=== PATIENT | male | born 1960 | race African-American/Black ===

== ENCOUNTER 2016-09-12 20:47 | Emergency (ER) | payer MEDICAID ==
[~2016-09-12] VITALS: Ht 180.3 cm; Wt 99.8 kg
[~2016-09-12 20:47] MED LIST: INSUINJ37 SUBCUT; INSUPOW XX; LORA-352 PO; MIRT15TA3 PO; OMEP20CA5 PO; ONGLYZA PO; PAR20T PO; ZIPR80CA8 PO
[2016-09-12 20:50] VITALS: BP 112/56
[2016-09-12 23:06] LABS: DEFINITIVE VIEW TRANSMISSION; Hemoglobin 17.2 g/dL (13.5-17.5); Monocytes # (auto) 0.5 uL
[2016-09-12 23:18] LABS: Albumin 4.1 g/dL (3.4-5.0); Anion Gap 13 (5-15); Aspartate Aminotransferase 46 U/L (15-37); BUN/Creatinine Ratio 10.9; Blood Urea Nitrogen 13 mg/dL (7-18); Calcium 8.7 mg/dL (8.5-10.1); Carbon Dioxide 19 mmol/L (21-32); Chloride 112 mmol/L (98-107); GFR African American 82 mL/min; GFR Non-African American 67 mL/min; Glucose 120 mg/dL (74-106); Potassium 4.4 mmol/L (3.5-5.1); Sodium 144 mmol/L (136-145)
[2016-09-12 23:21] LABS: Alkaline Phosphatase 92 U/L (45-117); Bilirubin, Total 0.3 mg/dL (0.2-1.0); Total Protein 8.6 g/dL (6.4-8.2)
[2016-09-12 23:28] LABS: Basophils # (auto) 0 uL; Basophils % (auto) 0.3 % (0.0-2.0); Eosinophils # (auto) 0 uL; Eosinophils % (auto) 0.4 % (0.0-7.0); Lymphocytes # (auto) 4.5 uL; Lymphocytes % (auto) 37.7 % (10.0-50.0); Mean Corpuscular Hgb Conc. 32.5 g/dL (32.0-36.0); Mean Corpuscular Volume 85.3 fL (80.0-100.0); Monocytes % (auto) 4.5 % (0.0-12.0); Neutrophils # (auto) 6.8 uL; Neutrophils % (auto) 57.1 % (37.0-80.0); Red Cell Distribution Width 13.5 % (11.6-16.0)
[2016-09-12 23:29] LABS: Hematocrit 52.4 % (41.0-53.0); Mean Corpuscular Hemoglobin 28.1 pg (28.0-32.0); Platelet Count (auto) 280 10^3/uL (140-450); White Blood Cell 11.9 10^3/uL (4.4-10.8)
[2016-09-12 23:44] LABS: Acetaminophen < 2.0 ug/mL (10-30)
== END 2016-09-12 23:44 | disposition left against medical advice (07) ==
LOC: ER 20:50
DX: F10.120 Alcohol abuse with intoxication, uncomplicated (principal); Z53.21 Procedure and treatment not carried out due to patient leaving prior to being seen by health care provider
CPT/HCPCS: 36415; 80053; 80320; 80329; 85025

== ENCOUNTER 2020-06-22 20:55 | Inpatient (IN) | payer MEDICAID ==
[~2020-06-22] VITALS: Ht 165.1 cm; Wt 73.1 kg
[~2020-06-22 20:55] MED LIST changes: -MIRT15TA3 PO; +MIRT1TAB38 PO; -OMEP20CA5 PO; +OMEP20CA74 PO
[2020-06-22] MEDS ORDERED: ACCU-CHEK COMFORT CURVE STRIP VI ONE (21:15)
[2020-06-22] MEDS ORDERED: LORazepam 2MG/ML-1ML VIAL IV ONE (22:00)
[2020-06-22 23:10] LABS: Urine Bacteria NONE SEEN /hpf (None Seen); Urine Blood Negative /uL (Negative); Urine Specific Gravity 1.024 (1.001-1.035); Urine WBC <1 /hpf (0 - 3)
[2020-06-22 23:23] LABS: Basophils # (auto) 0 10 ^3/uL (0-0.2); Basophils % (auto) 0.4 % (0.0-2.0); Eosinophils # (auto) 0.1 10 ^3/uL (0-0.8); Eosinophils % (auto) 0.5 % (0.0-7.0); Hemoglobin 13.9 g/dL (13.5-17.5); Lymphocytes # (auto) 1.4 10 ^3/uL (0.4-5.4); Lymphocytes % (auto) 14.7 % (10.0-50.0); Mean Corpuscular Hemoglobin 29.4 pg (28.0-32.0); Mean Corpuscular Volume 86.3 fL (80.0-100.0); Monocytes # (auto) 0.5 10 ^3/uL (0-1.3); Monocytes % (auto) 4.9 % (0.0-12.0); Neutrophils # (auto) 7.6 10 ^3/uL (1.6-8.6); Neutrophils % (auto) 79.5 % (37.0-80.0); Nucleated Red Blood Cells % 0.3 %; Platelet Count (auto) 246 10^3/uL (140-450); Red Blood Cells 4.75 10^6/uL (4.5-5.90); White Blood Cell 9.6 10^3/uL (4.4-10.8)
[2020-06-22 23:26] LABS: Albumin 4.3 g/dL (3.4-5.0); Blood Urea Nitrogen 21 mg/dL (7-18); Chloride 106 mmol/L (98-107); Potassium 4.5 mmol/L (3.5-5.1); Sodium 136 mmol/L (136-145)
[2020-06-22 23:28] LABS: Alcohol, Urine < 3.0 mg/dL (0-10); Amphetamine Screen, Urine NEGATIVE (NEGATIVE); Barbiturate Scree,Urine NEGATIVE (NEGATIVE); Benzodiazephine Screen, Urine NEGATIVE (NEGATIVE); Cannabinoid Screen, Urine NEGATIVE (NEGATIVE); Cocaine Screen, Urine NEGATIVE (NEGATIVE); Opiate Scree,Urine NEGATIVE (NEGATIVE); Phencyclidine Screen, Urine NEGATIVE (NEGATIVE)
[2020-06-22 23:29] LABS: Alanine Aminotransferase 43 U/L (16-61); Anion Gap 8 (5-15); Aspartate Aminotransferase 17 U/L (15-37); BUN/Creatinine Ratio 14.2; Carbon Dioxide 22 mmol/L (21-32); GFR African American 63 mL/min; GFR Non-African American 52 mL/min
[2020-06-22 23:32] LABS: Alkaline Phosphatase 104 U/L (45-117); Bilirubin, Total 0.4 mg/dL (0.2-1.0); Total Protein 7.5 g/dL (6.4-8.2)
[2020-06-22] MEDS ORDERED: levETIRAcetam 500 MG/5ML INJ IV ONE (23:40)
[2020-06-22 23:57] LABS: Glucose 425 mg/dL (74-106)
[2020-06-23] MEDS ORDERED: InsuLIN REG 1unit/0.01ml Soln (100units/ml) IV ONE (00:45)
[2020-06-23] MEDS ORDERED: HYDROcodone-ACET 5/325MG TAB PO PRN (03:00)
[2020-06-23] MEDS ORDERED: ACETAMINOPHEN 325 MG TAB PO PRN (03:00)
[2020-06-23] MEDS ORDERED: ONDANSETRON HCL 4 MG/2 ML VIAL IV PRN (03:00)
[2020-06-23] MEDS ORDERED: MORPHINE SULF INJ 2 MG/ML SYRINGE 1ML IV PRN (03:00)
[2020-06-23] MEDS ORDERED: DOCUSATE SOD 100 MG CAP PO PRN (03:00)
[2020-06-23] MEDS ORDERED: DEXTROSE (50%) 50ML SYRG IV PRN (03:00)
[2020-06-23] MEDS ORDERED: MORPHINE SULFATE 4 MG/ML SYR/VIAL IV PRN (03:00)
[2020-06-23] MEDS ORDERED: NITROGLYCERIN 0.4 MG SL TAB SL PRN (03:00)
[2020-06-23] MEDS ORDERED: LORazepam 2MG/ML-1ML VIAL IV PRN (03:00)
[2020-06-23] MEDS: SODIUM CHLOR 0.9% PF (SALINE LOCK) 10ML VIAL/SYR IV SCH ×3 (06:06→22:07)
[2020-06-23 06:40] LABS: Basophils # (auto) 0 10 ^3/uL (0-0.2); Basophils % (auto) 0.5 % (0.0-2.0); Eosinophils # (auto) 0.2 10 ^3/uL (0-0.8); Eosinophils % (auto) 2.8 % (0.0-7.0); Hematocrit 43.4 % (41.0-53.0); Hemoglobin 14.3 g/dL (13.5-17.5); Lymphocytes # (auto) 3.4 10 ^3/uL (0.4-5.4); Lymphocytes % (auto) 37.8 % (10.0-50.0); Mean Corpuscular Hemoglobin 28.7 pg (28.0-32.0); Mean Corpuscular Volume 86.9 fL (80.0-100.0); Monocytes # (auto) 0.9 10 ^3/uL (0-1.3); Monocytes % (auto) 10.3 % (0.0-12.0); Neutrophils # (auto) 4.3 10 ^3/uL (1.6-8.6); Neutrophils % (auto) 48.6 % (37.0-80.0); Nucleated Red Blood Cells % 0.1 %; Platelet Count (auto) 305 10^3/uL (140-450); Red Cell Distribution Width 14.1 % (11.8-14.3); White Blood Cell 8.9 10^3/uL (4.4-10.8)
[2020-06-23] MEDS: ACCU-CHEK COMFORT CURVE STRIP VI SCH ×4 (06:48→22:10)
[2020-06-23 06:54] LABS: Calcium 9.8 mg/dL (8.5-10.1); Potassium 3.5 mmol/L (3.5-5.1)
[2020-06-23 06:56] LABS: BUN/Creatinine Ratio 14.9
[2020-06-23] MEDS: INSULIN LANTUS (GLARGINE) 1 /0.01ml (100units/ml) SC SCH ×2 (07:25→22:27)
[2020-06-23] MEDS: InsuLIN REG 1unit/0.01ml Soln (100units/ml) SC SCH ×4 (07:35→22:27)
[2020-06-23] MEDS: HEPARIN SODIUM (PORCINE) 5000 UNITS/ML 1ML VIAL SC SCH ×2 (10:00→22:00)
[2020-06-23] MEDS ORDERED: ENOXAPARIN SOD 40 MG/0.4 ML SYRINGE SC SCH (10:00)
[2020-06-23] MEDS: ASCORBIC ACID 500 MG TAB PO SCH ×2 (10:42→22:10)
[2020-06-23] MEDS: FAMOTIDINE 20 MG TAB PO SCH ×2 (10:42→22:10)
[2020-06-23] MEDS: ZINC SULFATE 220mg CAP or TAB PO SCH (10:42)
[2020-06-23] MEDS: MULTIPLE VITAMIN TAB PO SCH (10:42)
[2020-06-23 10:44] VITALS: BP 124/72
[2020-06-23] MEDS ORDERED: GABA300C10 PO (11:44)
[2020-06-23] MEDS ORDERED: PIO30T PO (11:44)
[2020-06-23] MEDS ORDERED: ASPI-543 PO (11:44)
[2020-06-23] MEDS ORDERED: ATOR20TA PO (11:44)
[2020-06-23] MEDS ORDERED: GLIP10TA9 PO (11:44)
[2020-06-23] MEDS ORDERED: QUET200T4 PO (11:44)
[2020-06-23] MEDS ORDERED: BUPR100T14 PO (11:44)
[2020-06-23 12:41] VITALS: BP 140/91
[2020-06-23 16:08] VITALS: BP 133/69
[2020-06-23] MEDS: glipiZIDE 5 MG TAB PO SCH (16:41)
[2020-06-23 22:00] VITALS: BP 125/67
[2020-06-23] MEDS ORDERED: ZIPRASIDONE HCL 80 MG PO SCH (22:00)
[2020-06-23] MEDS: PIOGLITAZONE HYDROCHLORIDE 30 MG TAB PO SCH (22:00)
[2020-06-23] MEDS: ATORVASTATIN 20 MG TAB PO SCH (22:10)
[2020-06-23] MEDS: GABAPENTIN 300 MG CAP PO SCH (22:10)
[2020-06-23] MEDS: buPROPion HCL 100 MG TAB PO SCH (22:10)
[2020-06-23 22:17] LABS: Cholesterol 118 mg/dL (< 200); Triglycerides 63 mg/dL (< 150)
[2020-06-23 22:19] LABS: HDL Cholesterol 35 mg/dL (40-59); LDL Cholesterol 77 mg/dL (< 100)
[2020-06-23 23:13] LABS: Partial Thromboplastin Time 23.3 sec (23.0-31.2)
[2020-06-24] MEDS: SODIUM CHLOR 0.9% PF (SALINE LOCK) 10ML VIAL/SYR IV SCH ×3 (06:14→22:00)
[2020-06-24 06:18] LABS: Basophils # (auto) 0 10 ^3/uL (0-0.2); Basophils % (auto) 0.3 % (0.0-2.0); Eosinophils # (auto) 0.4 10 ^3/uL (0-0.8); Eosinophils % (auto) 5.1 % (0.0-7.0); Hematocrit 41.4 % (41.0-53.0); Hemoglobin 13.4 g/dL (13.5-17.5); Lymphocytes # (auto) 3.5 10 ^3/uL (0.4-5.4); Lymphocytes % (auto) 44.7 % (10.0-50.0); Mean Corpuscular Hemoglobin 28.5 pg (28.0-32.0); Mean Corpuscular Hgb Conc. 32.4 g/dL (32.0-36.0); Mean Corpuscular Volume 88.1 fL (80.0-100.0); Monocytes # (auto) 0.5 10 ^3/uL (0-1.3); Monocytes % (auto) 6.8 % (0.0-12.0); Neutrophils # (auto) 3.4 10 ^3/uL (1.6-8.6); Neutrophils % (auto) 43.1 % (37.0-80.0); Nucleated Red Blood Cells % 0.3 %; Platelet Count (auto) 285 10^3/uL (140-450); Red Cell Distribution Width 14.2 % (11.8-14.3); White Blood Cell 7.8 10^3/uL (4.4-10.8)
[2020-06-24] MEDS: buPROPion HCL 100 MG TAB PO SCH ×3 (06:26→22:19)
[2020-06-24] MEDS: ACCU-CHEK COMFORT CURVE STRIP VI SCH ×4 (06:26→22:00)
[2020-06-24] MEDS: glipiZIDE 5 MG TAB PO SCH ×2 (06:26→17:18)
[2020-06-24] MEDS: InsuLIN REG 1unit/0.01ml Soln (100units/ml) SC SCH ×4 (06:32→22:00)
[2020-06-24] MEDS: INSULIN LANTUS (GLARGINE) 1 /0.01ml (100units/ml) SC SCH ×2 (06:32→22:00)
[2020-06-24 06:34] LABS: Albumin 3.5 g/dL (3.4-5.0); Calcium 8.6 mg/dL (8.5-10.1); Potassium 3.5 mmol/L (3.5-5.1)
[2020-06-24 06:39] LABS: BUN/Creatinine Ratio 12.1; Bilirubin, Total 0.4 mg/dL (0.2-1.0); Total Protein 6.6 g/dL (6.4-8.2)
[2020-06-24 09:00] VITALS: BP 107/61
[2020-06-24] MEDS: ZINC SULFATE 220mg CAP or TAB PO SCH (10:00)
[2020-06-24] MEDS: ASCORBIC ACID 500 MG TAB PO SCH ×2 (10:00→22:19)
[2020-06-24] MEDS ORDERED: QUETIAPINE FUMERATE 300 MG PO SCH (10:00)
[2020-06-24] MEDS ORDERED: ARIP1TAB7 PO (10:33)
[2020-06-24] MEDS: ASPirin-EC 81 mg tab PO SCH (11:11)
[2020-06-24] MEDS: FAMOTIDINE 20 MG TAB PO SCH ×2 (11:11→22:20)
[2020-06-24] MEDS: GABAPENTIN 300 MG CAP PO SCH ×2 (11:11→22:20)
[2020-06-24] MEDS: MULTIPLE VITAMIN TAB PO SCH (11:12)
[2020-06-24] MEDS: QUETIAPINE FUMERATE 300 MG PO SCH (11:23)
[2020-06-24] MEDS: ZIPRASIDONE HCL 40 MG PO SCH ×2 (11:24→22:20)
[2020-06-24] MEDS: PIOGLITAZONE HYDROCHLORIDE 30 MG TAB PO SCH (11:24)
[2020-06-24] MEDS: HEPARIN SODIUM (PORCINE) 5000 UNITS/ML 1ML VIAL SC SCH ×2 (11:27→22:17)
[2020-06-24 11:39] LABS: Folate (Folic Acid) > 24.00 ng/mL (5.38-24)
[2020-06-24 13:00] VITALS: BP 126/76
[2020-06-24 17:00] VITALS: BP 143/81
[2020-06-24 22:00] VITALS: BP 106/62
[2020-06-24] MEDS: ATORVASTATIN 20 MG TAB PO SCH (22:20)
[2020-06-25 05:00] VITALS: BP 118/73
[2020-06-25] MEDS: buPROPion HCL 100 MG TAB PO SCH ×2 (06:30→14:24)
[2020-06-25] MEDS: SODIUM CHLOR 0.9% PF (SALINE LOCK) 10ML VIAL/SYR IV SCH ×2 (06:30→14:25)
[2020-06-25] MEDS: InsuLIN REG 1unit/0.01ml Soln (100units/ml) SC SCH ×2 (06:31→11:20)
[2020-06-25] MEDS: glipiZIDE 5 MG TAB PO SCH (06:31)
[2020-06-25] MEDS: INSULIN LANTUS (GLARGINE) 1 /0.01ml (100units/ml) SC SCH (06:32)
[2020-06-25] MEDS: ACCU-CHEK COMFORT CURVE STRIP VI SCH ×2 (06:33→11:20)
[2020-06-25 07:12] LABS: Hematocrit 41.6 % (41.0-53.0); Hemoglobin 13.6 g/dL (13.5-17.5); Mean Corpuscular Hemoglobin 28.7 pg (28.0-32.0); Mean Corpuscular Hgb Conc. 32.7 g/dL (32.0-36.0); Platelet Count (auto) 271 10^3/uL (140-450); Red Blood Cells 4.73 10^6/uL (4.5-5.90); White Blood Cell 5.5 10^3/uL (4.4-10.8)
[2020-06-25 07:15] LABS: Basophils % (manual) 0 (0.0-2.0); Blast Cells 0; Metamyelocytes % 0; Myelocytes % 0; Promyelocytes % 0; Reactive Lymphocytes 0
[2020-06-25 07:18] LABS: Potassium 3.8 mmol/L (3.5-5.1)
[2020-06-25 07:23] LABS: BUN/Creatinine Ratio 12.9; Calcium 8.5 mg/dL (8.5-10.1)
[2020-06-25 07:30] VITALS: BP 111/73
[2020-06-25] MEDS ORDERED: LIDOCAINE VISCOUS 2% 15ML UD MT ONE (08:00)
[2020-06-25] MEDS ORDERED: fentaNYL CITRATE 100 MCG/2 ML VL IV ONE (08:00)
[2020-06-25] MEDS ORDERED: MIDAZOLAM HCL 1MG/1ML-2 ML VIAL IV ONE (08:00)
[2020-06-25 08:48] LABS: Band Neutrophils % (manual) 1; Eosinophils % (manual) 12 (0-7); Lymphocytes % (manual) 60 (10.0-50.0); Monocytes % (manual) 5 (0-12)
[2020-06-25 09:54] VITALS: BP 111/73
[2020-06-25] MEDS ORDERED: ARIPIPRAZOLE 20 MG PO SCH (10:00)
[2020-06-25] MEDS: PIOGLITAZONE HYDROCHLORIDE 30 MG TAB PO SCH (11:00)
[2020-06-25] MEDS: ASCORBIC ACID 500 MG TAB PO SCH (11:00)
[2020-06-25] MEDS: MULTIPLE VITAMIN TAB PO SCH (11:00)
[2020-06-25] MEDS: FAMOTIDINE 20 MG TAB PO SCH (11:00)
[2020-06-25] MEDS: ZINC SULFATE 220mg CAP or TAB PO SCH (11:00)
[2020-06-25] MEDS: ASPirin-EC 81 mg tab PO SCH (11:01)
[2020-06-25] MEDS: QUETIAPINE FUMERATE 300 MG PO SCH (11:02)
[2020-06-25] MEDS: ZIPRASIDONE HCL 40 MG PO SCH (11:03)
[2020-06-25] MEDS: HEPARIN SODIUM (PORCINE) 5000 UNITS/ML 1ML VIAL SC SCH (11:06)
[2020-06-25] MEDS ORDERED: LEVE500T32 PO (11:09)
[2020-06-25] MEDS: GABAPENTIN 300 MG CAP PO SCH (11:16)
[2020-06-25 13:15] VITALS: BP 135/76
[2020-06-25 13:24] VITALS: BP 135/76
[2020-06-25 16:40] VITALS: BP 148/90
== END 2020-06-25 16:15 | disposition home or self-care (01) | DRG 53 ==
LOC: EDBD 20:55 → ER 20:58 → TELE 20:59 → TELE-CENTR 06-23 09:49
PROVIDERS: ADMIT Nurse Practitioner Family; ATTEND Internal Medicine
PROC: B24BZZ4 Ultrasonography of Heart with Aorta, Transesophageal (ICD-10-PCS; principal; 2020-06-25)
DX: G40.409 Other generalized epilepsy and epileptic syndromes, not intractable, without status epilepticus (principal); N17.0 Acute kidney failure with tubular necrosis; F20.9 Schizophrenia, unspecified; E11.65 Type 2 diabetes mellitus with hyperglycemia; E11.22 Type 2 diabetes mellitus with diabetic chronic kidney disease; E11.21 Type 2 diabetes mellitus with diabetic nephropathy; E11.40 Type 2 diabetes mellitus with diabetic neuropathy, unspecified; N18.9 Chronic kidney disease, unspecified; J45.909 Unspecified asthma, uncomplicated; F19.10 Other psychoactive substance abuse, uncomplicated; F17.210 Nicotine dependence, cigarettes, uncomplicated; F31.9 Bipolar disorder, unspecified; S00.93XA Contusion of unspecified part of head, initial encounter; D64.9 Anemia, unspecified; W06.XXXA Fall from bed, initial encounter; I12.9 Hypertensive chronic kidney disease with stage 1 through stage 4 chronic kidney disease, or unspecified chronic kidney disease; Y93.89 Activity, other specified; Y92.89 Other specified places as the place of occurrence of the external cause; Z79.4 Long term (current) use of insulin; Z79.82 Long term (current) use of aspirin; Z79.899 Other long term (current) drug therapy; Z83.3 Family history of diabetes mellitus; Z86.73 Personal history of transient ischemic attack (TIA), and cerebral infarction without residual deficits
CPT/HCPCS: 36415; 70450; 71045; 80048; 80053; 80061; 80307; 80320; 81001; 82607; 82746; 82962; 83036; 84443; 85007; 85025; 85027; 85610; 85730; 93005; 93312; 93886; 95819; 96365; 96372; 96375; 99152; A4565; G0378; J1815; J2250; J2405; J7060

== ENCOUNTER 2022-07-11 20:45 | Inpatient (IN) | payer MEDICAID ==
[~2022-07-11] VITALS: Ht 165.1 cm; Wt 60.0 kg
[~2022-07-11 20:45] MED LIST changes: +ARIP1TAB7 PO; +ASPI-543 PO; +ATOR20TA PO; +BUPR-160 PO; +GABA300C10 PO; +GLIP10TA9 PO; +LEVE500T32 PO; -LORA-352 PO; +LORA10TA6 PO; +PIO30T PO; +QUET200T4 PO; +ZIPR80CA37 PO; -ZIPR80CA8 PO
[2022-07-11 22:28] LABS: Basophils # (auto) 0 10 ^3/uL (0-0.2); Basophils % (auto) 0.6 % (0.0-2.0); Eosinophils # (auto) 0.1 10 ^3/uL (0-0.8); Eosinophils % (auto) 1.4 % (0.0-7.0); Hematocrit 40.4 % (41.0-53.0); Hemoglobin 13.3 g/dL (13.5-17.5); Lymphocytes # (auto) 1.3 10 ^3/uL (0.4-5.4); Lymphocytes % (auto) 16.1 % (10.0-50.0); Mean Corpuscular Hemoglobin 28.1 pg (28.0-32.0); Mean Corpuscular Hgb Conc. 32.8 g/dL (32.0-36.0); Mean Corpuscular Volume 85.8 fL (80.0-100.0); Monocytes # (auto) 0.5 10 ^3/uL (0-1.3); Monocytes % (auto) 6.4 % (0.0-12.0); Neutrophils # (auto) 6.1 10 ^3/uL (1.6-8.6); Neutrophils % (auto) 75.5 % (37.0-80.0); Nucleated Red Blood Cells % 0.2 %; Red Blood Cells 4.72 10^6/uL (4.5-5.90); Red Cell Distribution Width 13.9 % (11.8-14.3); White Blood Cell 8.1 10^3/uL (4.4-10.8)
[2022-07-11 22:43] LABS: Albumin 3.6 g/dL (3.4-5.0); Anion Gap 12 (5-15); Blood Alcohol < 3.0 mg/dL (0-5); Blood Urea Nitrogen 16 mg/dL (7-18); Calcium 8.5 mg/dL (8.5-10.1); Carbon Dioxide 18 mmol/L (21-32); Chloride 105 mmol/L (98-107); Sodium 135 mmol/L (136-145)
[2022-07-11 22:45] LABS: Alanine Aminotransferase 30 U/L (16-61); Aspartate Aminotransferase 11 U/L (15-37); Bilirubin, Total 0.2 mg/dL (0.2-1.0); GFR African American 62 mL/min; GFR Non-African American 51 mL/min; Total Protein 6.8 g/dL (6.4-8.2)
[2022-07-11 22:52] LABS: Alkaline Phosphatase 109 U/L (45-117)
[2022-07-11 22:56] LABS: BUN/Creatinine Ratio 10.8; Glucose 800 mg/dL (74-106)
[2022-07-12] MEDS ORDERED: LACTATED RINGER'S 1,800 ML IV ONE (00:15)
[2022-07-12] MEDS ORDERED: InsuLIN REG 1unit/0.01ml Soln (100units/ml) IV ONE (00:15)
[2022-07-12 03:39] LABS: Urine Bacteria NONE SEEN /hpf (None Seen); Urine Blood TRACE /uL (Negative); Urine Specific Gravity 1.025 (1.001-1.035); Urine WBC 1 /hpf (0 - 3)
[2022-07-12 03:52] LABS: Alcohol, Urine < 3.0 mg/dL (0-10); Amphetamine Screen, Urine NEGATIVE (NEGATIVE); Barbiturate Scree,Urine NEGATIVE (NEGATIVE); Benzodiazephine Screen, Urine NEGATIVE (NEGATIVE); Cannabinoid Screen, Urine POSITIVE (NEGATIVE); Cocaine Screen, Urine NEGATIVE (NEGATIVE); Opiate Scree,Urine NEGATIVE (NEGATIVE); Phencyclidine Screen, Urine NEGATIVE (NEGATIVE)
[2022-07-12] MEDS ORDERED: MORPHINE SULFATE INJ 2 MG/ml SYRG IV PRN (05:45)
[2022-07-12] MEDS ORDERED: NITROGLYCERIN 0.4 MG SL TAB SL PRN (05:45)
[2022-07-12] MEDS ORDERED: HYDROcodone-ACET 5/325MG TAB PO PRN (05:45)
[2022-07-12] MEDS ORDERED: DEXTROSE (50%) 50ML SYRG IV PRN (05:45)
[2022-07-12] MEDS ORDERED: SODIUM CHLORIDE 0.9% 1,000 ML IV SCH (05:45)
[2022-07-12] MEDS ORDERED: ONDANSETRON HCL 4 MG/2 ML VIAL IV PRN (05:45)
[2022-07-12] MEDS ORDERED: DOCUSATE SOD 100 MG CAP PO PRN (05:45)
[2022-07-12] MEDS ORDERED: ACETAMINOPHEN 325 MG TAB PO PRN (05:45)
[2022-07-12] MEDS: InsuLIN REG 1unit/0.01ml Soln (100units/ml) SC SCH ×3 (06:00→18:40)
[2022-07-12] MEDS: ACCU-CHEK COMFORT CURVE STRIP VI SCH ×3 (06:00→18:40)
[2022-07-12] MEDS ORDERED: INSULIN LANTUS (GLARGINE) 1 /0.01ml (100units/ml) SC SCH (07:00)
[2022-07-12 07:13] LABS: Basophils # (auto) 0.1 10 ^3/uL (0-0.2); Basophils % (auto) 0.9 % (0.0-2.0); Eosinophils # (auto) 0.1 10 ^3/uL (0-0.8); Eosinophils % (auto) 1.1 % (0.0-7.0); Hematocrit 38.4 % (41.0-53.0); Hemoglobin 12.8 g/dL (13.5-17.5); Lymphocytes # (auto) 2.4 10 ^3/uL (0.4-5.4); Lymphocytes % (auto) 26.3 % (10.0-50.0); Mean Corpuscular Hemoglobin 27.7 pg (28.0-32.0); Mean Corpuscular Hgb Conc. 33.3 g/dL (32.0-36.0); Mean Corpuscular Volume 83.1 fL (80.0-100.0); Monocytes # (auto) 0.5 10 ^3/uL (0-1.3); Monocytes % (auto) 5.2 % (0.0-12.0); Neutrophils # (auto) 6.1 10 ^3/uL (1.6-8.6); Neutrophils % (auto) 66.5 % (37.0-80.0); Nucleated Red Blood Cells % 0.1 %; Red Blood Cells 4.63 10^6/uL (4.5-5.90); Red Cell Distribution Width 13.7 % (11.8-14.3); White Blood Cell 9.2 10^3/uL (4.4-10.8)
[2022-07-12 07:27] LABS: Albumin 3.7 g/dL (3.4-5.0); BUN/Creatinine Ratio 13.6; Calcium 8.9 mg/dL (8.5-10.1); Potassium 3.1 mmol/L (3.5-5.1)
[2022-07-12 07:28] LABS: Bilirubin, Total 0.3 mg/dL (0.2-1.0); Total Protein 6.5 g/dL (6.4-8.2)
[2022-07-12] MEDS ORDERED: FAMOTIDINE (10MG/ML) 2ML VL IV SCH ×2 (10:00)
[2022-07-12] MEDS ORDERED: ASPirin 81 mg TAB PO SCH (10:00)
[2022-07-12] MEDS ORDERED: POTASSIUM CHL 10 Meq TABLET PO ONE (10:15)
[2022-07-12] MEDS ORDERED: PANTOPRAZOLE 40 MG TAB PO ONE (10:15)
[2022-07-12] MEDS ORDERED: DEXTROSE (50%) 50ML SYRG IV ONE (18:45)
[2022-07-13] MEDS: ACCU-CHEK COMFORT CURVE STRIP VI SCH ×2 (00:10→06:43)
[2022-07-13 04:37] LABS: Basophils # (auto) 0.1 10 ^3/uL (0-0.2); Eosinophils # (auto) 0.2 10 ^3/uL (0-0.8); Eosinophils % (auto) 2.2 % (0.0-7.0); Hematocrit 37.5 % (41.0-53.0); Hemoglobin 12.6 g/dL (13.5-17.5); Lymphocytes # (auto) 3.9 10 ^3/uL (0.4-5.4); Lymphocytes % (auto) 46.4 % (10.0-50.0); Mean Corpuscular Hgb Conc. 33.6 g/dL (32.0-36.0); Mean Corpuscular Volume 83.4 fL (80.0-100.0); Monocytes # (auto) 0.6 10 ^3/uL (0-1.3); Monocytes % (auto) 6.8 % (0.0-12.0); Neutrophils # (auto) 3.6 10 ^3/uL (1.6-8.6); Neutrophils % (auto) 43.6 % (37.0-80.0); Nucleated Red Blood Cells % 0.1 %; Red Cell Distribution Width 14.1 % (11.8-14.3); White Blood Cell 8.4 10^3/uL (4.4-10.8)
[2022-07-13 04:55] LABS: Potassium 3.5 mmol/L (3.5-5.1)
[2022-07-13 05:02] LABS: Albumin 3.2 g/dL (3.4-5.0); Bilirubin, Total 0.6 mg/dL (0.2-1.0); Calcium 8.7 mg/dL (8.5-10.1); Total Protein 5.8 g/dL (6.4-8.2)
[2022-07-13] MEDS: InsuLIN REG 1unit/0.01ml Soln (100units/ml) SC SCH ×2 (06:49)
[2022-07-13 10:00] VITALS: BP 168/91
[2022-07-13] MEDS ORDERED: PANTOPRAZOLE 40 MG TAB PO SCH (10:00)
[2022-07-13] MEDS ORDERED: ATORVASTATIN 20 MG TAB PO SCH (22:00)
== END 2022-07-13 11:19 | disposition left against medical advice (07) | DRG 53 ==
LOC: EDBD 20:45 → ER 20:45 → TELE 07-12 05:48
PROVIDERS: ADMIT Nurse Practitioner Family; ATTEND Family Medicine
DX: G40.909 Epilepsy, unspecified, not intractable, without status epilepticus (principal); E11.00 Type 2 diabetes mellitus with hyperosmolarity without nonketotic hyperglycemic-hyperosmolar coma (NKHHC); E11.22 Type 2 diabetes mellitus with diabetic chronic kidney disease; Z53.21 Procedure and treatment not carried out due to patient leaving prior to being seen by health care provider; E86.0 Dehydration; F17.210 Nicotine dependence, cigarettes, uncomplicated; Z20.822 Contact with and (suspected) exposure to COVID-19; F20.9 Schizophrenia, unspecified; F31.9 Bipolar disorder, unspecified; I12.9 Hypertensive chronic kidney disease with stage 1 through stage 4 chronic kidney disease, or unspecified chronic kidney disease; J45.909 Unspecified asthma, uncomplicated; N18.9 Chronic kidney disease, unspecified; Z79.82 Long term (current) use of aspirin; Z79.899 Other long term (current) drug therapy; Z83.3 Family history of diabetes mellitus; Z86.73 Personal history of transient ischemic attack (TIA), and cerebral infarction without residual deficits
CPT/HCPCS: 36415; 36600; 71045; 80053; 80307; 80320; 81001; 82010; 82542; 82805; 82962; 83880; 83930; 84484; 85025; 87426; 96361; 96372; 96374; G0378; J1815; J7060

== ENCOUNTER 2023-12-19 10:38 | Inpatient (IN) | payer MEDICAID ==
[~2023-12-19] VITALS: Ht 165.1 cm; Wt 60.8 kg
[2023-12-19] VITALS (14 sets, daily range): BP systolic 87–115; BP diastolic 48–67; PULSE 77–90; RESP 13–33; TEMP 98.1–100.3; O2SAT 86–98
[~2023-12-19 10:38] MED LIST changes: -ARIP1TAB7 PO; +ARIP20TA4 PO; -BUPR-160 PO; +BUPR-346 PO; +GABA-1250 PO; -GABA300C10 PO; -LEVE500T32 PO; +LEVE500T40 PO; -ZIPR80CA37 PO; +ZIPR80CA43 PO
[2023-12-19] MEDS: VANCOMYCIN 1GM/200ML 200 ML IV ONE (11:00)
[2023-12-19] MEDS: SODIUM CHLORIDE 0.9% 1,000 ML IV ONE ×2 (11:00→14:45)
[2023-12-19] MEDS: ONDANSETRON HCL 4 MG/2 ML VIAL IV ONE (11:00)
[2023-12-19] MEDS: IOHEXOL 350 MG/ML 100ML IJ ONE (11:26)
[2023-12-19] MEDS: NOREPINEPHRINE 8 MG/250ML KIT 250 ML IV SCH (12:15)
[2023-12-19] MEDS: NOREPINEPHRINE 8 MG/250ML KIT 250 ML IV ONE (12:16)
[2023-12-19 12:18] LABS: Basophils # (auto) 0 10 ^3/uL (0-0.2); Basophils % (auto) 0.1 % (0.0-2.0); Eosinophils # (auto) 0 10 ^3/uL (0-0.8); Eosinophils % (auto) 0.1 % (0.0-7.0); Hemoglobin 15.2 g/dL (13.5-17.5); Lymphocytes # (auto) 0.8 10 ^3/uL (0.4-5.4); Lymphocytes % (auto) 5.4 % (10.0-50.0); Mean Corpuscular Hemoglobin 27.7 pg (28.0-32.0); Mean Corpuscular Hgb Conc. 31.7 g/dL (32.0-36.0); Mean Corpuscular Volume 87.6 fL (80.0-100.0); Monocytes # (auto) 1.5 10 ^3/uL (0-1.3); Monocytes % (auto) 10.7 % (0.0-12.0); Neutrophils # (auto) 11.7 10 ^3/uL (1.6-8.6); Neutrophils % (auto) 83.7 % (37.0-80.0); Nucleated Red Blood Cells % 0.1 %; Red Blood Cells 5.48 10^6/uL (4.5-5.90); Red Cell Distribution Width 14.3 % (11.8-14.3)
[2023-12-19] MEDS: LIDOCAINE 2%HCL (LOCAL ANESTH.) INJ 10ml MDV ONE (12:46)
[2023-12-19 13:17] LABS: INR 1.17 (0.9-1.15); Partial Thromboplastin Time 25.6 SEC (24.5-34.5); Prothrombin Time 12.3 sec (9.3-11.8)
[2023-12-19 13:23] LABS: Alanine Aminotransferase 16 U/L (7-40); Albumin 3.2 g/dL (3.2-4.8); Alkaline Phosphatase 59 U/L (46-116); Anion Gap 12 (5-15); Aspartate Aminotransferase 15 U/L (13-40); Bilirubin, Total < 0.2 mg/dL (0.2-1.0); Blood Urea Nitrogen 34 mg/dL (9-23); Calcium 7.2 mg/dL (8.5-10.1); Carbon Dioxide 19 mmol/L (20-30); Chloride 111 mmol/L (98-107); Glucose 150 mg/dL (74-106); Magnesium 1.7 mg/dL (1.6-2.6); Potassium 4.5 mmol/L (3.5-5.1); Sodium 142 mmol/L (136-145); Total Protein 5.3 g/dL (5.7-8.2)
[2023-12-19] MEDS ORDERED: NITROGLYCERIN 0.4 MG SL TAB SL PRN ×2 (14:30→14:45)
[2023-12-19] MEDS ORDERED: ONDANSETRON HCL 4 MG/2 ML VIAL IV PRN ×2 (14:30→14:45)
[2023-12-19] MEDS ORDERED: SODIUM CHLORIDE 0.9% 1,000 ML IV ONE (14:30)
[2023-12-19] MEDS ORDERED: DEXTROSE (50%) 50ML SYRG IV PRN (14:30)
[2023-12-19] MEDS ORDERED: DOCUSATE SOD 100 MG CAP PO PRN ×2 (14:30→14:45)
[2023-12-19] MEDS ORDERED: MORPHINE SULFATE INJ 2 MG/ml SYRG IV PRN ×2 (14:30→14:45)
[2023-12-19 15:36] LABS: Lactic Acid w/Reflex 2.8 mmol/L (0.4-2.0)
[2023-12-19] MEDS: PANTOPRAZOLE 40 MG/10 ML VIAL INJ IV ONE (15:45)
[2023-12-19 16:08] LABS: Triglycerides 67 mg/dL (< 150)
[2023-12-19 16:09] LABS: LDL Cholesterol 51 mg/dL (< 100)
[2023-12-19 16:10] LABS: Cholesterol 116 mg/dL (< 200); HDL Cholesterol 48 mg/dL (40-59)
[2023-12-19] MEDS: SODIUM CHLORIDE 0.9% 1,000 ML IV SCH (16:15)
[2023-12-19] MEDS ORDERED: InsuLIN REG 1unit/0.01ml Soln (100units/ml) SC SCH ×2 (17:00)
[2023-12-19] MEDS ORDERED: ACCU-CHEK COMFORT CURVE STRIP VI SCH ×2 (17:00)
[2023-12-19] MEDS: ACCU-CHEK COMFORT CURVE STRIP VI SCH (18:00)
[2023-12-19] MEDS: InsuLIN REG 1unit/0.01ml Soln (100units/ml) SC SCH (18:00)
[2023-12-19 18:54] LABS: Amphetamine Screen, Urine Neg (NEGATIVE); Barbiturate Scree,Urine Neg (NEGATIVE); Benzodiazephine Screen, Urine Neg (NEGATIVE); Cannabinoid Screen, Urine Pos (NEGATIVE); Cocaine Screen, Urine Neg (NEGATIVE); Opiate Scree,Urine Neg (NEGATIVE); Phencyclidine Screen, Urine Neg (NEGATIVE)
[2023-12-19 19:09] LABS: Urine Bacteria FEW /hpf (None Seen); Urine Blood 1+ /uL (Negative); Urine Clarity Clear (Clear); Urine Color Yellow (Yellow); Urine Mucus FEW (None Seen); Urine Protein, UAD 1+ (Negative); Urine Specific Gravity 1.048 (1.001-1.035); Urine Urobilinogen 2 mg/dL (Negative); Urine WBC 23 /hpf (0 - 3)
[2023-12-19] MEDS ORDERED: metroNIDAZOLE 500MG/100ML 100 ML IV SCH (22:00)
[2023-12-19] MEDS: metroNIDAZOLE 500MG/100ML 100 ML IV SCH (22:13)
[2023-12-20] VITALS (78 sets, daily range): BP systolic 91–161; BP diastolic 42–74; PULSE 60–93; RESP 10–26; TEMP 98.4–99.1; O2SAT 40–100
[2023-12-20] MEDS: DEXTROSE (50%) 50ML SYRG IV PRN (00:33)
[2023-12-20 05:11] LABS: Basophils # (auto) 0 10 ^3/uL (0-0.2); Basophils % (auto) 0.2 % (0.0-2.0); Eosinophils # (auto) 0 10 ^3/uL (0-0.8); Eosinophils % (auto) 0.4 % (0.0-7.0); Hematocrit 42.2 % (41.0-53.0); Lymphocytes # (auto) 1.5 10 ^3/uL (0.4-5.4); Lymphocytes % (auto) 18.6 % (10.0-50.0); Mean Corpuscular Hemoglobin 28.2 pg (28.0-32.0); Mean Corpuscular Hgb Conc. 33.3 g/dL (32.0-36.0); Mean Corpuscular Volume 84.7 fL (80.0-100.0); Monocytes # (auto) 1.1 10 ^3/uL (0-1.3); Monocytes % (auto) 13.5 % (0.0-12.0); Neutrophils # (auto) 5.4 10 ^3/uL (1.6-8.6); Neutrophils % (auto) 67.3 % (37.0-80.0); Nucleated Red Blood Cells % 0.1 %; Red Blood Cells 4.98 10^6/uL (4.5-5.90)
[2023-12-20 05:27] LABS: Alanine Aminotransferase 23 U/L (7-40); Alkaline Phosphatase 72 U/L (46-116); Anion Gap 10 (5-15); Aspartate Aminotransferase 36 U/L (13-40); BUN/Creatinine Ratio 12.4 (10.0-20.0); Calcium 8.7 mg/dL (8.5-10.1); Carbon Dioxide 26 mmol/L (20-30); Chloride 104 mmol/L (98-107); Glucose 80 mg/dL (74-106); Potassium 4.7 mmol/L (3.5-5.1); Sodium 140 mmol/L (136-145)
[2023-12-20 05:28] LABS: Bilirubin, Total 0.2 mg/dL (0.2-1.0)
[2023-12-20 05:33] LABS: Blood Urea Nitrogen 56 mg/dL (9-23)
[2023-12-20] MEDS ORDERED: cefTRIAXone 1GM/50ML D5W 50 ML IV SCH (09:00)
[2023-12-20] MEDS: cefTRIAXone 1GM/50ML D5W 50 ML IV SCH (09:35)
[2023-12-20] MEDS: PANTOPRAZOLE 40 MG/10 ML VIAL INJ IV SCH (09:35)
[2023-12-20] MEDS: GASTROGRAFIN 120 ML SOL ONE (09:54)
[2023-12-20] MEDS: D5W/SOD CHLO 0.9% 1,000 ML IV SCH (11:22)
[2023-12-20] MEDS: LACTATED RINGER'S 1,000 ML IV ONE (11:32)
[2023-12-20 11:48] LABS: Basophils # (auto) 0 10 ^3/uL (0-0.2); Basophils % (auto) 0.2 % (0.0-2.0); Eosinophils # (auto) 0.1 10 ^3/uL (0-0.8); Eosinophils % (auto) 1.1 % (0.0-7.0); Hematocrit 43.5 % (41.0-53.0); Hemoglobin 13.9 g/dL (13.5-17.5); Lymphocytes # (auto) 1.3 10 ^3/uL (0.4-5.4); Lymphocytes % (auto) 16.5 % (10.0-50.0); Mean Corpuscular Hemoglobin 27.5 pg (28.0-32.0); Mean Corpuscular Hgb Conc. 31.9 g/dL (32.0-36.0); Mean Corpuscular Volume 86.2 fL (80.0-100.0); Monocytes # (auto) 0.9 10 ^3/uL (0-1.3); Monocytes % (auto) 10.6 % (0.0-12.0); Neutrophils # (auto) 5.8 10 ^3/uL (1.6-8.6); Neutrophils % (auto) 71.6 % (37.0-80.0); Nucleated Red Blood Cells % 0.1 %; Red Blood Cells 5.04 10^6/uL (4.5-5.90); Red Cell Distribution Width 14.2 % (11.8-14.3); White Blood Cell 8.1 10^3/uL (4.4-10.8)
[2023-12-20] MEDS: SODIUM CHLORIDE 0.9% 1,000 ML IV ONE (17:12)
[2023-12-20 21:55] LABS: Potassium 4.5 mmol/L (3.5-5.1)
[2023-12-20 22:01] LABS: Magnesium 2.4 mg/dL (1.6-2.6)
[2023-12-20 22:03] LABS: Phosphorus 4.3 mg/dL (2.4-5.1)
[2023-12-21] VITALS (58 sets, daily range): BP systolic 82–150; BP diastolic 40–102; PULSE 61–80; RESP 11–32; TEMP 98–98.6; O2SAT 60–100
[2023-12-21 05:39] LABS: Potassium 4.4 mmol/L (3.5-5.1)
[2023-12-21 05:40] LABS: Anion Gap 7 (5-15); Calcium 7.9 mg/dL (8.7-10.4); Carbon Dioxide 21 mmol/L (20-30)
[2023-12-21 05:45] LABS: BUN/Creatinine Ratio 14.9 (10.0-20.0); Glucose 163 mg/dL (74-106)
[2023-12-21 06:23] LABS: Blood Urea Nitrogen 30 mg/dL (9-23); Chloride 120 mmol/L (98-107); Sodium 148 mmol/L (136-145)
[2023-12-21] MEDS: SOD CHL 0.45% 1,000 ML IV SCH (09:38)
[2023-12-21] MEDS: NOREPINEPHRINE 8 MG/250ML KIT 250 ML IV ONE ×2 (10:00)
[2023-12-21] MEDS: Quetiapine Fumerate (Seroquel Xr) 300 MG PO SCH (10:00)
[2023-12-21] MEDS: IPRATROPIUM BROM 0.5 MG/2.5ML INH SOL NEB PRN (16:12)
[2023-12-21] MEDS: ALBUTEROL SULF 2.5 MG/0.5ML(0.5%) NEB SOLN NEB PRN (16:12)
[2023-12-22] VITALS (9 sets, daily range): BP systolic 126–151; BP diastolic 56–87; PULSE 63–72; RESP 14–19; TEMP 36.9; O2SAT 95–99
[2023-12-22 11:45] LABS: Chloride 113 mmol/L (98-107); Potassium 4.9 mmol/L (3.5-5.1); Sodium 137 mmol/L (136-145)
[2023-12-22 11:46] LABS: Calcium 7.9 mg/dL (8.5-10.1); Carbon Dioxide 21 mmol/L (20-30)
[2023-12-22 11:47] LABS: Anion Gap 3 (5-15)
[2023-12-22 11:51] LABS: BUN/Creatinine Ratio 6.8 (10.0-20.0); Blood Urea Nitrogen 10 mg/dL (9-23)
[2023-12-22 11:54] LABS: Glucose 333 mg/dL (74-106)
== END 2023-12-22 19:20 | disposition hospice, home (50) | DRG 720 ==
LOC: EDBD 10:38 → ER 10:38 → TELE 14:23 → DOU IN ICU 18:31 → ICU CENTRL 20:45 → TELE-CENTR 12-21 12:10 → CENTRAL 12-22 00:58
PROVIDERS: ADMIT Nurse Practitioner Family; ATTEND Nurse Practitioner Acute Care
PROC: 06HY33Z Insertion of Infusion Device into Lower Vein, Percutaneous Approach (ICD-10-PCS; principal; 2023-12-19)
PROC: 0D9670Z Drainage of Stomach with Drainage Device, Via Natural or Artificial Opening (ICD-10-PCS; 2023-12-19)
DX: A41.9 Sepsis, unspecified organism (principal); N17.0 Acute kidney failure with tubular necrosis; J96.00 Acute respiratory failure, unspecified whether with hypoxia or hypercapnia; R65.21 Severe sepsis with septic shock; R57.1 Hypovolemic shock; G93.41 Metabolic encephalopathy; K56.609 Unspecified intestinal obstruction, unspecified as to partial versus complete obstruction; E11.22 Type 2 diabetes mellitus with diabetic chronic kidney disease; E11.65 Type 2 diabetes mellitus with hyperglycemia; F20.9 Schizophrenia, unspecified; I12.9 Hypertensive chronic kidney disease with stage 1 through stage 4 chronic kidney disease, or unspecified chronic kidney disease; N18.9 Chronic kidney disease, unspecified; J45.909 Unspecified asthma, uncomplicated; F32.A Depression, unspecified; F17.210 Nicotine dependence, cigarettes, uncomplicated; E79.0 Hyperuricemia without signs of inflammatory arthritis and tophaceous disease; F99 Mental disorder, not otherwise specified; E87.0 Hyperosmolality and hypernatremia; Z81.1 Family history of alcohol abuse and dependence; Z83.3 Family history of diabetes mellitus; Z92.29 Personal history of other drug therapy; Z79.4 Long term (current) use of insulin
CPT/HCPCS: 36415; 36600; 70450; 71045; 71260; 74177; 74250; 76937; 80048; 80053; 80061; 80307; 81001; 82140; 82805; 82962; 83036; 83605; 83735; 83880; 84100; 84132; 84443; 84484; 85025; 85379; 85610; 85730; 86850; 86900; 86901; 87040; 87081; 87086; 87088; 87186; 94640; 96365; 99291; C9113; G0378; J1815; J2001; J2405; J3490; J7042

== ENCOUNTER 2024-06-28 08:04 | Inpatient (IN) | payer MEDICAID ==
[2024-06-28] VITALS (8 sets, daily range): BP systolic 75–139; BP diastolic 44–69; PULSE 70–107; RESP 18–30; O2SAT 95–100
[~2024-06-28] VITALS: Ht 167.6 cm; Wt 98.6 kg
[~2024-06-28 08:04] MED LIST changes: +ARIP10TA29 PO; +INSU1INJ19 SC; +METF-1145 PO; +ZIPR80CA PO
[2024-06-28] MEDS: ROCURONIUM 10MG/ML 10ML VIAL IV ONE ×2 (08:27→09:17)
[2024-06-28] MEDS: MIDAZOLAM HCL 5 MG/ML-1ML VIAL IV ONE ×2 (08:27→10:15)
[2024-06-28] MEDS: PROPOFOL 100 ML IV SCH (08:30)
--- NOTE | 2024-06-28 08:36 | ED.PDOC ---
Altered Mental Status HPI Comments 64 year old male GLADYS presents to the ED with chief complaint of ALOC. EMS reports patient had been seen by family shaking today, but still A/O x4 when they arrived on scene. EMS relays patient had what appeared to be seizure-like activity and he progressively became less and less alert, becoming completely unresponsive by the time he arrived to the ED. EMS states patient has history of DM and supposed take Insulin and Metformin, however, his blood glucose level read "High." Patient unable to answer questions at this time due to being unresponsive. Time Seen by MD: 08:31 Primary Care Provider: NONE Reviewed Notes: Nurses Notes, Sharepoint Consultant Notes, Medications, Allergies Allergies: Coded Allergies: NO KNOWN ALLERGIES (Unverified , 08/29/13) Home Meds Active Scripts Levetiracetam (Keppra) 500 Mg Tab, 1 TAB PO BID, #60 TAB 0 Refills Prov:FREDDY OLIVIER MD 06/25/20 Reported Medications Aripiprazole (Abilify) 20 Mg Tab, 1 TAB PO DAILY, #30 TAB 1 Refill 06/24/20 Atorvastatin Calcium (Lipitor) 20 Mg Tab, 1 TAB PO DAILY, #90 TAB 1 Refill 06/23/20 Bupropion Hcl (Bupropion Hcl) 100 Mg Tab, 150 MG PO BID for 30 Days, MG 06/23/20 Glipizide (Glipizide) 10 Mg Tab, 10 MG PO BID for 30 Days, MG 06/23/20 Pioglitazone Hydrochloride (ACTOS TABLET) 30 Mg Tb, 30 MG PO BID, TAB 06/23/20 Quetiapine Fumerate (Seroquel Xr) 200 Mg Tab, 300 MG PO DAILY for 30 Days, MG 06/23/20 Gabapentin (Gabapentin) 300 Mg Cap, 300 MG PO BID for 30 Days, MG 06/23/20 Aspirin (Aspir-Low) 81 Mg Tab, 81 MG PO DAILY for 30 Days, MG 06/23/20 Mirtazapine (Mirtazapine Oral Disintegrating Tablet) 15 Mg Tab, 1 TAB PO QPM, #30 TAB 3 Refills 09/26/14 Omeprazole (PRILOSEC) 20 Mg Cap, 20 MG PO DAILY, CAP 09/26/14 Insulin Glargine (Lantus Solostar) Solostar Inj, 20 UNIT SUBCUT QPM, #15 ML 5 Refills 09/26/14 Insulin (Insulin Human) Human Pow, 1 XX, POW 08/29/13 Paroxetine (PAXIL TABLET) 20 Mg Tb, 20 MG PO DAILY 08/29/13 [Onglyza] No Conflict Check, 5 MG PO DAILY 08/29/13 Loratadine (Loratadine) 10 Mg Tab, 10 MG PO DAILY, TAB 08/29/13 Ziprasidone Hydrochloride (Geodon) 80 Mg Cap, 80 MG PO BID, CAP 08/29/13 Information Source: Emergency Med Personnel Mode of Arrival: EMS Severity: Severe, Unresponsive Timing: Hours Duration: Since onset Prehospital treatment: None Quality: Decreased Alertness, Change in Behavior Recent: None History of: Diabetes Past Medical History PAST MEDICAL HISTORY: Asthma, CKF, Depression, DM, HTN, Liver, Schizophrenia, Seizures Surgical History: Unknown Family History Family History: Reviewed,noncontributory to illness, Unknown Social History Smoker: Cigarettes, Greater Than 1 Pack/Day Alcohol: Other Drugs: Marijuana Lives In: Home Unable to Obtain due to: Altered Mental Status All Other Systems: Reviewed and Negative Physical Exam General Appearance: Other (Patient unresponsive.) HEENT: Normal ENT Inspection, Pharynx Normal, TMs Normal Neck: Full Range of Motion, Non-Tender, Normal, Normal Inspection Respiratory: Chest Non-Tender, Lungs Clear, No Accessory Muscle Use, No Respiratory Distress, Other (Gurgling breath sounds) Cardiovascular: No Edema, No JVD, No Murmur, No Gallop, Normal Peripheral Pulses, Tachycardia Breast Exam: Deferred Gastrointestinal: No Organomegaly, Non Tender, No Pulsatile Mass, Normal Bowel Sounds, Soft Genitalia: Deferred Pelvic: Deferred Rectal: Deferred Extremities: No calf tenderness, Normal capillary refill, Normal inspection, Normal range of motion, Non-tender, No pedal edema Musculoskeletal : Apperance: Normal Neurologic: No Motor Deficits, Normal Affect, Normal Mood, No Sensory Deficits Cerebellar Function: Normal Reflexes: Normal Skin: Dry, Normal Color, Warm Lymphatic: No Adenopathy Was a procedure done? Was a procedure done?: Yes Sedation Sedation?: Yes Informed consent obtained: No Sedation start time: 08:25 Sedation end time: 08:35 Sedation total time: 10 minutes Central Line Recorder of insertion practice: Accounting Manager Occupation of document review attorney: Attending Physician Indication: Other Room prepared for procedure: Yes Accounting Manager performed hand hygien: Yes Maximal sterile barrier precau: Mask/Eye shield, Sterile gown, Cap, Sterlie gloves, Large sterlie drape Skin Preparation: Chlorhexidine gluconate Skin preparation completely dr: Yes Insertion site: Right, Femoral Central line catheter type: [id number] dialysis Number of lumens: 3 Post Assessment: Chest X-Ray, Proper placement Informed consent obtained: No Risks/benefits/alt described: No Intubation Indication: Respiratory Insufficiency, Altered Mental Status, Airway Protection Prep: Preoxygenation Pretreated with: Sedation (100mg Rocuronium, 10mg Versed) Intubation Approach: Orotracheal Intubation size: cm (8.0) Informed consent obtained: No Risks/benefits/alt described: No Differential Diagnosis (ALOC) Differential Diagnosis: Dehydration, DKA, Encephalopathy, Hypoxemia, Closed Head Injury, Mass Lesion, ETOH Intoxication, Renal Failure X-Ray, Labs, Meds, VS Vital Signs Date Time Temp Pulse Resp B/P (MAP) Pulse Ox O2 Delivery O2 Flow Rate FiO2 06/28/24 10:52 82 18 112/46 (68) 92 50 06/28/24 10:15 116/49 06/28/24 10:15 116/49 06/28/24 10:00 101 14 155/68 (97) 99 06/28/24 09:00 88 14 114/47 (69) 99 06/28/24 08:52 86 14 122/64 (83) 91 100 06/28/24 08:42 84 06/28/24 08:35 108 32 204/118 (146) 99 06/28/24 08:30 122/64 06/28/24 08:29 107 30 98 Mechanical Ventilator+ 100 100 06/28/24 08:29 96.2 115 8 160/71 (100) 97 96.2 06/28/24 08:27 160/71 06/28/24 08:11 109 Lab Test 06/28/24 11:23 06/28/24 10:56 06/28/24 10:43 06/28/24 09:28 Range/Units Troponin I High Sensitivity Pending Urine Color Light-yellow Yellow Urine Clarity Clear Clear Urine pH 5.0 5.0-9.0 Urine Specific [place] 1.025 1.001-1.035 Urine Protein Negative Negative Urine Ketones Negative Negative Urine Blood Negative Negative /uL Urine Nitrite Negative Negative Urine Bilirubin Negative Negative Urine Urobilinogen Normal Negative mg/dL Urine Leukocyte Esterase Trace Negative /uL Urine RBC 2 0 - 3 /hpf Urine WBC 7 0 - 3 /hpf Urine Squamous Epithelial Cells None seen <5 /hpf Urine Bacteria None seen None Seen /hpf Urine Glucose 4+ H Normal mg/dL Urine Opiates Screen Neg NEGATIVE Urine Fentanyl Screen Neg NEGATIVE Urine Barbiturates Screen Neg NEGATIVE Urine Phencyclidine Screen Neg NEGATIVE Urine Amphetamines Screen Neg NEGATIVE Urine Benzodiazepines Screen Pos NEGATIVE Urine Cocaine Screen Neg NEGATIVE Urine Cannabinoids Screen Pos NEGATIVE Blood Gas Specimen Type Arterial Blood Gas Sample Site Right radial Blood Gas Patient Temperature 37.0 Arterial Blood Date Drawn [id number] Arterial Blood pH 7.169 *L 7.350-7.450 Arterial Blood Partial Pressure CO2 69.2 *H 35.0-48.0 mmHg Arterial Blood Partial Pressure O2 361.7 *H 83.0-108.0 mmHg Arterial Blood HCO3 24.6 21.0-28.0 mmol/L Arterial Blood Oxygen Saturation 99.7 H 94.0-98.0 % Arterial Blood Base Excess -5.2 L -2.0-3.0 mmol/L Arterial Blood Oxyhemoglobin 96.8 94.0-98.0 % Arterial Blood Carboxyhemoglobin 2.2 H 0.5-1.5 % Arterial Blood Methemoglobin 0.7 0.0-1.5 % Adama Test Modified Blood Gas Total Hemoglobin 13.60 13.5-17.5 g/dL Blood Gas Set Respiration Rate 14.0 Blood Gas Modality Vent - ac FiO2 % 100.0 Blood Gas Tidal Volume 400.0 Blood Gas PEEP or CPAP 5.0 Blood Gas Critical Value Read Back Yes Blood Gas Notified Whom Dr сергей keller Blood Gas Notified Time [id number] Blood Gas Notified By Processing Archivist emilia junior Lactic Acid Level 1.5 0.4-2.0 mmol/L Test 06/28/24 09:24 Range/Units White Blood Count 12.1 H 4.4-10.8 10^3/uL Red Blood Count 4.44 L 4.5-5.90 10^6/uL Hemoglobin 13.1 L 13.5-17.5 g/dL Hematocrit 41.4 41.0-53.0 % Mean Corpuscular Volume 93.2 80.0-100.0 fL Mean Corpuscular Hemoglobin 29.5 28.0-32.0 pg Mean Corpuscular Hemoglobin Concent 31.6 L 32.0-36.0 g/dL Red Cell Distribution Width 14.6 H 11.8-14.3 % Platelet Count 305 140-450 10^3/uL Mean Platelet Volume 9.4 6.9-10.8 fL Neutrophils (%) (Auto) 83.6 H 37.0-80.0 % Lymphocytes (%) (Auto) 9.1 L 10.0-50.0 % Monocytes (%) (Auto) 6.7 0.0-12.0 % Eosinophils (%) (Auto) 0.3 0.0-7.0 % Basophils (%) (Auto) 0.3 0.0-2.0 % Neutrophils # (Auto) 10.1 H 1.6-8.6 10 ^3/uL Lymphocytes # (Auto) 1.1 0.4-5.4 10 ^3/uL Monocytes # (Auto) 0.8 0-1.3 10 ^3/uL Eosinophils # (Auto) 0 0-0.8 10 ^3/uL Basophils # (Auto) 0 0-0.2 10 ^3/uL Nucleated Red Blood Cells 0.1 % Sodium Level 133 L 136-145 mmol/L Potassium Level 7.9 *H 3.5-5.1 mmol/L Chloride Level 102 98-107 mmol/L Carbon Dioxide Level 27 20-31 mmol/L Anion Gap 4 L 5-15 Blood Urea Nitrogen 28 H 9-23 mg/dL Creatinine 2.15 H 0.700-1.30 mg/dL Glomerular Filtration Rate Calc 34 >90 mL/min BUN/Creatinine Ratio 13.0 10.0-20.0 Serum Glucose 1078 *H 74-106 mg/dL Calcium Level 9.8 8.7-10.4 mg/dL Total Bilirubin < 0.2 L 0.2-1.0 mg/dL Aspartate Amino Transferase (AST) 214 H 13-40 U/L Alanine Aminotransferase (ALT) 92 H 7-40 U/L Alkaline Phosphatase 198 H 46-116 U/L Troponin I High Sensitivity 7 </=54 ng/L Total Protein 7.6 5.7-8.2 g/dL Albumin 4.6 3.2-4.8 g/dL Plasma/Serum Blood Alcohol < 3.0 <10 mg/dL Current Medications Medications (Trade) Dose Ordered Sig/Kandi Route Start Time Stop Time Status Last Admin Propofol 100 ml @ 2.04 mls/hr Q24H IV 06/28/24 09:15 06/28/24 08:30 Rocuronium [place] 100 mg ONCE ONCE IV 06/28/24 09:15 06/28/24 09:16 DC 06/28/24 08:27 Midazolam HCl (Versed Injection) 10 mg ONCE ONCE IV 06/28/24 09:15 06/28/24 09:16 DC 06/28/24 08:27 Calcium Gluconate/ Sodium Chloride 50 ml @ 100 mls/hr Q30M IV 06/28/24 10:45 06/28/24 11:44 DC 06/28/24 11:42 Sodium Bicarbonate 100 ml ONCE ONCE IV 06/28/24 10:45 06/28/24 11:07 DC 06/28/24 11:42 Insulin Human Regular (InsuLIN R) 10 units ONCE ONCE IV 06/28/24 10:45 06/28/24 11:06 DC 06/28/24 11:40 Midazolam HCl (Versed Injection) 10 mg ONCE ONCE IV 06/28/24 10:45 06/28/24 10:46 DC 06/28/24 10:15 Midazolam HCl 50 ml @ 1 mls/hr Q24H IV 06/28/24 10:45 06/28/24 10:15 Insulin Glargine (Lantus) 15 units ONCE ONCE SC 06/28/24 11:00 06/28/24 11:01 DC 06/28/24 11:41 Chest XR: FINDINGS: Lines and tubes: ET at the andrea, consider retraction by 3 cm. NG in the stomach. Cardiomediastinal silhouette: normal Pulmonary vasculature: normal Lung expansion: low. Lung airspace: normal Lung interstitium: normal Pleura: normal Pneumothorax: no Bones: Unremarkable Other: no IMPRESSION: ET at the andrea, consider retraction by [address] Head: FINDINGS: Encephalomalacia in the right parietal and left occipital lobe. There is sulcal and ventricular prominence. The brain otherwise shows normal morphology and valverde-white matter differentiation, without intracranial hemorrhage, extra-axial fluid collection, mass effect or acute large vessel infarct. The basal cisterns are patent. The skull and visible facial bones are intact. The paranasal sinuses, mastoid air cells and middle ear cavities are well-aerated. The soft tissues of the scalp are unremarkable. 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 No acute intracranial abnormality. Images Reviewed?: Images reviewed and evaluated by me Time of 1ST Reevaluation: 09:31 Reevaluation 1ST: Unchanged Patient Education/Counseling: Pt Unresponsive Family Education/Counseling: No Family Present Departure 1 Departure Time of Disposition: 11:55 (Patient presented acutely altered with hyperglyce becca and concern for seizure-like activity. Patient was emergently intubated central line placed started on fluids and antiepileptics. Patient was given calcium emergently for hyperkalemia. Patient was started on insulin insulin drip for hyperglycemia. Patient is still acutely ill we will admit patient to the ICU.) Impression: Primary Impression: Metabolic encephalopathy Additional Impressions: Altered mental status Qualified Codes: R40.0 - Somnolence Acute hypercapnic respiratory failure Hyperosmolar hyperglycemic state (HHS) Disposition: ADMITTED INPATIENT Admit to: ICU Condition: Critical Critical Care Note Critical Care Time?: Yes Critical care comment: Acute hypercapnic respiratory distress Authorized and Performed by: Delroy Keller MD Total critical care time: Approximately 88 minutes Due to a high probability of clinically significant, life threatening deterioration, the patient required my highest level of preparedness to intervene emergently and I personally spent this critical care time directly and personally managing the patient. This critical care time included obtaining a history; examining the patient; pulse oximetry; ordering and review of studies; arranging urgent treatment with development of a management plan; evaluation of patient's response to treatment; frequent reassessment; and, discussions with other providers. This critical care time was performed to assess and manage the high probability of imminent, life-threatening deterioration that could result in multi-organ failure. It was exclusive of separately billable procedures and treating other patients and teaching time. Please see my other sections and the rest of the note for further information on patient assessment and treatment. Stability Stability form required: No Heart Score Heart Score: Heart Score Response (Comments) Value History N/A 0 EKG N/A 0 Age N/A 0 Risk Factors N/A 0 Troponin N/A 0 Total 0 I personally scribed for DELROY KELLER MD ([email or web address]) on 06/28/24 at 08:36. Electronically submitted by Mono Wallace ([email or web address]). I personally scribed for DELROY KELLER MD ([email or web address]) on 06/28/24 at 09:47. Electronically submitted by Mono Wallace ([email or web address]). I personally scribed for DELROY KELLER MD ([email or web address]) on 06/28/24 at 10:36. Electronically submitted by Mono Wallace ([email or web address]). DELROY KELLER MD Jun 28, 2024 08:36
[2024-06-28] MEDS: MIDAZOLAM HCL 5 MG/ML-1ML VIAL ONE ×2 (09:16→10:43)
[2024-06-28] MEDS: PROPOFOL 100 ML IV ONE (09:17)
--- NOTE | 2024-06-28 09:18 | DVH ---
XY CHEST PORTABLE, HISTORY: VERIFY NGT AND ETT PLACEMENT COMPARISON: XY CHEST XRAY 1 VIEW on DOS: 12/19/23, CHEST XRAY 1 VIEW on DOS: 07/12/22, CHEST PORTABLE o n DOS: 06/25/20 XY CHEST XRAY 1 VIEW on DOS: 12/19/23, CHEST XRAY 1 VIEW on DOS: 07/12/22, CHEST PORTABLE on DOS: 06/25 TECHNICAL DATA: 1 view of the chest was obtained. FINDINGS: Lines and tubes: ET at the andrea, consider retraction by 3 cm. NG in the stomach. Cardiomediastinal silhouette: normal Pulmonary vasculature: normal Lung expansion: low. Lung airspace: normal Lung interstitium: normal Pleura: normal Pneumothorax: no Bones: Unremarkable Other: no IMPRESSION: ET at the andrea, consider retraction by 3 cm.
[2024-06-28 09:48] LABS: Basophils # (auto) 0 10 ^3/uL (0-0.2); Basophils % (auto) 0.3 % (0.0-2.0); Eosinophils # (auto) 0 10 ^3/uL (0-0.8); Eosinophils % (auto) 0.3 % (0.0-7.0); Hematocrit 41.4 % (41.0-53.0); Hemoglobin 13.1 g/dL (13.5-17.5); Lymphocytes # (auto) 1.1 10 ^3/uL (0.4-5.4); Lymphocytes % (auto) 9.1 % (10.0-50.0); Mean Corpuscular Hemoglobin 29.5 pg (28.0-32.0); Mean Corpuscular Hgb Conc. 31.6 g/dL (32.0-36.0); Mean Corpuscular Volume 93.2 fL (80.0-100.0); Monocytes # (auto) 0.8 10 ^3/uL (0-1.3); Monocytes % (auto) 6.7 % (0.0-12.0); Neutrophils # (auto) 10.1 10 ^3/uL (1.6-8.6); Neutrophils % (auto) 83.6 % (37.0-80.0); Nucleated Red Blood Cells % 0.1 %; Platelet Count (auto) 305 10^3/uL (140-450); Red Blood Cells 4.44 10^6/uL (4.5-5.90); Red Cell Distribution Width 14.6 % (11.8-14.3); White Blood Cell 12.1 10^3/uL (4.4-10.8)
[2024-06-28 10:00] LABS: Alanine Aminotransferase 92 U/L (7-40); Albumin 4.6 g/dL (3.2-4.8); Alkaline Phosphatase 198 U/L (46-116); Anion Gap 4 (5-15); Aspartate Aminotransferase 214 U/L (13-40); Blood Alcohol < 3.0 mg/dL (<10); Blood Urea Nitrogen 28 mg/dL (9-23); Calcium 9.8 mg/dL (8.7-10.4); Carbon Dioxide 27 mmol/L (20-31); Chloride 102 mmol/L (98-107); Sodium 133 mmol/L (136-145)
[2024-06-28 10:01] LABS: Bilirubin, Total < 0.2 mg/dL (0.2-1.0); Total Protein 7.6 g/dL (5.7-8.2)
[2024-06-28] MEDS: MIDAZOLAM DRIP 50 mg/50mL 50 ML IV SCH (10:15)
--- NOTE | 2024-06-28 10:21 | DVH ---
CT HEAD WITHOUT CONTRAST INDICATION: ALOC EXAM DATE: 06/28/2024 09:48 AM COMPARISON: CT HEAD WITHOUT CONTRAST on DOS: 12/19/23, HEAD WITHOUT CONTRAST on DOS: 06/22/20 RADIATION DOSE: CTDIvol: 58.46 mGy, DLP: 1152.11 mGy*cm PROCEDURE: CT scans of the head were obtained from the vertex to the skull base. Sagittal and coronal reconstructions were provided. All CT scans at this medical facility are performed using dose modulation techniques as appropriate t o a performed exam including the following: Automated exposure control was utilized; adjustment of th e MA and/or KV according to patient size; and use of iterative reconstruction technique. FINDINGS: Encephalomalacia in the right parietal and left occipital lobe. There is sulcal and ventri cular prominence. The brain otherwise shows normal morphology and valverde-white matter differentiation, without intracranial hemorrhage, extra-axial fluid collection, mass effect or acute large vessel infa rct. The basal cisterns are patent. The skull and visible facial bones are intact. The paranasal sinu ses, mastoid air cells and middle ear cavities are well-aerated. The soft tissues of the scalp are un remarkable. 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 No acute intracranial abnormality.
[2024-06-28 10:36] LABS: Potassium 7.9 mmol/L (3.5-5.1)
[2024-06-28] MEDS: MIDAZOLAM DRIP 50 mg/50mL 50 ML IV ONE (10:43)
[2024-06-28 10:45] LABS: Glucose 1078 mg/dL (74-106)
[2024-06-28 10:50] LABS: Base Excess -5.2 mmol/L (-2.0-3.0)
[2024-06-28] MEDS ORDERED: DEXTROSE (50%) 50ML SYRG IV PRN (11:00)
[2024-06-28 11:09] LABS: Urine Bacteria None Seen /hpf (None Seen)
[2024-06-28 11:19] LABS: Urine Blood Negative /uL (Negative); Urine Clarity Clear (Clear); Urine Color Light-Yellow (Yellow); Urine Protein, UAD Negative (Negative); Urine Specific Gravity 1.025 (1.001-1.035); Urine Urobilinogen Normal (Negative); Urine WBC 7 /hpf (0 - 3)
[2024-06-28 11:36] LABS: Amphetamine Screen, Urine Neg (NEGATIVE); Benzodiazephine Screen, Urine Pos (NEGATIVE)
[2024-06-28 11:37] LABS: Barbiturate Scree,Urine Neg (NEGATIVE); Cannabinoid Screen, Urine Pos (NEGATIVE); Cocaine Screen, Urine Neg (NEGATIVE); Opiate Scree,Urine Neg (NEGATIVE); Phencyclidine Screen, Urine Neg (NEGATIVE)
[2024-06-28] MEDS: InsuLIN REG 1unit/0.01ml Soln (100units/ml) IV ONE (11:40)
[2024-06-28] MEDS: INSULIN LANTUS (GLARGINE) 1 /0.01ml (100units/ml) SC ONE (11:41)
[2024-06-28] MEDS: SODIUM BICARB 8.4% 50Meq/50ml SYR Vial IV ONE (11:42)
[2024-06-28] MEDS: CALCIUM GLUC 1,000mg/50ml-NS 50 ML IV SCH (11:42)
[2024-06-28] MEDS ORDERED: ACCU-CHEK COMFORT CURVE STRIP VI SCH (12:00)
[2024-06-28] MEDS ORDERED: VANCOMYCIN PER PHARMACY 0 MG IV SCH (12:15)
[2024-06-28] MEDS ORDERED: MORPHINE SULFATE INJ 2 MG/ml SYRG IV PRN (12:15)
[2024-06-28] MEDS ORDERED: ONDANSETRON HCL 4 MG/2 ML VIAL IV PRN (12:15)
[2024-06-28] MEDS: INSULIN DRIP 100 UNIT/100ML 100 ML IV SCH (12:20)
--- NOTE | 2024-06-28 12:20 | DVHHP2 ---
History of Present Illness Reason for Visit: altered History of Present Illness 64 yo with stated history CKD, Asthma, DM, COPD, HTN and seizure disorder came into the ED with stated change in mentation patient in the ED was acidic and altered unable to protect airway and stated to have sugars over 1000 source of cause is unknown history can not be fully obtained patient is intubated sedated suspected that possible breakthrough seizures in the setting HHS vs HHS with diabetic coma Cardiovascular: HTN Pulmonary: COPD Renal/: Chronic renal insuff, Chronic renal failure Endocrine: Diabetes Review of Systems Constitutional: Yes: Weakness; No: Fever, Chills, Sweats, Malaise, Other Eyes: No: Pain, Vision change, Conjunctivae inflammation, Eyelid inflammation, Other, Redness ENT: No: Ear pain, Ear discharge, Nose pain, Nose discharge, Nose congestion, Mouth pain, Mouth swelling, Throat pain, Throat swelling, Other Respiratory: Shortness of breath, SOB with excertion; No: Cough, Dry, Wheezing, Hemoptysis, Pleuritic Pain, Sputum, Wheezing, Other Cardiovascular: No: Chest Pain, Palpitations, Orthopnea, Paroxysmal Noc. Dyspnea, Edema, Lt Headedness, Other Gastrointestinal: No: Nausea, Vomiting, Abdominal Pain, Diarrhea, Constipation, Melena, Hematochezia, Other Genitourinary: No Dysuria, No Frequency, No Incontinence, No Hematuria, No Retention, No Other Musculoskeletal: No: other, neck pain, shoulder pain, arm pain, back pain, hand pain, leg pain, foot pain Skin: No: Rash, Lesions, Jaundice, Bruising, Other Neurological: Weakness, Confusion; No: Numbness, Incoordination, Change in speech, Seizures, Other Allergies: Coded Allergies: NO KNOWN ALLERGIES (Unverified , 08/29/13) Medications Current Medications Medications Dose Ordered Sig/Kandi Route Start Time Stop Time Status Last Admin Dose Admin Propofol 100 ml @ 2.04 mls/hr Q24H IV 06/28/24 09:15 06/28/24 08:30 2.04 MLS/HR Midazolam HCl 50 ml @ 1 mls/hr Q24H IV 06/28/24 10:45 06/28/24 10:15 1 MLS/HR Insulin Human (Reg)/Sodium Chloride 100 ml @ 0.5 mls/hr Q24H IV 06/28/24 11:00 Diagnostic Test (Pha) 1 strip Q90MIN 06/28/24 12:00 Dextrose 50 ml PRN PRN IV 06/28/24 11:00 Insulin Glargine 15 units DAILY SC 06/29/24 10:00 Vancomycin HCl 0 ml @ 0 mls/hr UD IV 06/28/24 12:15 UNV Piperacillin Sod/ Tazobactam Sod 100 ml @ 100 mls/hr Q8HR IV 06/28/24 14:00 UNV Diagnostic Test (Pha) 1 strip IQ4HR 06/28/24 16:00 UNV Insulin Human Regular IQ4HR SC 06/28/24 16:00 UNV Dextrose 50 ml UD PRN IV 06/28/24 12:15 UNV Sodium Chloride 1,000 ml @ 200 mls/hr Q5H IV 06/28/24 12:15 UNV Ondansetron HCl 4 mg Q4HP PRN IV 06/28/24 12:15 UNV Morphine Sulfate 2 mg Q4HPRN PRN IV 06/28/24 12:15 UNV Exam Vital Signs Vital Signs Date Time Temp Pulse Resp B/P (MAP) Pulse Ox O2 Delivery O2 Flow Rate FiO2 06/28/24 10:52 82 18 112/46 (68) 92 50 06/28/24 08:29 Mechanical Ventilator+ 06/28/24 08:29 96.2 96.2 General Appearance: severe distress (sedated intubated ) HEENT: Other (intubated og tube in place ) Respiratory: Other (mechanically ventilated ) Cardiovascular: Normal S1, Normal S2, Other (sinus tsch ) Abdominal: Normal bowel sounds, Soft Psych/Mental Status: Mental status NL (sedated ) Labs/Xrays Labs Test 06/28/24 11:23 06/28/24 10:56 06/28/24 10:43 06/28/24 09:28 Range/Units Urine Color Light-yellow Yellow Urine Clarity Clear Clear Urine pH 5.0 5.0-9.0 Urine Specific [place] 1.025 1.001-1.035 Urine Protein Negative Negative Urine Ketones Negative Negative Urine Blood Negative Negative /uL Urine Nitrite Negative Negative Urine Bilirubin Negative Negative Urine Urobilinogen Normal Negative mg/dL Urine Leukocyte Esterase Trace Negative /uL Urine RBC 2 0 - 3 /hpf Urine WBC 7 0 - 3 /hpf Urine Squamous Epithelial Cells None seen <5 /hpf Urine Bacteria None seen None Seen /hpf Urine Glucose 4+ H Normal mg/dL Urine Opiates Screen Neg NEGATIVE Urine Fentanyl Screen Neg NEGATIVE Urine Barbiturates Screen Neg NEGATIVE Urine Phencyclidine Screen Neg NEGATIVE Urine Amphetamines Screen Neg NEGATIVE Urine Benzodiazepines Screen Pos NEGATIVE Urine Cocaine Screen Neg NEGATIVE Urine Cannabinoids Screen Pos NEGATIVE Blood Gas Specimen Type Arterial Blood Gas Sample Site Right radial Blood Gas Patient Temperature 37.0 Arterial Blood Date Drawn [id number] Arterial Blood pH 7.169 *L 7.350-7.450 Arterial Blood Partial Pressure CO2 69.2 *H 35.0-48.0 mmHg Arterial Blood Partial Pressure O2 361.7 *H 83.0-108.0 mmHg Arterial Blood HCO3 24.6 21.0-28.0 mmol/L Arterial Blood Oxygen Saturation 99.7 H 94.0-98.0 % Arterial Blood Base Excess -5.2 L -2.0-3.0 mmol/L Arterial Blood Oxyhemoglobin 96.8 94.0-98.0 % Arterial Blood Carboxyhemoglobin 2.2 H 0.5-1.5 % Arterial Blood Methemoglobin 0.7 0.0-1.5 % Adama Test Modified Blood Gas Total Hemoglobin 13.60 13.5-17.5 g/dL Blood Gas Set Respiration Rate 14.0 Blood Gas Modality Vent - ac FiO2 % 100.0 Blood Gas Tidal Volume 400.0 Blood Gas PEEP or CPAP 5.0 Blood Gas Critical Value Read Back Yes Blood Gas Notified Whom Dr сергей keller Blood Gas Notified Time [id number] Blood Gas Notified By Stereotyper Apprentice emilia junior Lactic Acid Level 1.5 0.4-2.0 mmol/L Test 06/28/24 09:24 Range/Units White Blood Count 12.1 H 4.4-10.8 10^3/uL Red Blood Count 4.44 L 4.5-5.90 10^6/uL Hemoglobin 13.1 L 13.5-17.5 g/dL Hematocrit 41.4 41.0-53.0 % Mean Corpuscular Volume 93.2 80.0-100.0 fL Mean Corpuscular Hemoglobin 29.5 28.0-32.0 pg Mean Corpuscular Hemoglobin Concent 31.6 L 32.0-36.0 g/dL Red Cell Distribution Width 14.6 H 11.8-14.3 % Platelet Count 305 140-450 10^3/uL Mean Platelet Volume 9.4 6.9-10.8 fL Neutrophils (%) (Auto) 83.6 H 37.0-80.0 % Lymphocytes (%) (Auto) 9.1 L 10.0-50.0 % Monocytes (%) (Auto) 6.7 0.0-12.0 % Eosinophils (%) (Auto) 0.3 0.0-7.0 % Basophils (%) (Auto) 0.3 0.0-2.0 % Neutrophils # (Auto) 10.1 H 1.6-8.6 10 ^3/uL Lymphocytes # (Auto) 1.1 0.4-5.4 10 ^3/uL Monocytes # (Auto) 0.8 0-1.3 10 ^3/uL Eosinophils # (Auto) 0 0-0.8 10 ^3/uL Basophils # (Auto) 0 0-0.2 10 ^3/uL Nucleated Red Blood Cells 0.1 % Sodium Level 133 L 136-145 mmol/L Potassium Level 7.9 *H 3.5-5.1 mmol/L Chloride Level 102 98-107 mmol/L Carbon Dioxide Level 27 20-31 mmol/L Anion Gap 4 L 5-15 Blood Urea Nitrogen 28 H 9-23 mg/dL Creatinine 2.15 H 0.700-1.30 mg/dL Glomerular Filtration Rate Calc 34 >90 mL/min BUN/Creatinine Ratio 13.0 10.0-20.0 Serum Glucose 1078 *H 74-106 mg/dL Calcium Level 9.8 8.7-10.4 mg/dL Total Bilirubin < 0.2 L 0.2-1.0 mg/dL Aspartate Amino Transferase (AST) 214 H 13-40 U/L Alanine Aminotransferase (ALT) 92 H 7-40 U/L Alkaline Phosphatase 198 H 46-116 U/L Total Protein 7.6 5.7-8.2 g/dL Albumin 4.6 3.2-4.8 g/dL Plasma/Serum Blood Alcohol < 3.0 <10 mg/dL Assessment/Plan Assessment/Plan Admit ICU Acute on Chronic Respiratory Failure requiring Intubation Acute on Chronic COPD Acidosis ABG shows severe acidosis intubated mechanical ventilation suspected aspiration pna IV abx [facility] consulted for evaluation Altered Mentation Suspected ALOC due to DM uncontrolled Glucose HHS vs Suspected Breakthrough seizures Glucose > 1000 suspected HHS Insulin Drip Aggressive IV hydration monitor fluid output and nelson placement monitor I/Os Hyperkalemia > Greater the 7.9 no ekg changes noted Hyperkalemia protocol initiated Insulin drip stared monitor for acute reversals and hypokalemia formation monitor vikash Elliott home meds held currently on Versed Drip Chronic issues HTN, CKD, Asthma home meds to be held until stabilized prn bp meds as required IV hydralazine monitor I/os continue with current intubation for breathing management at this time CCT 48 mins Plan discussed with: Patient My Orders Orders - NOELLE NICE MD Procedure Category Date Status Time Vancomycin Per PHA 06/28/24 Logged Pharmacy 12:15 Piperacillin-Tazob PHA 06/28/24 Logged 3.375gm (Zosyn 3.375g 14:00 Glucose Blood PHA 06/28/24 Logged (Accu-Chek Comfort 16:00 Insulin R (Human) PHA 06/28/24 Logged (Insulin R) 16:00 Dextrose 50% Syringe PHA 06/28/24 Logged 12:15 Admit ADMIT 06/28/24 Transmitted 12:01 Code Status CODE 06/28/24 Transmitted 12:01 Vital Signs ЕЛЕНА 06/28/24 In Process 12:01 Review Orders With ЕЛЕНА 06/28/24 In Process Adm.Md 12:01 Npo (Nothing By DIET 06/28/24 Transmitted Mouth) Diet Lunch Sodium Chloride 0.9% PHA 06/28/24 Logged 12:15 Notify Of Changes [facility] 06/28/24 In Process From Base 12:01 Advance Directive ЕЛЕНА 06/28/24 In Process 12:01 Basic Metabolic Panel LAB 06/29/24 Verified 04:00 Urinalysis LAB 06/28/24 Logged 12:01 Complete Blood Count LAB 06/29/24 Verified 04:00 Patient Condition ORDERS 06/28/24 Transmitted 12:01 Allergies ЕЛЕНА 06/28/24 In Process 12:01 Ondansetron Hcl PHA 06/28/24 Logged (Zofran) 12:15 Morphine Sulfate PHA 06/28/24 Logged Injection 12:15 Stat Ekg For Chest ЕЛЕНА 06/28/24 In Process Pain 12:01 Vladimir Stanton Of Changes ЕЛЕНА 06/28/24 In Process From Base 12:01 Director Of Transportation For ЕЛЕНА 06/28/24 In Process 24 Hours 12:01 Emergency Dysrhythmia ЕЛЕНА 06/28/24 In Process Protocol 12:01 Rhythm Strips Once [facility] 06/28/24 In Process Every Shift 12:01 Oxygen By Nasal RT 06/28/24 Transmitted Cannula 12:01 Sodium Zirconium PHA 06/28/24 Logged Cyclosilicate 12:15 Problem List: (1) Uncontrolled diabetes mellitus (2) Seizures (3) Severe hyperglycemia due to diabetes mellitus (4) Type 2 diabetes mellitus with hyperosmolar hyperglycemic state (HHS) (5) Sepsis (6) Acute hypercapnic respiratory failure (7) Pneumonia Date of Service: Jun 28, 2024 Billing Provider: NOELLE NICE MD Common Visit Codes: [id number] CARE 30-74 MIN NOELLE NICE MD Jun 28, 2024 12:20
[2024-06-28] MEDS ORDERED: VANCOMYCIN 1.5 GM in D5W 5% 250 ML IV ONE (12:45)
[2024-06-28] MEDS: NOREPINEPHRINE 8 MG/250ML KIT 250 ML IV ONE (13:25)
[2024-06-28] MEDS: NOREPINEPHRINE 8 MG/250ML KIT 250 ML IV SCH (13:27)
[2024-06-28 13:58] LABS: Base Excess -2.1 mmol/L (-2.0-3.0)
[2024-06-28] MEDS: SODIUM CHLORIDE 0.9% 1,000 ML IV SCH (14:00)
[2024-06-28] MEDS: PIPERACILLIN-TAZOB 3.375GM 100 ML IV SCH (14:22)
[2024-06-28] MEDS: SODIUM ZIRCONIUM CYCL 10 GM PAK GT ONE (14:23)
[2024-06-28 16:10] LABS: Base Excess 0.2 mmol/L (-2.0-3.0)
[2024-06-28] MEDS: VANCOMYCIN 1.5GM/300ML 300 ML IV ONE (16:10)
[2024-06-28] MEDS: InsuLIN REG 1unit/0.01ml Soln (100units/ml) SC SCH (17:12)
[2024-06-28] MEDS: ACCU-CHEK COMFORT CURVE STRIP VI SCH (17:13)
[2024-06-28] MEDS: D5W/SOD CHL 0.45% 1,000 ML IV SCH (17:40)
--- NOTE | 2024-06-28 18:42 | DVHINCON2 ---
Date of service: Jun 28, [address] Fiore Reason for Consultation Ventilator management History of Present Illness A 64-year-old man with PMHx of COPD, asthma, diabetes mellitus, CKD, hypertension, and seizure disorder who was brought in to the ED with complaint of change in mentation. Patient in the ED was altered, unable to protect airway and stated to have blood sugars over 1000. History could not be fully obtained as patient intubated and sedated; suspected possible breakthrough seizures in the setting of HHS vs HHS with diabetic coma. Patient was admitted for further care and pulmonary consultation is requested for ventilator management. Review of Systems: Unable to obtain d/t ventilated status. Past Medical History: COPD, asthma, diabetes mellitus, CKD, hypertension, and seizure disorder Past Surgical History: None Medications: Reviewed. Allergies: No known drug allergies. Family History: DM and alcoholism. Social History: Nonsmoker. No alcohol or illicit drug use. Family History: Alcoholism Family history: Diabetes mellitus Unobtainable due to patient's condition Allergies: Coded Allergies: NO KNOWN ALLERGIES (Unverified , 08/29/13) Home Meds Active Scripts Levetiracetam (Keppra) 500 Mg Tab, 1 TAB PO BID, #60 TAB 0 Refills Prov:FREDDY OLIVIER MD 06/25/20 Reported Medications Metformin Hydrochloride (Metformin Hcl Er) 500 Mg Tab, 1 TAB PO DAILY for 30 Days, #30 06/29/24 Insulin Glargine (Basaglar Kwikpen) 100 Unit/Ml Inj, UNIT SC UD for 30 Days, #3 06/29/24 Aripiprazole (Aripiprazole) 10 Mg Tab, 1 TAB PO DAILY for 30 Days, #30 06/29/24 Ziprasidone HCl (Ziprasidone Hydrochloride) 80 Mg Cap, 40 MG PO BID for 30 Days, #60 06/29/24 Atorvastatin Calcium (Lipitor) 20 Mg Tab, 1 TAB PO DAILY, #90 TAB 1 Refill 06/23/20 Bupropion Hcl (Bupropion Hcl) 100 Mg Tab, 150 MG PO BID for 30 Days, MG 06/23/20 Glipizide (Glipizide) 10 Mg Tab, 1 TAB PO TID for 30 Days, #90 06/23/20 Pioglitazone Hydrochloride (ACTOS TABLET) 30 Mg Tb, 1 TAB PO DAILY for 30 Days, #30 06/23/20 Quetiapine Fumerate (Seroquel Xr) 200 Mg Tab, 300 MG PO DAILY for 30 Days, MG 06/23/20 Gabapentin (Gabapentin) 300 Mg Cap, 300 MG PO BID for 30 Days, MG 06/23/20 Aspirin (Aspir-Low) 81 Mg Tab, 81 MG PO DAILY for 30 Days, MG 06/23/20 Mirtazapine (Mirtazapine Oral Disintegrating Tablet) 15 Mg Tab, 1 TAB PO QPM, #30 TAB 3 Refills 09/26/14 Omeprazole (PRILOSEC) 20 Mg Cap, 20 MG PO DAILY, CAP 09/26/14 Insulin (Insulin Human) Human Pow, 1 XX, POW 08/29/13 Paroxetine (PAXIL TABLET) 20 Mg Tb, 20 MG PO DAILY 08/29/13 [Onglyza] No Conflict Check, 5 MG PO DAILY 08/29/13 Loratadine (Loratadine) 10 Mg Tab, 10 MG PO DAILY, TAB 08/29/13 Discontinued Reported Medications Aripiprazole (Abilify) 20 Mg Tab, 1 TAB PO DAILY, #30 TAB 1 Refill 06/24/20 Ziprasidone Hydrochloride (Geodon) 80 Mg Cap, 80 MG PO BID, CAP 08/29/13 Current Medications Current Medications Medications (Trade) Dose Ordered Sig/Kandi Route PRN Reason Start Time Stop Time Status Last Admin Propofol 100 ml @ 2.04 mls/hr Q24H IV 06/28/24 09:15 06/28/24 08:30 Calcium Gluconate/ Sodium Chloride 50 ml @ 100 mls/hr Q30M IV 06/28/24 10:45 06/28/24 11:44 DC 06/28/24 12:01 Midazolam HCl 50 ml @ 1 mls/hr Q24H IV 06/28/24 10:45 06/28/24 10:15 Insulin Human (Reg)/Sodium Chloride 100 ml @ 0.5 mls/hr Q24H IV 06/28/24 11:00 06/28/24 12:20 Diagnostic Test (Pha) (Accu-Chek Comfort Curve T) 1 strip Q90MIN 06/28/24 12:00 06/28/24 12:16 DC Dextrose 50 ml PRN PRN IV BG LESS Than 70 AND CALL 06/28/24 11:00 06/28/24 12:16 DC Insulin Glargine (Lantus) 15 units DAILY SC 06/29/24 10:00 Vancomycin HCl 0 ml @ 0 mls/hr UD IV 06/28/24 12:15 Piperacillin Sod/ Tazobactam Sod 100 ml @ 100 mls/hr Q8HR IV 06/28/24 14:00 06/28/24 14:22 Diagnostic Test (Pha) (Accu-Chek Comfort Curve T) 1 strip IQ4HR 06/28/24 16:00 06/28/24 17:13 Insulin Human Regular (InsuLIN R) IQ4HR SC 06/28/24 16:00 Dextrose 50 ml UD PRN IV Blood Sugar LESS THAN 60 06/28/24 12:15 Sodium Chloride 1,000 ml @ 200 mls/hr Q5H IV 06/28/24 12:15 06/28/24 16:41 DC 06/28/24 14:00 Ondansetron HCl (Zofran) 4 mg Q4HP PRN IV NAUSEA / VOMITING 06/28/24 12:15 Morphine Sulfate 2 mg Q4HPRN PRN IV SEVERE PAIN (7-10 PAIN SCALE) 06/28/24 12:15 Norepinephrine Bitartrate 250 ml @ 3.75 mls/hr Q24H IV 06/28/24 13:30 06/28/24 13:27 Dextrose/Sodium Chloride 1,000 ml @ 150 mls/hr Q6H40M IV 06/28/24 16:15 06/28/24 17:40 Vital Signs Vital Signs Date Time Temp Pulse Resp B/P (MAP) Pulse Ox O2 Delivery O2 Flow Rate FiO2 06/28/24 18:00 121/70 06/28/24 16:15 74 20 100 30 06/28/24 16:00 98.2 98.2 06/28/24 08:29 Mechanical Ventilator+ Physical Exam Gen.: Patient lying in bed in medical ICU. Sedated, intubated on mechanical ventilator. Head: Normocephalic, atraumatic. Eyes: PERRLA. Ears: Normal external anatomy. Throat: Endotracheal tube and orogastric tube in place. Neck: Supple, trachea midline. Chest: Transmitted breath sounds bilaterally. Decreased air entry bilaterally. No wheezing. Bibasilar crackles. Cardiovascular: Positive S1, positive S2. Regular rate and rhythm. Abdomen: Positive bowel sounds in all 4 quadrants. Soft, nontender, nondistended. : Farnsworth in place. Normal external genitalia. Rectal: Deferred. Skin: Warm, dry. Intact. Extremities: 2+ radial pulses bilaterally. No lower extremity edema. Neuro: Sedated. Labs/Diagnostic Data Labs Test 06/28/24 17:09 06/28/24 16:03 06/28/24 13:52 06/28/24 11:23 Range/Units POC Glucose 158 H 70-106 mg/dl Blood Gas Specimen Type Arterial Blood Gas Sample Site Right radial Blood Gas Patient Temperature 37.0 Arterial Blood Date Drawn [id number] Arterial Blood pH 7.399 7.350-7.450 Arterial Blood Partial Pressure CO2 41.5 35.0-48.0 mmHg Arterial Blood Partial Pressure O2 101.2 83.0-108.0 mmHg Arterial Blood HCO3 25.1 21.0-28.0 mmol/L Arterial Blood Oxygen Saturation 98.2 H 94.0-98.0 % Arterial Blood Base Excess 0.2 -2.0-3.0 mmol/L Arterial Blood Oxyhemoglobin 96.5 94.0-98.0 % Arterial Blood Carboxyhemoglobin 1.1 0.5-1.5 % Arterial Blood Methemoglobin 0.6 0.0-1.5 % Adama Test Modified Blood Gas Total Hemoglobin 12.80 L 13.5-17.5 g/dL Blood Gas Set Respiration Rate 18.0 Blood Gas Modality Vent - ac FiO2 % 30.0 Blood Gas Tidal Volume 450.0 Blood Gas PEEP or CPAP 5.0 Blood Gas Spontaneous Rate 30 Blood Gas Spontaneous Tidal Volume 470 Blood Gas Inspiratory Pressure 20.0 Bl Gas Inspiratory/Expiratory Ratio 1:1 Troponin I High Sensitivity 10 </=54 ng/L Test 06/28/24 10:56 06/28/24 10:43 06/28/24 09:28 06/28/24 09:24 Range/Units Urine Color Light-yellow Yellow Urine Clarity Clear Clear Urine pH 5.0 5.0-9.0 Urine Specific [place] 1.025 1.001-1.035 Urine Protein Negative Negative Urine Ketones Negative Negative Urine Blood Negative Negative /uL Urine Nitrite Negative Negative Urine Bilirubin Negative Negative Urine Urobilinogen Normal Negative mg/dL Urine Leukocyte Esterase Trace Negative /uL Urine RBC 2 0 - 3 /hpf Urine WBC 7 0 - 3 /hpf Urine Squamous Epithelial Cells None seen <5 /hpf Urine Bacteria None seen None Seen /hpf Urine Glucose 4+ H Normal mg/dL Urine Opiates Screen Neg NEGATIVE Urine Fentanyl Screen Neg NEGATIVE Urine Barbiturates Screen Neg NEGATIVE Urine Phencyclidine Screen Neg NEGATIVE Urine Amphetamines Screen Neg NEGATIVE Urine Benzodiazepines Screen Pos NEGATIVE Urine Cocaine Screen Neg NEGATIVE Urine Cannabinoids Screen Pos NEGATIVE Blood Gas Critical Value Read Back Yes Blood Gas Notified Whom Dr сергей keller Blood Gas Notified Time [id number] Blood Gas Notified By Photo Technologist emilia junior Lactic Acid Level 1.5 0.4-2.0 mmol/L White Blood Count 12.1 H 4.4-10.8 10^3/uL Red Blood Count 4.44 L 4.5-5.90 10^6/uL Hemoglobin 13.1 L 13.5-17.5 g/dL Hematocrit 41.4 41.0-53.0 % Mean Corpuscular Volume 93.2 80.0-100.0 fL Mean Corpuscular Hemoglobin 29.5 28.0-32.0 pg Mean Corpuscular Hemoglobin Concent 31.6 L 32.0-36.0 g/dL Red Cell Distribution Width 14.6 H 11.8-14.3 % Platelet Count 305 140-450 10^3/uL Mean Platelet Volume 9.4 6.9-10.8 fL Neutrophils (%) (Auto) 83.6 H 37.0-80.0 % Lymphocytes (%) (Auto) 9.1 L 10.0-50.0 % Monocytes (%) (Auto) 6.7 0.0-12.0 % Eosinophils (%) (Auto) 0.3 0.0-7.0 % Basophils (%) (Auto) 0.3 0.0-2.0 % Neutrophils # (Auto) 10.1 H 1.6-8.6 10 ^3/uL Lymphocytes # (Auto) 1.1 0.4-5.4 10 ^3/uL Monocytes # (Auto) 0.8 0-1.3 10 ^3/uL Eosinophils # (Auto) 0 0-0.8 10 ^3/uL Basophils # (Auto) 0 0-0.2 10 ^3/uL Nucleated Red Blood Cells 0.1 % Sodium Level 133 L 136-145 mmol/L Potassium Level 7.9 *H 3.5-5.1 mmol/L Chloride Level 102 98-107 mmol/L Carbon Dioxide Level 27 20-31 mmol/L Anion Gap 4 L 5-15 Blood Urea Nitrogen 28 H 9-23 mg/dL Creatinine 2.15 H 0.700-1.30 mg/dL Glomerular Filtration Rate Calc 34 >90 mL/min BUN/Creatinine Ratio 13.0 10.0-20.0 Serum Glucose 1078 *H 74-106 mg/dL Calcium Level 9.8 8.7-10.4 mg/dL Total Bilirubin < 0.2 L 0.2-1.0 mg/dL Aspartate Amino Transferase (AST) 214 H 13-40 U/L Alanine Aminotransferase (ALT) 92 H 7-40 U/L Alkaline Phosphatase 198 H 46-116 U/L Total Protein 7.6 5.7-8.2 g/dL Albumin 4.6 3.2-4.8 g/dL Plasma/Serum Blood Alcohol < 3.0 <10 mg/dL Assessment Impression: Acute hypoxic respiratory failure On mechanical ventilator Shock Sepsis Pneumonia Seizures DM type II with HHS Plan: s/p intubation on mechanical ventilator. On AC mode; RR 18, VT 450, PEEP 5, FiO2 30% Titrate FIO2 to keep O2 saturation above 90%. VAP bundle. Daily ABG and CXR while intubated Sedate for ventilator synchrony - On Versed, Propofol. On pressors for hemodynamic support Levophed 10 mcg/min Titrate to keep mean arterial pressure greater than 65 mmHg. Off insulin drip d/t hypoglycemia. D50. Continue antibiotics. Monitor renal function Monitor electrolytes. Supplement as necessary. Monitor ins and outs. Maintain euvolemia. GI prophylaxis. DVT prophylaxis. Prognosis: Poor given patient's multiple co-morbidities. Condition: Critical Rest of plan per hospitalist and other consultants. A total of 35 minutes of critical care time was spent reviewing the patient record, examining the patient, making a diagnostic and therapeutic plan, discussing this plan with the medical personnel, following up on diagnostic studies and following the patient for clinical stability excluding any and all procedures. At least 50% of this time was spent in direct, [id number] contact. Thank you Dr. Alvarez Fiore MD, for allowing me to participate in this patient's care. Further recommendations will depend on the patient's clinical course. Please do not hesitate to contact me if you have any questions or concerns. This medical document was created using an electronic medical record system with [employer] computerized dictation system. Although these documentations are being carefully reviewed, there may still be some phonetic and typographical changes. The errors are purely typographical, due to imperfection on the software program, and do not reflect any compromise in the patient's medical care. Plan discussed with: Other (Aedbayo Booker MD) JUAN LUIS DOMINGUEZ MD Jun 28, 2024 18:42
[2024-06-28] MEDS: DEXTROSE (50%) 50ML SYRG IV PRN (19:27)
--- NOTE | 2024-06-28 20:54 | DVH ---
EXAM: XY KUB ABDOMEN SINGLE VIEW HISTORY: suspected bowel obstruction COMPARISON: SBFT from 12/20/2023 TECHNIQUE: Single AP of the abdomen and pelvis was obtained. Findings: Frontal view of the abdomen demonstrates gaseous dilated colon predominantly in the left lower quadra nt. No visualized renal calculi. There is no evidence of an acute fracture, dislocation, blastic, or lytic lesions. The visualized portions of the lung bases are unremarkable. Enteric tube overlying the plane of the stomach. Metalic densities overling the lower mid abdomen. No superficial soft tissue abnormalities. Impression: 1. Gaseous distended colon predominantly in the left lower quadrant may reflect obstruction. Cannot e ntirely exclude a volvulus. Recommend contrast enhanced CT for further evaluation. 2. No visualized renal calculi.
[2024-06-29] VITALS (44 sets, daily range): BP systolic 92–141; BP diastolic 39–82; PULSE 61–88; RESP 18–29; TEMP 98.6–101.1; O2SAT 98–100
[2024-06-29 04:43] LABS: Basophils # (auto) 0 10 ^3/uL (0-0.2); Basophils % (auto) 0.3 % (0.0-2.0); Eosinophils # (auto) 0.1 10 ^3/uL (0-0.8); Eosinophils % (auto) 0.7 % (0.0-7.0); Hematocrit 34.6 % (41.0-53.0); Hemoglobin 11.6 g/dL (13.5-17.5); Lymphocytes # (auto) 3.2 10 ^3/uL (0.4-5.4); Mean Corpuscular Hemoglobin 29.2 pg (28.0-32.0); Mean Corpuscular Hgb Conc. 33.4 g/dL (32.0-36.0); Mean Corpuscular Volume 87.4 fL (80.0-100.0); Monocytes # (auto) 1.4 10 ^3/uL (0-1.3); Monocytes % (auto) 9.3 % (0.0-12.0); Neutrophils % (auto) 67.7 % (37.0-80.0); Platelet Count (auto) 202 10^3/uL (140-450); Red Blood Cells 3.96 10^6/uL (4.5-5.90); Red Cell Distribution Width 13.9 % (11.8-14.3); White Blood Cell 14.7 10^3/uL (4.4-10.8)
[2024-06-29 04:55] LABS: Anion Gap 10 (5-15); Carbon Dioxide 25 mmol/L (20-31)
[2024-06-29 04:56] LABS: Calcium 9.6 mg/dL (8.7-10.4)
[2024-06-29 05:00] LABS: BUN/Creatinine Ratio 11.2 (10.0-20.0); Blood Urea Nitrogen 24 mg/dL (9-23); Glucose 79 mg/dL (74-106)
[2024-06-29 05:01] LABS: Chloride 116 mmol/L (98-107); Potassium 3.5 mmol/L (3.5-5.1); Sodium 151 mmol/L (136-145)
[2024-06-29] MEDS: INSULIN LANTUS (GLARGINE) 1 /0.01ml (100units/ml) SC SCH (10:00)
--- NOTE | 2024-06-29 12:19 | ECG ---
[facility] Test Date: 2024-06-28 Test Time: 08:11:19 Pat Name: AIDAN MARSHALL Department: ED Room: [address] [place] [address] Gender: M Drill Sergeant: BORIS : 1960 Requested By: EMERGENCY EMERGENCY Order Number: [id number] Reading MD: Babar Thakur Measurements Intervals [place] Rate: 109 P: 76 [place]: 162 QRS: 67 QRSD: 98 T: 7 QT: 310 QTc: 418 Interpretive Statements Sinus tachycardia Biatrial enlargement Nonspecific ST depression ST elevation, consider anterior injury Electronically Signed On 06-30-2024 17:33:44 PST by Babar Thakur Please click the below link to view image of tracing.
[2024-06-29] MEDS: VANCOMYCIN 500 MG in D5W 5% 100 ML IV ONE (16:00)
--- NOTE | 2024-06-29 16:28 | DVHPN2 ---
Subjective Patient chemically sedated Reviewed: Care Plan, H&P, Labs, Medications Changes from previous H/P or p: No Changes General: Per HPI Eyes: No Pain, No Vision change, No Conjunctivae inflammation, No Eyelid inflammation, No Other, No Redness ENT: No Ear pain, No Ear discharge, No Nose pain, No Nose discharge, No Nose congestion, No Mouth pain, No Mouth swelling, No Throat pain, No Throat swelling, No Other Cardiovascular: No Chest Pain, No Palpitations, No Orthopnea, No Paroxysmal Noc. Dyspnea, No Edema, No Lt Headedness, No Other Respiratory: No Cough, No Dry; Shortness of breath, SOB with excertion; No Wheezing, No Hemoptysis, No Pleuritic Pain, No Sputum, No Other Gastrointestinal: No Nausea, No Vomiting, No Abdominal Pain, No Diarrhea, No Constipation, No Melena, No Hematochezia, No Other Genitourinary: No Dysuria, No Frequency, No Incontinence, No Hematuria, No Retention, No Other Musculoskeletal: No other, No neck pain, No shoulder pain, No arm pain, No back pain, No hand pain, No leg pain, No foot pain Skin: No Rash, No Lesions, No Jaundice, No Bruising, No Other Objective Vitals Vital Signs Date Time Temp Pulse Resp B/P (MAP) Pulse Ox O2 Delivery O2 Flow Rate FiO2 06/29/24 15:59 77 18 102/59 (73) 99 30 06/29/24 14:34 Mechanical Ventilator+ 06/29/24 13:30 99.0 210.2 Intake/Output Intake and Output 06/29/24 07:00 Intake Total 2261.49 ml Balance 2261.49 ml Intake IV Total 2261.49 ml General Appearance: Other (Chemically sedated) HEENT: PERRLA, Other (Exophthalmos) Lungs: Clear to auscultation, Normal air movement, Other (Mechanical ventilation) Cardiovascular: Normal S1, Normal S2 Abdomen: Normal bowel sounds, Soft, No tenderness Musculoskeletal: Other (Unable to assess) Neuro: Other (Unable to assess) Psych/Mental Status: Other (Unable to assess) Medications Current Medications Medications Dose Ordered Sig/Kandi Route Start Time Stop Time Status Last Admin Dose Admin Propofol 100 ml @ 2.04 mls/hr Q24H IV 06/28/24 09:15 06/29/24 12:54 16.32 MLS/HR Midazolam HCl 50 ml @ 1 mls/hr Q24H IV 06/28/24 10:45 06/29/24 14:56 12 MLS/HR Insulin Human (Reg)/Sodium Chloride 100 ml @ 0.5 mls/hr Q24H IV 06/28/24 11:00 06/28/24 12:20 6 MLS/HR Vancomycin HCl 0 ml @ 0 mls/hr UD IV 06/28/24 12:15 Piperacillin Sod/ Tazobactam Sod 100 ml @ 100 mls/hr Q8HR IV 06/28/24 14:00 06/29/24 14:15 100 MLS/HR Diagnostic Test (Pha) 1 strip IQ4HR 06/28/24 16:00 06/29/24 16:05 1 STRIP Ondansetron HCl 4 mg Q4HP PRN IV 06/28/24 12:15 Morphine Sulfate 2 mg Q4HPRN PRN IV 06/28/24 12:15 Norepinephrine Bitartrate 250 ml @ 3.75 mls/hr Q24H IV 06/28/24 13:30 06/28/24 13:27 3.75 MLS/HR Dextrose/Sodium Chloride 1,000 ml @ 150 mls/hr Q6H40M IV 06/28/24 16:15 06/29/24 10:07 150 MLS/HR Enteral Nutritional Formula 1,000 ml 30ML/HR GT 06/29/24 16:15 Diagnostic Test (Pha) 1 strip Q6HR 06/29/24 18:00 Insulin Human Regular Q6HR SC 06/29/24 18:00 Dextrose 50 ml UD PRN IV 06/29/24 16:15 Purified Water 200 ml Q6HR GT 06/29/24 18:00 Laboratory Results Laboratory Tests 06/29/24 04:32 Chemistry Test 06/29/24 04:32 Calcium Level 9.6 mg/dL (8.7-10.4) Urinalysis Test 06/28/24 10:56 Urine Color Light-yellow (Yellow) Urine Clarity Clear (Clear) Urine pH 5.0 (5.0-9.0) Urine Specific [place] 1.025 (1.001-1.035) Urine Protein Negative (Negative) Urine Ketones Negative (Negative) Urine Blood Negative /uL (Negative) Urine Nitrite Negative (Negative) Urine Bilirubin Negative (Negative) Urine Urobilinogen Normal mg/dL (Negative) Urine Leukocyte Esterase Trace /uL (Negative) Urine RBC 2 /hpf (0 - 3) Urine WBC 7 /hpf (0 - 3) Urine Squamous Epithelial Cells None seen /hpf (<5) Urine Bacteria None seen /hpf (None Seen) Urine Glucose 4+ mg/dL (Normal) H Blood Gas Results Test 06/29/24 07:12 Arterial Blood pH 7.419 (7.350-7.450) FiO2 % 30.0 Microbiology Microbiology Date/Time Source Procedure Growth Status 06/28/24 09:24 Blood Blood Culture - Preliminary NO GROWTH AFTER 24 HOURS OF INCUBATION. Resulted 06/28/24 09:07 Sputum Gram Stain - Final Resulted 06/28/24 09:07 Sputum Respiratory Culture - Preliminary Resulted Labs and/or images reviewed: Labs reviewed by me, Image(s) reviewed by me Assessment/Plan Assessment/Plan Impression: -diabetes mellitus with hyperglycemia -probable hyperosmolar, hyperglycemic nonketotic syndrome -questionable schizophrenia -CKD stage IIIB -acute kidney injury -leukocytosis, rule out sepsis -probable septic shock Plan: -continue current ventilator settings per pulmonology. Patient may be suitable for spontaneous breathing trial in a.m. -vasopressor therapy as needed, currently off -stop insulin drip -regular insulin sliding scale -start tube feeding -start free water 200 mL q.6 hours -check A1c, TSH, repeat BNP this evening -continue current antibiotic therapy with Zosyn and vancomycin. Deescalate once cultures sensitivity has been back -repeat labs, ABG, chest x-ray in a.m. Critical care time spent with patient discussing and formulating plan of care: 40 minutes. This does not include time spent performing procedures. This medical document was created using an electronic medical record system with [employer] dictation system. Although this document has been carefully reviewed, there may still be some phonetic and typographical errors. These areas are purely typographical due to imperfections of the software programs, and do not reflect any compromise in the patient's medical care. Plan discussed with: Patient, Other (RN) My Orders Orders - REBECA DONATO NP Procedure Category Date Status Time Lipase LAB 06/29/24 Logged 16:07 Hemoglobin A1c LAB 06/29/24 Transmitted 16:07 Thyroid Stimulating LAB 06/29/24 Logged Hormone 16:07 Nutritional PHA 06/29/24 In Process Supplements (Jevity 16:15 Glucose Blood PHA 06/29/24 In Process (Accu-Chek Comfort 18:00 Insulin R (Human) PHA 06/29/24 In Process (Insulin R) 18:00 Dextrose 50% Syringe PHA 06/29/24 In Process 16:15 Basic Metabolic Panel LAB 06/29/24 Logged 16:07 Magnesium LAB 06/29/24 Logged 16:07 Basic Metabolic Panel LAB 06/30/24 Verified 04:00 Complete Blood Count LAB 06/29/24 Logged 16:07 Free Water PHA 06/29/24 In Process 18:00 Chest Portable XY 06/30/24 Logged 04:00 Abg W/ Co-Ox RT 06/30/24 Logged 04:00 Date of Service: Jun 29, 2024 Billing Provider: REBECA DONATO NP Common Visit Codes: [id number] CARE 30-74 MIN REBECA DONATO NP Jun 29, 2024 16:28
[2024-06-29] MEDS: Jevity 1.2 Cal/Fiber 1 Liter GT SCH (16:54)
[2024-06-29 17:47] LABS: Basophils # (auto) 0 10 ^3/uL (0-0.2); Basophils % (auto) 0.3 % (0.0-2.0); Eosinophils # (auto) 0.1 10 ^3/uL (0-0.8); Eosinophils % (auto) 0.9 % (0.0-7.0); Hematocrit 34.6 % (41.0-53.0); Hemoglobin 11.1 g/dL (13.5-17.5); Lymphocytes # (auto) 2.7 10 ^3/uL (0.4-5.4); Lymphocytes % (auto) 18.3 % (10.0-50.0); Mean Corpuscular Hemoglobin 28.3 pg (28.0-32.0); Mean Corpuscular Hgb Conc. 32.1 g/dL (32.0-36.0); Monocytes # (auto) 1.4 10 ^3/uL (0-1.3); Monocytes % (auto) 9.7 % (0.0-12.0); Neutrophils # (auto) 10.3 10 ^3/uL (1.6-8.6); Neutrophils % (auto) 70.8 % (37.0-80.0); Nucleated Red Blood Cells % 0.1 %; Platelet Count (auto) 176 10^3/uL (140-450); Red Blood Cells 3.93 10^6/uL (4.5-5.90); White Blood Cell 14.5 10^3/uL (4.4-10.8)
[2024-06-29 17:57] LABS: Chloride 114 mmol/L (98-107); Potassium 3.8 mmol/L (3.5-5.1); Sodium 149 mmol/L (136-145)
[2024-06-29 17:58] LABS: Anion Gap 6 (5-15); Calcium 9.1 mg/dL (8.7-10.4); Carbon Dioxide 29 mmol/L (20-31)
[2024-06-29] MEDS: InsuLIN REG 1unit/0.01ml Soln (100units/ml) SC SCH (18:00)
[2024-06-29 18:03] LABS: BUN/Creatinine Ratio 12.4 (10.0-20.0); Blood Urea Nitrogen 22 mg/dL (9-23); Glucose 78 mg/dL (74-106)
[2024-06-29 18:04] LABS: Magnesium 2.2 mg/dL (1.6-2.6)
[2024-06-29] MEDS: FREE WATER GT SCH (18:15)
[2024-06-29] MEDS: ACCU-CHEK COMFORT CURVE STRIP VI SCH (18:17)
[2024-06-29 18:58] LABS: Lipase 23 U/L (12-53)
[2024-06-29] MEDS: DEXTROSE (50%) 50ML SYRG IV PRN (20:48)
--- NOTE | 2024-06-29 21:20 | DVHPN2 ---
Progress Note - Dictate Date Seen: Jun 29, 2024 Medical Necessity Reason Pt with a Central, PICC or Fol: Yes The following are medically ne: Nelson Catheter Reason for nelson catheter: Strict I&O Subjective Patient seen and examined at bedside. Sedated, intubated on mechanical ventilator. Overnight events reviewed. vital signs Vital Sign Date Time Temp Pulse Resp B/P (MAP) Pulse Ox O2 Delivery O2 Flow Rate FiO2 06/29/24 20:09 77 27 104/61 (75) 99 30 06/29/24 20:00 Mechanical Ventilator+ 06/29/24 13:30 99.0 210.2 Total Intake and Output 06/28/24 06/28/24 06/29/24 15:00 23:00 07:00 Intake Total 50 ml 781.28 ml 1430.21 ml Balance 50 ml 781.28 ml 1430.21 ml medications Current Medications Medications Dose Ordered Sig/Kandi Route Start Time Stop Time Status Last Admin Dose Admin Propofol 100 ml @ 2.04 mls/hr Q24H IV 06/28/24 09:15 06/29/24 18:35 16.32 MLS/HR Midazolam HCl 50 ml @ 1 mls/hr Q24H IV 06/28/24 10:45 06/29/24 18:34 12 MLS/HR Insulin Human (Reg)/Sodium Chloride 100 ml @ 0.5 mls/hr Q24H IV 06/28/24 11:00 06/28/24 12:20 6 MLS/HR Vancomycin HCl 0 ml @ 0 mls/hr UD IV 06/28/24 12:15 Diagnostic Test (Pha) 1 strip IQ4HR 06/28/24 16:00 06/29/24 20:45 1 STRIP Ondansetron HCl 4 mg Q4HP PRN IV 06/28/24 12:15 Morphine Sulfate 2 mg Q4HPRN PRN IV 06/28/24 12:15 Norepinephrine Bitartrate 250 ml @ 3.75 mls/hr Q24H IV 06/28/24 13:30 06/28/24 13:27 3.75 MLS/HR Dextrose/Sodium Chloride 1,000 ml @ 150 mls/hr Q6H40M IV 06/28/24 16:15 06/29/24 16:52 150 MLS/HR Enteral Nutritional Formula 1,000 ml 30ML/HR GT 06/29/24 16:15 06/29/24 16:54 1,000 ML Diagnostic Test (Pha) 1 strip Q6HR 06/29/24 18:00 06/29/24 18:17 1 STRIP Insulin Human Regular Q6HR SC 06/29/24 18:00 Dextrose 50 ml UD PRN IV 06/29/24 16:15 06/29/24 20:48 50 ML Purified Water 200 ml Q6HR GT 06/29/24 18:00 06/29/24 18:15 200 ML Piperacillin Sod/ Tazobactam Sod 100 ml @ 25 mls/hr Q8HR IV 06/29/24 22:00 objective Gen.: Patient lying in bed in medical ICU. Sedated, intubated on mechanical ventilator. Head: Normocephalic, atraumatic. Eyes: PERRLA. Ears: Normal external anatomy. Throat: Endotracheal tube and orogastric tube in place. Neck: Supple, trachea midline. Chest: Transmitted breath sounds bilaterally. Decreased air entry bilaterally. No wheezing. Bibasilar crackles. Cardiovascular: Positive S1, positive S2. Regular rate and rhythm. Abdomen: Positive bowel sounds in all 4 quadrants. Soft, nontender, nondistended. : Nelson in place. Normal external genitalia. Rectal: Deferred. Skin: Warm, dry. Intact. Extremities: 2+ radial pulses bilaterally. No lower extremity edema. Neuro: Sedated. laboratory and microbiology Laboratory Tests 06/29/24 17:30 Test 06/29/24 17:30 Range/Units Serum Glucose 78 74-106 mg/dL Assessment/Plan Impression: Acute hypoxic respiratory failure On mechanical ventilator Shock Sepsis Pneumonia Seizures DM type II with HHS Events: Remains on vent support On AC mode; RR 18, VT 450, PEEP 5, FiO2 30% Sedated on Propofol, Versed. Continue antibiotics Tube feeds for nutritional support IV fluid hydration Labs and imaging reviewed. Rest of plan as noted below. Plan: s/p intubation on mechanical ventilator. On AC mode; RR 18, VT 450, PEEP 5, FiO2 30% Titrate FIO2 to keep O2 saturation above 90%. VAP bundle. Daily ABG and CXR while intubated Sedate for ventilator synchrony - On Versed, Propofol. Pressors as necessary for hemodynamic support - currently off Titrate to keep mean arterial pressure greater than 65 mmHg. Off insulin drip d/t hypoglycemia. D50. Continue antibiotics. Monitor renal function Monitor electrolytes. Supplement as necessary. Monitor ins and outs. Maintain euvolemia. GI prophylaxis. DVT prophylaxis. Prognosis: Poor given patient's multiple co-morbidities. Condition: Critical Rest of plan per hospitalist and other consultants. A total of 35 minutes of critical care time was spent reviewing the patient record, examining the patient, making a diagnostic and therapeutic plan, discussing this plan with the medical personnel, following up on diagnostic studies and following the patient for clinical stability excluding any and all procedures. At least 50% of this time was spent in direct, [id number] contact. Thank you Dr. Alvarez Fiore MD, for allowing me to participate in this patient's care. Further recommendations will depend on the patient's clinical course. Please do not hesitate to contact me if you have any questions or concerns. This medical document was created using an electronic medical record system with [employer] computerized dictation system. Although these documentations are being carefully reviewed, there may still be some phonetic and typographical changes. The errors are purely typographical, due to imperfection on the software program, and do not reflect any compromise in the patient's medical care. Plan discussed with: Other (ED KIMMIE Casey) Critical Care Time(min): 35 JUAN LUIS DOMINGUEZ MD Jun 29, 2024 21:20
[2024-06-29] MEDS: ACETAMINOPHEN 650 mg PER 20.3 mL UD GT PRN (22:08)
[2024-06-29] MEDS: PIPERACILLIN-TAZOB 3.375GM 100 ML IV SCH (22:09)
[2024-06-30] VITALS (106 sets, daily range): BP systolic 83–139; BP diastolic 42–86; PULSE 55–83; RESP 18–33; TEMP 97–102; O2SAT 95–100
[2024-06-30 04:05] LABS: Anion Gap 6 (5-15); Carbon Dioxide 24 mmol/L (20-31); Chloride 112 mmol/L (98-107); Sodium 142 mmol/L (136-145)
[2024-06-30 04:06] LABS: Calcium 8.4 mg/dL (8.7-10.4)
[2024-06-30 04:11] LABS: BUN/Creatinine Ratio 11.9 (10.0-20.0); Blood Urea Nitrogen 17 mg/dL (9-23); Glucose 112 mg/dL (74-106)
--- NOTE | 2024-06-30 04:35 | DVH ---
CHEST RADIOGRAPH Indication: Device Placement Technique: Single frontal view of the chest was obtained Comparison: XY CHEST PORTABLE on DOS: 06/28/24 FINDINGS: Lines and Tubes: The endotracheal tube terminates 4.6 cm above the andrea. The enteric tube courses b elow the left hemidiaphragm and the tip extends outside the field of view. Lungs: Right basilar atelectasis noted. Pleura: No effusion. No pneumothorax. Cardiomediastinal contours: Unremarkable Bones: No acute osseous abnormality. IMPRESSION: 1. Endotracheal tube terminates 4.6 cm above andrea. 2. Right basilar atelectasis.
[2024-06-30 07:35] LABS: Base Excess -1.1 mmol/L (-2.0-3.0)
--- NOTE | 2024-06-30 09:18 | DVHPN2 ---
Subjective Patient chemically sedated Reviewed: Care Plan, H&P, Labs, Medications Changes from previous H/P or p: No Changes General: Per HPI Eyes: No Pain, No Vision change, No Conjunctivae inflammation, No Eyelid inflammation, No Other, No Redness ENT: No Ear pain, No Ear discharge, No Nose pain, No Nose discharge, No Nose congestion, No Mouth pain, No Mouth swelling, No Throat pain, No Throat swelling, No Other Cardiovascular: No Chest Pain, No Palpitations, No Orthopnea, No Paroxysmal Noc. Dyspnea, No Edema, No Lt Headedness, No Other Respiratory: No Cough, No Dry; Shortness of breath, SOB with excertion; No Wheezing, No Hemoptysis, No Pleuritic Pain, No Sputum, No Other Gastrointestinal: No Nausea, No Vomiting, No Abdominal Pain, No Diarrhea, No Constipation, No Melena, No Hematochezia, No Other Genitourinary: No Dysuria, No Frequency, No Incontinence, No Hematuria, No Retention, No Other Musculoskeletal: No other, No neck pain, No shoulder pain, No arm pain, No back pain, No hand pain, No leg pain, No foot pain Skin: No Rash, No Lesions, No Jaundice, No Bruising, No Other Objective Vitals Vital Signs Date Time Temp Pulse Resp B/P (MAP) Pulse Ox O2 Delivery O2 Flow Rate FiO2 06/30/24 08:50 88/54 06/30/24 08:03 63 18 100 30 06/30/24 08:00 Mechanical Ventilator+ 06/30/24 06:45 97.7 207.9 Intake/Output Intake and Output 06/30/24 07:00 Intake Total 4280.00 ml Output Total 1700 ml Balance 2580.00 ml Intake Oral 600 ml IV Total 3522.00 ml Tube Feeding 158 ml Output Urine Total 1625 ml Gastric Drainage Total 75 ml General Appearance: Other (Patient continues to be heavily sedated) HEENT: PERRLA, Other (Exophthalmos) Lungs: Clear to auscultation, Normal air movement, Other (Mechanical ventilation) Cardiovascular: Normal S1, Normal S2 Abdomen: Normal bowel sounds, Soft, No tenderness Musculoskeletal: Other (Unable to assess) Neuro: Other (Unable to assess) Psych/Mental Status: Other (Unable to assess) Medications Current Medications Medications Dose Ordered Sig/Kandi Route Start Time Stop Time Status Last Admin Dose Admin Propofol 100 ml @ 2.04 mls/hr Q24H IV 06/28/24 09:15 06/30/24 06:04 16.32 MLS/HR Midazolam HCl 50 ml @ 1 mls/hr Q24H IV 06/28/24 10:45 06/30/24 07:20 12 MLS/HR Vancomycin HCl 0 ml @ 0 mls/hr UD IV 06/28/24 12:15 Ondansetron HCl 4 mg Q4HP PRN IV 06/28/24 12:15 Morphine Sulfate 2 mg Q4HPRN PRN IV 06/28/24 12:15 Norepinephrine Bitartrate 250 ml @ 3.75 mls/hr Q24H IV 06/28/24 13:30 06/30/24 08:50 3.75 MLS/HR Dextrose/Sodium Chloride 1,000 ml @ 150 mls/hr Q6H40M IV 06/28/24 16:15 06/30/24 07:20 150 MLS/HR Enteral Nutritional Formula 1,000 ml 30ML/HR GT 06/29/24 16:15 06/29/24 16:54 1,000 ML Diagnostic Test (Pha) 1 strip Q6HR 06/29/24 18:00 06/29/24 18:17 1 STRIP Insulin Human Regular Q6HR SC 06/29/24 18:00 Dextrose 50 ml UD PRN IV 06/29/24 16:15 06/29/24 20:48 50 ML Purified Water 200 ml Q6HR GT 06/29/24 18:00 06/30/24 06:05 200 ML Piperacillin Sod/ Tazobactam Sod 100 ml @ 25 mls/hr Q8HR IV 06/29/24 22:00 06/30/24 06:05 25 MLS/HR Acetaminophen 650 mg Q6HP PRN GT 06/29/24 21:45 06/29/24 22:08 650 MG Laboratory Results Laboratory Tests 06/29/24 17:30 06/30/24 03:30 Chemistry Test 06/29/24 17:30 06/30/24 03:30 Calcium Level 9.1 mg/dL (8.7-10.4) 8.4 mg/dL (8.7-10.4) L Magnesium Level 2.2 mg/dL (1.6-2.6) Lipid panel Test 06/29/24 17:30 Lipase 23 U/L (12-53) HgA1c, TSH Test 06/29/24 17:30 Hemoglobin A1c 12.4 % A1C (<5.7) H Thyroid Stimulating Hormone (TSH) 0.15 uIU/mL (0.55-4.78) L Urinalysis Test 06/28/24 10:56 Urine Color Light-yellow (Yellow) Urine Clarity Clear (Clear) Urine pH 5.0 (5.0-9.0) Urine Specific [place] 1.025 (1.001-1.035) Urine Protein Negative (Negative) Urine Ketones Negative (Negative) Urine Blood Negative /uL (Negative) Urine Nitrite Negative (Negative) Urine Bilirubin Negative (Negative) Urine Urobilinogen Normal mg/dL (Negative) Urine Leukocyte Esterase Trace /uL (Negative) Urine RBC 2 /hpf (0 - 3) Urine WBC 7 /hpf (0 - 3) Urine Squamous Epithelial Cells None seen /hpf (<5) Urine Bacteria None seen /hpf (None Seen) Urine Glucose 4+ mg/dL (Normal) H Blood Gas Results Test 06/30/24 07:27 Arterial Blood pH 7.423 (7.350-7.450) FiO2 % 30.0 Microbiology Microbiology Date/Time Source Procedure Growth Status 06/28/24 09:24 Blood Blood Culture - Preliminary NO GROWTH AFTER 24 HOURS OF INCUBATION. Resulted 06/28/24 09:07 Sputum Gram Stain - Final Resulted 06/28/24 09:07 Sputum Respiratory Culture - Preliminary Resulted Labs and/or images reviewed: Labs reviewed by me, Image(s) reviewed by me Assessment/Plan Assessment/Plan Impression: -diabetes mellitus with hyperglycemia -probable hyperosmolar, hyperglycemic nonketotic syndrome -questionable schizophrenia -CKD stage IIIB -acute kidney injury -leukocytosis, rule out sepsis -probable septic shock Plan: -events: Patient's blood sugars improved. Continues to be off vasopressors. Renal function improving. Continues to be on FiO2 at 30%. Spontaneous breathing trial today once appropriate. -weaned off of sedation -vasopressor therapy as needed, currently off -TSH noted to be low, thyroid panel pending -regular insulin sliding scale -continue tube feedings -start free water 200 mL q.6 hours -check A1c, TSH, repeat BNP this evening -continue current antibiotic therapy with Zosyn and vancomycin. Deescalate once cultures sensitivity has been back -repeat labs, ABG, chest x-ray in a.m. Critical care time spent with patient discussing and formulating plan of care: 40 minutes. This does not include time spent performing procedures. This medical document was created using an electronic medical record system with [employer] dictation system. Although this document has been carefully reviewed, there may still be some phonetic and typographical errors. These areas are purely typographical due to imperfections of the software programs, and do not reflect any compromise in the patient's medical care. Plan discussed with: Patient, Other (RN) My Orders Orders - REBECA DONATO NP Procedure Category Date Status Time Nutritional PHA 06/29/24 In Process Supplements (Jevity 16:15 Glucose Blood PHA 06/29/24 In Process (Accu-Chek Comfort 18:00 Insulin R (Human) PHA 06/29/24 In Process (Insulin R) 18:00 Dextrose 50% Syringe PHA 06/29/24 In Process 16:15 Free Water PHA 06/29/24 In Process 18:00 Chest Portable XY 06/30/24 Resulted 04:00 Abg W/ Co-Ox RT 06/30/24 Logged 04:00 Thyroid Panel LAB 06/30/24 Logged 08:23 Cpap/Sed Vacation Med ORDERS 06/30/24 Transmitted Weaning 08:23 Cpap Trial For Am ORDERS 06/30/24 Transmitted 08:23 Date of Service: Jun 30, 2024 Billing Provider: REBECA DONATO NP Common Visit Codes: [id number] CARE 30-74 MIN REBECA DONATO NP Jun 30, 2024 09:17
[2024-06-30] MEDS ORDERED: fentaNYL Drip 2500mCg/250mlNS 250 ML IV SCH (13:45)
[2024-06-30] MEDS: VANCOMYCIN 1GM/250ML KIT 200 ML IV ONE (13:56)
[2024-06-30] MEDS: fentaNYL Drip 2500mCg/250mlNS 250 ML IV SCH (14:44)
--- NOTE | 2024-06-30 20:16 | DVHPN2 ---
Progress Note - Dictate Date Seen: Jun 30, 2024 Medical Necessity Reason Pt with a Central, PICC or Fol: Yes The following are medically ne: Nelson Catheter Reason for nelson catheter: Strict I&O Subjective Patient seen and examined at bedside. Sedated, intubated on mechanical ventilator. Overnight events reviewed. vital signs Vital Sign Date Time Temp Pulse Resp B/P (MAP) Pulse Ox O2 Delivery O2 Flow Rate FiO2 06/30/24 20:06 63 18 104/53 (70) 100 30 06/30/24 18:45 98.4 209.1 06/30/24 18:00 Mechanical Ventilator+ Total Intake and Output 06/29/24 06/29/24 06/30/24 15:00 23:00 07:00 Intake Total 647.20 ml 1739.56 ml 2071.56 ml Output Total 1225 ml 475 ml Balance 647.20 ml 514.56 ml 1596.56 ml medications Current Medications Medications Dose Ordered Sig/Kandi Route Start Time Stop Time Status Last Admin Dose Admin Propofol 100 ml @ 2.04 mls/hr Q24H IV 06/28/24 09:15 06/30/24 17:24 16.32 MLS/HR Midazolam HCl 50 ml @ 1 mls/hr Q24H IV 06/28/24 10:45 06/30/24 12:28 12 MLS/HR Vancomycin HCl 0 ml @ 0 mls/hr UD IV 06/28/24 12:15 Ondansetron HCl 4 mg Q4HP PRN IV 06/28/24 12:15 Morphine Sulfate 2 mg Q4HPRN PRN IV 06/28/24 12:15 Norepinephrine Bitartrate 250 ml @ 3.75 mls/hr Q24H IV 06/28/24 13:30 06/30/24 15:13 3.75 MLS/HR Dextrose/Sodium Chloride 1,000 ml @ 150 mls/hr Q6H40M IV 06/28/24 16:15 06/30/24 13:52 150 MLS/HR Enteral Nutritional Formula 1,000 ml 30ML/HR GT 06/29/24 16:15 06/29/24 16:54 1,000 ML Diagnostic Test (Pha) 1 strip Q6HR 06/29/24 18:00 06/30/24 17:37 1 STRIP Insulin Human Regular Q6HR SC 06/29/24 18:00 06/30/24 17:38 12 UNITS Dextrose 50 ml UD PRN IV 06/29/24 16:15 06/29/24 20:48 50 ML Purified Water 200 ml Q6HR GT 06/29/24 18:00 06/30/24 17:24 200 ML Piperacillin Sod/ Tazobactam Sod 100 ml @ 25 mls/hr Q8HR IV 06/29/24 22:00 06/30/24 13:38 25 MLS/HR Acetaminophen 650 mg Q6HP PRN GT 06/29/24 21:45 06/29/24 22:08 650 MG Artificial Tears 1 drop Q2HP PRN EACHEYE 06/30/24 13:45 Fentanyl Citrate 250 ml @ 2.5 mls/hr Q24H IV 06/30/24 13:45 06/30/24 14:44 2.5 MLS/HR objective Gen.: Patient lying in bed in medical ICU. Sedated, intubated on mechanical ventilator. Head: Normocephalic, atraumatic. Eyes: PERRLA. Ears: Normal external anatomy. Throat: Endotracheal tube and orogastric tube in place. Neck: Supple, trachea midline. Chest: Transmitted breath sounds bilaterally. Decreased air entry bilaterally. No wheezing. Bibasilar crackles. Cardiovascular: Positive S1, positive S2. Regular rate and rhythm. Abdomen: Positive bowel sounds in all 4 quadrants. Soft, nontender, nondistended. : Nelson in place. Normal external genitalia. Rectal: Deferred. Skin: Warm, dry. Intact. Extremities: 2+ radial pulses bilaterally. No lower extremity edema. Neuro: Sedated. laboratory and microbiology Laboratory Tests 06/30/24 03:30 06/29/24 17:30 Test 06/30/24 03:30 Range/Units Serum Glucose 112 H 74-106 mg/dL Assessment/Plan Impression: Acute hypoxic respiratory failure On mechanical ventilator Shock Sepsis Pneumonia Seizures DM type II with HHS Events: Remains on vent support On AC mode; RR 18, VT 450, PEEP 5, FiO2 30% Sedated on Propofol, Fentanyl Off Versed. On pressors for hemodynamic support Levophed 2 mcg/min Titrate to keep mean arterial pressure greater than 65 mmHg. Continue antibiotics Tube feeds for nutritional support IV fluid hydration - 150 ml/hr D5-half normal saline. Patient tolerated 1 hour of CPAP, then placed on full support. Labs and imaging reviewed. Rest of plan as noted below. Plan: s/p intubation on mechanical ventilator. On AC mode; RR 18, VT 450, PEEP 5, FiO2 30% Titrate FIO2 to keep O2 saturation above 90%. VAP bundle. Daily ABG and CXR while intubated Sedate for ventilator synchrony - On Versed, Propofol. Pressors for hemodynamic support Titrate to keep mean arterial pressure greater than 65 mmHg. Off insulin drip d/t hypoglycemia. D50. Continue antibiotics. Monitor renal function Monitor electrolytes. Supplement as necessary. Monitor ins and outs. Maintain euvolemia. GI prophylaxis. DVT prophylaxis. Prognosis: Poor given patient's multiple co-morbidities. Condition: Critical Rest of plan per hospitalist and other consultants. A total of 35 minutes of critical care time was spent reviewing the patient record, examining the patient, making a diagnostic and therapeutic plan, discussing this plan with the medical personnel, following up on diagnostic studies and following the patient for clinical stability excluding any and all procedures. At least 50% of this time was spent in direct, [id number] contact. Thank you Dr. Alvarez Fiore MD, for allowing me to participate in this patient's care. Further recommendations will depend on the patient's clinical course. Please do not hesitate to contact me if you have any questions or concerns. This medical document was created using an electronic medical record system with [employer] dictation system. Although these documentations are being carefully reviewed, there may still be some phonetic and typographical changes. The errors are purely typographical, due to imperfection on the software program, and do not reflect any compromise in the patient's medical care. Plan discussed with: Other (KIMMIE Staton) Critical Care Time(min): 35 JUAN LUIS DOMINGUEZ MD Jun 30, 2024 20:16
[2024-06-30] MEDS: ARTIFICIAL TEARS 15ml EACHEYE PRN (22:25)
[2024-07-01] VITALS (99 sets, daily range): BP systolic 64–179; BP diastolic 36–91; PULSE 47–92; RESP 15–33; TEMP 98.1–101.7; O2SAT 97–100
[2024-07-01 04:18] LABS: Basophils # (auto) 0 10 ^3/uL (0-0.2); Basophils % (auto) 0.2 % (0.0-2.0); Eosinophils # (auto) 0.4 10 ^3/uL (0-0.8); Eosinophils % (auto) 2.8 % (0.0-7.0); Hematocrit 41.1 % (41.0-53.0); Hemoglobin 12.5 g/dL (13.5-17.5); Lymphocytes # (auto) 2.5 10 ^3/uL (0.4-5.4); Lymphocytes % (auto) 16.5 % (10.0-50.0); Mean Corpuscular Hemoglobin 28.4 pg (28.0-32.0); Mean Corpuscular Hgb Conc. 30.5 g/dL (32.0-36.0); Mean Corpuscular Volume 92.9 fL (80.0-100.0); Monocytes # (auto) 1.8 10 ^3/uL (0-1.3); Monocytes % (auto) 11.7 % (0.0-12.0); Neutrophils # (auto) 10.3 10 ^3/uL (1.6-8.6); Neutrophils % (auto) 68.8 % (37.0-80.0); Nucleated Red Blood Cells % 0.1 %; Platelet Count (auto) 166 10^3/uL (140-450); Red Blood Cells 4.42 10^6/uL (4.5-5.90); Red Cell Distribution Width 15.1 % (11.8-14.3)
--- NOTE | 2024-07-01 06:05 | DVH ---
CHEST RADIOGRAPH Indication: INTUBATED Technique: Single frontal view of the chest was obtained Comparison: XY CHEST PORTABLE on DOS: 06/30/24, XY CHEST PORTABLE on DOS: 06/28/24, XY CHEST XRAY 1 V IEW on DOS: 12/19/23 IMPRESSION: The heart appears stable in size. Support lines and tubes appear unchanged in satisfactory in positi on. Subsegmental atelectasis at the left lung base. No sizable pleural effusion, airspace opacity, o r pneumothorax.
[2024-07-01 08:06] LABS: Free Thyroxine Index 2.1 (1.2-4.9); Thyroxine (T4) 6.5 ug/dL (4.5-12.0)
[2024-07-01 11:01] LABS: Alanine Aminotransferase 63 U/L (7-40); Albumin 3.1 g/dL (3.2-4.8); Alkaline Phosphatase 67 U/L (46-116); Anion Gap 5 (5-15); Aspartate Aminotransferase 117 U/L (13-40); BUN/Creatinine Ratio 7.5 (10.0-20.0); Bilirubin, Total 0.2 mg/dL (0.2-1.0); Blood Urea Nitrogen 11 mg/dL (9-23); Calcium 8.5 mg/dL (8.7-10.4); Carbon Dioxide 23 mmol/L (20-31); Chloride 108 mmol/L (98-107); Potassium 5.1 mmol/L (3.5-5.1); Sodium 136 mmol/L (136-145); Total Protein 5.7 g/dL (5.7-8.2)
[2024-07-01 11:15] LABS: Glucose 262 mg/dL (74-106)
[2024-07-01] MEDS: VANCOMYCIN 1GM/250ML KIT 200 ML IV SCH (12:33)
--- NOTE | 2024-07-01 14:57 | DVHPN2 ---
Subjective Intubated and sedated Reviewed: Care Plan, H&P, Labs, Medications Changes from previous H/P or p: Changes General: Per HPI Eyes: No Pain, No Vision change, No Conjunctivae inflammation, No Eyelid inflammation, No Other, No Redness ENT: No Ear pain, No Ear discharge, No Nose pain, No Nose discharge, No Nose congestion, No Mouth pain, No Mouth swelling, No Throat pain, No Throat swelling, No Other Cardiovascular: No Chest Pain, No Palpitations, No Orthopnea, No Paroxysmal Noc. Dyspnea, No Edema, No Lt Headedness, No Other Respiratory: Shortness of breath, SOB with excertion Gastrointestinal: No Nausea, No Vomiting, No Abdominal Pain, No Diarrhea, No Constipation, No Melena, No Hematochezia, No Other Genitourinary: No Dysuria, No Frequency, No Incontinence, No Hematuria, No Retention, No Other Musculoskeletal: No other, No neck pain, No shoulder pain, No arm pain, No back pain, No hand pain, No leg pain, No foot pain Skin: No Rash, No Lesions, No Jaundice, No Bruising, No Other Objective Vitals Vital Signs Date Time Temp Pulse Resp B/P (MAP) Pulse Ox O2 Delivery O2 Flow Rate FiO2 07/01/24 14:31 98.1 58 18 91/48 (62) 100 208.6 07/01/24 14:24 30 07/01/24 14:00 Mechanical Ventilator+ Intake/Output Intake and Output 07/01/24 07:00 Intake Total 9195.82 ml Output Total 2100 ml Balance 7095.82 ml Intake Oral 4400 ml IV Total 4360.82 ml Tube Feeding 435 ml Output Urine Total 2100 ml General Appearance: Other HEENT: PERRLA, Other Lungs: Clear to auscultation, Normal air movement, Other Cardiovascular: Normal S1, Normal S2 Abdomen: Normal bowel sounds, Soft, No tenderness Musculoskeletal: Other Neuro: Other Psych/Mental Status: Other Medications Current Medications Medications Dose Ordered Sig/Kandi Route Start Time Stop Time Status Last Admin Dose Admin Propofol 100 ml @ 2.04 mls/hr Q24H IV 06/28/24 09:15 07/01/24 04:52 8.16 MLS/HR Midazolam HCl 50 ml @ 1 mls/hr Q24H IV 06/28/24 10:45 06/30/24 12:28 12 MLS/HR Vancomycin HCl 0 ml @ 0 mls/hr UD IV 06/28/24 12:15 Ondansetron HCl 4 mg Q4HP PRN IV 06/28/24 12:15 Morphine Sulfate 2 mg Q4HPRN PRN IV 06/28/24 12:15 Norepinephrine Bitartrate 250 ml @ 3.75 mls/hr Q24H IV 06/28/24 13:30 06/30/24 15:13 3.75 MLS/HR Dextrose/Sodium Chloride 1,000 ml @ 150 mls/hr Q6H40M IV 06/28/24 16:15 07/01/24 12:33 150 MLS/HR Enteral Nutritional Formula 1,000 ml 30ML/HR GT 06/29/24 16:15 07/01/24 13:57 1,000 ML Diagnostic Test (Pha) 1 strip Q6HR 06/29/24 18:00 07/01/24 11:39 1 STRIP Insulin Human Regular Q6HR SC 06/29/24 18:00 07/01/24 11:46 6 UNITS Dextrose 50 ml UD PRN IV 06/29/24 16:15 06/29/24 20:48 50 ML Purified Water 200 ml Q6HR GT 06/29/24 18:00 07/01/24 11:39 200 ML Piperacillin Sod/ Tazobactam Sod 100 ml @ 25 mls/hr Q8HR IV 06/29/24 22:00 07/01/24 13:49 25 MLS/HR Artificial Tears 1 drop Q2HP PRN EACHEYE 06/30/24 13:45 07/01/24 11:48 1 DROP Fentanyl Citrate 250 ml @ 2.5 mls/hr Q24H IV 06/30/24 13:45 06/30/24 14:44 2.5 MLS/HR Acetaminophen 650 mg Q4HP PRN GT 07/01/24 11:30 Vancomycin HCl 200 ml @ 200 mls/hr Q20H IV 07/01/24 13:00 07/01/24 12:33 200 MLS/HR Laboratory Results Laboratory Tests 07/01/24 03:45 07/01/24 10:02 Chemistry Test 07/01/24 10:02 Albumin 3.1 g/dL (3.2-4.8) L Calcium Level 8.5 mg/dL (8.7-10.4) L Total Protein 5.7 g/dL (5.7-8.2) LFT Test 07/01/24 10:02 Alanine Aminotransferase (ALT) 63 U/L (7-40) H Alkaline Phosphatase 67 U/L (46-116) Aspartate Amino Transferase (AST) 117 U/L (13-40) H Total Bilirubin 0.2 mg/dL (0.2-1.0) Urinalysis Test 06/28/24 10:56 Urine Color Light-yellow (Yellow) Urine Clarity Clear (Clear) Urine pH 5.0 (5.0-9.0) Urine Specific [place] 1.025 (1.001-1.035) Urine Protein Negative (Negative) Urine Ketones Negative (Negative) Urine Blood Negative /uL (Negative) Urine Nitrite Negative (Negative) Urine Bilirubin Negative (Negative) Urine Urobilinogen Normal mg/dL (Negative) Urine Leukocyte Esterase Trace /uL (Negative) Urine RBC 2 /hpf (0 - 3) Urine WBC 7 /hpf (0 - 3) Urine Squamous Epithelial Cells None seen /hpf (<5) Urine Bacteria None seen /hpf (None Seen) Urine Glucose 4+ mg/dL (Normal) H Microbiology Microbiology Date/Time Source Procedure Growth Status 06/29/24 12:51 Nose MRSA Screen - Final Complete 06/28/24 10:56 Voided Urine Urine Culture - Final Escherichia coli Complete 06/28/24 09:24 Blood Blood Culture - Preliminary NO GROWTH AFTER 72 HOURS OF INCUBATION. Resulted 06/28/24 09:07 Sputum Gram Stain - Final Resulted 06/28/24 09:07 Respiratory Culture - Preliminary Klebsiella pneumoniae Resulted Assessment/Plan Assessment/Plan Acute hypoxic respiratory failure Pneumonia Type 2 diabetes with hyperosmolar hyperglycemic state Asthma COPD Hypertension CKD Plan IV antibiotics: Zosyn and vancomycin Sedation as needed Continue tube feeding Lower the IV and p.o. fluids including tube feeding to a total of 120 mL an hour Increase the feeding rate to 40 mL an hour Jevity Free water 100 mL q.6 hours IV fluids with D5 half NS at 60 mL an hour Mechanical ventilation Full code Echocardiogram Plan discussed with: Other My Orders Orders - MAUDE NUÑEZ MD Procedure Category Date Status Time Acetaminophen PHA 07/01/24 In Process Solution Oral 11:30 Apply Z-Guard ЕЛЕНА 07/01/24 In Process 13:41 Date of Service: Jul 01, 2024 Billing Provider: MAUDE NUÑEZ MD Common Visit Codes: [id number] CARE 30-74 MIN MAUDE NUÑEZ MD Jul 01, 2024 14:57
[2024-07-01] MEDS: D5W/SOD CHL 0.45% 1,000 ML IV SCH (15:20)
--- NOTE | 2024-07-01 15:32 | MEDREC ---
[facility] Intervention Section I [facility] Intervention: Deescalate AB based on CS (FINAL URINE CULTURE RESULTED IN E.COLI. FINAL RESPIRATORY CULTURE RESULTED IN [facility]A PNEUMONIAE. PLEASE CONSIDER DE-ESCALATE ANTIBIOTICS BASED ON CULTURE RESULTS) BERONICA RIDDLE Jul 01, 2024 15:32
[2024-07-01 15:51] LABS: Base Excess -4.2 mmol/L (-2.0-3.0)
[2024-07-01 16:56] LABS: Anion Gap 6 (5-15); Carbon Dioxide 25 mmol/L (20-31); Chloride 109 mmol/L (98-107); Potassium 4.2 mmol/L (3.5-5.1); Sodium 140 mmol/L (136-145)
[2024-07-01 16:57] LABS: Calcium 8.4 mg/dL (8.7-10.4)
[2024-07-01 17:02] LABS: BUN/Creatinine Ratio 10.2 (10.0-20.0); Blood Urea Nitrogen 13 mg/dL (9-23); Glucose 251 mg/dL (74-106); Magnesium 2.1 mg/dL (1.6-2.6)
[2024-07-01] MEDS: FREE WATER GT SCH (17:33)
[2024-07-01] MEDS: ACETAMINOPHEN 650 mg PER 20.3 mL UD GT PRN (18:49)
--- NOTE | 2024-07-01 21:24 | DVHPN2 ---
Progress Note - Dictate Date Seen: Jul 01, 2024 Medical Necessity Reason Pt with a Central, PICC or Fol: Yes The following are medically ne: Nelson Catheter Reason for nelson catheter: Strict I&O Subjective Patient seen and examined at bedside. Sedated, intubated on mechanical ventilator. Overnight events reviewed. vital signs Vital Sign Date Time Temp Pulse Resp B/P (MAP) Pulse Ox O2 Delivery O2 Flow Rate FiO2 07/01/24 21:00 100.2 66 18 100/53 (69) 100 212.4 07/01/24 20:24 30 07/01/24 20:00 Mechanical Ventilator+ Total Intake and Output 07/01/24 07/01/24 07/01/24 01:30 09:30 17:30 Intake Total 1498.52 ml 1980.08 ml 1725.60 ml Output Total 1250 ml 1800 ml Balance 1498.52 ml 730.08 ml -74.40 ml medications Current Medications Medications Dose Ordered Sig/Kandi Route Start Time Stop Time Status Last Admin Dose Admin Propofol 100 ml @ 2.04 mls/hr Q24H IV 06/28/24 09:15 07/01/24 16:05 8.16 MLS/HR Midazolam HCl 50 ml @ 1 mls/hr Q24H IV 06/28/24 10:45 06/30/24 12:28 12 MLS/HR Vancomycin HCl 0 ml @ 0 mls/hr UD IV 06/28/24 12:15 Ondansetron HCl 4 mg Q4HP PRN IV 06/28/24 12:15 Norepinephrine Bitartrate 250 ml @ 3.75 mls/hr Q24H IV 06/28/24 13:30 06/30/24 15:13 3.75 MLS/HR Enteral Nutritional Formula 1,000 ml 30ML/HR GT 06/29/24 16:15 07/01/24 13:57 1,000 ML Diagnostic Test (Pha) 1 strip Q6HR 06/29/24 18:00 07/01/24 17:32 1 STRIP Insulin Human Regular Q6HR SC 06/29/24 18:00 07/01/24 17:36 4 UNITS Dextrose 50 ml UD PRN IV 06/29/24 16:15 06/29/24 20:48 50 ML Piperacillin Sod/ Tazobactam Sod 100 ml @ 25 mls/hr Q8HR IV 06/29/24 22:00 07/01/24 13:49 25 MLS/HR Artificial Tears 1 drop Q2HP PRN EACHEYE 06/30/24 13:45 07/01/24 11:48 1 DROP Fentanyl Citrate 250 ml @ 2.5 mls/hr Q24H IV 06/30/24 13:45 06/30/24 14:44 2.5 MLS/HR Acetaminophen 650 mg Q4HP PRN GT 07/01/24 11:30 07/01/24 18:49 650 MG Vancomycin HCl 200 ml @ 200 mls/hr Q20H IV 07/01/24 13:00 07/01/24 12:33 200 MLS/HR Dextrose/Sodium Chloride 1,000 ml @ 60 mls/hr [id number] IV 07/01/24 14:45 07/01/24 15:20 60 MLS/HR Purified Water 100 ml Q6HR GT 07/01/24 18:00 07/01/24 17:33 100 ML objective Gen.: Patient lying in bed in medical ICU. Sedated, intubated on mechanical ventilator. Head: Normocephalic, atraumatic. Eyes: PERRLA. Ears: Normal external anatomy. Throat: Endotracheal tube and orogastric tube in place. Neck: Supple, trachea midline. Chest: Transmitted breath sounds bilaterally. Decreased air entry bilaterally. No wheezing. Bibasilar crackles. Cardiovascular: Positive S1, positive S2. Regular rate and rhythm. Abdomen: Positive bowel sounds in all 4 quadrants. Soft, nontender, nondistended. : Nelson in place. Normal external genitalia. Rectal: Deferred. Skin: Warm, dry. Intact. Extremities: 2+ radial pulses bilaterally. No lower extremity edema. Neuro: Sedated. laboratory and microbiology Laboratory Tests 07/01/24 16:30 07/01/24 03:45 Test 07/01/24 16:30 Range/Units Serum Glucose 251 H 74-106 mg/dL Assessment/Plan Impression: Acute hypoxic respiratory failure On mechanical ventilator Shock Sepsis Pneumonia Seizures DM type II with HHS Events: Remains on vent support On AC mode; RR 18, VT 450, PEEP 5, FiO2 30% Sedated on Propofol, Fentanyl Off Levophed this evening, hemodynamically stable. ABG reviewed, compensated. Patient with fever, stopped CPAP. Awaiting mental status to improve. Continue antibiotics Tube feeds for nutritional support IV fluid hydration - 150 ml/hr D5-half normal saline. Will reattempt CPAP in the AM. Labs and imaging reviewed. Rest of plan as noted below. Plan: s/p intubation on mechanical ventilator. On AC mode; RR 18, VT 450, PEEP 5, FiO2 30% Titrate FIO2 to keep O2 saturation above 90%. VAP bundle. Daily ABG and CXR while intubated Sedate for ventilator synchrony - On Propofol, Fentanyl. Pressors for hemodynamic support - currently off Titrate to keep mean arterial pressure greater than 65 mmHg. Off insulin drip d/t hypoglycemia. D50. Continue antibiotics. Monitor renal function Monitor electrolytes. Supplement as necessary. Monitor ins and outs. Maintain euvolemia. GI prophylaxis. DVT prophylaxis. Prognosis: Poor given patient's multiple co-morbidities. Condition: Critical Rest of plan per hospitalist and other consultants. A total of 35 minutes of critical care time was spent reviewing the patient record, examining the patient, making a diagnostic and therapeutic plan, discussing this plan with the medical personnel, following up on diagnostic studies and following the patient for clinical stability excluding any and all procedures. At least 50% of this time was spent in direct, [id number] contact. Thank you Dr. Alvarez Fiore MD, for allowing me to participate in this patient's care. Further recommendations will depend on the patient's clinical course. Please do not hesitate to contact me if you have any questions or concerns. This medical document was created using an electronic medical record system with [employer] dictation system. Although these documentations are being carefully reviewed, there may still be some phonetic and typographical changes. The errors are purely typographical, due to imperfection on the software program, and do not reflect any compromise in the patient's medical care. Plan discussed with: Other (KIMMIE Staton) Critical Care Time(min): 35 JUAN LUIS DOMINGUEZ MD Jul 01, 2024 21:24
[2024-07-02] VITALS (105 sets, daily range): BP systolic 82–182; BP diastolic 35–89; PULSE 58–89; RESP 13–34; TEMP 98.1–102.4; O2SAT 91–100
--- NOTE | 2024-07-02 05:39 | DVH ---
CHEST RADIOGRAPH Indication: INTUBATED/SEDATED Technique: Single frontal view of the chest was obtained COMPARISON: XY CHEST PORTABLE on DOS: 07/01/24, XY CHEST PORTABLE on DOS: 06/30/24, XY CHEST PORTABLE on DOS: 06/28/24 FINDINGS: Lines and Tubes: Endotracheal tube and enteric catheter in satisfactory position. Lungs: Patchy bilateral airspace disease. Pleura: No effusion. No pneumothorax. Cardiomediastinal contours: Unremarkable Bones: Unremarkable IMPRESSION: Lines and tubes in satisfactory position. No significant interval change.
[2024-07-02 07:02] LABS: Basophils # (auto) 0.1 10 ^3/uL (0-0.2); Basophils % (auto) 0.5 % (0.0-2.0); Eosinophils # (auto) 0.3 10 ^3/uL (0-0.8); Hematocrit 38.4 % (41.0-53.0); Hemoglobin 12.3 g/dL (13.5-17.5); Lymphocytes # (auto) 2.8 10 ^3/uL (0.4-5.4); Lymphocytes % (auto) 17.9 % (10.0-50.0); Mean Corpuscular Hemoglobin 28.5 pg (28.0-32.0); Mean Corpuscular Hgb Conc. 32.2 g/dL (32.0-36.0); Mean Corpuscular Volume 88.7 fL (80.0-100.0); Monocytes # (auto) 1.9 10 ^3/uL (0-1.3); Monocytes % (auto) 11.7 % (0.0-12.0); Neutrophils # (auto) 10.8 10 ^3/uL (1.6-8.6); Neutrophils % (auto) 67.9 % (37.0-80.0); Platelet Count (auto) 192 10^3/uL (140-450); Red Blood Cells 4.33 10^6/uL (4.5-5.90); White Blood Cell 15.9 10^3/uL (4.4-10.8)
[2024-07-02 07:24] LABS: Alanine Aminotransferase 59 U/L (7-40); Albumin 3.3 g/dL (3.2-4.8); Alkaline Phosphatase 67 U/L (46-116); Anion Gap 6 (5-15); Aspartate Aminotransferase 91 U/L (13-40); BUN/Creatinine Ratio 9.9 (10.0-20.0); Blood Urea Nitrogen 13 mg/dL (9-23); Calcium 8.9 mg/dL (8.7-10.4); Carbon Dioxide 24 mmol/L (20-31); Chloride 109 mmol/L (98-107); Magnesium 2.3 mg/dL (1.6-2.6); Potassium 4.9 mmol/L (3.5-5.1); Sodium 139 mmol/L (136-145)
[2024-07-02 07:25] LABS: Bilirubin, Total 0.2 mg/dL (0.2-1.0)
[2024-07-02 07:28] LABS: Glucose 125 mg/dL (74-106)
[2024-07-02 07:45] LABS: Base Excess -3.3 mmol/L (-2.0-3.0)
--- NOTE | 2024-07-02 11:12 | DVHPN2 ---
Subjective Intubated and sedated Abdomen is distended White count is high at 15.9 Creatinine 1.3 Reviewed: Care Plan, H&P, Labs, Medications Changes from previous H/P or p: Changes General: Per HPI Eyes: No Pain, No Vision change, No Conjunctivae inflammation, No Eyelid inflammation, No Other, No Redness ENT: No Ear pain, No Ear discharge, No Nose pain, No Nose discharge, No Nose congestion, No Mouth pain, No Mouth swelling, No Throat pain, No Throat swelling, No Other Cardiovascular: No Chest Pain, No Palpitations, No Orthopnea, No Paroxysmal Noc. Dyspnea, No Edema, No Lt Headedness, No Other Respiratory: Shortness of breath, SOB with excertion Gastrointestinal: No Nausea, No Vomiting, No Abdominal Pain, No Diarrhea, No Constipation, No Melena, No Hematochezia, No Other Genitourinary: No Dysuria, No Frequency, No Incontinence, No Hematuria, No Retention, No Other Musculoskeletal: No other, No neck pain, No shoulder pain, No arm pain, No back pain, No hand pain, No leg pain, No foot pain Skin: No Rash, No Lesions, No Jaundice, No Bruising, No Other Objective Vitals Vital Signs Date Time Temp Pulse Resp B/P (MAP) Pulse Ox O2 Delivery O2 Flow Rate FiO2 07/02/24 10:21 182/41 07/02/24 09:51 100.6 07/02/24 09:18 73 27 99 30 07/02/24 06:00 Mechanical Ventilator+ Intake/Output Intake and Output 07/02/24 07:00 Intake Total 3177.83 ml Output Total 2375 ml Balance 802.83 ml Intake Oral 500 ml IV Total 2226.83 ml Tube Feeding 451 ml Output Urine Total 2375 ml General Appearance: Other HEENT: PERRLA, Other Lungs: Clear to auscultation, Normal air movement, Other Cardiovascular: Normal S1, Normal S2 Abdomen: Normal bowel sounds, Soft, No tenderness Musculoskeletal: Other Neuro: Other Psych/Mental Status: Other Medications Current Medications Medications Dose Ordered Sig/Kandi Route Start Time Stop Time Status Last Admin Dose Admin Propofol 100 ml @ 2.04 mls/hr Q24H IV 06/28/24 09:15 07/02/24 10:21 20.4 MLS/HR Midazolam HCl 50 ml @ 1 mls/hr Q24H IV 06/28/24 10:45 06/30/24 12:28 12 MLS/HR Vancomycin HCl 0 ml @ 0 mls/hr UD IV 06/28/24 12:15 Ondansetron HCl 4 mg Q4HP PRN IV 06/28/24 12:15 Norepinephrine Bitartrate 250 ml @ 3.75 mls/hr Q24H IV 06/28/24 13:30 06/30/24 15:13 3.75 MLS/HR Enteral Nutritional Formula 1,000 ml 30ML/HR GT 06/29/24 16:15 07/01/24 13:57 1,000 ML Diagnostic Test (Pha) 1 strip Q6HR 06/29/24 18:00 07/02/24 05:45 1 STRIP Insulin Human Regular Q6HR SC 06/29/24 18:00 07/02/24 00:00 3 UNITS Dextrose 50 ml UD PRN IV 06/29/24 16:15 06/29/24 20:48 50 ML Piperacillin Sod/ Tazobactam Sod 100 ml @ 25 mls/hr Q8HR IV 06/29/24 22:00 07/02/24 05:45 25 MLS/HR Artificial Tears 1 drop Q2HP PRN EACHEYE 06/30/24 13:45 07/01/24 11:48 1 DROP Fentanyl Citrate 250 ml @ 2.5 mls/hr Q24H IV 06/30/24 13:45 07/02/24 04:20 7.5 MLS/HR Acetaminophen 650 mg Q4HP PRN GT 07/01/24 11:30 07/02/24 09:51 650 MG Vancomycin HCl 200 ml @ 200 mls/hr Q20H IV 07/01/24 13:00 07/02/24 09:18 200 MLS/HR Dextrose/Sodium Chloride 1,000 ml @ 60 mls/hr [id number] IV 07/01/24 14:45 07/02/24 02:45 60 MLS/HR Purified Water 100 ml Q6HR GT 07/01/24 18:00 07/02/24 05:45 100 ML Dexmedetomidine HCl 400 mcg/ Dextrose 100 ml @ 3.11 mls/hr Q24H IV 07/01/24 23:30 07/01/24 23:30 3.11 MLS/HR Laboratory Results Laboratory Tests 07/02/24 06:50 Chemistry Test 07/01/24 16:30 07/02/24 06:50 Calcium Level 8.4 mg/dL (8.7-10.4) L 8.9 mg/dL (8.7-10.4) Magnesium Level 2.1 mg/dL (1.6-2.6) 2.3 mg/dL (1.6-2.6) Albumin 3.3 g/dL (3.2-4.8) Total Protein 6.0 g/dL (5.7-8.2) LFT Test 07/02/24 06:50 Alanine Aminotransferase (ALT) 59 U/L (7-40) H Alkaline Phosphatase 67 U/L (46-116) Aspartate Amino Transferase (AST) 91 U/L (13-40) H Total Bilirubin 0.2 mg/dL (0.2-1.0) Urinalysis Test 06/28/24 10:56 Urine Color Light-yellow (Yellow) Urine Clarity Clear (Clear) Urine pH 5.0 (5.0-9.0) Urine Specific [place] 1.025 (1.001-1.035) Urine Protein Negative (Negative) Urine Ketones Negative (Negative) Urine Blood Negative /uL (Negative) Urine Nitrite Negative (Negative) Urine Bilirubin Negative (Negative) Urine Urobilinogen Normal mg/dL (Negative) Urine Leukocyte Esterase Trace /uL (Negative) Urine RBC 2 /hpf (0 - 3) Urine WBC 7 /hpf (0 - 3) Urine Squamous Epithelial Cells None seen /hpf (<5) Urine Bacteria None seen /hpf (None Seen) Urine Glucose 4+ mg/dL (Normal) H Blood Gas Results Test 07/02/24 07:24 Arterial Blood pH 7.315 (7.350-7.450) FiO2 % 30.0 Microbiology Microbiology Date/Time Source Procedure Growth Status 06/29/24 12:51 Nose MRSA Screen - Final Complete 06/28/24 10:56 Voided Urine Urine Culture - Final Escherichia coli Complete 06/28/24 09:24 Blood Blood Culture - Preliminary NO GROWTH AFTER 72 HOURS OF INCUBATION. Resulted 06/28/24 09:07 Sputum Gram Stain - Final Complete 06/28/24 09:07 Respiratory Culture - Final Klebsiella pneumoniae Complete Assessment/Plan Assessment/Plan Acute hypoxic respiratory failure Pneumonia Type 2 diabetes with hyperosmolar hyperglycemic state Asthma COPD Hypertension CKD Plan 07/01/2024: IV antibiotics: Zosyn and vancomycin Sedation as needed Continue tube feeding Lower the IV and p.o. fluids including tube feeding to a total of 120 mL an hour Increase the feeding rate to 40 mL an hour Jevity Free water 100 mL q.6 hours IV fluids with D5 half NS at 60 mL an hour Mechanical ventilation Full code Echocardiogram Liver 11/27/2023: Order CT scan of the abdomen and pelvis to rule out bowel obstruction UTI with a E coli Pneumonia: Sputum with Klebsiella pneumoniae Abdominal distention: Rule out bowel obstruction versus ischemia: Continue IV Zosyn and vancomycin for now Repeat CT scan of the chest Order CT of the head Sedation as needed Hold tube feeding for now Increase IV fluids to 100 mL an hour Continue free water per NG tube Monitor closely Echocardiogram is still pending Continue mechanical ventilation Full code Plan discussed with: Other My Orders Orders - MAUDE NUÑEZ MD Procedure Category Date Status Time Acetaminophen PHA 07/01/24 In Process Solution Oral 11:30 Apply Z-Guard ЕЛЕНА 07/01/24 In Process 13:41 D5w/Sod Chl 0.45% PHA 07/01/24 In Process (D5w 1/2ns) 14:45 Free Water PHA 07/01/24 In Process 18:00 Abg W/ Co-Ox RT 07/02/24 Logged 04:00 Chest Portable XY 07/02/24 Resulted 04:[address] 07/02/24 Logged 10:[address] 07/02/24 Logged 10:09 Date of Service: Jul 02, 2024 Billing Provider: MAUDE NUÑEZ MD Common Visit Codes: [id number] CARE 30-74 MIN MAUDE NUÑEZ MD Jul 02, 2024 11:12
[2024-07-02] MEDS: D5W/SOD CHL 0.45% 1,000 ML IV SCH (11:15)
[2024-07-02] MEDS: ACETAMINOPHEN IV 1000 MG/100ML (10MG/ML) IV ONE (14:45)
[2024-07-02] MEDS: ACETAMINOPHEN IV 100 ML IV ONE (15:44)
--- NOTE | 2024-07-02 15:50 | DVH ---
EXAM: CT HEAD WITHOUT CONTRAST INDICATION: ALOC TECHNIQUE: CT of the head without intravenous contrast. Radiation Dose : 1. Head: CT Dose: CTDI volume is 59.34 mGy. Dose-length product is 1069.79 mGy*cm The dose indicators for CT are the volume Computed Tomography (CT) Dose Index (CTDIvol) and the Dose Length Product (DLP), and are measured in units of mGy and mGy-cm, respectively. These indicators are not patient dose, but values generated from the CT scanner acquisition factors. The report includes radiation exposure data for exposures received during this examination. COMPARISON: CT HEAD WITHOUT CONTRAST on DOS: 06/28/24, CT HEAD WITHOUT CONTRAST on DOS: 12/19/23, HEAD WITHOUT CONTRAST on DOS: 06/22/20 FINDINGS: There is no evidence of acute intracranial hemorrhage, extra-axial collection, mass effect, midline s hift, herniation or hydrocephalus. The ventricles, sulci and cisterns are age appropriate. 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 The visualized paranasal sinuses and mastoid air cells are clear. The surrounding soft tissues and osseous structures are unremarkable. IMPRESSION: 1. No acute intracranial abnormality. 2. 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
--- NOTE | 2024-07-02 15:57 | DVH ---
EXAM: CT CHEST WITHOUT CONTRAST History: CONSTRICTURES Comparison Study: CT CAP 12/19/2023 TECHNIQUE: Multidetector CT of the chest was performed. Imaging was performed without IV contrast. Ax ial, coronal, and sagittal multiplanar reformats were obtained from the axial data set by the technol [place]. Radiation Dose : CTDI vol 15.03 mGy, DLP 529.22 mGy*cm. Findings: Lungs: Scattered peripheral round groundglass opacities. Pleura: Trace bilateral pleural effusions. Heart/Great vessels: The visualized heart is unremarkable. No cardiomegaly or pericardial effusion. Mediastinum: Endotracheal tube terminates at the level of T4/T5. Soft tissues/Bones: Unremarkable Enteric tube terminates in the stomach. Sequela of chronic pancreatitis. The remaining partially visu alized upper abdomen is within normal limits. Impression: 1. Scattered peripheral groundglass opacities favor an infectious/inflammatory etiology. 2. Trace bilateral pleural effusions.
[2024-07-02] MEDS: levoFLOXacin 500MG 100 ML IV SCH (16:36)
--- NOTE | 2024-07-02 17:47 | DVHSR ---
APPROVED REPORT EXAM: Two-dimensional and M-mode echocardiogram with Doppler and color Doppler. Blood Pressure: 91/48 mmHg INDICATION Respiratory Failure RISK FACTORS Height: 5' 6", Weight: 137 DIMENSIONS LVDd3.5 (3.8-5.7cm)LA (2D)4.1 (1.9-4.0cm)Aortic Root3.2 (2.0-3.7cm) LVDs1.9 (2.5-4.0cm)LA (MM) (1.9-4.0cm)Aortic Cusp Exc1.4 (1.5-2.0cm) EF (%) 78.0 (55-70%)Rt. Atrium3.9 (1.9-4.0cm)Asc. Aorta cm IVSd1.3 (0.7-1.1cm)RV (D) (1.8-2.4cm) PWd1.3 (0.7-1.1cm) Mitral Valve MitralMitral Stenosis E wave0.90m/sMV Mean GR.mmHg A wave1.00m/sMV Peak GR.mmHg E/A ratio0.92D MVAcm2 Aortic Valve Aortic ValveAortic Stenosis V11.10m/Kevin Mean GR.5mmHg V21.50m/Kevin Peak GR.10mmHg LVOT Diameter2.2 (1.8-2.4cm)Doppler AVA2.79cm2 Pulmonic Valve V20.90m/s Conclusion 1. MODERATE DEGREE LVH AND MILD LV DIASTOLIC DYSFUNCTION 2. LV EJECTION FRACTION IS IN RANGE OF 65% 3. 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 NORMAL RV FUNCTION 5. NORMAL TV,PV AND AORTIC VALVE 6. NO EFFUSION
--- NOTE | 2024-07-02 22:55 | DVHPN2 ---
Progress Note - Dictate Date Seen: Jul 02, 2024 Medical Necessity Reason Pt with a Central, PICC or Fol: Yes The following are medically ne: Nelson Catheter Reason for nelson catheter: Strict I&O Subjective Patient seen and examined at bedside. Sedated, intubated on mechanical ventilator. Overnight events reviewed. vital signs Vital Sign Date Time Temp Pulse Resp B/P (MAP) Pulse Ox O2 Delivery O2 Flow Rate FiO2 07/02/24 22:10 70 07/02/24 22:10 30 07/02/24 22:10 20 100 Mechanical Ventilator+ 07/02/24 22:04 119/51 (73) 07/02/24 21:50 100.4 Total Intake and Output 07/01/24 07/01/24 07/02/24 15:00 23:00 07:00 Intake Total 1461.53 ml 1001.78 ml 714.52 ml Output Total 1800 ml 575 ml Balance 1461.53 ml -798.22 ml 139.52 ml medications Current Medications Medications Dose Ordered Sig/Kandi Route Start Time Stop Time Status Last Admin Dose Admin Propofol 100 ml @ 2.04 mls/hr Q24H IV 06/28/24 09:15 07/02/24 20:28 16.32 MLS/HR Midazolam HCl 50 ml @ 1 mls/hr Q24H IV 06/28/24 10:45 06/30/24 12:28 12 MLS/HR Vancomycin HCl 0 ml @ 0 mls/hr UD IV 06/28/24 12:15 Ondansetron HCl 4 mg Q4HP PRN IV 06/28/24 12:15 Norepinephrine Bitartrate 250 ml @ 3.75 mls/hr Q24H IV 06/28/24 13:30 06/30/24 15:13 3.75 MLS/HR Enteral Nutritional Formula 1,000 ml 30ML/HR GT 06/29/24 16:15 07/01/24 13:57 1,000 ML Diagnostic Test (Pha) 1 strip Q6HR 06/29/24 18:00 07/02/24 17:16 1 STRIP Insulin Human Regular Q6HR SC 06/29/24 18:00 07/02/24 17:19 4 UNITS Dextrose 50 ml UD PRN IV 06/29/24 16:15 06/29/24 20:48 50 ML Artificial Tears 1 drop Q2HP PRN EACHEYE 06/30/24 13:45 07/01/24 11:48 1 DROP Fentanyl Citrate 250 ml @ 2.5 mls/hr Q24H IV 06/30/24 13:45 07/02/24 20:32 20 MLS/HR Acetaminophen 650 mg Q4HP PRN GT 07/01/24 11:30 07/02/24 21:50 650 MG Vancomycin HCl 200 ml @ 200 mls/hr Q20H IV 07/01/24 13:00 07/02/24 09:18 200 MLS/HR Purified Water 100 ml Q6HR GT 07/01/24 18:00 07/02/24 17:16 100 ML Dexmedetomidine HCl 400 mcg/ Dextrose 100 ml @ 3.11 mls/hr Q24H IV 07/01/24 23:30 07/01/24 23:30 3.11 MLS/HR Dextrose/Sodium Chloride 1,000 ml @ 100 mls/hr Q10H IV 07/02/24 11:15 07/02/24 15:29 100 MLS/HR Levofloxacin/ Dextrose 100 ml @ 100 mls/hr DAILY IV 07/02/24 16:00 07/02/24 16:36 100 MLS/HR objective Gen.: Patient lying in bed in medical ICU. Sedated, intubated on mechanical ventilator. Head: Normocephalic, atraumatic. Eyes: PERRLA. Ears: Normal external anatomy. Throat: Endotracheal tube and orogastric tube in place. Neck: Supple, trachea midline. Chest: Transmitted breath sounds bilaterally. Decreased air entry bilaterally. No wheezing. Bibasilar crackles. Cardiovascular: Positive S1, positive S2. Regular rate and rhythm. Abdomen: Positive bowel sounds in all 4 quadrants. Soft, nontender, nondistended. : Nelson in place. Normal external genitalia. Rectal: Deferred. Skin: Warm, dry. Intact. Extremities: 2+ radial pulses bilaterally. No lower extremity edema. Neuro: Sedated. laboratory and microbiology Laboratory Tests 07/02/24 06:50 Test 07/02/24 06:50 Range/Units Serum Glucose 125 #H 74-106 mg/dL Assessment/Plan Impression: Acute hypoxic respiratory failure On mechanical ventilator Shock Sepsis Pneumonia Seizures DM type II with HHS Events: ABG reviewed, notable for acidemia d/t increased PaCO2. CXR reviewed, devices in place. Bilateral patchy opacities. Remains on vent support On AC mode; RR 18, VT 450, PEEP 5, FiO2 30% Increase RR to 20 BPM. Plan to obtain brain MRI. Episode of hypoglycemia. Sedated on Propofol, Fentanyl. Precedex caused bradycardia. Obtain CT head to r/o brain pathology and CT chest to r/o lung pathology. On pressors for hemodynamic support Levophed 2 mcg/min Titrate to keep mean arterial pressure greater than 65 mmHg. Patient with fevers, IV Tylenol x1 - PO not breaking fevers. Continue antibiotics - vancomycin, Zosyn De-escalate to Levaquin. Sensitivities to urine and sputum reviewed. Tube feeds for nutritional support IV fluid hydration - 150 ml/hr D5-half normal saline. Labs and imaging reviewed. Rest of plan as noted below. Plan: s/p intubation on mechanical ventilator. Settings changed to AC mode; RR 20, VT 450, PEEP 5, FiO2 30% Titrate FIO2 to keep O2 saturation above 90%. VAP bundle. Daily ABG and CXR while intubated Sedate for ventilator synchrony - On Propofol, Fentanyl. Pressors for hemodynamic support Titrate to keep mean arterial pressure greater than 65 mmHg. Off insulin drip d/t hypoglycemia. D50. Continue antibiotics. Monitor renal function Monitor electrolytes. Supplement as necessary. Monitor ins and outs. Maintain euvolemia. GI prophylaxis. DVT prophylaxis. Prognosis: Poor given patient's multiple co-morbidities. Condition: Critical Rest of plan per hospitalist and other consultants. A total of 35 minutes of critical care time was spent reviewing the patient record, examining the patient, making a diagnostic and therapeutic plan, discussing this plan with the medical personnel, following up on diagnostic studies and following the patient for clinical stability excluding any and all procedures. At least 50% of this time was spent in direct, [id number] contact. Thank you Dr. Alvarez Fiore MD, for allowing me to participate in this patient's care. Further recommendations will depend on the patient's clinical course. Please do not hesitate to contact me if you have any questions or concerns. This medical document was created using an electronic medical record system with [employer] system. Although these documentations are being carefully reviewed, there may still be some phonetic and typographical changes. The errors are purely typographical, due to imperfection on the software program, and do not reflect any compromise in the patient's medical care. Plan discussed with: Other (KIMMIE Villafuerte) Critical Care Time(min): 35 JUAN LUIS DOMINGUEZ MD Jul 02, 2024 22:55
[2024-07-03] VITALS (110 sets, daily range): BP systolic 102–186; BP diastolic 32–103; PULSE 65–97; RESP 13–26; TEMP 95.7–101.3; O2SAT 91–100
--- NOTE | 2024-07-03 04:55 | DVH ---
CHEST RADIOGRAPH Indication: ACUTE RESPIRATORY FAILURE Technique: Single frontal view of the chest was obtained COMPARISON: XY CHEST PORTABLE on DOS: 07/02/24, XY CHEST PORTABLE on DOS: 07/01/24, XY CHEST PORTABLE on DOS: 06/30/24 FINDINGS: Lines and Tubes: Endotracheal tube and enteric catheter in satisfactory position. Lungs: Multifocal airspace disease. Pleura: No effusion. No pneumothorax. Cardiomediastinal contours: Unremarkable Bones: Unremarkable IMPRESSION: Lines and tubes in satisfactory position. Multifocal airspace disease, increased.
[2024-07-03 08:00] LABS: Alanine Aminotransferase 73 U/L (7-40); Alkaline Phosphatase 72 U/L (46-116); Anion Gap 8 (5-15); Aspartate Aminotransferase 271 U/L (13-40); BUN/Creatinine Ratio 8.9 (10.0-20.0); Blood Urea Nitrogen 11 mg/dL (9-23); Calcium 8.6 mg/dL (8.7-10.4); Carbon Dioxide 17 mmol/L (20-31); Chloride 110 mmol/L (98-107); Glucose 101 mg/dL (74-106); Magnesium 2.4 mg/dL (1.6-2.6); Potassium 5.5 mmol/L (3.5-5.1); Sodium 135 mmol/L (136-145)
[2024-07-03 08:01] LABS: Bilirubin, Total < 0.2 mg/dL (0.2-1.0); Total Protein 5.7 g/dL (5.7-8.2)
[2024-07-03 09:24] LABS: Base Excess -7.4 mmol/L (-2.0-3.0)
[2024-07-03 10:53] LABS: Basophils # (auto) 0.1 10 ^3/uL (0-0.2); Basophils % (auto) 0.4 % (0.0-2.0); Eosinophils # (auto) 0.1 10 ^3/uL (0-0.8); Eosinophils % (auto) 0.9 % (0.0-7.0); Hemoglobin 13.1 g/dL (13.5-17.5); Lymphocytes # (auto) 1.6 10 ^3/uL (0.4-5.4); Lymphocytes % (auto) 10.5 % (10.0-50.0); Mean Corpuscular Hemoglobin 28.6 pg (28.0-32.0); Mean Corpuscular Hgb Conc. 31.9 g/dL (32.0-36.0); Mean Corpuscular Volume 89.6 fL (80.0-100.0); Monocytes # (auto) 2.1 10 ^3/uL (0-1.3); Monocytes % (auto) 13.2 % (0.0-12.0); Neutrophils # (auto) 11.8 10 ^3/uL (1.6-8.6); Nucleated Red Blood Cells % 0.2 %; Platelet Count (auto) 219 10^3/uL (140-450); Red Blood Cells 4.58 10^6/uL (4.5-5.90); Red Cell Distribution Width 14.3 % (11.8-14.3); White Blood Cell 15.7 10^3/uL (4.4-10.8)
[2024-07-03] MEDS: FUROSEMIDE 20 MG/2 ML VIAL IV ONE (11:33)
[2024-07-03] MEDS: SODIUM BICARB 8.4% 50Meq/50ml SYR INJ IV ONE (11:35)
[2024-07-03] MEDS: InsuLIN REG 1unit/0.01ml Soln (100units/ml) IV ONE (11:35)
[2024-07-03] MEDS: DEXTROSE (50%) 50ML SYRG IV ONE (11:36)
[2024-07-03] MEDS ORDERED: Jevity 1.2 Cal/Fiber 1 Liter GT SCH (12:00)
--- NOTE | 2024-07-03 15:27 | DVHPNRES ---
Progress Note Date Seen: Jul 03, 2024 Resident Creating Document: [facility] RESIDENT Medical Necessity Reason Pt with a Central, PICC or Fol: Yes The following are medically ne: Nelson Catheter Reason for nelson catheter: Strict I&O Subjective Review of Systems 64 yo with stated history CKD, Asthma, DM, COPD, HTN and seizure disorder came into the ED with stated change in mentation patient in the ED was acidic and altered unable to protect airway and stated to have sugars over 1000 source of cause is unknown history can not be fully obtained patient is intubated sedated suspected that possible breakthrough seizures in the setting [facility] with diabetic coma Patient seen and examined at bedside. Patient is currently ICU status, on sedation due to mechanical assisted ventilation. Planning on completing spontaneous breathing trial once FiO2 level requirement decreases. Could not obtain review of systems. Objective vital signs Vital Sign Date Time Temp Pulse Resp B/P (MAP) Pulse Ox O2 Delivery O2 Flow Rate FiO2 07/03/24 14:59 71 20 121/50 (73) 100 30 07/03/24 13:31 99.9 211.8 07/03/24 12:00 Mechanical Ventilator+ Total Intake and Output 07/02/24 07/02/24 07/03/24 15:00 23:00 07:00 Intake Total 872.07 ml 1590.56 ml 1460.31 ml Output Total 750 ml 975 ml Balance 872.07 ml 840.56 ml 485.31 ml medications Current Medications Medications Dose Ordered Sig/Kandi Route Start Time Stop Time Status Last Admin Dose Admin Propofol 100 ml @ 2.04 mls/hr Q24H IV 06/28/24 09:15 07/03/24 07:24 16.32 MLS/HR Midazolam HCl 50 ml @ 1 mls/hr Q24H IV 06/28/24 10:45 06/30/24 12:28 12 MLS/HR Ondansetron HCl 4 mg Q4HP PRN IV 06/28/24 12:15 Norepinephrine Bitartrate 250 ml @ 3.75 mls/hr Q24H IV 06/28/24 13:30 06/30/24 15:13 3.75 MLS/HR Diagnostic Test (Pha) 1 strip Q6HR 06/29/24 18:00 07/03/24 12:33 1 STRIP Insulin Human Regular Q6HR SC 06/29/24 18:00 07/03/24 12:33 2 UNITS Dextrose 50 ml UD PRN IV 06/29/24 16:15 06/29/24 20:48 50 ML Artificial Tears 1 drop Q2HP PRN EACHEYE 06/30/24 13:45 07/01/24 11:48 1 DROP Fentanyl Citrate 250 ml @ 2.5 mls/hr Q24H IV 06/30/24 13:45 07/03/24 10:16 20 MLS/HR Acetaminophen 650 mg Q4HP PRN GT 07/01/24 11:30 07/03/24 11:45 650 MG Dexmedetomidine HCl 400 mcg/ Dextrose 100 ml @ 3.11 mls/hr Q24H IV 07/01/24 23:30 07/01/24 23:30 3.11 MLS/HR Ceftriaxone Sodium 50 ml @ 100 mls/hr DAILY@09 IV 07/04/24 09:00 Enoxaparin Sodium 40 mg DAILY SC 07/04/24 10:00 Enteral Nutritional Formula 1,000 ml 50ML/HR GT 07/03/24 14:45 Examination Examination Patient lying in bed, under sedoanalgesia due to mechanical ventilation General: RASS -3, afebrile, mucosae are moist Cardiovascular: Normal S1 and S2. No murmurs, gallops or rubs Respiratory: Mechanically assisted ventilation, equal bilateral airway entree. Clear lung sounds on auscultation Abdomen: Soft, nontender, no organomegaly, normal bowel sounds MSK/skin: Mobilization of limbs cannot be evaluated. Skin is dry and warm. PICC on right arm Neurological: Orientation cannot be assessed. No apparent motor no sensitive deficits. Pupils are isocoric and reactive. laboratory and microbiology Laboratory Tests 07/03/24 10:40 07/03/24 07:09 Test 07/03/24 07:09 Range/Units Serum Glucose 101 74-106 mg/dL Microbiology Date/Time Source Procedure Growth Status 06/29/24 12:51 Nose MRSA Screen - Final Complete 06/28/24 10:56 Voided Urine Urine Culture - Final Escherichia coli Complete 06/28/24 09:24 Blood Blood Culture - Final NO GROWTH AFTER 5 DAYS OF INCUBATION. Complete 06/28/24 09:07 Sputum Gram Stain - Final Complete 06/28/24 09:07 Respiratory Culture - Final Klebsiella pneumoniae Complete Problem List/Assessment/Plan Problem List/Assessment/Plan # Metabolic Encephalopathy due to Type 2 diabetes with hyperosmolar hyperglycemic state # Seizure - CT Head on 10/02/23 shows: No acute intracranial abnormality. 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 # Hypertension # CKD stage IIIB #Acute kidney injury - Avoid nephrotoxic medication - Avoid Hypertention/Hypotension Drips Fentanyl 225 Versed 10 Ketamine 0 Propofol 35 NE 0 Invasive access Nelson catheter 06/28/2024 Endotracheal tube 06/28/2024 Rt Femoral central line 06/28/2024 Peptic ulcer disease prophylaxis: Protonix DVT prophylaxis: Enoxaparin 40 mg subcutaneous daily Goals of care discussed with Family for over 23 minutes: Full code status Critical Care time spent 41 minutes including patient care, chart review and updating family, excluding procedure. Discussed plan with Dr. Laurent, patient, family and nurses: Plan discussed with: Other (RN) My Orders My Orders Orders - [facility] RESIDENT Procedure Category Date Status Time Complete Blood Count LAB 07/04/24 Verified 04:00 Comprehensive LAB 07/04/24 Verified Metabolic Panel 04:00 Abg W/ Co-Ox RT 07/04/24 Transmitted 04:00 Chest Xray 1 View XY 07/04/24 Transmitted 04:00 Dietary Evaluation Review Comments: 1) Consider EN nutrition Glucerna 1.2 to 50ml/hr goal rate to meet pt needs 2) Advance pt diet when medically feasible to a CCHO 45g/2gNa diet 3) Continue current plan of care Expected Outcomes/Goals: 1) Pt to receive adequate nutrition 2) Pt diet to advance 3) F/U in 2-3 days Date of Service: Jul 03, 2024 Billing Provider: MANISH LAURENT MD Common Visit Codes: [id number] CARE 30-74 MIN [facility] Jul 03, 2024 15:27 MANISH LAURENT MD Jul 04, 2024 14:43
[2024-07-03] MEDS: Glucerna 1.2 Cal 1Liter BOTTLE GT SCH (18:47)
[2024-07-04] VITALS (116 sets, daily range): BP systolic 87–211; BP diastolic 22–91; PULSE 67–109; RESP 8–35; TEMP 97.9–101.5; O2SAT 98–100
--- NOTE | 2024-07-04 04:38 | DVH ---
CHEST RADIOGRAPH Indication: intubated Technique: Single frontal view of the chest was obtained Comparison: XY CHEST PORTABLE on DOS: 07/03/24, XY CHEST PORTABLE on DOS: 07/02/24, XY CHEST PORTABLE on DOS: 07/01/24 IMPRESSION: There are low lung volumes. Support lines and tubes appear unchanged in satisfactory position. No si zable effusion. Bilateral alveolar airspace opacities have improved. No pneumothorax.
[2024-07-04 06:21] LABS: Base Excess -3.5 mmol/L (-2.0-3.0)
[2024-07-04] MEDS: cefTRIAXone 1GM/50ML D5W 50 ML IV SCH (09:14)
[2024-07-04] MEDS: ENOXAPARIN SOD 40 MG/0.4 ML SYRINGE SC SCH (09:14)
[2024-07-04 10:28] LABS: Basophils # (auto) 0.1 10 ^3/uL (0-0.2); Basophils % (auto) 0.5 % (0.0-2.0); Eosinophils # (auto) 0.3 10 ^3/uL (0-0.8); Eosinophils % (auto) 1.6 % (0.0-7.0); Hematocrit 39.1 % (41.0-53.0); Hemoglobin 12.6 g/dL (13.5-17.5); Lymphocytes # (auto) 1.5 10 ^3/uL (0.4-5.4); Mean Corpuscular Hemoglobin 28.6 pg (28.0-32.0); Mean Corpuscular Hgb Conc. 32.3 g/dL (32.0-36.0); Mean Corpuscular Volume 88.4 fL (80.0-100.0); Monocytes % (auto) 12.1 % (0.0-12.0); Neutrophils # (auto) 12.6 10 ^3/uL (1.6-8.6); Neutrophils % (auto) 76.8 % (37.0-80.0); Nucleated Red Blood Cells % 0.1 %; Platelet Count (auto) 308 10^3/uL (140-450); Red Blood Cells 4.42 10^6/uL (4.5-5.90); Red Cell Distribution Width 13.9 % (11.8-14.3); White Blood Cell 16.4 10^3/uL (4.4-10.8)
[2024-07-04 10:36] LABS: Alanine Aminotransferase 53 U/L (7-40); Albumin 3.5 g/dL (3.2-4.8); Alkaline Phosphatase 82 U/L (46-116); Anion Gap 9 (5-15); Aspartate Aminotransferase 89 U/L (13-40); BUN/Creatinine Ratio 14.9 (10.0-20.0); Blood Urea Nitrogen 17 mg/dL (9-23); Calcium 9.3 mg/dL (8.7-10.4); Carbon Dioxide 23 mmol/L (20-31); Chloride 107 mmol/L (98-107); Glucose 100 mg/dL (74-106); Potassium 4.9 mmol/L (3.5-5.1); Sodium 139 mmol/L (136-145)
[2024-07-04 10:37] LABS: Bilirubin, Total < 0.2 mg/dL (0.2-1.0); Total Protein 6.6 g/dL (5.7-8.2)
[2024-07-04] MEDS: hydrALAZINE HCL 20 MG/ML VL IV PRN (10:45)
--- NOTE | 2024-07-04 14:49 | DVHINCON2 ---
Date of service: Jul 04, [address] Laurent Reason for Consultation Acute Kidney injury History of Present Illness Patient is a 64-year-old male with past medical history significant for Asthma, uncontrolled DM, COPD, HTN, schizophrenia and seizure disorder who was admitted 06/28 with altered level of consciousness found to have severe hyperosmolar coma due to severe hyperglycemia. Patient currently intubated on mechanical ventilator. Nephrology is consulted for acute kidney injury and management of fluid and electrolytes Past Medical History Asthma, uncontrolled DM, COPD, HTN and seizure disorder Schizophrenia Past Surgical History Unknown Allergies: Coded Allergies: NO KNOWN ALLERGIES (Unverified , 08/29/13) Home Meds Active Scripts Levetiracetam (Keppra) 500 Mg Tab, 1 TAB PO BID, #60 TAB 0 Refills Prov:FREDDY OLIVIER MD 06/25/20 Reported Medications Metformin Hydrochloride (Metformin Hcl Er) 500 Mg Tab, 1 TAB PO DAILY for 30 Days, #30 06/29/24 Insulin Glargine (Basaglar Kwikpen) 100 Unit/Ml Inj, UNIT SC UD for 30 Days, #3 06/29/24 Aripiprazole (Aripiprazole) 10 Mg Tab, 1 TAB PO DAILY for 30 Days, #30 06/29/24 Ziprasidone HCl (Ziprasidone Hydrochloride) 80 Mg Cap, 40 MG PO BID for 30 Days, #60 06/29/24 Atorvastatin Calcium (Lipitor) 20 Mg Tab, 1 TAB PO DAILY, #90 TAB 1 Refill 06/23/20 Bupropion Hcl (Bupropion Hcl) 100 Mg Tab, 150 MG PO BID for 30 Days, MG 06/23/20 Glipizide (Glipizide) 10 Mg Tab, 1 TAB PO TID for 30 Days, #90 06/23/20 Pioglitazone Hydrochloride (ACTOS TABLET) 30 Mg Tb, 1 TAB PO DAILY for 30 Days, #30 06/23/20 Quetiapine Fumerate (Seroquel Xr) 200 Mg Tab, 300 MG PO DAILY for 30 Days, MG 06/23/20 Gabapentin (Gabapentin) 300 Mg Cap, 300 MG PO BID for 30 Days, MG 06/23/20 Aspirin (Aspir-Low) 81 Mg Tab, 81 MG PO DAILY for 30 Days, MG 06/23/20 Mirtazapine (Mirtazapine Oral Disintegrating Tablet) 15 Mg Tab, 1 TAB PO QPM, #30 TAB 3 Refills 09/26/14 Omeprazole (PRILOSEC) 20 Mg Cap, 20 MG PO DAILY, CAP 09/26/14 Insulin (Insulin Human) Human Pow, 1 XX, POW 08/29/13 Paroxetine (PAXIL TABLET) 20 Mg Tb, 20 MG PO DAILY 08/29/13 [Onglyza] No Conflict Check, 5 MG PO DAILY 08/29/13 Loratadine (Loratadine) 10 Mg Tab, 10 MG PO DAILY, TAB 08/29/13 Discontinued Reported Medications Aripiprazole (Abilify) 20 Mg Tab, 1 TAB PO DAILY, #30 TAB 1 Refill 06/24/20 Ziprasidone Hydrochloride (Geodon) 80 Mg Cap, 80 MG PO BID, CAP 08/29/13 Current Medications Current Medications Medications (Trade) Dose Ordered Sig/Kandi Route PRN Reason Start Time Stop Time Status Last Admin Ceftriaxone Sodium 50 ml @ 100 mls/hr DAILY@09 IV 07/04/24 09:00 07/04/24 09:14 Enoxaparin Sodium (Lovenox) 40 mg DAILY SC 07/04/24 10:00 07/04/24 09:14 Enteral Nutritional Formula (Glucerna 1.2 Andrwe) 1,000 ml 50ML/HR GT 07/03/24 14:45 07/03/24 18:47 Hydralazine HCl (Apresoline Injection) 10 mg Q6HP PRN IV SBP>160 07/04/24 10:30 07/04/24 10:45 Family History: Alcoholism Family history: Diabetes mellitus Unobtainable due to patient's condition Review of Systems Can not be obtained H&P Exam Vital Signs/I&O Vital Sign Date Time Temp Pulse Resp B/P (MAP) Pulse Ox O2 Delivery O2 Flow Rate FiO2 07/04/24 13:13 74 24 87/33 (51) 100 30 07/04/24 13:00 100.0 212.0 07/04/24 12:00 Mechanical Ventilator+ Intake and Output 07/03/24 07/04/24 19:00 07:00 Intake Total 930.24 ml 824.32 ml Output Total 1550 ml 675 ml Balance -619.76 ml 149.32 ml Intake Oral 30 ml IV Total 685.24 ml 449.32 ml Tube Feeding 215 ml 375 ml Output Urine Total 1550 ml 675 ml Physical Exam Patient intubated on mechanical ventilator Lungs clear to auscultation bilaterally Cardiac exam regular rate and rhythm GI soft nontender Farn[place] catheter Extremities no clubbing cyanosis edema Neuro patient is a sedated Labs/Diagnostic Data Labs/Diagnostic Data Laboratory Tests Test 07/04/24 13:26 07/04/24 11:54 07/04/24 09:51 07/04/24 06:10 Range/Units Blood Gas Specimen Type Arterial Arterial Blood Gas Sample Site Left radial Left radial Blood Gas Patient Temperature 37.0 37.0 Arterial Blood Date Drawn [id number] Arterial Blood pH 7.402 7.293 L 7.350-7.450 Arterial Blood Partial Pressure CO2 32.7 L 49.4 H 35.0-48.0 mmHg Arterial Blood Partial Pressure O2 75.0 L 79.7 L 83.0-108.0 mmHg Arterial Blood HCO3 19.9 L 23.4 21.0-28.0 mmol/L Arterial Blood Oxygen Saturation 95.5 95.2 94.0-98.0 % Arterial Blood Base Excess -4.0 L -3.5 L -2.0-3.0 mmol/L Arterial Blood Oxyhemoglobin 95.0 94.8 94.0-98.0 % Arterial Blood Carboxyhemoglobin 0.3 L 0.3 L 0.5-1.5 % Arterial Blood Methemoglobin 0.2 0.1 0.0-1.5 % Adama Test Modified Modified Blood Gas Total Hemoglobin 12.40 L 12.90 L 13.5-17.5 g/dL Blood Gas Set Respiration Rate 24.0 20.0 Blood Gas Modality Vent - ac Vent - ac FiO2 % 30.0 30.0 Blood Gas Tidal Volume 500.0 500.0 Blood Gas PEEP or CPAP 5.0 5.0 POC Glucose 113 H 70-106 mg/dl White Blood Count 16.4 H 4.4-10.8 10^3/uL Red Blood Count 4.42 L 4.5-5.90 10^6/uL Hemoglobin 12.6 L 13.5-17.5 g/dL Hematocrit 39.1 L 41.0-53.0 % Mean Corpuscular Volume 88.4 80.0-100.0 fL Mean Corpuscular Hemoglobin 28.6 28.0-32.0 pg Mean Corpuscular Hemoglobin Concent 32.3 32.0-36.0 g/dL Red Cell Distribution Width 13.9 11.8-14.3 % Platelet Count 308 140-450 10^3/uL Mean Platelet Volume 8.0 6.9-10.8 fL Neutrophils (%) (Auto) 76.8 37.0-80.0 % Lymphocytes (%) (Auto) 9.0 L 10.0-50.0 % Monocytes (%) (Auto) 12.1 H 0.0-12.0 % Eosinophils (%) (Auto) 1.6 0.0-7.0 % Basophils (%) (Auto) 0.5 0.0-2.0 % Neutrophils # (Auto) 12.6 H 1.6-8.6 10 ^3/uL Lymphocytes # (Auto) 1.5 0.4-5.4 10 ^3/uL Monocytes # (Auto) 2.0 H 0-1.3 10 ^3/uL Eosinophils # (Auto) 0.3 0-0.8 10 ^3/uL Basophils # (Auto) 0.1 0-0.2 10 ^3/uL Nucleated Red Blood Cells 0.1 % Sodium Level 139 136-145 mmol/L Potassium Level 4.9 3.5-5.1 mmol/L Chloride Level 107 98-107 mmol/L Carbon Dioxide Level 23 20-31 mmol/L Anion Gap 9 5-15 Blood Urea Nitrogen 17 9-23 mg/dL Creatinine 1.14 0.700-1.30 mg/dL Glomerular Filtration Rate Calc 72 >90 mL/min BUN/Creatinine Ratio 14.9 10.0-20.0 Serum Glucose 100 74-106 mg/dL Calcium Level 9.3 8.7-10.4 mg/dL Total Bilirubin < 0.2 L 0.2-1.0 mg/dL Aspartate Amino Transferase (AST) 89 H 13-40 U/L Alanine Aminotransferase (ALT) 53 H 7-40 U/L Alkaline Phosphatase 82 46-116 U/L Total Protein 6.6 5.7-8.2 g/dL Albumin 3.5 3.2-4.8 g/dL Test 07/04/24 05:16 07/04/24 00:14 07/03/24 17:16 07/03/24 16:20 Range/Units POC Glucose 107 H 217 H 84 70-106 mg/dl Potassium Level 4.2 3.5-5.1 mmol/L Test 07/03/24 12:32 07/03/24 11:20 07/03/24 10:40 07/03/24 09:18 Range/Units POC Glucose 149 H 127 H 70-106 mg/dl White Blood Count 15.7 H 4.4-10.8 10^3/uL Red Blood Count 4.58 4.5-5.90 10^6/uL Hemoglobin 13.1 L 13.5-17.5 g/dL Hematocrit 41.0 41.0-53.0 % Mean Corpuscular Volume 89.6 80.0-100.0 fL Mean Corpuscular Hemoglobin 28.6 28.0-32.0 pg Mean Corpuscular Hemoglobin Concent 31.9 L 32.0-36.0 g/dL Red Cell Distribution Width 14.3 11.8-14.3 % Platelet Count 219 140-450 10^3/uL Mean Platelet Volume 8.4 6.9-10.8 fL Neutrophils (%) (Auto) 75.0 37.0-80.0 % Lymphocytes (%) (Auto) 10.5 10.0-50.0 % Monocytes (%) (Auto) 13.2 H 0.0-12.0 % Eosinophils (%) (Auto) 0.9 0.0-7.0 % Basophils (%) (Auto) 0.4 0.0-2.0 % Neutrophils # (Auto) 11.8 H 1.6-8.6 10 ^3/uL Lymphocytes # (Auto) 1.6 0.4-5.4 10 ^3/uL Monocytes # (Auto) 2.1 H 0-1.3 10 ^3/uL Eosinophils # (Auto) 0.1 0-0.8 10 ^3/uL Basophils # (Auto) 0.1 0-0.2 10 ^3/uL Nucleated Red Blood Cells 0.2 % Blood Gas Specimen Type Arterial Blood Gas Sample Site Left radial Blood Gas Patient Temperature 37.0 Arterial Blood Date Drawn [id number] Arterial Blood pH 7.269 L 7.350-7.450 Arterial Blood Partial Pressure CO2 42.9 35.0-48.0 mmHg Arterial Blood Partial Pressure O2 86.5 83.0-108.0 mmHg Arterial Blood HCO3 19.2 L 21.0-28.0 mmol/L Arterial Blood Oxygen Saturation 96.0 94.0-98.0 % Arterial Blood Base Excess -7.4 L -2.0-3.0 mmol/L Arterial Blood Oxyhemoglobin 95.6 94.0-98.0 % Arterial Blood Carboxyhemoglobin 0.3 L 0.5-1.5 % Arterial Blood Methemoglobin 0.1 0.0-1.5 % Adama Test Modified Blood Gas Total Hemoglobin 11.90 L 13.5-17.5 g/dL Blood Gas Set Respiration Rate 20.0 Blood Gas Modality Vent - ac FiO2 % 30.0 Blood Gas Tidal Volume 500.0 Blood Gas PEEP or CPAP 5.0 Test 07/03/24 07:09 07/03/24 06:39 07/03/24 05:59 07/03/24 00:09 Range/Units Sodium Level 135 L 136-145 mmol/L Potassium Level 5.5 H 3.5-5.1 mmol/L Chloride Level 110 H 98-107 mmol/L Carbon Dioxide Level 17 L 20-31 mmol/L Anion Gap 8 5-15 Blood Urea Nitrogen 11 9-23 mg/dL Creatinine 1.23 0.700-1.30 mg/dL Glomerular Filtration Rate Calc 66 >90 mL/min BUN/Creatinine Ratio 8.9 L 10.0-20.0 Serum Glucose 101 74-106 mg/dL Calcium Level 8.6 L 8.7-10.4 mg/dL Magnesium Level 2.4 1.6-2.6 mg/dL Total Bilirubin < 0.2 L 0.2-1.0 mg/dL Aspartate Amino Transferase (AST) 271 H 13-40 U/L Alanine Aminotransferase (ALT) 73 H 7-40 U/L Alkaline Phosphatase 72 46-116 U/L Total Protein 5.7 5.7-8.2 g/dL Albumin 3.0 L 3.2-4.8 g/dL Vancomycin Level Trough 9.8 5-10 ug/mL Blood Gas Specimen Type Arterial Blood Gas Sample Site Left radial Blood Gas Patient Temperature 37.0 Arterial Blood Date Drawn [id number] Arterial Blood pH 7.243 *L 7.350-7.450 Arterial Blood Partial Pressure CO2 51.1 H 35.0-48.0 mmHg Arterial Blood Partial Pressure O2 78.5 L 83.0-108.0 mmHg Arterial Blood HCO3 21.6 21.0-28.0 mmol/L Arterial Blood Oxygen Saturation 94.4 94.0-98.0 % Arterial Blood Base Excess -6.0 L -2.0-3.0 mmol/L Arterial Blood Oxyhemoglobin 94.1 94.0-98.0 % Arterial Blood Carboxyhemoglobin 0.2 L 0.5-1.5 % Arterial Blood Methemoglobin 0.1 0.0-1.5 % Adama Test Modified Blood Gas Total Hemoglobin 12.70 L 13.5-17.5 g/dL Blood Gas Set Respiration Rate 20.0 Blood Gas Modality Vent - ac FiO2 % 30.0 Blood Gas Tidal Volume 450.0 Blood Gas PEEP or CPAP 5.0 Blood Gas Critical Value Read Back Yes Blood Gas Notified Whom Libra roberts Blood Gas Notified Time [id number] Blood Gas Notified By Geography Professor gold POC Glucose 95 160 H 70-106 mg/dl Test 07/02/24 17:19 07/02/24 12:28 07/02/24 12:26 07/02/24 07:24 Range/Units POC Glucose 240 H 114 H < 10 *L 70-106 mg/dl Blood Gas Specimen Type Arterial Blood Gas Sample Site Left radial Blood Gas Patient Temperature 37.0 Arterial Blood Date Drawn [id number] Arterial Blood pH 7.315 L 7.350-7.450 Arterial Blood Partial Pressure CO2 46.1 35.0-48.0 mmHg Arterial Blood Partial Pressure O2 88.7 83.0-108.0 mmHg Arterial Blood HCO3 23.0 21.0-28.0 mmol/L Arterial Blood Oxygen Saturation 96.6 94.0-98.0 % Arterial Blood Base Excess -3.3 L -2.0-3.0 mmol/L Arterial Blood Oxyhemoglobin 95.9 94.0-98.0 % Arterial Blood Carboxyhemoglobin 0.7 0.5-1.5 % Arterial Blood Methemoglobin 0.0 0.0-1.5 % Adama Test Modified Blood Gas Total Hemoglobin 12.00 L 13.5-17.5 g/dL Blood Gas Set Respiration Rate 18.0 Blood Gas Modality Vent - ac FiO2 % 30.0 Blood Gas Tidal Volume 450.0 Blood Gas PEEP or CPAP 5.0 Test 07/02/24 06:50 07/02/24 05:40 07/01/24 17:28 07/01/24 16:30 Range/Units White Blood Count 15.9 H 4.4-10.8 10^3/uL Red Blood Count 4.33 L 4.5-5.90 10^6/uL Hemoglobin 12.3 L 13.5-17.5 g/dL Hematocrit 38.4 L 41.0-53.0 % Mean Corpuscular Volume 88.7 # 80.0-100.0 fL Mean Corpuscular Hemoglobin 28.5 28.0-32.0 pg Mean Corpuscular Hemoglobin Concent 32.2 32.0-36.0 g/dL Red Cell Distribution Width 14.0 11.8-14.3 % Platelet Count 192 140-450 10^3/uL Mean Platelet Volume 8.9 6.9-10.8 fL Neutrophils (%) (Auto) 67.9 37.0-80.0 % Lymphocytes (%) (Auto) 17.9 10.0-50.0 % Monocytes (%) (Auto) 11.7 0.0-12.0 % Eosinophils (%) (Auto) 2.0 0.0-7.0 % Basophils (%) (Auto) 0.5 0.0-2.0 % Neutrophils # (Auto) 10.8 H 1.6-8.6 10 ^3/uL Lymphocytes # (Auto) 2.8 0.4-5.4 10 ^3/uL Monocytes # (Auto) 1.9 H 0-1.3 10 ^3/uL Eosinophils # (Auto) 0.3 0-0.8 10 ^3/uL Basophils # (Auto) 0.1 0-0.2 10 ^3/uL Nucleated Red Blood Cells 0.0 % Sodium Level 139 140 136-145 mmol/L Potassium Level 4.9 4.2 3.5-5.1 mmol/L Chloride Level 109 H 109 H 98-107 mmol/L Carbon Dioxide Level 24 25 20-31 mmol/L Anion Gap 6 6 5-15 Blood Urea Nitrogen 13 13 9-23 mg/dL Creatinine 1.31 H 1.27 0.700-1.30 mg/dL Glomerular Filtration Rate Calc 61 63 >90 mL/min BUN/Creatinine Ratio 9.9 L 10.2 10.0-20.0 Serum Glucose 125 #H 251 H 74-106 mg/dL Calcium Level 8.9 8.4 L 8.7-10.4 mg/dL Magnesium Level 2.3 2.1 1.6-2.6 mg/dL Total Bilirubin 0.2 0.2-1.0 mg/dL Aspartate Amino Transferase (AST) 91 H 13-40 U/L Alanine Aminotransferase (ALT) 59 H 7-40 U/L Alkaline Phosphatase 67 46-116 U/L Total Protein 6.0 5.7-8.2 g/dL Albumin 3.3 3.2-4.8 g/dL POC Glucose 119 H 231 H 70-106 mg/dl Test 07/01/24 11:38 07/01/24 10:05 07/01/24 10:02 07/01/24 05:31 Range/Units POC Glucose 260 H 98 70-106 mg/dl Blood Gas Specimen Type Arterial Blood Gas Sample Site Right radial Blood Gas Patient Temperature 37.0 Arterial Blood Date Drawn [id number] Arterial Blood pH 7.358 7.350-7.450 Arterial Blood Partial Pressure CO2 37.9 35.0-48.0 mmHg Arterial Blood Partial Pressure O2 78.2 L 83.0-108.0 mmHg Arterial Blood HCO3 20.8 L 21.0-28.0 mmol/L Arterial Blood Oxygen Saturation 95.4 94.0-98.0 % Arterial Blood Base Excess -4.2 L -2.0-3.0 mmol/L Arterial Blood Oxyhemoglobin 94.9 94.0-98.0 % Arterial Blood Carboxyhemoglobin 0.4 L 0.5-1.5 % Arterial Blood Methemoglobin 0.1 0.0-1.5 % Adama Test Modified Blood Gas Total Hemoglobin 12.60 L 13.5-17.5 g/dL Blood Gas Set Respiration Rate 18.0 Blood Gas Modality Vent - ac Blood Gas Spontaneous Rate 17 FiO2 % 30.0 Blood Gas Tidal Volume 450.0 Blood Gas PEEP or CPAP 5.0 Sodium Level 136 # 136-145 mmol/L Potassium Level 5.1 3.5-5.1 mmol/L Chloride Level 108 H 98-107 mmol/L Carbon Dioxide Level 23 20-31 mmol/L Anion Gap 5 5-15 Blood Urea Nitrogen 11 9-23 mg/dL Creatinine 1.46 H 0.700-1.30 mg/dL Glomerular Filtration Rate Calc 54 >90 mL/min BUN/Creatinine Ratio 7.5 L 10.0-20.0 Serum Glucose 262 #H 74-106 mg/dL Calcium Level 8.5 L 8.7-10.4 mg/dL Total Bilirubin 0.2 0.2-1.0 mg/dL Aspartate Amino Transferase (AST) 117 H 13-40 U/L Alanine Aminotransferase (ALT) 63 H 7-40 U/L Alkaline Phosphatase 67 46-116 U/L Total Protein 5.7 5.7-8.2 g/dL Albumin 3.1 L 3.2-4.8 g/dL Random Vancomycin Level 8.7 5-10 ug/mL Test 07/01/24 03:45 07/01/24 00:05 06/30/24 17:34 06/30/24 11:39 Range/Units White Blood Count 15.0 H 4.4-10.8 10^3/uL Red Blood Count 4.42 L 4.5-5.90 10^6/uL Hemoglobin 12.5 L 13.5-17.5 g/dL Hematocrit 41.1 # 41.0-53.0 % Mean Corpuscular Volume 92.9 # 80.0-100.0 fL Mean Corpuscular Hemoglobin 28.4 28.0-32.0 pg Mean Corpuscular Hemoglobin Concent 30.5 L 32.0-36.0 g/dL Red Cell Distribution Width 15.1 H 11.8-14.3 % Platelet Count 166 140-450 10^3/uL Mean Platelet Volume 8.7 6.9-10.8 fL Neutrophils (%) (Auto) 68.8 37.0-80.0 % Lymphocytes (%) (Auto) 16.5 10.0-50.0 % Monocytes (%) (Auto) 11.7 0.0-12.0 % Eosinophils (%) (Auto) 2.8 0.0-7.0 % Basophils (%) (Auto) 0.2 0.0-2.0 % Neutrophils # (Auto) 10.3 H 1.6-8.6 10 ^3/uL Lymphocytes # (Auto) 2.5 0.4-5.4 10 ^3/uL Monocytes # (Auto) 1.8 H 0-1.3 10 ^3/uL Eosinophils # (Auto) 0.4 0-0.8 10 ^3/uL Basophils # (Auto) 0 0-0.2 10 ^3/uL Nucleated Red Blood Cells 0.1 % POC Glucose 174 H 263 H 214 H 70-106 mg/dl Test 06/30/24 10:54 06/30/24 08:04 06/30/24 07:27 06/30/24 04:39 Range/Units Free Thyroxine Index 2.1 1.2-4.9 Thyroxine (T4) 6.5 4.5-12.0 ug/dL Triiodothyronine (T3) Uptake 32 24-39 % POC Glucose 184 H 116 H 70-106 mg/dl Blood Gas Specimen Type Arterial Blood Gas Sample Site Left radial Blood Gas Patient Temperature 37.0 Arterial Blood Date Drawn [id number] Arterial Blood pH 7.423 7.350-7.450 Arterial Blood Partial Pressure CO2 35.9 35.0-48.0 mmHg Arterial Blood Partial Pressure O2 103.2 83.0-108.0 mmHg Arterial Blood HCO3 22.9 21.0-28.0 mmol/L Arterial Blood Oxygen Saturation 97.7 94.0-98.0 % Arterial Blood Base Excess -1.1 -2.0-3.0 mmol/L Arterial Blood Oxyhemoglobin 97.2 94.0-98.0 % Arterial Blood Carboxyhemoglobin 0.3 L 0.5-1.5 % Arterial Blood Methemoglobin 0.2 0.0-1.5 % Adama Test Modified Blood Gas Total Hemoglobin 11.70 L 13.5-17.5 g/dL Blood Gas Set Respiration Rate 18.0 Blood Gas Modality Vent - ac FiO2 % 30.0 Blood Gas Tidal Volume 450.0 Blood Gas PEEP or CPAP 5.0 Test 06/30/24 03:30 06/29/24 23:50 06/29/24 21:09 06/29/24 20:47 Range/Units Sodium Level 142 # 136-145 mmol/L Potassium Level 4.0 3.5-5.1 mmol/L Chloride Level 112 H 98-107 mmol/L Carbon Dioxide Level 24 20-31 mmol/L Anion Gap 6 5-15 Blood Urea Nitrogen 17 9-23 mg/dL Creatinine 1.43 H 0.700-1.30 mg/dL Glomerular Filtration Rate Calc 55 >90 mL/min BUN/Creatinine Ratio 11.9 10.0-20.0 Serum Glucose 112 H 74-106 mg/dL Calcium Level 8.4 L 8.7-10.4 mg/dL Random Vancomycin Level 10.4 H 5-10 ug/mL POC Glucose 115 H 163 H 49 *L 70-106 mg/dl Test 06/29/24 20:45 06/29/24 18:16 06/29/24 17:30 06/29/24 16:04 Range/Units POC Glucose 52 L 63 L 76 70-106 mg/dl White Blood Count 14.5 H 4.4-10.8 10^3/uL Red Blood Count 3.93 L 4.5-5.90 10^6/uL Hemoglobin 11.1 L 13.5-17.5 g/dL Hematocrit 34.6 L 41.0-53.0 % Mean Corpuscular Volume 88.0 80.0-100.0 fL Mean Corpuscular Hemoglobin 28.3 28.0-32.0 pg Mean Corpuscular Hemoglobin Concent 32.1 32.0-36.0 g/dL Red Cell Distribution Width 14.0 11.8-14.3 % Platelet Count 176 140-450 10^3/uL Mean Platelet Volume 8.6 6.9-10.8 fL Neutrophils (%) (Auto) 70.8 37.0-80.0 % Lymphocytes (%) (Auto) 18.3 10.0-50.0 % Monocytes (%) (Auto) 9.7 0.0-12.0 % Eosinophils (%) (Auto) 0.9 0.0-7.0 % Basophils (%) (Auto) 0.3 0.0-2.0 % Neutrophils # (Auto) 10.3 H 1.6-8.6 10 ^3/uL Lymphocytes # (Auto) 2.7 0.4-5.4 10 ^3/uL Monocytes # (Auto) 1.4 H 0-1.3 10 ^3/uL Eosinophils # (Auto) 0.1 0-0.8 10 ^3/uL Basophils # (Auto) 0 0-0.2 10 ^3/uL Nucleated Red Blood Cells 0.1 % Sodium Level 149 H 136-145 mmol/L Potassium Level 3.8 3.5-5.1 mmol/L Chloride Level 114 H 98-107 mmol/L Carbon Dioxide Level 29 20-31 mmol/L Anion Gap 6 5-15 Blood Urea Nitrogen 22 9-23 mg/dL Creatinine 1.78 H 0.700-1.30 mg/dL Glomerular Filtration Rate Calc 42 >90 mL/min BUN/Creatinine Ratio 12.4 10.0-20.0 Serum Glucose 78 74-106 mg/dL Hemoglobin A1c 12.4 H <5.7 % A1C Calcium Level 9.1 8.7-10.4 mg/dL Magnesium Level 2.2 1.6-2.6 mg/dL Lipase 23 12-53 U/L Thyroid Stimulating Hormone (TSH) 0.15 L 0.55-4.78 uIU/mL Test 06/29/24 12:55 06/29/24 10:07 06/29/24 09:06 06/29/24 08:34 Range/Units POC Glucose 87 154 H 54 L 63 L 70-106 mg/dl Test 06/29/24 07:12 06/29/24 04:32 06/29/24 03:38 06/28/24 23:42 Range/Units Blood Gas Specimen Type Arterial Blood Gas Sample Site Left radial Blood Gas Patient Temperature 37.0 Arterial Blood Date Drawn [id number] Arterial Blood pH 7.419 7.350-7.450 Arterial Blood Partial Pressure CO2 40.3 35.0-48.0 mmHg Arterial Blood Partial Pressure O2 89.2 83.0-108.0 mmHg Arterial Blood HCO3 25.5 21.0-28.0 mmol/L Arterial Blood Oxygen Saturation 97.1 94.0-98.0 % Arterial Blood Base Excess 1.0 -2.0-3.0 mmol/L Arterial Blood Oxyhemoglobin 96.2 94.0-98.0 % Arterial Blood Carboxyhemoglobin 0.3 L 0.5-1.5 % Arterial Blood Methemoglobin 0.6 0.0-1.5 % Adama Test Modified Blood Gas Total Hemoglobin 11.90 L 13.5-17.5 g/dL Blood Gas Set Respiration Rate 18.0 Blood Gas Modality Vent - ac FiO2 % 30.0 Blood Gas Tidal Volume 450.0 Blood Gas PEEP or CPAP 5.0 White Blood Count 14.7 H 4.4-10.8 10^3/uL Red Blood Count 3.96 L 4.5-5.90 10^6/uL Hemoglobin 11.6 L 13.5-17.5 g/dL Hematocrit 34.6 #L 41.0-53.0 % Mean Corpuscular Volume 87.4 # 80.0-100.0 fL Mean Corpuscular Hemoglobin 29.2 28.0-32.0 pg Mean Corpuscular Hemoglobin Concent 33.4 32.0-36.0 g/dL Red Cell Distribution Width 13.9 11.8-14.3 % Platelet Count 202 140-450 10^3/uL Mean Platelet Volume 8.7 6.9-10.8 fL Neutrophils (%) (Auto) 67.7 37.0-80.0 % Lymphocytes (%) (Auto) 22.0 10.0-50.0 % Monocytes (%) (Auto) 9.3 0.0-12.0 % Eosinophils (%) (Auto) 0.7 0.0-7.0 % Basophils (%) (Auto) 0.3 0.0-2.0 % Neutrophils # (Auto) 10.0 H 1.6-8.6 10 ^3/uL Lymphocytes # (Auto) 3.2 0.4-5.4 10 ^3/uL Monocytes # (Auto) 1.4 H 0-1.3 10 ^3/uL Eosinophils # (Auto) 0.1 0-0.8 10 ^3/uL Basophils # (Auto) 0 0-0.2 10 ^3/uL Nucleated Red Blood Cells 0.0 % Sodium Level 151 #H 136-145 mmol/L Potassium Level 3.5 # 3.5-5.1 mmol/L Chloride Level 116 #H 98-107 mmol/L Carbon Dioxide Level 25 20-31 mmol/L Anion Gap 10 5-15 Blood Urea Nitrogen 24 H 9-23 mg/dL Creatinine 2.14 H 0.700-1.30 mg/dL Glomerular Filtration Rate Calc 34 >90 mL/min BUN/Creatinine Ratio 11.2 10.0-20.0 Serum Glucose 79 # 74-106 mg/dL Calcium Level 9.6 8.7-10.4 mg/dL Random Vancomycin Level 18.7 H 5-10 ug/mL POC Glucose 82 96 70-106 mg/dl Test 06/28/24 22:21 06/28/24 21:40 06/28/24 19:57 06/28/24 19:22 Range/Units POC Glucose 78 81 143 H 36 *L 70-106 mg/dl Test 06/28/24 18:44 06/28/24 17:09 06/28/24 16:03 06/28/24 15:59 Range/Units POC Glucose 86 158 H 293 H 70-106 mg/dl Blood Gas Specimen Type Arterial Blood Gas Sample Site Right radial Blood Gas Patient Temperature 37.0 Arterial Blood Date Drawn [id number] Arterial Blood pH 7.399 7.350-7.450 Arterial Blood Partial Pressure CO2 41.5 35.0-48.0 mmHg Arterial Blood Partial Pressure O2 101.2 83.0-108.0 mmHg Arterial Blood HCO3 25.1 21.0-28.0 mmol/L Arterial Blood Oxygen Saturation 98.2 H 94.0-98.0 % Arterial Blood Base Excess 0.2 -2.0-3.0 mmol/L Arterial Blood Oxyhemoglobin 96.5 94.0-98.0 % Arterial Blood Carboxyhemoglobin 1.1 0.5-1.5 % Arterial Blood Methemoglobin 0.6 0.0-1.5 % Adama Test Modified Blood Gas Total Hemoglobin 12.80 L 13.5-17.5 g/dL Blood Gas Set Respiration Rate 18.0 Blood Gas Modality Vent - ac FiO2 % 30.0 Blood Gas Tidal Volume 450.0 Blood Gas PEEP or CPAP 5.0 Test 06/28/24 14:13 06/28/24 14:11 06/28/24 13:52 06/28/24 12:06 Range/Units POC Glucose 456 *H 464 *H > 600 *H 70-106 mg/dl Blood Gas Specimen Type Arterial Blood Gas Sample Site Right brachial Blood Gas Patient Temperature 37.0 Arterial Blood Date Drawn [id number] Arterial Blood pH 7.297 L 7.350-7.450 Arterial Blood Partial Pressure CO2 52.3 H 35.0-48.0 mmHg Arterial Blood Partial Pressure O2 84.8 83.0-108.0 mmHg Arterial Blood HCO3 25.0 21.0-28.0 mmol/L Arterial Blood Oxygen Saturation 96.1 94.0-98.0 % Arterial Blood Base Excess -2.1 L -2.0-3.0 mmol/L Arterial Blood Oxyhemoglobin 94.2 94.0-98.0 % Arterial Blood Carboxyhemoglobin 1.4 0.5-1.5 % Arterial Blood Methemoglobin 0.6 0.0-1.5 % Adama Test N/a Blood Gas Total Hemoglobin 13.40 L 13.5-17.5 g/dL Blood Gas Set Respiration Rate 18.0 Blood Gas Modality Vent - ac Blood Gas Spontaneous Rate 30 FiO2 % 30.0 Blood Gas Tidal Volume 400.0 Blood Gas Spontaneous Tidal Volume 470 Blood Gas Inspiratory Pressure 20.0 Blood Gas PEEP or CPAP 5.0 Bl Gas Inspiratory/Expiratory Ratio 1:1 Test 06/28/24 12:05 06/28/24 11:23 06/28/24 10:56 06/28/24 10:43 Range/Units POC Glucose > 600 *H 70-106 mg/dl Troponin I High Sensitivity 10 </=54 ng/L Urine Color Light-yellow Yellow Urine Clarity Clear Clear Urine pH 5.0 5.0-9.0 Urine Specific [place] 1.025 1.001-1.035 Urine Protein Negative Negative Urine Ketones Negative Negative Urine Blood Negative Negative /uL Urine Nitrite Negative Negative Urine Bilirubin Negative Negative Urine Urobilinogen Normal Negative mg/dL Urine Leukocyte Esterase Trace Negative /uL Urine RBC 2 0 - 3 /hpf Urine WBC 7 0 - 3 /hpf Urine Squamous Epithelial Cells None seen <5 /hpf Urine Bacteria None seen None Seen /hpf Urine Glucose 4+ H Normal mg/dL Urine Opiates Screen Neg NEGATIVE Urine Fentanyl Screen Neg NEGATIVE Urine Barbiturates Screen Neg NEGATIVE Urine Phencyclidine Screen Neg NEGATIVE Urine Amphetamines Screen Neg NEGATIVE Urine Benzodiazepines Screen Pos NEGATIVE Urine Cocaine Screen Neg NEGATIVE Urine Cannabinoids Screen Pos NEGATIVE Blood Gas Specimen Type Arterial Blood Gas Sample Site Right radial Blood Gas Patient Temperature 37.0 Arterial Blood Date Drawn [id number] Arterial Blood pH 7.169 *L 7.350-7.450 Arterial Blood Partial Pressure CO2 69.2 *H 35.0-48.0 mmHg Arterial Blood Partial Pressure O2 361.7 *H 83.0-108.0 mmHg Arterial Blood HCO3 24.6 21.0-28.0 mmol/L Arterial Blood Oxygen Saturation 99.7 H 94.0-98.0 % Arterial Blood Base Excess -5.2 L -2.0-3.0 mmol/L Arterial Blood Oxyhemoglobin 96.8 94.0-98.0 % Arterial Blood Carboxyhemoglobin 2.2 H 0.5-1.5 % Arterial Blood Methemoglobin 0.7 0.0-1.5 % Adama Test Modified Blood Gas Total Hemoglobin 13.60 13.5-17.5 g/dL Blood Gas Set Respiration Rate 14.0 Blood Gas Modality Vent - ac FiO2 % 100.0 Blood Gas Tidal Volume 400.0 Blood Gas PEEP or CPAP 5.0 Blood Gas Critical Value Read Back Yes Blood Gas Notified Whom Dr сергей keller Blood Gas Notified Time [id number] Blood Gas Notified By Geography Professor emilia Truong 06/28/24 09:28 06/28/24 09:24 Range/Units Lactic Acid Level 1.5 0.4-2.0 mmol/L White Blood Count 12.1 H 4.4-10.8 10^3/uL Red Blood Count 4.44 L 4.5-5.90 10^6/uL Hemoglobin 13.1 L 13.5-17.5 g/dL Hematocrit 41.4 41.0-53.0 % Mean Corpuscular Volume 93.2 80.0-100.0 fL Mean Corpuscular Hemoglobin 29.5 28.0-32.0 pg Mean Corpuscular Hemoglobin Concent 31.6 L 32.0-36.0 g/dL Red Cell Distribution Width 14.6 H 11.8-14.3 % Platelet Count 305 140-450 10^3/uL Mean Platelet Volume 9.4 6.9-10.8 fL Neutrophils (%) (Auto) 83.6 H 37.0-80.0 % Lymphocytes (%) (Auto) 9.1 L 10.0-50.0 % Monocytes (%) (Auto) 6.7 0.0-12.0 % Eosinophils (%) (Auto) 0.3 0.0-7.0 % Basophils (%) (Auto) 0.3 0.0-2.0 % Neutrophils # (Auto) 10.1 H 1.6-8.6 10 ^3/uL Lymphocytes # (Auto) 1.1 0.4-5.4 10 ^3/uL Monocytes # (Auto) 0.8 0-1.3 10 ^3/uL Eosinophils # (Auto) 0 0-0.8 10 ^3/uL Basophils # (Auto) 0 0-0.2 10 ^3/uL Nucleated Red Blood Cells 0.1 % Sodium Level 133 L 136-145 mmol/L Potassium Level 7.9 *H 3.5-5.1 mmol/L Chloride Level 102 98-107 mmol/L Carbon Dioxide Level 27 20-31 mmol/L Anion Gap 4 L 5-15 Blood Urea Nitrogen 28 H 9-23 mg/dL Creatinine 2.15 H 0.700-1.30 mg/dL Glomerular Filtration Rate Calc 34 >90 mL/min BUN/Creatinine Ratio 13.0 10.0-20.0 Serum Glucose 1078 *H 74-106 mg/dL Calcium Level 9.8 8.7-10.4 mg/dL Total Bilirubin < 0.2 L 0.2-1.0 mg/dL Aspartate Amino Transferase (AST) 214 H 13-40 U/L Alanine Aminotransferase (ALT) 92 H 7-40 U/L Alkaline Phosphatase 198 H 46-116 U/L Troponin I High Sensitivity 7 </=54 ng/L Total Protein 7.6 5.7-8.2 g/dL Albumin 4.6 3.2-4.8 g/dL Plasma/Serum Blood Alcohol < 3.0 <10 mg/dL Microbiology Date/Time Source Procedure Growth Status 06/29/24 12:51 Nose MRSA Screen - Final Complete 06/28/24 09:24 Blood Blood Culture - Final NO GROWTH AFTER 5 DAYS OF INCUBATION. Complete Assessment Acute kidney injury secondary to hemodynamic mediated given and dehydration Acute respiratory failure, intubated on ventilator Hyperosmolar coma Uncontrolled diabetes mellitus, A1c 12.4 Hyperglycemia History of schizophrenia Hyperkalemia, resolved Transaminitis Sepsis Recommendations Closely monitor fluid and electrolytes Avoid nephrotoxic medications Farnsworth catheter Strict I&Os IVF half NS at 75 cc/hour Check urine electrolytes and urine microalbumin IV antibiotics Insulin sliding scale We will continue to follow Patient is cleared for PICC line from Nephrology perspective Patient seen and examined by myself. I discussed my plan of care with the primary nurse at the bedside I would like to thank Dr. Laurent for the consult, will follow Plan discussed with: Other (Nurse) DANITZA MAY MD Jul 04, 2024 14:49
--- NOTE | 2024-07-04 14:51 | DVHPNRES ---
Progress Note Date Seen: Jul 04, 2024 Resident Creating Document: [facility] RESIDENT Medical Necessity Reason Pt with a Central, PICC or Fol: Yes The following are medically ne: Nelson Catheter Reason for nelson catheter: Strict I&O Subjective Review of Systems 64 yo with stated history CKD, Asthma, DM, COPD, HTN and seizure disorder came into the ED with stated change in mentation patient in the ED was acidic and altered unable to protect airway and stated to have sugars over 1000 source of cause is unknown history can not be fully obtained patient is intubated sedated suspected that possible breakthrough seizures in the setting [facility] with diabetic coma Patient seen and examined at bedside. Patient is currently ICU status, on sedation due to mechanical assisted ventilation. Planning on completing spontaneous breathing trial once FiO2 level requirement decreases. Could not obtain review of systems. Patient lying in bed, under sedoanalgesia due to mechanical ventilation Objective vital signs Vital Sign Date Time Temp Pulse Resp B/P (MAP) Pulse Ox O2 Delivery O2 Flow Rate FiO2 07/04/24 13:13 74 24 87/33 (51) 100 30 07/04/24 13:00 100.0 212.0 07/04/24 12:00 Mechanical Ventilator+ Total Intake and Output 07/03/24 07/03/24 07/04/24 15:00 23:00 07:00 Intake Total 548.12 ml 524.24 ml 682.20 ml Output Total 1550 ml 675 ml Balance 548.12 ml -1025.76 ml 7.20 ml medications Current Medications Medications Dose Ordered Sig/Kandi Route Start Time Stop Time Status Last Admin Dose Admin Propofol 100 ml @ 2.04 mls/hr Q24H IV 06/28/24 09:15 07/04/24 06:03 14.28 MLS/HR Midazolam HCl 50 ml @ 1 mls/hr Q24H IV 06/28/24 10:45 06/30/24 12:28 12 MLS/HR Ondansetron HCl 4 mg Q4HP PRN IV 06/28/24 12:15 Norepinephrine Bitartrate 250 ml @ 3.75 mls/hr Q24H IV 06/28/24 13:30 06/30/24 15:13 3.75 MLS/HR Diagnostic Test (Pha) 1 strip Q6HR 06/29/24 18:00 07/04/24 11:54 1 STRIP Insulin Human Regular Q6HR SC 06/29/24 18:00 07/04/24 00:24 4 UNITS Dextrose 50 ml UD PRN IV 06/29/24 16:15 06/29/24 20:48 50 ML Artificial Tears 1 drop Q2HP PRN EACHEYE 06/30/24 13:45 07/04/24 04:22 1 DROP Fentanyl Citrate 250 ml @ 2.5 mls/hr Q24H IV 06/30/24 13:45 07/03/24 22:07 22.5 MLS/HR Acetaminophen 650 mg Q4HP PRN GT 07/01/24 11:30 07/04/24 11:14 650 MG Dexmedetomidine HCl 400 mcg/ Dextrose 100 ml @ 3.11 mls/hr Q24H IV 07/01/24 23:30 07/01/24 23:30 3.11 MLS/HR Ceftriaxone Sodium 50 ml @ 100 mls/hr DAILY@09 IV 07/04/24 09:00 07/04/24 09:14 100 MLS/HR Enoxaparin Sodium 40 mg DAILY SC 07/04/24 10:00 07/04/24 09:14 40 MG Enteral Nutritional Formula 1,000 ml 50ML/HR GT 07/03/24 14:45 07/03/24 18:47 1,000 ML Hydralazine HCl 10 mg Q6HP PRN IV 07/04/24 10:30 07/04/24 10:45 10 MG Sodium Chloride 1,000 ml @ 75 mls/hr [id number] IV 07/04/24 14:45 UNV Examination General: RASS -3, afebrile, mucosae are moist Cardiovascular: Normal S1 and S2. No murmurs, gallops or rubs Respiratory: Mechanically assisted ventilation, equal bilateral airway entree. Clear lung sounds on auscultation Abdomen: Soft, nontender, no organomegaly, normal bowel sounds MSK/skin: Mobilization of limbs cannot be evaluated. Skin is dry and warm. PICC on right arm Neurological: Orientation cannot be assessed. No apparent motor no sensitive deficits. Pupils are isocoric and reactive. laboratory and microbiology Laboratory Tests 07/04/24 09:51 Test 07/04/24 09:51 Range/Units Serum Glucose 100 74-106 mg/dL Microbiology Date/Time Source Procedure Growth Status 07/03/24 11:24 Urine - [place] Urine Culture - Preliminary Resulted 07/03/24 11:23 Sputum Gram Stain - Final Resulted 07/03/24 11:23 Sputum Respiratory Culture - Preliminary Resulted 06/29/24 12:51 Nose MRSA Screen - Final Complete 06/28/24 09:24 Blood Blood Culture - Final NO GROWTH AFTER 5 DAYS OF INCUBATION. Complete Problem List/Assessment/Plan Problem List/Assessment/Plan # Metabolic Encephalopathy due to Type 2 diabetes with hyperosmolar hyperglycemic state # Seizure - CT Head on 10/02/23 shows: No acute intracranial abnormality. 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 # Hypertension # CKD stage IIIB #Acute kidney injury - Avoid nephrotoxic medication - Avoid Hypertention/Hypotension - nephrology consult Drips Fentanyl 225 Versed 10 Ketamine 0 Propofol 35 NE 0 Invasive access Nelson catheter 06/28/2024 Endotracheal tube 06/28/2024 Rt Femoral central line 06/28/2024, plan to get PICC line. Peptic ulcer disease prophylaxis: Protonix DVT prophylaxis: Enoxaparin 40 mg subcutaneous daily Critical Care time spent 46 minutes including patient care, chart review and updating family, excluding procedure. Discussed plan with Dr. Laurent, Plan discussed with: Other (RN) My Orders My Orders Orders - BR[facility]ON [facility] RESIDENT Procedure Category Date Status Time Abg W/ Co-Ox RT 07/04/24 Logged 04:00 Chest Xray 1 View XY 07/04/24 Resulted 04:00 Dietary Evaluation Review Comments: 1) Consider EN nutrition Glucerna 1.2 to 50ml/hr goal rate to meet pt needs 2) Advance pt diet when medically feasible to a CCHO 45g/2gNa diet 3) Continue current plan of care Expected Outcomes/Goals: 1) Pt to receive adequate nutrition 2) Pt diet to advance 3) F/U in 2-3 days Date of Service: Jul 04, 2024 Billing Provider: MANISH LAURENT MD Common Visit Codes: [id number] CARE 30-74 MIN [facility] RESIDENT Jul 04, 2024 14:51 MANISH LAURENT MD Jul 05, 2024 12:53
[2024-07-04 16:25] LABS: Magnesium 2.5 mg/dL (1.6-2.6)
[2024-07-04 16:27] LABS: Phosphorus 4.2 mg/dL (2.4-5.1)
[2024-07-04] MEDS: SOD CHL 0.45% 1,000 ML IV SCH (18:01)
[2024-07-04 19:29] LABS: Creatinine, Urine 90.22 mg/dL (30.0-125.0)
[2024-07-05] VITALS (107 sets, daily range): BP systolic 97–181; BP diastolic 13–93; PULSE 60–100; RESP 15–30; TEMP 97–101.4; O2SAT 98–100
[2024-07-05 04:11] LABS: Basophils # (auto) 0 10 ^3/uL (0-0.2); Basophils % (auto) 0.4 % (0.0-2.0); Eosinophils # (auto) 0.3 10 ^3/uL (0-0.8); Eosinophils % (auto) 2.8 % (0.0-7.0); Hematocrit 35.3 % (41.0-53.0); Hemoglobin 11.5 g/dL (13.5-17.5); Lymphocytes # (auto) 1.1 10 ^3/uL (0.4-5.4); Lymphocytes % (auto) 9.5 % (10.0-50.0); Mean Corpuscular Hemoglobin 28.7 pg (28.0-32.0); Mean Corpuscular Hgb Conc. 32.7 g/dL (32.0-36.0); Mean Corpuscular Volume 87.7 fL (80.0-100.0); Monocytes # (auto) 1.2 10 ^3/uL (0-1.3); Monocytes % (auto) 10.6 % (0.0-12.0); Neutrophils # (auto) 8.9 10 ^3/uL (1.6-8.6); Neutrophils % (auto) 76.7 % (37.0-80.0); Nucleated Red Blood Cells % 0.1 %; Platelet Count (auto) 304 10^3/uL (140-450); Red Blood Cells 4.02 10^6/uL (4.5-5.90); Red Cell Distribution Width 13.9 % (11.8-14.3); White Blood Cell 11.6 10^3/uL (4.4-10.8)
[2024-07-05 04:21] LABS: Alanine Aminotransferase 44 U/L (7-40); Albumin 3.3 g/dL (3.2-4.8); Alkaline Phosphatase 80 U/L (46-116); Anion Gap 10 (5-15); Aspartate Aminotransferase 69 U/L (13-40); BUN/Creatinine Ratio 19.6 (10.0-20.0); Bilirubin, Total < 0.2 mg/dL (0.2-1.0); Blood Urea Nitrogen 22 mg/dL (9-23); Calcium 9.2 mg/dL (8.7-10.4); Carbon Dioxide 21 mmol/L (20-31); Chloride 107 mmol/L (98-107); Glucose 132 mg/dL (74-106); Potassium 4.7 mmol/L (3.5-5.1); Sodium 138 mmol/L (136-145)
--- NOTE | 2024-07-05 04:46 | DVH ---
CHEST RADIOGRAPH Indication: intubated Technique: Single frontal view of the chest was obtained COMPARISON: XY CHEST XRAY 1 VIEW on DOS: 07/04/24, XY CHEST PORTABLE on DOS: 07/03/24, XY CHEST ROBBIE BLE on DOS: 07/02/24 FINDINGS: Lines and Tubes: Endotracheal tube and enteric catheter in satisfactory position. Lungs: Patchy bilateral airspace disease. Pleura: No effusion. No pneumothorax. Cardiomediastinal contours: Unremarkable Bones: Unremarkable IMPRESSION: Lines and tubes in satisfactory position. No significant interval change.
[2024-07-05] MEDS: PROPOFOL 100 ML IV SCH (09:30)
--- NOTE | 2024-07-05 11:29 | DVHPN2 ---
Progress Note Date Seen: Jul 05, 2024 Medical Necessity Reason Pt with a Central, PICC or Fol: Yes The following are medically ne: Nelson Catheter Reason for nelson catheter: Strict I&O Subjective Review of Systems: RESPIRATORY:Abnormal Other Systems: Patient seen and examined by myself in follow-up today, patient remained intubated on ventilator Objective vital signs Vital Sign Date Time Temp Pulse Resp B/P (MAP) Pulse Ox O2 Delivery O2 Flow Rate FiO2 07/05/24 11:24 159/66 07/05/24 10:31 72 18 100 30 07/05/24 10:15 99.1 210.4 07/05/24 10:00 Mechanical Ventilator+ Total Intake and Output 07/04/24 07/04/24 07/05/24 15:00 23:00 07:00 Intake Total 228.50 ml 765.56 ml 1124.06 ml Output Total 700 ml 550 ml Balance 228.50 ml 65.56 ml 574.06 ml medications Current Medications Medications Dose Ordered Sig/Kandi Route Start Time Stop Time Status Last Admin Dose Admin Midazolam HCl 50 ml @ 1 mls/hr Q24H IV 06/28/24 10:45 06/30/24 12:28 12 MLS/HR Ondansetron HCl 4 mg Q4HP PRN IV 06/28/24 12:15 Norepinephrine Bitartrate 250 ml @ 3.75 mls/hr Q24H IV 06/28/24 13:30 06/30/24 15:13 3.75 MLS/HR Diagnostic Test (Pha) 1 strip Q6HR 06/29/24 18:00 07/05/24 06:16 1 STRIP Insulin Human Regular Q6HR SC 06/29/24 18:00 07/04/24 00:24 4 UNITS Dextrose 50 ml UD PRN IV 06/29/24 16:15 06/29/24 20:48 50 ML Artificial Tears 1 drop Q2HP PRN EACHEYE 06/30/24 13:45 07/05/24 04:46 1 DROP Fentanyl Citrate 250 ml @ 2.5 mls/hr Q24H IV 06/30/24 13:45 07/05/24 05:55 27.5 MLS/HR Acetaminophen 650 mg Q4HP PRN GT 07/01/24 11:30 07/04/24 11:14 650 MG Dexmedetomidine HCl 400 mcg/ Dextrose 100 ml @ 3.11 mls/hr Q24H IV 07/01/24 23:30 07/05/24 11:24 3.11 MLS/HR Ceftriaxone Sodium 50 ml @ 100 mls/hr DAILY@09 IV 07/04/24 09:00 07/05/24 08:42 100 MLS/HR Enoxaparin Sodium 40 mg DAILY SC 07/04/24 10:00 07/05/24 08:53 40 MG Enteral Nutritional Formula 1,000 ml 50ML/HR GT 07/03/24 14:45 07/03/24 18:47 1,000 ML Hydralazine HCl 10 mg Q6HP PRN IV 07/04/24 10:30 07/04/24 10:45 10 MG Sodium Chloride 1,000 ml @ 75 mls/hr [id number] IV 07/04/24 14:45 07/05/24 04:05 75 MLS/HR Propofol 100 ml @ 2.004 mls/ hr Q24H IV 07/05/24 09:30 Examination: LUNGS:Normal, CVS:Normal, MSK:Normal laboratory and microbiology Laboratory Tests 07/05/24 03:33 Test 07/05/24 03:33 Range/Units Serum Glucose 132 H 74-106 mg/dL Microbiology Date/Time Source Procedure Growth Status 07/03/24 16:20 Blood Blood Culture - Preliminary NO GROWTH AFTER 24 HOURS OF INCUBATION. Resulted 07/03/24 11:24 Urine - [place] Urine Culture - Preliminary Resulted 07/03/24 11:23 Sputum Gram Stain - Final Resulted 07/03/24 11:23 Sputum Respiratory Culture - Preliminary Resulted 06/29/24 12:51 Nose MRSA Screen - Final Complete Problem List/Assessment/Plan Problem List/Assessment/Plan Acute kidney injury secondary to hemodynamic mediated and dehydration, feNa < 1% Acute respiratory failure, intubated on ventilator Hyperosmolar coma Uncontrolled diabetes mellitus, A1c 12.4 Hyperglycemia History of schizophrenia Hyperkalemia, resolved Transaminitis Sepsis Microalbuminuria Recommendations Kidney function is improving Increasing urine output Nelson catheter Strict I&Os IVF half NS at 75 cc/hour IV antibiotics Insulin sliding scale I will sign off this case please reconsult as needed thank you for the consult Plan discussed with: Other (Nurse) My Orders My Orders Orders - DANITZA MAY MD Procedure Category Date Status Time Sod Chl 0.45% (Sodium PHA 07/04/24 In Process Chloride 0.45% Via 14:45 Hepatitis C Antibody LAB 07/04/24 In Process 14:44 Hepatitis B Surface LAB 07/04/24 In Process Antigen 14:44 Vitamin D, 25-Hydroxy LAB 07/04/24 In Process 14:53 Dietary Evaluation Review Comments: 1) Consider EN nutrition Glucerna 1.2 to 50ml/hr goal rate to meet pt needs 2) Advance pt diet when medically feasible to a CCHO 45g/2gNa diet 3) Continue current plan of care Expected Outcomes/Goals: 1) Pt to receive adequate nutrition 2) Pt diet to advance 3) F/U in 2-3 days DANITZA MAY MD Jul 05, 2024 11:29
[2024-07-05 13:45] LABS: Partial Thromboplastin Time 32.5 SEC (24.5-34.5); Prothrombin Time 10.6 sec (9.3-11.8)
--- NOTE | 2024-07-05 15:45 | DVHPNRES ---
Progress Note Date Seen: Jul 05, 2024 Resident Creating Document: BR[facility]ON [facility] RESIDENT Medical Necessity Reason Pt with a Central, PICC or Fol: Yes The following are medically ne: Nelson Catheter Reason for nelson catheter: Strict I&O Subjective Review of Systems 64 yo with stated history CKD, Asthma, DM, COPD, HTN and seizure disorder came into the ED with stated change in mentation patient in the ED was acidic and altered unable to protect airway and stated to have sugars over 1000 source of cause is unknown history can not be fully obtained patient is intubated sedated suspected that possible breakthrough seizures in the setting [facility] with diabetic coma Patient seen and examined at bedside. Patient is currently ICU status, on sedation due to mechanical assisted ventilation. Planning on completing spontaneous breathing trial once FiO2 level requirement decreases. Could not obtain review of systems. Patient lying in bed, under sedoanalgesia due to mechanical ventilation Objective vital signs Vital Sign Date Time Temp Pulse Resp B/P (MAP) Pulse Ox O2 Delivery O2 Flow Rate FiO2 07/05/24 15:09 99 30 128/48 (74) 100 30 07/05/24 14:00 Mechanical Ventilator+ 07/05/24 14:00 101.3 214.3 Total Intake and Output 07/04/24 07/04/24 07/05/24 14:59 22:59 06:59 Intake Total 219.42 ml 688.06 ml 1124.06 ml Output Total 700 ml 550 ml Balance 219.42 ml -11.94 ml 574.06 ml medications Current Medications Medications Dose Ordered Sig/Kandi Route Start Time Stop Time Status Last Admin Dose Admin Midazolam HCl 50 ml @ 1 mls/hr Q24H IV 06/28/24 10:45 06/30/24 12:28 12 MLS/HR Ondansetron HCl 4 mg Q4HP PRN IV 06/28/24 12:15 Norepinephrine Bitartrate 250 ml @ 3.75 mls/hr Q24H IV 06/28/24 13:30 06/30/24 15:13 3.75 MLS/HR Diagnostic Test (Pha) 1 strip Q6HR 06/29/24 18:00 07/05/24 11:47 1 STRIP Insulin Human Regular Q6HR SC 06/29/24 18:00 07/04/24 00:24 4 UNITS Dextrose 50 ml UD PRN IV 06/29/24 16:15 06/29/24 20:48 50 ML Artificial Tears 1 drop Q2HP PRN EACHEYE 06/30/24 13:45 07/05/24 04:46 1 DROP Fentanyl Citrate 250 ml @ 2.5 mls/hr Q24H IV 06/30/24 13:45 07/05/24 05:55 27.5 MLS/HR Acetaminophen 650 mg Q4HP PRN GT 07/01/24 11:30 07/05/24 11:47 650 MG Dexmedetomidine HCl 400 mcg/ Dextrose 100 ml @ 3.11 mls/hr Q24H IV 07/01/24 23:30 07/05/24 11:24 3.11 MLS/HR Ceftriaxone Sodium 50 ml @ 100 mls/hr DAILY@09 IV 07/04/24 09:00 07/05/24 08:42 100 MLS/HR Enoxaparin Sodium 40 mg DAILY SC 07/04/24 10:00 07/05/24 08:53 40 MG Enteral Nutritional Formula 1,000 ml 50ML/HR GT 07/03/24 14:45 07/03/24 18:47 1,000 ML Hydralazine HCl 10 mg Q6HP PRN IV 07/04/24 10:30 07/05/24 12:00 10 MG Sodium Chloride 1,000 ml @ 75 mls/hr [id number] IV 07/04/24 14:45 07/05/24 04:05 75 MLS/HR Propofol 100 ml @ 2.004 mls/ hr Q24H IV 07/05/24 09:30 07/05/24 14:19 14.028 MLS/HR Sodium Chloride 10 ml QSHIFT@10,22 IV 07/05/24 22:00 UNV Examination General: RASS -3, afebrile, mucosae are moist Cardiovascular: Normal S1 and S2. No murmurs, gallops or rubs Respiratory: Mechanically assisted ventilation, equal bilateral airway entree. Clear lung sounds on auscultation Abdomen: Soft, nontender, no organomegaly, normal bowel sounds MSK/skin: Mobilization of limbs cannot be evaluated. Skin is dry and warm. PICC on right arm Neurological: Orientation cannot be assessed. No apparent motor no sensitive deficits. Pupils are isocoric and reactive. laboratory and microbiology Laboratory Tests 07/05/24 03:33 Test 07/05/24 03:33 Range/Units Serum Glucose 132 H 74-106 mg/dL Microbiology Date/Time Source Procedure Growth Status 07/03/24 16:20 Blood Blood Culture - Preliminary NO GROWTH AFTER 24 HOURS OF INCUBATION. Resulted 07/03/24 11:24 Urine - [place] Urine Culture - Final Complete 07/03/24 11:23 Sputum Gram Stain - Final Complete 07/03/24 11:23 Respiratory Culture - Final Klebsiella pneumoniae Complete 06/29/24 12:51 Nose MRSA Screen - Final Complete Problem List/Assessment/Plan Problem List/Assessment/Plan # Metabolic Encephalopathy due to Type 2 diabetes with hyperosmolar hyperglycemic state # Seizure - CT Head on 10/02/23 shows: No acute intracranial abnormality. 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 # Hypertension # CKD stage IIIB #Acute kidney injury - Avoid nephrotoxic medication - Avoid Hypertention/Hypotension - nephrology consult Drips Fentanyl 275 Versed 10 Propofol 40 NE 0 Invasive access Nelson catheter 06/28/2024 Endotracheal tube 06/28/2024 PICC line: 07/06/2024 Peptic ulcer disease prophylaxis: Protonix DVT prophylaxis: Enoxaparin 40 mg subcutaneous daily Plan for CPAP trial tomorrow. Critical Care time spent 56 minutes including patient care, chart review and updating family, excluding procedure. Discussed plan with Dr. Laurent, Plan discussed with: Other (RN) My Orders My Orders Orders - BR[facility]ON [facility] RESIDENT Procedure Category Date Status Time Complete Blood Count LAB 07/06/24 Verified 04:00 Comprehensive LAB 07/06/24 Verified Metabolic Panel 04:00 Chest Xray 1 View XY 07/06/24 Verified 04:00 Abg W/ Co-Ox RT 07/06/24 Verified 04:00 Dietary Evaluation Review Comments: 1) Consider EN nutrition Glucerna 1.2 to 50ml/hr goal rate to meet pt needs 2) Advance pt diet when medically feasible to a CCHO 45g/2gNa diet 3) Continue current plan of care Expected Outcomes/Goals: 1) Pt to receive adequate nutrition 2) Pt diet to advance 3) F/U in 2-3 days Date of Service: Jul 07, 2024 Billing Provider: MANISH LAURENT MD Common Visit Codes: [id number] CARE 30-74 MIN BR[facility] RESIDENT Jul 05, 2024 15:45 MANISH LAURENT MD Jul 07, 2024 12:48
[2024-07-05] MEDS: SODIUM CHLOR 0.9% PF (SALINE LOCK) 10ML VIAL/SYR IV SCH (20:34)
[2024-07-06] VITALS (108 sets, daily range): BP systolic 90–177; BP diastolic 43–97; PULSE 59–98; RESP 16–35; TEMP 96.8–100.2; O2SAT 96–100
[2024-07-06 04:08] LABS: Basophils # (auto) 0.1 10 ^3/uL (0-0.2); Basophils % (auto) 1.2 % (0.0-2.0); Eosinophils # (auto) 0.2 10 ^3/uL (0-0.8); Eosinophils % (auto) 2.8 % (0.0-7.0); Hematocrit 26.4 % (41.0-53.0); Hemoglobin 8.9 g/dL (13.5-17.5); Lymphocytes # (auto) 1.7 10 ^3/uL (0.4-5.4); Lymphocytes % (auto) 20.1 % (10.0-50.0); Mean Corpuscular Hemoglobin 29.2 pg (28.0-32.0); Mean Corpuscular Hgb Conc. 33.7 g/dL (32.0-36.0); Mean Corpuscular Volume 86.6 fL (80.0-100.0); Monocytes # (auto) 0.8 10 ^3/uL (0-1.3); Monocytes % (auto) 9.4 % (0.0-12.0); Neutrophils # (auto) 5.6 10 ^3/uL (1.6-8.6); Neutrophils % (auto) 66.5 % (37.0-80.0); Nucleated Red Blood Cells % 0.1 %; Platelet Count (auto) 292 10^3/uL (140-450); Red Blood Cells 3.05 10^6/uL (4.5-5.90); Red Cell Distribution Width 13.5 % (11.8-14.3); White Blood Cell 8.5 10^3/uL (4.4-10.8)
[2024-07-06 04:22] LABS: Alkaline Phosphatase 62 U/L (46-116); Anion Gap 10 (5-15); BUN/Creatinine Ratio 18.6 (10.0-20.0); Blood Urea Nitrogen 22 mg/dL (9-23); Calcium 8.9 mg/dL (8.7-10.4); Carbon Dioxide 22 mmol/L (20-31); Chloride 107 mmol/L (98-107); Potassium 3.9 mmol/L (3.5-5.1); Sodium 139 mmol/L (136-145)
[2024-07-06 04:26] LABS: Alanine Aminotransferase 40 U/L (7-40); Albumin 2.7 g/dL (3.2-4.8); Aspartate Aminotransferase 55 U/L (13-40); Bilirubin, Total 0.2 mg/dL (0.2-1.0); Glucose 157 mg/dL (74-106); Total Protein 5.1 g/dL (5.7-8.2)
--- NOTE | 2024-07-06 05:43 | DVH ---
CHEST RADIOGRAPH Indication: Intubated Technique: Single frontal view of the chest was obtained Comparison: XY CHEST XRAY 1 VIEW on DOS: 07/05/24, XY CHEST XRAY 1 VIEW on DOS: 07/04/24, XY CHEST PO RTABLE on DOS: 07/03/24 IMPRESSION: The heart appears prominent size. The lungs appear clear without focal airspace opacity, effusion, o r pneumothorax. Support lines and tubes appear unchanged. There is mild pulmonary vascular congesti on. No significant interval change.
[2024-07-06 06:37] LABS: Base Excess -3.1 mmol/L (-2.0-3.0)
--- NOTE | 2024-07-06 07:18 | DVH ---
US vasuclar access Technique: Real-time sonographic images used for vascular access. Findings: Please refer to operative report. IMPRESSION: As above.
[2024-07-06] MEDS: PROPOFOL 100 ML IV ONE (10:32)
[2024-07-06 10:33] LABS: Hepatitis B Surface Antigen Negative (Negative)
[2024-07-06 10:35] LABS: Hepatitis C Antibody Reactive (Negative)
--- NOTE | 2024-07-06 14:32 | DVHPNRES ---
Progress Note Date Seen: Jul 06, 2024 Resident Creating Document: [facility] RESIDENT Medical Necessity Reason Pt with a Central, PICC or Fol: Yes The following are medically ne: Nelson Catheter Reason for nelson catheter: Strict I&O Subjective Review of Systems 64 yo with stated history CKD, Asthma, DM, COPD, HTN and seizure disorder came into the ED with stated change in mentation patient in the ED was acidic and altered unable to protect airway and stated to have sugars over 1000 source of cause is unknown history can not be fully obtained patient is intubated sedated suspected that possible breakthrough seizures in the setting [facility] with diabetic coma Patient seen and examined at bedside. Patient is currently ICU status, on sedation due to mechanical assisted ventilation. Planning on completing spontaneous breathing trial once FiO2 level requirement decreases. Could not obtain review of systems. Patient lying in bed, under sedoanalgesia due to mechanical ventilation Objective vital signs Vital Sign Date Time Temp Pulse Resp B/P (MAP) Pulse Ox O2 Delivery O2 Flow Rate FiO2 07/06/24 14:11 177/67 07/06/24 12:25 81 22 100 30 07/06/24 08:00 Mechanical Ventilator+ 07/06/24 07:00 99.5 211.1 Total Intake and Output 07/05/24 07/05/24 07/06/24 15:00 23:00 07:00 Intake Total 912.676 ml 951.316 ml 1010.276 ml Output Total 1000 ml 750 ml Balance 912.676 ml -48.684 ml 260.276 ml medications Current Medications Medications Dose Ordered Sig/Kandi Route Start Time Stop Time Status Last Admin Dose Admin Midazolam HCl 50 ml @ 1 mls/hr Q24H IV 06/28/24 10:45 07/05/24 20:40 1 MLS/HR Ondansetron HCl 4 mg Q4HP PRN IV 06/28/24 12:15 Norepinephrine Bitartrate 250 ml @ 3.75 mls/hr Q24H IV 06/28/24 13:30 06/30/24 15:13 3.75 MLS/HR Diagnostic Test (Pha) 1 strip Q6HR 06/29/24 18:00 07/06/24 12:12 1 STRIP Insulin Human Regular Q6HR SC 06/29/24 18:00 07/06/24 05:18 2 UNITS Dextrose 50 ml UD PRN IV 06/29/24 16:15 06/29/24 20:48 50 ML Artificial Tears 1 drop Q2HP PRN EACHEYE 06/30/24 13:45 07/05/24 04:46 1 DROP Fentanyl Citrate 250 ml @ 2.5 mls/hr Q24H IV 06/30/24 13:45 07/05/24 23:59 12.5 MLS/HR Acetaminophen 650 mg Q4HP PRN GT 07/01/24 11:30 07/05/24 11:47 650 MG Dexmedetomidine HCl 400 mcg/ Dextrose 100 ml @ 3.11 mls/hr Q24H IV 07/01/24 23:30 07/05/24 11:24 3.11 MLS/HR Ceftriaxone Sodium 50 ml @ 100 mls/hr DAILY@09 IV 07/04/24 09:00 07/06/24 08:38 100 MLS/HR Enoxaparin Sodium 40 mg DAILY SC 07/04/24 10:00 07/06/24 10:31 40 MG Enteral Nutritional Formula 1,000 ml 50ML/HR GT 07/03/24 14:45 07/03/24 18:47 1,000 ML Hydralazine HCl 10 mg Q6HP PRN IV 07/04/24 10:30 07/06/24 14:11 10 MG Sodium Chloride 1,000 ml @ 75 mls/hr [id number] IV 07/04/24 14:45 07/06/24 05:25 75 MLS/HR Propofol 100 ml @ 2.004 mls/ hr Q24H IV 07/05/24 09:30 07/06/24 00:10 18.036 MLS/HR Sodium Chloride 10 ml QSHIFT@10,22 IV 07/05/24 22:00 07/06/24 10:00 10 ML Examination General: RASS -3, afebrile, mucosae are moist Cardiovascular: Normal S1 and S2. No murmurs, gallops or rubs Respiratory: Mechanically assisted ventilation, equal bilateral airway entree. Clear lung sounds on auscultation Abdomen: Soft, nontender, no organomegaly, normal bowel sounds MSK/skin: Mobilization of limbs cannot be evaluated. Skin is dry and warm. PICC on right arm Neurological: Orientation cannot be assessed. No apparent motor no sensitive deficits. Pupils are isocoric and reactive. laboratory and microbiology Laboratory Tests 07/06/24 03:27 Test 07/06/24 03:27 Range/Units Serum Glucose 157 H 74-106 mg/dL Microbiology Date/Time Source Procedure Growth Status 07/03/24 16:20 Blood Blood Culture - Preliminary NO GROWTH AFTER 48 HOURS OF INCUBATION. Resulted 07/03/24 11:24 Urine - [place] Urine Culture - Final Complete 07/03/24 11:23 Sputum Gram Stain - Final Complete 07/03/24 11:23 Respiratory Culture - Final Klebsiella pneumoniae Complete 06/29/24 12:51 Nose MRSA Screen - Final Complete Problem List/Assessment/Plan Problem List/Assessment/Plan # Metabolic Encephalopathy due to Type 2 diabetes with hyperosmolar hyperglycemic state # Seizure - CT Head on 10/02/23 shows: No acute intracranial abnormality. 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 # Hypertension # CKD stage IIIB #Acute kidney injury - Avoid nephrotoxic medication - Avoid Hypertention/Hypotension - nephrology consult Drips Fentanyl 100 Propofol 40 NE 0 Invasive access Nelson catheter 06/28/2024 Endotracheal tube 06/28/2024 PICC line: 07/06/2024 Peptic ulcer disease prophylaxis: Protonix DVT prophylaxis: Enoxaparin 40 mg subcutaneous daily Plan for CPAP trial today Critical Care time spent 51 minutes including patient care, chart review and updating family, excluding procedure. Discussed plan with Dr. Laurent, Plan discussed with: Other (RN) My Orders My Orders Orders - [facility] RESIDENT Procedure Category Date Status Time Chest Xray 1 View XY 07/06/24 Resulted 04:00 Abg W/ Co-Ox RT 07/06/24 Logged 04:00 Dietary Evaluation Review Comments: 1) Consider EN nutrition Glucerna 1.2 to 50ml/hr goal rate to meet pt needs 2) Advance pt diet when medically feasible to a CCHO 45g/2gNa diet 3) Continue current plan of care Expected Outcomes/Goals: 1) Pt to receive adequate nutrition 2) Pt diet to advance 3) F/U in 2-3 days Date of Service: Jul 06, 2024 Billing Provider: MANISH LAURENT MD Common Visit Codes: [id number] CARE 30-74 MIN [facility] RESIDENT Jul 06, 2024 14:32 MANISH LAURENT MD Jul 07, 2024 13:00
[2024-07-07] VITALS (104 sets, daily range): BP systolic 84–151; BP diastolic 38–84; PULSE 57–88; RESP 13–28; TEMP 96.8–100.6; O2SAT 80–100
[2024-07-07 03:58] LABS: Basophils # (auto) 0.1 10 ^3/uL (0-0.2); Basophils % (auto) 1.3 % (0.0-2.0); Eosinophils # (auto) 0.3 10 ^3/uL (0-0.8); Eosinophils % (auto) 3.8 % (0.0-7.0); Hematocrit 30.9 % (41.0-53.0); Hemoglobin 10.3 g/dL (13.5-17.5); Lymphocytes # (auto) 2.3 10 ^3/uL (0.4-5.4); Lymphocytes % (auto) 24.9 % (10.0-50.0); Mean Corpuscular Hgb Conc. 33.5 g/dL (32.0-36.0); Mean Corpuscular Volume 86.7 fL (80.0-100.0); Monocytes # (auto) 1.2 10 ^3/uL (0-1.3); Monocytes % (auto) 13.2 % (0.0-12.0); Neutrophils # (auto) 5.2 10 ^3/uL (1.6-8.6); Neutrophils % (auto) 56.8 % (37.0-80.0); Platelet Count (auto) 359 10^3/uL (140-450); Red Blood Cells 3.56 10^6/uL (4.5-5.90); Red Cell Distribution Width 13.2 % (11.8-14.3); White Blood Cell 9.1 10^3/uL (4.4-10.8)
[2024-07-07 04:11] LABS: Alkaline Phosphatase 67 U/L (46-116); Anion Gap 13 (5-15); BUN/Creatinine Ratio 18.4 (10.0-20.0); Blood Urea Nitrogen 16 mg/dL (9-23); Calcium 9.1 mg/dL (8.7-10.4); Carbon Dioxide 21 mmol/L (20-31); Chloride 105 mmol/L (98-107); Glucose 104 mg/dL (74-106); Potassium 3.9 mmol/L (3.5-5.1); Sodium 139 mmol/L (136-145)
[2024-07-07 04:12] LABS: Total Protein 5.7 g/dL (5.7-8.2)
[2024-07-07 04:17] LABS: Alanine Aminotransferase 45 U/L (7-40); Albumin 3.2 g/dL (3.2-4.8); Aspartate Aminotransferase 70 U/L (13-40); Bilirubin, Total 0.3 mg/dL (0.2-1.0)
--- NOTE | 2024-07-07 06:00 | DVH ---
CHEST RADIOGRAPH Indication: intubated Technique: Single frontal view of the chest was obtained Comparison: XY CHEST XRAY 1 VIEW on DOS: 07/06/24, XY CHEST XRAY 1 VIEW on DOS: 07/05/24, XY CHEST XR AY 1 VIEW on DOS: 07/04/24 IMPRESSION: Patient's arms are over the lower chest and abdomen obscuring evaluation at these areas. Support line s and tubes appear unchanged in satisfactory position. The lungs appear relatively clear without foc al airspace opacity, effusion, or pneumothorax. There has been no significant interval change.
[2024-07-07 06:54] LABS: Base Excess -4.9 mmol/L (-2.0-3.0)
--- NOTE | 2024-07-07 12:12 | DVH ---
EXAM: CT HEAD WITHOUT CONTRAST HISTORY: NEUROLOGY CONSULT COMPARISON: CT CHEST WITHOUT CONTRAST on DOS: 07/02/24, CT HEAD WITHOUT CONTRAST on DOS: 07/02/24 TECHNIQUE: Axial images of the head were obtained and reformatted in coronal and sagittal planes. All CT scans at this medical facility are performed using dose modulation techniques as appropriate t o a performed exam including the following: Automated exposure control was utilized; adjustment of th e MA and/or KV according to patient size; and use of iterative reconstruction technique. CT Dose: CTDI volume is 62 mGy. Dose-length product is 1108 mGy*cm FINDINGS: There is a chronic cortical infarct in the right parieto-occipital lobe. There is a small chronic co rtical infarct in the left occipital lobe. There is no evidence of acute intracranial hemorrhage, mass, mass effect midline shift. There is no h ydrocephalus or extra-axial fluid collection. There are patchy hypodense areas in the supratentorial white matter compatible with chronic microvascular ischemic changes. There is mucosal thickening in the ethmoid air cells. The mastoid air cells are clear. The calvarium is intact. IMPRESSION: 1. No acute intracranial process. HS:Y
--- NOTE | 2024-07-07 13:02 | DVHPNRES ---
Progress Note Date Seen: Jul 07, 2024 Resident Creating Document: [facility] RESIDENT Medical Necessity Reason Pt with a Central, PICC or Fol: Yes The following are medically ne: Nelson Catheter Reason for nelson catheter: Strict I&O Subjective Review of Systems 64 yo with stated history CKD, Asthma, DM, COPD, HTN and seizure disorder came into the ED with stated change in mentation patient in the ED was acidic and altered unable to protect airway and stated to have sugars over 1000 source of cause is unknown history can not be fully obtained patient is intubated sedated suspected that possible breakthrough seizures in the setting [facility] vs [facility] with diabetic coma Patient seen and examined at bedside. Patient is currently ICU status, on sedation due to mechanical assisted ventilation. Planning on completing spontaneous breathing trial once FiO2 level requirement decreases. Could not obtain review of systems. Patient lying in bed, under sedoanalgesia due to mechanical ventilation, Patient and bronch today, both lungs look clear, bronchial washing from both lung were taken and sent for cell count cytology, Gram staining, AFB. Plan to CPAP today or tomorrow morning Ordered CT head today Objective vital signs Vital Sign Date Time Temp Pulse Resp B/P (MAP) Pulse Ox O2 Delivery O2 Flow Rate FiO2 07/07/24 12:14 74 18 128/59 (82) 95 40 07/07/24 08:00 Mechanical Ventilator+ 07/07/24 07:00 99.5 211.1 Total Intake and Output 07/06/24 07/06/24 07/07/24 15:00 23:00 07:00 Intake Total 868.514 ml 870.280 ml 912.962 ml Output Total 925 ml 550 ml Balance 868.514 ml -54.720 ml 362.962 ml medications Current Medications Medications Dose Ordered Sig/Kandi Route Start Time Stop Time Status Last Admin Dose Admin Midazolam HCl 50 ml @ 1 mls/hr Q24H IV 06/28/24 10:45 07/07/24 12:01 1 MLS/HR Ondansetron HCl 4 mg Q4HP PRN IV 06/28/24 12:15 Norepinephrine Bitartrate 250 ml @ 3.75 mls/hr Q24H IV 06/28/24 13:30 06/30/24 15:13 3.75 MLS/HR Diagnostic Test (Pha) 1 strip Q6HR 06/29/24 18:00 07/07/24 12:26 1 STRIP Insulin Human Regular Q6HR SC 06/29/24 18:00 07/07/24 12:31 2 UNITS Dextrose 50 ml UD PRN IV 06/29/24 16:15 06/29/24 20:48 50 ML Artificial Tears 1 drop Q2HP PRN EACHEYE 06/30/24 13:45 07/05/24 04:46 1 DROP Fentanyl Citrate 250 ml @ 2.5 mls/hr Q24H IV 06/30/24 13:45 07/06/24 23:30 12.5 MLS/HR Acetaminophen 650 mg Q4HP PRN GT 07/01/24 11:30 07/05/24 11:47 650 MG Dexmedetomidine HCl 400 mcg/ Dextrose 100 ml @ 3.11 mls/hr Q24H IV 07/01/24 23:30 07/07/24 05:00 3.11 MLS/HR Ceftriaxone Sodium 50 ml @ 100 mls/hr DAILY@09 IV 07/04/24 09:00 07/07/24 08:26 100 MLS/HR Enoxaparin Sodium 40 mg DAILY SC 07/04/24 10:00 07/07/24 09:46 40 MG Enteral Nutritional Formula 1,000 ml 50ML/HR GT 07/03/24 14:45 07/06/24 22:40 1,000 ML Hydralazine HCl 10 mg Q6HP PRN IV 07/04/24 10:30 07/06/24 14:11 10 MG Sodium Chloride 1,000 ml @ 75 mls/hr [id number] IV 07/04/24 14:45 07/07/24 05:15 75 MLS/HR Propofol 100 ml @ 2.004 mls/ hr Q24H IV 07/05/24 09:30 07/07/24 02:09 12.024 MLS/HR Sodium Chloride 10 ml QSHIFT@10,22 IV 07/05/24 22:00 07/07/24 09:46 10 ML Lorazepam 1 mg Q3HPRN PRN IV 07/07/24 11:15 Examination General: RASS -2, afebrile, mucosae are moist Cardiovascular: Normal S1 and S2. No murmurs, gallops or rubs Respiratory: Mechanically assisted ventilation, equal bilateral airway entree. Clear lung sounds on auscultation Abdomen: Soft, nontender, no organomegaly, normal bowel sounds MSK/skin: Mobilization of limbs cannot be evaluated. Skin is dry and warm. PICC on right arm Neurological: Orientation cannot be assessed. No apparent motor no sensitive deficits. Pupils are isocoric and reactive. laboratory and microbiology Laboratory Tests 07/07/24 03:16 Test 07/07/24 03:16 Range/Units Serum Glucose 104 74-106 mg/dL Microbiology Date/Time Source Procedure Growth Status 07/03/24 16:20 Blood Blood Culture - Preliminary NO GROWTH AFTER 72 HOURS OF INCUBATION. Resulted 07/03/24 11:24 Urine - [place] Urine Culture - Final Complete 07/03/24 11:23 Sputum Gram Stain - Final Complete 07/03/24 11:23 Respiratory Culture - Final Klebsiella pneumoniae Complete 06/29/24 12:51 Nose MRSA Screen - Final Complete Problem List/Assessment/Plan Problem List/Assessment/Plan # Metabolic Encephalopathy due to Type 2 diabetes with hyperosmolar hyperglycemic state # Seizure - CT Head on 10/02/23 shows: No acute intracranial abnormality. 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 # Hypertension # CKD stage IIIB #Acute kidney injury - Avoid nephrotoxic medication - Avoid Hypertention/Hypotension - nephrology consult Drips Fentanyl 175 Propofol 25 NE 0 Invasive access Nelson catheter 06/28/2024 Endotracheal tube 06/28/2024 PICC line: 07/06/2024 Peptic ulcer disease prophylaxis: Protonix DVT prophylaxis: Enoxaparin 40 mg subcutaneous daily Patient and bronch today, both lungs look clear, bronchial washing from both lung were taken and sent for cell count cytology, Gram staining, AFB. Plan to CPAP today or tomorrow morning. Ordered CT head today Critical Care time spent 74 minutes including patient care, chart review and updating family, excluding procedure. Discussed plan with Dr. Laurent, Plan discussed with: Other (RN) My Orders My Orders Orders - [facility] RESIDENT Procedure Category Date Status Time Chest Xray 1 View XY 07/07/24 Resulted 04:00 Abg W/ Co-Ox RT 07/07/24 Logged 04:00 Ventilator Orders RT 07/07/24 Transmitted 05:25 Bronchosc Dx W/W/O BD 07/07/24 Transmitted Fluor&Wash 11:00 [place] Cytology PATHOLOGY 07/07/24 Transmitted 11:24 Body Fluids, Diff. LAB 07/07/24 In Process Cell Count 11:24 AFB PATHOLOGY 07/07/24 Transmitted [id number] 11:24 Respiratory Culture HUNTER 07/07/24 In Process W/ Gs 11:50 Complete Blood Count LAB 07/08/24 Verified 04:00 Comprehensive LAB 07/08/24 Verified Metabolic Panel 04:00 Chest Xray 1 View XY 07/08/24 Logged 04:00 Abg W/ Co-Ox RT 07/08/24 Logged 04:00 Dietary Evaluation Review Comments: 1) Consider EN nutrition Glucerna 1.2 to 50ml/hr goal rate to meet pt needs 2) Advance pt diet when medically feasible to a CCHO 45g/2gNa diet 3) Continue current plan of care Expected Outcomes/Goals: 1) Pt to receive adequate nutrition 2) Pt diet to advance 3) F/U in 2-3 days Date of Service: Jul 06, 2024 Billing Provider: MANISH LAURENT MD Common Visit Codes: [id number] CARE 30-74 MIN [facility] RESIDENT Jul 07, 2024 13:02 MANISH LAURENT MD Jul 07, 2024 13:29
[2024-07-07] MEDS ORDERED: levETIRAcetam 1000 mg/100ml 100 ML IV ONE (19:15)
--- NOTE | 2024-07-07 21:02 | BSKYNEURO ---
[facility] Note # Demographics Consult Type: General Neurology Patient Location: Inpatient First Name: pily Last Name: karissa Date of : 1960 Age: 64 Gender: Male Facility: [facility] Time of Initial Page (Hodgeman Time): 07/07/2024, 16:53 Time of Return Call (Hodgeman Time): 07/07/2024, 16:53 # HPI History: Patient is currently intubated and on sedation; patient was found down by friend and it is not clear how long patient was out. He got intubated for airway protection. Has h/o seizures- currently not on meds. Neurology is consulted for temperature fluctuations and b/l arms flexion. Patient is rigid in his arms. # Exam Mental Status: Intubated on sedation # Assessment Impression: - Seizure - Altered Mental Status H/O seizures- currently encephalopathic for unknown reason. Has autonomic dysfunction and b/l arm flexion with rigidity as per RN. # Plan Labs: - comprehensive metabolic panel - ESR - CBC - ua Imaging: (urgency: STAT): - MRI Brain without contrast Diagnostic Test: - EEG -need continuous EEG Medication: - levetiracetam (Keppra) 1000 mg twice daily -load with keppra 2 gm IV once Other: - If patient has any neurological deterioration please call me back immediately - may discharge home if complete symptom resolution and all urgent imaging negative for acute pathology - telemetry monitoring - seizure precautions Additional Recommendations: -No driving till cleared by neurology as outpatient # Logistics Attestation of consult completion: The patient is located at: [facility]. Facility staff participated in the visit. I performed this telemedicine visit from my offsite office utilizing interactive 2 way audio and visual telecommunication technology. Total time spent in telemedicine encounter: I spent 10 minutes reviewing clinical data and/or imaging, obtaining history, examining the patient, communicating with the onsite care team, and in preparation of this report. # Demographics First Name: pily Last Name: karissa Facility: [facility] Yes ROBIN ELIZALDE MD Jul 07, 2024 21:02
[2024-07-07] MEDS: levETIRAcetam 1000 mg/100ml 100 ML IV ONE (22:49)
[2024-07-08] VITALS (109 sets, daily range): BP systolic 84–137; BP diastolic 40–80; PULSE 67–87; RESP 15–21; TEMP 99–100.4; O2SAT 93–98
[2024-07-08 03:48] LABS: Basophils # (auto) 0 10 ^3/uL (0-0.2); Basophils % (auto) 0.5 % (0.0-2.0); Eosinophils # (auto) 0.3 10 ^3/uL (0-0.8); Eosinophils % (auto) 3.5 % (0.0-7.0); Hematocrit 28.2 % (41.0-53.0); Hemoglobin 9.1 g/dL (13.5-17.5); Lymphocytes # (auto) 1.3 10 ^3/uL (0.4-5.4); Lymphocytes % (auto) 15.9 % (10.0-50.0); Mean Corpuscular Hemoglobin 28.4 pg (28.0-32.0); Mean Corpuscular Hgb Conc. 32.4 g/dL (32.0-36.0); Mean Corpuscular Volume 87.5 fL (80.0-100.0); Monocytes % (auto) 12.2 % (0.0-12.0); Neutrophils # (auto) 5.7 10 ^3/uL (1.6-8.6); Neutrophils % (auto) 67.9 % (37.0-80.0); Platelet Count (auto) 375 10^3/uL (140-450); Red Blood Cells 3.22 10^6/uL (4.5-5.90); Red Cell Distribution Width 13.5 % (11.8-14.3); White Blood Cell 8.5 10^3/uL (4.4-10.8)
[2024-07-08 04:08] LABS: Alanine Aminotransferase 40 U/L (7-40); Alkaline Phosphatase 61 U/L (46-116); Anion Gap 12 (5-15); BUN/Creatinine Ratio 15.9 (10.0-20.0); Blood Urea Nitrogen 14 mg/dL (9-23); Calcium 8.7 mg/dL (8.7-10.4); Carbon Dioxide 22 mmol/L (20-31); Chloride 105 mmol/L (98-107); Potassium 4.2 mmol/L (3.5-5.1); Sodium 139 mmol/L (136-145)
[2024-07-08 04:11] LABS: Albumin 2.9 g/dL (3.2-4.8); Aspartate Aminotransferase 48 U/L (13-40); Bilirubin, Total 0.2 mg/dL (0.2-1.0); Glucose 144 mg/dL (74-106); Total Protein 5.3 g/dL (5.7-8.2)
--- NOTE | 2024-07-08 06:00 | DVH ---
CHEST RADIOGRAPH Indication: intubated Technique: Single frontal view of the chest was obtained Comparison: XY CHEST XRAY 1 VIEW on DOS: 07/07/24, XY CHEST XRAY 1 VIEW on DOS: 07/06/24, XY CHEST XR AY 1 VIEW on DOS: 07/05/24 IMPRESSION: Patient's arms overlie the lower chest and upper abdomen. The heart appears stable in size. Support lines and tubes appear unchanged in satisfactory in positi on. The lungs appear relatively clear without focal airspace opacity, effusion, or pneumothorax.
[2024-07-08 08:19] LABS: Base Excess -3.3 mmol/L (-2.0-3.0)
[2024-07-08] MEDS: levETIRAcetam 1000 mg/100ml 100 ML IV SCH (08:42)
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
[2024-07-09] VITALS (109 sets, daily range): BP systolic 98–154; BP diastolic 39–93; PULSE 68–90; RESP 16–28; TEMP 99–100.4; O2SAT 96–100
[2024-07-09 04:03] LABS: Basophils # (auto) 0 10 ^3/uL (0-0.2); Basophils % (auto) 0.4 % (0.0-2.0); Eosinophils # (auto) 0.3 10 ^3/uL (0-0.8); Eosinophils % (auto) 2.9 % (0.0-7.0); Hemoglobin 9.8 g/dL (13.5-17.5); Lymphocytes # (auto) 1.6 10 ^3/uL (0.4-5.4); Lymphocytes % (auto) 14.8 % (10.0-50.0); Mean Corpuscular Hemoglobin 29.4 pg (28.0-32.0); Mean Corpuscular Hgb Conc. 33.8 g/dL (32.0-36.0); Mean Corpuscular Volume 86.9 fL (80.0-100.0); Monocytes % (auto) 9.6 % (0.0-12.0); Neutrophils # (auto) 7.8 10 ^3/uL (1.6-8.6); Neutrophils % (auto) 72.3 % (37.0-80.0); Platelet Count (auto) 444 10^3/uL (140-450); Red Blood Cells 3.33 10^6/uL (4.5-5.90); Red Cell Distribution Width 12.9 % (11.8-14.3); White Blood Cell 10.8 10^3/uL (4.4-10.8)
[2024-07-09 04:24] LABS: Alanine Aminotransferase 38 U/L (7-40); Alkaline Phosphatase 70 U/L (46-116); Anion Gap 9 (5-15); BUN/Creatinine Ratio 16.7 (10.0-20.0); Blood Urea Nitrogen 13 mg/dL (9-23); Calcium 8.8 mg/dL (8.7-10.4); Carbon Dioxide 26 mmol/L (20-31); Chloride 105 mmol/L (98-107); Glucose 106 mg/dL (74-106); Magnesium 1.9 mg/dL (1.6-2.6); Potassium 4.3 mmol/L (3.5-5.1); Sodium 140 mmol/L (136-145)
[2024-07-09 04:33] LABS: Albumin 2.9 g/dL (3.2-4.8); Aspartate Aminotransferase 41 U/L (13-40); Bilirubin, Total < 0.2 mg/dL (0.2-1.0); Total Protein 5.3 g/dL (5.7-8.2)
--- NOTE | 2024-07-09 08:02 | DVH ---
XY CHEST PORTABLE, HISTORY: Intubated. Thank You! COMPARISON: XY CHEST XRAY 1 VIEW on DOS: 07/08/24, XY CHEST XRAY 1 VIEW on DOS: 07/07/24, XY CHEST XR AY 1 VIEW on DOS: 07/06/24 XY CHEST XRAY 1 VIEW on DOS: 07/08/24, XY CHEST XRAY 1 VIEW on DOS: 07/07/24, XY CHEST XRAY 1 VIEW on DOS: 07/06/24 TECHNICAL DATA: 1 view of the chest was obtained. FINDINGS: Lines and tubes: ET in the mid thoracic trachea. NG in the stomach. CVC with tip in the SVC. Cardiomediastinal silhouette: normal Pulmonary vasculature: prominent Lung expansion: low Lung airspace: normal Lung interstitium: normal Pleura: normal Pneumothorax: no Bones: Unremarkable Other: no IMPRESSION: Lines and tubes, as above. Similar lung aeration with mild pulmonary congestion.
[2024-07-09] MEDS: FAMOTIDINE 20 MG TAB PO SCH (09:06)
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
[2024-07-09] MEDS: fentaNYL Drip 2500mCg/250mlNS 250 ML IV SCH (21:30)
--- NOTE | 2024-07-09 22:04 | DVHEEG2 ---
Neurology EEG Procedural Note Procedural Note Significantly suboptimal EEG. Suggest repeat study. SERAFIN BERMAN MD Jul 09, 2024 22:04
--- NOTE | 2024-07-09 23:07 | DVHPN2 ---
Progress Note - Dictate Date Seen: Jul 09, 2024 Medical Necessity Reason Pt with a Central, PICC or Fol: Yes The following are medically ne: Nelson Catheter Reason for nelson catheter: Strict I&O Subjective Patient seen and examined at bedside. Sedated, intubated on mechanical ventilator. Overnight events reviewed. vital signs Vital Sign Date Time Temp Pulse Resp B/P (MAP) Pulse Ox O2 Delivery O2 Flow Rate FiO2 07/09/24 22:15 99.5 69 19 107/53 (71) 100 211.1 07/09/24 22:00 35 07/09/24 22:00 Mechanical Ventilator+ Total Intake and Output 07/08/24 07/08/24 07/09/24 15:00 23:00 07:00 Intake Total 950 ml 979.0 ml 1331.29 ml Output Total 1125 ml 950 ml Balance 950 ml -146.0 ml 381.29 ml medications Current Medications Medications Dose Ordered Sig/Kandi Route Start Time Stop Time Status Last Admin Dose Admin Midazolam HCl 50 ml @ 1 mls/hr Q24H IV 06/28/24 10:45 07/08/24 23:58 2 MLS/HR Ondansetron HCl 4 mg Q4HP PRN IV 06/28/24 12:15 Norepinephrine Bitartrate 250 ml @ 3.75 mls/hr Q24H IV 06/28/24 13:30 06/30/24 15:13 3.75 MLS/HR Diagnostic Test (Pha) 1 strip Q6HR 06/29/24 18:00 07/09/24 17:20 1 STRIP Insulin Human Regular Q6HR SC 06/29/24 18:00 07/09/24 17:21 2 UNITS Dextrose 50 ml UD PRN IV 06/29/24 16:15 06/29/24 20:48 50 ML Artificial Tears 1 drop Q2HP PRN EACHEYE 06/30/24 13:45 07/08/24 05:22 1 DROP Acetaminophen 650 mg Q4HP PRN GT 07/01/24 11:30 07/09/24 20:49 650 MG Ceftriaxone Sodium 50 ml @ 100 mls/hr DAILY@09 IV 07/04/24 09:00 07/09/24 09:05 100 MLS/HR Enoxaparin Sodium 40 mg DAILY SC 07/04/24 10:00 07/09/24 09:07 40 MG Enteral Nutritional Formula 1,000 ml 50ML/HR GT 07/03/24 14:45 07/09/24 09:07 1,000 ML Hydralazine HCl 10 mg Q6HP PRN IV 07/04/24 10:30 07/06/24 14:11 10 MG Sodium Chloride 1,000 ml @ 75 mls/hr [id number] IV 07/04/24 14:45 07/09/24 22:02 75 MLS/HR Propofol 100 ml @ 2.004 mls/ hr Q24H IV 07/05/24 09:30 07/09/24 16:17 6.012 MLS/HR Sodium Chloride 10 ml QSHIFT@10,22 IV 07/05/24 22:00 07/09/24 22:02 10 ML Lorazepam 1 mg Q3HPRN PRN IV 07/07/24 11:15 Levetiracetam 100 ml @ 400 mls/hr BID IV 07/08/24 10:00 07/09/24 21:36 400 MLS/HR Famotidine 20 mg DAILY PO 07/09/24 10:00 07/09/24 09:06 20 MG Fentanyl Citrate 250 ml @ 2.5 mls/hr Q24H IV 07/09/24 21:30 objective Gen.: Patient lying in bed in medical ICU. Sedated, intubated on mechanical ventilator. Head: Normocephalic, atraumatic. Eyes: PERRLA. Ears: Normal external anatomy. Throat: Endotracheal tube and orogastric tube in place. Neck: Supple, trachea midline. Chest: Transmitted breath sounds bilaterally. Decreased air entry bilaterally. No wheezing. Bibasilar crackles. Cardiovascular: Positive S1, positive S2. Regular rate and rhythm. Abdomen: Positive bowel sounds in all 4 quadrants. Soft, nontender, nondistended. : Nelson in place. Normal external genitalia. Rectal: Deferred. Skin: Warm, dry. Intact. Extremities: 2+ radial pulses bilaterally. No lower extremity edema. Neuro: Sedated. laboratory and microbiology Laboratory Tests 07/09/24 03:20 Test 07/09/24 03:20 Range/Units Serum Glucose 106 74-106 mg/dL Assessment/Plan Impression: Acute hypoxic respiratory failure On mechanical ventilator Shock Sepsis Pneumonia Seizures DM type II with HHS Events: ABG reviewed, notable for acidemia. Remains on vent support On AC mode; RR 18, VT 500, PEEP 5, FiO2 35% Continue antibiotics. Patient spiking fevers. Sedated on Propofol, Versed, Fentanyl. Off pressors, hemodynamically stable. Tube feeds for nutritional support Taper sedation as tolerated Precedex drip if needed for agitation. Received Tylenol. Follow up bronchial washing culture results. IV fluid hydration - 150 ml/hr D5-half normal saline. Labs and imaging reviewed. Rest of plan as noted below. Plan: s/p intubation on mechanical ventilator. Vent settings; AC mode; RR 18, VT 500, PEEP 5, FiO2 35% Titrate FIO2 to keep O2 saturation above 90%. VAP bundle. Daily ABG and CXR while intubated Sedate for ventilator synchrony - On Propofol, Fentanyl, Versed. Pressors as necessary for hemodynamic support Titrate to keep mean arterial pressure greater than 65 mmHg. D50. Accu-Cheks, ISS. Continue antibiotics. Monitor renal function Monitor electrolytes. Supplement as necessary. Monitor ins and outs. Maintain euvolemia. GI prophylaxis. DVT prophylaxis. Prognosis: Poor given patient's multiple co-morbidities. Condition: Critical Rest of plan per hospitalist and other consultants. A total of 35 minutes of critical care time was spent reviewing the patient record, examining the patient, making a diagnostic and therapeutic plan, discussing this plan with the medical personnel, following up on diagnostic studies and following the patient for clinical stability excluding any and all procedures. At least 50% of this time was spent in direct, [id number] contact. Thank you Dr. Alvarez Fiore MD, for allowing me to participate in this patient's care. Further recommendations will depend on the patient's clinical course. Please do not hesitate to contact me if you have any questions or concerns. This medical document was created using an electronic medical record system with [employer] dictation system. Although these documentations are being carefully reviewed, there may still be some phonetic and typographical changes. The errors are purely typographical, due to imperfection on the software program, and do not reflect any compromise in the patient's medical care. Dietary Evaluation Review Comments: 1) Consider EN nutrition Glucerna 1.2 to 50ml/hr goal rate to meet pt needs 2) Advance pt diet when medically feasible to a CCHO 45g/2gNa diet 3) Continue current plan of care Expected Outcomes/Goals: 1) Pt to receive adequate nutrition 2) Pt diet to advance 3) F/U in 2-3 days Plan discussed with: Other (KIMMIE Silva) JUAN LUIS DOMINGUEZ MD Jul 09, 2024 23:07
[2024-07-10] VITALS (107 sets, daily range): BP systolic 104–217; BP diastolic 31–81; PULSE 67–90; RESP 8–26; TEMP 98.2–100.2; O2SAT 70–100
[2024-07-10 03:54] LABS: Basophils # (auto) 0.1 10 ^3/uL (0-0.2); Eosinophils # (auto) 0.4 10 ^3/uL (0-0.8); Hematocrit 30.9 % (41.0-53.0); Red Blood Cells 3.59 10^6/uL (4.5-5.90)
[2024-07-10 04:00] LABS: Basophils % (auto) 0.8 % (0.0-2.0); Eosinophils % (auto) 2.9 % (0.0-7.0); Hemoglobin 10.2 g/dL (13.5-17.5); Lymphocytes # (auto) 1.7 10 ^3/uL (0.4-5.4); Lymphocytes % (auto) 12.2 % (10.0-50.0); Mean Corpuscular Hemoglobin 28.5 pg (28.0-32.0); Mean Corpuscular Hgb Conc. 33.1 g/dL (32.0-36.0); Mean Corpuscular Volume 86.1 fL (80.0-100.0); Monocytes # (auto) 1.2 10 ^3/uL (0-1.3); Monocytes % (auto) 9.1 % (0.0-12.0); Neutrophils # (auto) 10.1 10 ^3/uL (1.6-8.6); Platelet Count (auto) 524 10^3/uL (140-450); Red Cell Distribution Width 13.2 % (11.8-14.3); White Blood Cell 13.5 10^3/uL (4.4-10.8)
[2024-07-10 04:17] LABS: Alanine Aminotransferase 37 U/L (7-40); Alkaline Phosphatase 72 U/L (46-116); Anion Gap 7 (5-15); BUN/Creatinine Ratio 14.7 (10.0-20.0); Blood Urea Nitrogen 10 mg/dL (9-23); Calcium 8.8 mg/dL (8.7-10.4); Carbon Dioxide 28 mmol/L (20-31); Chloride 104 mmol/L (98-107); Potassium 4.3 mmol/L (3.5-5.1); Sodium 139 mmol/L (136-145)
[2024-07-10 04:26] LABS: Albumin 2.9 g/dL (3.2-4.8); Aspartate Aminotransferase 41 U/L (13-40); Bilirubin, Total < 0.2 mg/dL (0.2-1.0); Glucose 114 mg/dL (74-106); Total Protein 5.4 g/dL (5.7-8.2)
--- NOTE | 2024-07-10 04:36 | DVH ---
CHEST RADIOGRAPH Indication: Intubated. Thank You! Technique: Single frontal view of the chest was obtained COMPARISON: XY CHEST PORTABLE on DOS: 07/09/24, XY CHEST XRAY 1 VIEW on DOS: 07/08/24, XY CHEST XRAY 1 VIEW on DOS: 07/07/24 FINDINGS: Lines and Tubes: Endotracheal tube, enteric catheter and right PICC in satisfactory position. Lungs: Mild congestion Pleura: No effusion. No pneumothorax. Cardiomediastinal contours: Unremarkable Bones: Unremarkable IMPRESSION: Lines and tubes in satisfactory position. No significant interval change.
[2024-07-10 06:50] LABS: Base Excess 0.5 mmol/L (-2.0-3.0)
[2024-07-10] MEDS: cefTRIAXone 1GM/50ML D5W 50 ML IV ONE (14:52)
--- NOTE | 2024-07-10 17:54 | DVHPNRES ---
Progress Note Date Seen: Jul 10, 2024 Resident Creating Document: [facility] RESIDENT Medical Necessity Reason Pt with a Central, PICC or Fol: Yes The following are medically ne: Nelson Catheter Reason for nelson catheter: Strict I&O Subjective Review of Systems 64 yo with stated history CKD, Asthma, DM, COPD, HTN and seizure disorder came into the ED with stated change in mentation patient in the ED was acidic and altered unable to protect airway and stated to have sugars over 1000 source of cause is unknown history can not be fully obtained patient is intubated sedated suspected that possible breakthrough seizures in the setting [facility] vs [facility] with diabetic coma Patient seen and examined at bedside. Patient is currently ICU status, on sedation due to mechanical assisted ventilation. Planning on completing spontaneous breathing trial once FiO2 level requirement decreases. Could not obtain review of systems. Objective vital signs Vital Sign Date Time Temp Pulse Resp B/P (MAP) Pulse Ox O2 Delivery O2 Flow Rate FiO2 07/10/24 16:00 30 07/10/24 16:00 18 100 Mechanical Ventilator+ 07/10/24 15:32 77 105/46 (65) 07/10/24 15:15 99.9 211.8 Total Intake and Output 07/09/24 07/09/24 07/10/24 15:00 23:00 07:00 Intake Total 950 ml 1405.5 ml 1396.75 ml Output Total 900 ml 1400 ml Balance 950 ml 505.5 ml -3.25 ml medications Current Medications Medications Dose Ordered Sig/Kandi Route Start Time Stop Time Status Last Admin Dose Admin Midazolam HCl 50 ml @ 1 mls/hr Q24H IV 06/28/24 10:45 07/10/24 03:03 2 MLS/HR Ondansetron HCl 4 mg Q4HP PRN IV 06/28/24 12:15 Norepinephrine Bitartrate 250 ml @ 3.75 mls/hr Q24H IV 06/28/24 13:30 06/30/24 15:13 3.75 MLS/HR Diagnostic Test (Pha) 1 strip Q6HR 06/29/24 18:00 07/10/24 12:00 1 STRIP Insulin Human Regular Q6HR SC 06/29/24 18:00 07/10/24 12:00 3 UNITS Dextrose 50 ml UD PRN IV 06/29/24 16:15 06/29/24 20:48 50 ML Artificial Tears 1 drop Q2HP PRN EACHEYE 06/30/24 13:45 07/08/24 05:22 1 DROP Acetaminophen 650 mg Q4HP PRN GT 07/01/24 11:30 07/09/24 20:49 650 MG Enoxaparin Sodium 40 mg DAILY SC 07/04/24 10:00 07/10/24 09:28 40 MG Enteral Nutritional Formula 1,000 ml 50ML/HR GT 07/03/24 14:45 07/09/24 09:07 1,000 ML Hydralazine HCl 10 mg Q6HP PRN IV 07/04/24 10:30 07/06/24 14:11 10 MG Propofol 100 ml @ 2.004 mls/ hr Q24H IV 07/05/24 09:30 07/10/24 05:00 6.012 MLS/HR Sodium Chloride 10 ml QSHIFT@10,22 IV 07/05/24 22:00 07/10/24 09:29 10 ML Lorazepam 1 mg Q3HPRN PRN IV 07/07/24 11:15 Levetiracetam 100 ml @ 400 mls/hr BID IV 07/08/24 10:00 07/10/24 09:29 400 MLS/HR Fentanyl Citrate 250 ml @ 2.5 mls/hr Q24H IV 07/09/24 21:30 07/10/24 04:31 17.5 MLS/HR Famotidine 20 mg DAILY IV 07/11/24 10:00 Ceftriaxone Sodium/Dextrose 50 ml @ 50 mls/hr DAILY IV 07/11/24 10:00 Examination General: RASS -3, afebrile, mucosae are moist Cardiovascular: Normal S1 and S2. No murmurs, gallops or rubs Respiratory: Mechanically assisted ventilation, equal bilateral airway entree. Clear lung sounds on auscultation Abdomen: Soft, nontender, no organomegaly, normal bowel sounds MSK/skin: Mobilization of limbs cannot be evaluated. Skin is dry and warm. PICC on right arm Neurological: Orientation cannot be assessed. No apparent motor no sensitive deficits. Pupils are isocoric and reactive. laboratory and microbiology Laboratory Tests 07/10/24 03:00 Test 07/10/24 03:00 Range/Units Serum Glucose 114 H 74-106 mg/dL Microbiology Date/Time Source Procedure Growth Status 07/07/24 10:57 Bronchial Washings Gram Stain - Final Resulted 07/07/24 10:57 Bronchial Washings Respiratory Culture - Preliminary Resulted 07/03/24 16:20 Blood Blood Culture - Final NO GROWTH AFTER 5 DAYS OF INCUBATION. Complete 07/03/24 11:24 Urine - [place] Urine Culture - Final Complete 06/29/24 12:51 Nose MRSA Screen - Final Complete Problem List/Assessment/Plan Problem List/Assessment/Plan Neurology: - Patiet is Sedated # Metabolic Encephalopathy due to Type 2 diabetes with hyperosmolar hyperglycemic state # Seizure - CT Head on 10/02/23 shows: No acute intracranial abnormality. 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 Cardiovascular: # Hypertension Respiratory: # Acute hypoxic respiratory failure # Asthma # COPD Exacerbation -Currently on mechanical assisted ventilation since 06/28/2024 (On AC mode; RR 18, VT 450, PEEP 5, FiO2 35%) # Probable community-acquired pneumonia Gram-positive/Gram-negative -Currently on empiric antibiotic ceftriaxone -Sputum with Klebsiella pneumoniae - Increase ceftriaxone 1 gm to BID -Negative influenza and COVID serologies Gastrointestinal # Transaminitis Secondary to above Genitourinary/Nephrology #Acute kidney injury - Avoid nephrotoxic medication - Avoid Hypertention/Hypotension - nephrology consult Endocrainology: # Type 2 diabetes with hyperosmolar hyperglycemic state # uncontrolled diabetes mellitus type 2 Hemoglobin A1c: 12.4 Sliding scale insulin Monitor blood glucose level Metabolic: # Hyperkalemia. - resolved Infectious Disease # Hepatitis-C infection - follow up liver function Hematology Mild anemia due to chronic disease Follow up labs. Lines: Nelson catheter 06/28/24 Endotracheal tube 06/28/24 PICC line 07/10/24 Drips Fentanyl 175 Versed 2 Propofol 15 NE 0 DVT Prophy; Enoxaparin 40 mg subcutaneous daily GI Prophy; Protonix 40mg IV daily Critical Care time spent 81 minutes including, patient care, chart review and updating family, excluding procedure Case discussed with Dr Quiñones Plan discussed with: Other (RN) Dietary Evaluation Review Comments: 1) Consider EN nutrition Glucerna 1.2 to 50ml/hr goal rate to meet pt needs 2) Advance pt diet when medically feasible to a CCHO 45g/2gNa diet 3) Continue current plan of care Expected Outcomes/Goals: 1) Pt to receive adequate nutrition 2) Pt diet to advance 3) F/U in 2-3 days Date of Service: Jul 10, 2024 Billing Provider: BALTAZAR QUIÑONES MD Common Visit Codes: [id number] CARE 30-74 MIN, [id number] CARE-EACH +30MIN [facility] RESIDENT Jul 10, 2024 17:54 BALTAZAR QUIÑONES MD Jul 11, 2024 14:18
[2024-07-11] VITALS (110 sets, daily range): BP systolic 84–171; BP diastolic 37–102; PULSE 65–104; RESP 12–28; TEMP 96.4–101.1; O2SAT 94–100
[2024-07-11 04:14] LABS: Basophils # (auto) 0.1 10 ^3/uL (0-0.2); Hemoglobin 9.8 g/dL (13.5-17.5); Lymphocytes # (auto) 1.5 10 ^3/uL (0.4-5.4); Monocytes # (auto) 0.9 10 ^3/uL (0-1.3)
[2024-07-11 04:17] LABS: Basophils % (auto) 0.9 % (0.0-2.0); Eosinophils # (auto) 0.2 10 ^3/uL (0-0.8); Eosinophils % (auto) 1.4 % (0.0-7.0); Lymphocytes % (auto) 10.9 % (10.0-50.0); Mean Corpuscular Hemoglobin 28.2 pg (28.0-32.0); Mean Corpuscular Hgb Conc. 32.7 g/dL (32.0-36.0); Mean Corpuscular Volume 86.4 fL (80.0-100.0); Monocytes % (auto) 6.4 % (0.0-12.0); Neutrophils % (auto) 80.4 % (37.0-80.0); Platelet Count (auto) 609 10^3/uL (140-450); Red Blood Cells 3.47 10^6/uL (4.5-5.90); White Blood Cell 13.7 10^3/uL (4.4-10.8)
[2024-07-11 04:34] LABS: Alanine Aminotransferase 34 U/L (7-40); Albumin 2.9 g/dL (3.2-4.8); Alkaline Phosphatase 66 U/L (46-116); Anion Gap 8 (5-15); Aspartate Aminotransferase 34 U/L (13-40); BUN/Creatinine Ratio 17.6 (10.0-20.0); Bilirubin, Total < 0.2 mg/dL (0.2-1.0); Blood Urea Nitrogen 12 mg/dL (9-23); Calcium 8.9 mg/dL (8.7-10.4); Carbon Dioxide 29 mmol/L (20-31); Chloride 103 mmol/L (98-107); Glucose 130 mg/dL (74-106); Potassium 4.3 mmol/L (3.5-5.1); Sodium 140 mmol/L (136-145); Total Protein 5.4 g/dL (5.7-8.2)
--- NOTE | 2024-07-11 04:34 | DVH ---
CHEST RADIOGRAPH Indication: intubated Technique: Single frontal view of the chest was obtained COMPARISON: XY CHEST XRAY 1 VIEW on DOS: 07/10/24, XY CHEST PORTABLE on DOS: 07/09/24, XY CHEST XRAY 1 VIEW on DOS: 07/08/24, XY CHEST XRAY 1 VIEW on DOS: 07/10/24 FINDINGS: Lines and Tubes: Endotracheal tube, enteric catheter and right PICC in satisfactory position. Lungs: Mild congestion Pleura: No effusion. No pneumothorax. Cardiomediastinal contours: Unremarkable Bones: Unremarkable IMPRESSION: Lines and tubes in satisfactory position. No significant interval change.
[2024-07-11 08:08] LABS: Base Excess 5.2 mmol/L (-2.0-3.0)
[2024-07-11] MEDS: FAMOTIDINE (10MG/ML) 2ML VL IV SCH (09:35)
--- NOTE | 2024-07-11 11:27 | MEDREC ---
[facility] ASP Intervention Section I [facility] ASP Intervention: Review courses of therapy (FINAL BRONCHIAL WASHING RESULTED WITH PRESUMPTIVE ALLY ALBICANS X2 AND KLEBSIELLA PNEUMONIA X1 PLEASE CONSIDER ADDING ANTIFUNGAL THERAPY IF PATIENT'S CONDITION IS NOT IMPROVING ) JOSH LARA PHARMACIST Jul 11, 2024 11:27
[2024-07-11] MEDS: cefTRIAXone 2GM/50ML D5W 50 ML IV SCH (13:00)
[2024-07-11] MEDS: FUROSEMIDE 20 MG/2 ML VIAL IV ONE (14:59)
[2024-07-11] MEDS: FLUCONAZOLE 200MG/100ML 100 ML IV ONE (15:00)
[2024-07-11] MEDS: POTASSIUM EFFERVESENT TAB 25 MEQ GT ONE (15:00)
--- NOTE | 2024-07-11 16:28 | DVHPNRES ---
Progress Note Date Seen: Jul 11, 2024 Resident Creating Document: [facility] RESIDENT Medical Necessity Reason Pt with a Central, PICC or Fol: Yes The following are medically ne: PICC Line, Nelson Catheter Reason for nelson catheter: Strict I&O Subjective Review of Systems 64 yo with stated history CKD, Asthma, DM, COPD, HTN and seizure disorder came into the ED with stated change in mentation patient in the ED was acidic and altered unable to protect airway and stated to have sugars over 1000 source of cause is unknown history can not be fully obtained patient is intubated sedated suspected that possible breakthrough seizures in the setting [facility] with diabetic coma Patient seen and examined at bedside. Patient is currently ICU status, on sedation due to mechanical assisted ventilation. Planning on completing spontaneous breathing trial once FiO2 level requirement decreases. Could not obtain review of systems. Objective vital signs Vital Sign Date Time Temp Pulse Resp B/P (MAP) Pulse Ox O2 Delivery O2 Flow Rate FiO2 07/11/24 16:00 30 07/11/24 16:00 89 07/11/24 16:00 18 97 Mechanical Ventilator+ 07/11/24 15:54 119/68 (85) 07/11/24 14:52 100.4 Total Intake and Output 07/10/24 07/10/24 07/11/24 15:00 23:00 07:00 Intake Total 579.072 ml 604.096 ml 398.476 ml Output Total 875 ml 800 ml Balance 579.072 ml -270.904 ml -401.524 ml medications Current Medications Medications Dose Ordered Sig/Kandi Route Start Time Stop Time Status Last Admin Dose Admin Midazolam HCl 50 ml @ 1 mls/hr Q24H IV 06/28/24 10:45 07/11/24 02:18 2 MLS/HR Ondansetron HCl 4 mg Q4HP PRN IV 06/28/24 12:15 Norepinephrine Bitartrate 250 ml @ 3.75 mls/hr Q24H IV 06/28/24 13:30 06/30/24 15:13 3.75 MLS/HR Diagnostic Test (Pha) 1 strip Q6HR 06/29/24 18:00 07/11/24 11:55 1 STRIP Insulin Human Regular Q6HR SC 06/29/24 18:00 07/10/24 23:49 3 UNITS Dextrose 50 ml UD PRN IV 06/29/24 16:15 06/29/24 20:48 50 ML Artificial Tears 1 drop Q2HP PRN EACHEYE 06/30/24 13:45 07/08/24 05:22 1 DROP Acetaminophen 650 mg Q4HP PRN GT 07/01/24 11:30 07/11/24 13:05 650 MG Enoxaparin Sodium 40 mg DAILY SC 07/04/24 10:00 07/11/24 09:36 40 MG Enteral Nutritional Formula 1,000 ml 50ML/HR GT 07/03/24 14:45 07/09/24 09:07 1,000 ML Hydralazine HCl 10 mg Q6HP PRN IV 07/04/24 10:30 07/11/24 12:02 10 MG Propofol 100 ml @ 2.004 mls/ hr Q24H IV 07/05/24 09:30 07/11/24 05:50 6.012 MLS/HR Sodium Chloride 10 ml QSHIFT@10,22 IV 07/05/24 22:00 07/11/24 09:37 10 ML Lorazepam 1 mg Q3HPRN PRN IV 07/07/24 11:15 Levetiracetam 100 ml @ 400 mls/hr BID IV 07/08/24 10:00 07/11/24 09:35 400 MLS/HR Fentanyl Citrate 250 ml @ 2.5 mls/hr Q24H IV 07/09/24 21:30 07/10/24 18:12 17.5 MLS/HR Famotidine 20 mg DAILY IV 07/11/24 10:00 07/11/24 09:35 20 MG Ceftriaxone Sodium/Dextrose 50 ml @ 50 mls/hr DAILY IV 07/11/24 10:00 07/11/24 13:00 50 MLS/HR Dexmedetomidine HCl 400 mcg/ Dextrose 100 ml @ 3.5 mls/hr Q24H IV 07/10/24 19:15 Fluconazole 100 ml @ 100 mls/hr DAILY IV 07/12/24 10:00 Examination General: RASS -3, afebrile, mucosae are moist Cardiovascular: Normal S1 and S2. No murmurs, gallops or rubs Respiratory: Mechanically assisted ventilation, equal bilateral airway entree. Clear lung sounds on auscultation Abdomen: Soft, nontender, no organomegaly, normal bowel sounds MSK/skin: Mobilization of limbs cannot be evaluated. Skin is dry and warm. PICC on right arm Neurological: Orientation cannot be assessed. No apparent motor no sensitive deficits. Pupils are isocoric and reactive. laboratory and microbiology Laboratory Tests 07/11/24 03:48 Test 07/11/24 03:48 Range/Units Serum Glucose 130 H 74-106 mg/dL Microbiology Date/Time Source Procedure Growth Status 07/07/24 10:57 Bronchial Washings Gram Stain - Final Complete 07/07/24 10:57 Respiratory Culture - Final Presumptive Keira albicans Complete 07/03/24 16:20 Blood Blood Culture - Final NO GROWTH AFTER 5 DAYS OF INCUBATION. Complete 07/03/24 11:24 Urine - [place] Urine Culture - Final Complete 06/29/24 12:51 Nose MRSA Screen - Final Complete Problem List/Assessment/Plan Problem List/Assessment/Plan Neurology: - Patient is Sedated # Metabolic Encephalopathy due to Type 2 diabetes with hyperosmolar hyperglycemic state # Seizure - CT Head on 10/02/23 shows: No acute intracranial abnormality. 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 Cardiovascular: # Hypertension Respiratory: # Acute hypoxic respiratory failure # Asthma # COPD Exacerbation -Currently on mechanical assisted ventilation since 06/28/2024 (On AC mode; RR 18, VT 450, PEEP 5, FiO2 35%) # Probable community-acquired pneumonia Gram-positive/Gram-negative -Currently on empiric antibiotic ceftriaxone -Sputum with Klebsiella pneumoniae - Continue ceftriaxone 1 gm to BID - Started Fluconazole today -Negative influenza and COVID serologies Gastrointestinal # Transaminitis Secondary to above Genitourinary/Nephrology #Acute kidney injury - Avoid nephrotoxic medication - Avoid Hypertension/Hypotension - nephrology consult Endocrinology: # Type 2 diabetes with hyperosmolar hyperglycemic state # uncontrolled diabetes mellitus type 2 Hemoglobin A1c: 12.4 Sliding scale insulin Monitor blood glucose level Metabolic: # Hyperkalemia. - resolved Infectious Disease # Hepatitis-C infection - follow up liver function Hematology Mild anemia due to chronic disease Follow up labs. Lines: Nelson catheter 06/28/24 Endotracheal tube 06/28/24 PICC line 07/10/24 Drips Fentanyl 0 Versed 2 Propofol 0 NE 0 Patient was off sedation for C-PAP trail, Patient was running fever and desaturated so canceled C-Pap trail, Will try tomorrow DVT Prophy; Enoxaparin 40 mg subcutaneous daily GI Prophy; Protonix 40mg IV daily Critical Care time spent 62 minutes including, patient care, chart review and updating family, excluding procedure Case discussed with Dr Quiñones Plan discussed with: Other (RN) My Orders My Orders Orders - [facility] Procedure Category Date Status Time Chest Xray 1 View XY 07/11/24 Resulted 04:00 Abg W/ Co-Ox RT 07/11/24 Logged 04:00 D5w 5% (Dextrose 5%) PHA 07/10/24 In Process W/Dexmedetomidine 19:15 Cpap Trial For Am ORDERS 07/12/24 Transmitted 11:44 Abg W/ Co-Ox RT 07/12/24 Logged 06:00 Dietary Evaluation Review Comments: 1) Consider EN nutrition Glucerna 1.2 to 50ml/hr goal rate to meet pt needs 2) Advance pt diet when medically feasible to a CCHO 45g/2gNa diet 3) Continue current plan of care Expected Outcomes/Goals: 1) Pt to receive adequate nutrition 2) Pt diet to advance 3) F/U in 2-3 days Date of Service: Jul 11, 2024 Billing Provider: BALTAZAR QUIÑONES MD Common Visit Codes: [id number] CARE 30-74 MIN [facility] RESIDENT Jul 11, 2024 16:28 BALTAZAR QUIÑONES MD Jul 12, 2024 11:45
[2024-07-12] VITALS (141 sets, daily range): BP systolic 102–178; BP diastolic 47–81; PULSE 63–105; RESP 9–39; TEMP 96.4–100.6; O2SAT 95–100
[2024-07-12 03:42] LABS: Eosinophils # (auto) 0.2 10 ^3/uL (0-0.8); Mean Corpuscular Hemoglobin 28.6 pg (28.0-32.0); Mean Corpuscular Hgb Conc. 33.2 g/dL (32.0-36.0); Monocytes # (auto) 1.1 10 ^3/uL (0-1.3)
[2024-07-12 03:47] LABS: Basophils # (auto) 0.2 10 ^3/uL (0-0.2); Basophils % (auto) 1.4 % (0.0-2.0); Eosinophils % (auto) 1.5 % (0.0-7.0); Hematocrit 26.9 % (41.0-53.0); Hemoglobin 8.9 g/dL (13.5-17.5); Lymphocytes # (auto) 1.6 10 ^3/uL (0.4-5.4); Mean Corpuscular Volume 86.4 fL (80.0-100.0); Monocytes % (auto) 9.5 % (0.0-12.0); Neutrophils % (auto) 74.6 % (37.0-80.0); Platelet Count (auto) 658 10^3/uL (140-450); Red Blood Cells 3.12 10^6/uL (4.5-5.90); Red Cell Distribution Width 12.9 % (11.8-14.3)
[2024-07-12 04:04] LABS: Alanine Aminotransferase 34 U/L (7-40); Alkaline Phosphatase 60 U/L (46-116); Anion Gap 8 (5-15); Aspartate Aminotransferase 40 U/L (13-40); BUN/Creatinine Ratio 15.7 (10.0-20.0); Blood Urea Nitrogen 13 mg/dL (9-23); Calcium 9.1 mg/dL (8.7-10.4); Carbon Dioxide 29 mmol/L (20-31); Chloride 103 mmol/L (98-107); Potassium 3.9 mmol/L (3.5-5.1); Sodium 140 mmol/L (136-145)
[2024-07-12 04:07] LABS: Albumin 2.9 g/dL (3.2-4.8); Bilirubin, Total 0.2 mg/dL (0.2-1.0); Glucose 129 mg/dL (74-106); Total Protein 5.4 g/dL (5.7-8.2)
--- NOTE | 2024-07-12 04:26 | DVH ---
CHEST RADIOGRAPH Indication: Intubated Technique: Single frontal view of the chest was obtained COMPARISON: XY CHEST XRAY 1 VIEW on DOS: 07/11/24, XY CHEST XRAY 1 VIEW on DOS: 07/10/24, XY CHEST PORT ABLE on DOS: 07/09/24, XY CHEST XRAY 1 VIEW on DOS: 07/11/24 FINDINGS: Lines and Tubes: Endotracheal tube, enteric catheter and right PICC in satisfactory position. Lungs: Mild congestion Pleura: No effusion. No pneumothorax. Cardiomediastinal contours: Unremarkable Bones: Unremarkable IMPRESSION: Lines and tubes in satisfactory position. No significant interval change.
[2024-07-12 06:41] LABS: Base Excess 2.4 mmol/L (-2.0-3.0)
--- NOTE | 2024-07-12 08:22 | DVHPNRES ---
Progress Note Date Seen: Jul 12, 2024 Resident Creating Document: [facility] RESIDENT Medical Necessity Reason Pt with a Central, PICC or Fol: Yes The following are medically ne: PICC Line, Nelson Catheter Reason for nelson catheter: Strict I&O Subjective Review of Systems 64 yo with stated history CKD, Asthma, DM, COPD, HTN and seizure disorder came into the ED with stated change in mentation patient in the ED was acidic and altered unable to protect airway and stated to have sugars over 1000 source of cause is unknown history can not be fully obtained patient is intubated sedated suspected that possible breakthrough seizures in the setting [facility] vs [facility] with diabetic coma Patient seen and examined at bedside. Patient is currently ICU status, on sedation due to mechanical assisted ventilation. Planning on completing spontaneous breathing trial once FiO2 level requirement decreases. Could not obtain review of systems. Objective vital signs Vital Sign Date Time Temp Pulse Resp B/P (MAP) Pulse Ox O2 Delivery O2 Flow Rate FiO2 07/12/24 08:20 141/55 07/12/24 07:16 98.6 71 18 100 209.5 07/12/24 06:07 30 07/12/24 06:00 Mechanical Ventilator+ Total Intake and Output 07/11/24 07/11/24 07/12/24 15:00 23:00 07:00 Intake Total 485.5 ml 446.020 ml 338.028 ml Output Total 650 ml 600 ml Balance 485.5 ml -203.980 ml -261.972 ml medications Current Medications Medications Dose Ordered Sig/Kandi Route Start Time Stop Time Status Last Admin Dose Admin Midazolam HCl 50 ml @ 1 mls/hr Q24H IV 06/28/24 10:45 07/12/24 08:20 2 MLS/HR Ondansetron HCl 4 mg Q4HP PRN IV 06/28/24 12:15 Norepinephrine Bitartrate 250 ml @ 3.75 mls/hr Q24H IV 06/28/24 13:30 06/30/24 15:13 3.75 MLS/HR Diagnostic Test (Pha) 1 strip Q6HR 06/29/24 18:00 07/12/24 05:29 1 STRIP Insulin Human Regular Q6HR SC 06/29/24 18:00 07/11/24 17:56 2 UNITS Dextrose 50 ml UD PRN IV 06/29/24 16:15 06/29/24 20:48 50 ML Artificial Tears 1 drop Q2HP PRN EACHEYE 06/30/24 13:45 07/08/24 05:22 1 DROP Acetaminophen 650 mg Q4HP PRN GT 07/01/24 11:30 07/11/24 17:57 650 MG Enoxaparin Sodium 40 mg DAILY SC 07/04/24 10:00 07/11/24 09:36 40 MG Enteral Nutritional Formula 1,000 ml 50ML/HR GT 07/03/24 14:45 07/09/24 09:07 1,000 ML Hydralazine HCl 10 mg Q6HP PRN IV 07/04/24 10:30 07/11/24 12:02 10 MG Propofol 100 ml @ 2.004 mls/ hr Q24H IV 07/05/24 09:30 07/11/24 05:50 6.012 MLS/HR Sodium Chloride 10 ml QSHIFT@10,22 IV 07/05/24 22:00 07/11/24 21:50 10 ML Lorazepam 1 mg Q3HPRN PRN IV 07/07/24 11:15 Levetiracetam 100 ml @ 400 mls/hr BID IV 07/08/24 10:00 07/11/24 21:37 400 MLS/HR Fentanyl Citrate 250 ml @ 2.5 mls/hr Q24H IV 07/09/24 21:30 07/11/24 20:45 7.5 MLS/HR Famotidine 20 mg DAILY IV 07/11/24 10:00 07/11/24 09:35 20 MG Ceftriaxone Sodium/Dextrose 50 ml @ 50 mls/hr DAILY IV 07/11/24 10:00 07/11/24 13:00 50 MLS/HR Dexmedetomidine HCl 400 mcg/ Dextrose 100 ml @ 3.5 mls/hr Q24H IV 07/10/24 19:15 Fluconazole 100 ml @ 100 mls/hr DAILY IV 07/12/24 10:00 Examination General: RASS -1, afebrile, mucosae are moist Cardiovascular: Normal S1 and S2. No murmurs, gallops or rubs Respiratory: Mechanically assisted ventilation, equal bilateral airway entree. Clear lung sounds on auscultation Abdomen: Soft, nontender, no organomegaly, normal bowel sounds MSK/skin: Mobilization of limbs cannot be evaluated. Skin is dry and warm. PICC on right arm Neurological: Orientation cannot be assessed. No apparent motor no sensitive deficits. Pupils are isocoric and reactive. laboratory and microbiology Laboratory Tests 07/12/24 03:29 Test 07/12/24 03:29 Range/Units Serum Glucose 129 H 74-106 mg/dL Microbiology Date/Time Source Procedure Growth Status 07/07/24 10:57 Bronchial Washings Gram Stain - Final Complete 07/07/24 10:57 Respiratory Culture - Final Presumptive Keira albicans Complete 07/03/24 16:20 Blood Blood Culture - Final NO GROWTH AFTER 5 DAYS OF INCUBATION. Complete 07/03/24 11:24 Urine - [place] Urine Culture - Final Complete 06/29/24 12:51 Nose MRSA Screen - Final Complete Problem List/Assessment/Plan Problem List/Assessment/Plan Neurology: - Patient is Sedated # Metabolic Encephalopathy due to Type 2 diabetes with hyperosmolar hyperglycemic state # Seizure - CT Head on 10/02/23 shows: No acute intracranial abnormality. 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 Cardiovascular: # Hypertension Respiratory: # Acute hypoxic respiratory failure # Asthma # COPD Exacerbation -Currently on mechanical assisted ventilation since 06/28/2024 (On AC mode; RR 18, VT 450, PEEP 5, FiO2 35%) # Probable community-acquired pneumonia Gram-positive/Gram-negative -Currently on empiric antibiotic ceftriaxone -Sputum with Klebsiella pneumoniae - Continue ceftriaxone 1 gm to BID - Continue Fluconazole -Negative influenza and COVID serologies Gastrointestinal # Transaminitis Secondary to above Genitourinary/Nephrology #Acute kidney injury - Avoid nephrotoxic medication - Avoid Hypertension/Hypotension - nephrology consult Endocrinology: # Type 2 diabetes with hyperosmolar hyperglycemic state # uncontrolled diabetes mellitus type 2 Hemoglobin A1c: 12.4 Sliding scale insulin Monitor blood glucose level Metabolic: # Hyperkalemia. - resolved Infectious Disease # Hepatitis-C infection - follow up liver function Hematology Mild anemia due to chronic disease Follow up labs. Lines: Nelson catheter 06/28/24 Endotracheal tube 06/28/24 PICC line 07/10/24 Drips Fentanyl 0 Versed 2 Propofol 0 NE 0 Patient was off sedation for C-PAP trail, CPAP trials Failed, Patient had fever, Patient was not follow ing commands DVT Prophy; Enoxaparin 40 mg subcutaneous daily GI Prophy; Protonix 40mg IV daily Critical Care time spent 86 minutes including CPAP trails, patient care, chart review and updating family, excluding procedure Case discussed with Dr Quiñones Plan discussed with: Other (RN) My Orders My Orders Orders - [facility] RESIDENT Procedure Category Date Status Time Cpap Trial For Am ORDERS 07/12/24 Transmitted 11:44 Abg W/ Co-Ox RT 07/12/24 Logged 06:00 Chest Xray 1 View XY 07/12/24 Resulted 04:00 Abg W/ Co-Ox RT 07/12/24 Logged 04:00 Dietary Evaluation Review Comments: 1) Consider EN nutrition Glucerna 1.2 to 50ml/hr goal rate to meet pt needs 2) Advance pt diet when medically feasible to a CCHO 45g/2gNa diet 3) Continue current plan of care Expected Outcomes/Goals: 1) Pt to receive adequate nutrition 2) Pt diet to advance 3) F/U in 2-3 days Date of Service: Jul 12, 2024 Billing Provider: BALTAZAR QUIÑONES MD Common Visit Codes: [id number] CARE 30-74 MIN, [id number] CARE-EACH +30MIN [facility] RESIDENT Jul 12, 2024 08:22 BALTAZAR QUIÑONES MD Jul 13, 2024 11:38
[2024-07-12] MEDS: FLUCONAZOLE 200MG/100ML 100 ML IV SCH (10:50)
[2024-07-12] MEDS: POTASSIUM EFFERVESENT TAB 25 MEQ GT ONE (11:45)
[2024-07-12] MEDS: FUROSEMIDE 20 MG/2 ML VIAL IV ONE (12:42)
[2024-07-12] MEDS: POTASSIUM CHL 20MEQ/100ML 100 ML IV ONE (13:49)
[2024-07-13] VITALS (111 sets, daily range): BP systolic 86–152; BP diastolic 39–81; PULSE 53–106; RESP 9–28; TEMP 97.2–101.1; O2SAT 96–100
[2024-07-13 03:25] LABS: Basophils # (auto) 0.1 10 ^3/uL (0-0.2); Hemoglobin 8.6 g/dL (13.5-17.5)
[2024-07-13 03:28] LABS: Eosinophils # (auto) 0.2 10 ^3/uL (0-0.8); Eosinophils % (auto) 2.5 % (0.0-7.0); Hematocrit 25.9 % (41.0-53.0); Lymphocytes % (auto) 20.5 % (10.0-50.0); Mean Corpuscular Hemoglobin 28.5 pg (28.0-32.0); Mean Corpuscular Hgb Conc. 33.3 g/dL (32.0-36.0); Mean Corpuscular Volume 85.5 fL (80.0-100.0); Monocytes # (auto) 0.8 10 ^3/uL (0-1.3); Monocytes % (auto) 7.9 % (0.0-12.0); Neutrophils # (auto) 6.6 10 ^3/uL (1.6-8.6); Neutrophils % (auto) 68.1 % (37.0-80.0); Platelet Count (auto) 691 10^3/uL (140-450); Red Blood Cells 3.03 10^6/uL (4.5-5.90); Red Cell Distribution Width 13.2 % (11.8-14.3); White Blood Cell 9.7 10^3/uL (4.4-10.8)
[2024-07-13 03:43] LABS: Anion Gap 10 (5-15); Carbon Dioxide 28 mmol/L (20-31); Chloride 104 mmol/L (98-107); Potassium 3.6 mmol/L (3.5-5.1); Sodium 142 mmol/L (136-145)
[2024-07-13 03:44] LABS: Calcium 8.9 mg/dL (8.7-10.4)
[2024-07-13 03:49] LABS: BUN/Creatinine Ratio 16.7 (10.0-20.0); Blood Urea Nitrogen 13 mg/dL (9-23)
[2024-07-13 03:59] LABS: Glucose 119 mg/dL (74-106)
--- NOTE | 2024-07-13 04:10 | DVH ---
CHEST RADIOGRAPH Indication: Intubated Technique: Single frontal view of the chest was obtained Comparison: XY CHEST XRAY 1 VIEW on DOS: 07/12/24, XY CHEST XRAY 1 VIEW on DOS: 07/11/24, XY CHEST XRAY 1 VIEW on DOS: 07/10/24, XY CHEST PORTABLE on DOS: 07/09/24, XY CHEST XRAY 1 VIEW on DOS: 07/08/24, XY CHEST XRAY 1 VIEW on DOS: 07/12/24 FINDINGS: Lines and Tubes: Endotracheal tube, enteric catheter and right PICC in satisfactory position. Lungs: Mild congestion Pleura: No effusion. No pneumothorax. Cardiomediastinal contours: Unremarkable Bones: Unremarkable IMPRESSION: 1. Lines and tubes in satisfactory position. No significant interval change.
--- NOTE | 2024-07-13 07:31 | DVHPNRES ---
Progress Note Date Seen: Jul 13, 2024 Resident Creating Document: [facility] RESIDENT Medical Necessity Reason Pt with a Central, PICC or Fol: Yes The following are medically ne: PICC Line, Nelson Catheter Reason for nelson catheter: Strict I&O Subjective Review of Systems 64 yo with stated history CKD, Asthma, DM, COPD, HTN and seizure disorder came into the ED with stated change in mentation patient in the ED was acidic and altered unable to protect airway and stated to have sugars over 1000 source of cause is unknown history can not be fully obtained patient is intubated sedated suspected that possible breakthrough seizures in the setting [facility] with diabetic coma Patient seen and examined at bedside. Patient is currently ICU status, on sedation due to mechanical assisted ventilation. Planning on completing spontaneous breathing trial once FiO2 level requirement decreases. Could not obtain review of systems. Objective vital signs Vital Sign Date Time Temp Pulse Resp B/P (MAP) Pulse Ox O2 Delivery O2 Flow Rate FiO2 07/13/24 06:46 98.4 66 13 127/46 (73) 100 209.1 07/13/24 06:00 30 07/13/24 06:00 Mechanical Ventilator+ Total Intake and Output 07/12/24 07/12/24 07/13/24 14:59 22:59 06:59 Intake Total 45.020 ml 87.032 ml 372.016 ml Output Total 1200 ml 400 ml Balance 45.020 ml -1112.968 ml -27.984 ml medications Current Medications Medications Dose Ordered Sig/Kandi Route Start Time Stop Time Status Last Admin Dose Admin Midazolam HCl 50 ml @ 1 mls/hr Q24H IV 06/28/24 10:45 07/12/24 08:20 2 MLS/HR Ondansetron HCl 4 mg Q4HP PRN IV 06/28/24 12:15 Norepinephrine Bitartrate 250 ml @ 3.75 mls/hr Q24H IV 06/28/24 13:30 06/30/24 15:13 3.75 MLS/HR Diagnostic Test (Pha) 1 strip Q6HR 06/29/24 18:00 07/13/24 06:00 1 STRIP Insulin Human Regular Q6HR SC 06/29/24 18:00 07/12/24 11:37 2 UNITS Dextrose 50 ml UD PRN IV 06/29/24 16:15 06/29/24 20:48 50 ML Artificial Tears 1 drop Q2HP PRN EACHEYE 06/30/24 13:45 07/08/24 05:22 1 DROP Acetaminophen 650 mg Q4HP PRN GT 07/01/24 11:30 07/11/24 17:57 650 MG Enoxaparin Sodium 40 mg DAILY SC 07/04/24 10:00 07/12/24 10:49 40 MG Enteral Nutritional Formula 1,000 ml 50ML/HR GT 07/03/24 14:45 07/09/24 09:07 1,000 ML Hydralazine HCl 10 mg Q6HP PRN IV 07/04/24 10:30 07/12/24 11:29 10 MG Propofol 100 ml @ 2.004 mls/ hr Q24H IV 07/05/24 09:30 07/13/24 02:29 2.004 MLS/HR Sodium Chloride 10 ml QSHIFT@10,22 IV 07/05/24 22:00 07/12/24 23:41 10 ML Lorazepam 1 mg Q3HPRN PRN IV 07/07/24 11:15 Levetiracetam 100 ml @ 400 mls/hr BID IV 07/08/24 10:00 07/12/24 23:40 400 MLS/HR Fentanyl Citrate 250 ml @ 2.5 mls/hr Q24H IV 07/09/24 21:30 07/11/24 20:45 7.5 MLS/HR Famotidine 20 mg DAILY IV 07/11/24 10:00 07/12/24 10:46 20 MG Ceftriaxone Sodium/Dextrose 50 ml @ 50 mls/hr DAILY IV 07/11/24 10:00 07/12/24 10:48 50 MLS/HR Dexmedetomidine HCl 400 mcg/ Dextrose 100 ml @ 3.5 mls/hr Q24H IV 07/10/24 19:15 Fluconazole 100 ml @ 100 mls/hr DAILY IV 07/12/24 10:00 07/12/24 10:50 100 MLS/HR Furosemide 20 mg DAILY IV 07/13/24 10:00 Potassium Bicarbonate 25 meq DAILY GT 07/13/24 10:00 Examination General: RASS -0, afebrile, mucosae are moist Cardiovascular: Normal S1 and S2. No murmurs, gallops or rubs Respiratory: Mechanically assisted ventilation, equal bilateral airway entree. Clear lung sounds on auscultation Abdomen: Soft, nontender, no organomegaly, normal bowel sounds MSK/skin: Mobilization of limbs cannot be evaluated. Skin is dry and warm. PICC on right arm Neurological: Patient is extubated today, following commands laboratory and microbiology Laboratory Tests 07/13/24 03:00 Test 07/13/24 03:00 Range/Units Serum Glucose 119 H 74-106 mg/dL Microbiology Date/Time Source Procedure Growth Status 07/07/24 10:57 Bronchial Washings Gram Stain - Final Complete 07/07/24 10:57 Respiratory Culture - Final Presumptive Keira albicans Complete 07/03/24 16:20 Blood Blood Culture - Final NO GROWTH AFTER 5 DAYS OF INCUBATION. Complete 07/03/24 11:24 Urine - [place] Urine Culture - Final Complete 06/29/24 12:51 Nose MRSA Screen - Final Complete Problem List/Assessment/Plan Problem List/Assessment/Plan Neurology: - patient is extubated today # Metabolic Encephalopathy due to Type 2 diabetes with hyperosmolar hyperglycemic state # Seizure - CT Head on 10/02/23 shows: No acute intracranial abnormality. 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 Cardiovascular: # Hypertension Respiratory: # Acute hypoxic respiratory failure # Asthma # COPD Exacerbation -Currently on 4 L oxygen with nasal cannula # Probable community-acquired pneumonia Gram-positive/Gram-negative -Currently on empiric antibiotic ceftriaxone -Sputum with Klebsiella pneumoniae - Continue ceftriaxone 1 gm to BID - Continue Fluconazole -Negative influenza and COVID serologies Gastrointestinal # Transaminitis Secondary to above Genitourinary/Nephrology #Acute kidney injury - Avoid nephrotoxic medication - Avoid Hypertension/Hypotension - nephrology consult Endocrinology: # Type 2 diabetes with hyperosmolar hyperglycemic state # uncontrolled diabetes mellitus type 2 Hemoglobin A1c: 12.4 Sliding scale insulin Monitor blood glucose level Metabolic: # Hyperkalemia. - resolved Infectious Disease # Hepatitis-C infection - follow up liver function Hematology Mild anemia due to chronic disease Follow up labs. Lines: Nelson catheter 06/28/24 Endotracheal tube 06/28/24 PICC line 07/10/24 Patient was off sedation for C-PAP trail, patient is following, then repeat ABG shows normal, weaning criteria satisfactory, patient is extubated today. DVT Prophy; Enoxaparin 40 mg subcutaneous daily GI Prophy; Protonix 40mg IV daily Critical Care time spent 91 minutes including CPAP trails, extubation, patient care, chart review and updating family, excluding procedure Case discussed with Dr Quiñones Plan discussed with: Other (RN) My Orders My Orders Orders - [facility] RESIDENT Procedure Category Date Status Time Chest Portable XY 07/13/24 Resulted 04:00 Abg W/ Co-Ox RT 07/13/24 Logged 06:00 Abg W/ Co-Ox RT 07/13/24 Logged 06:33 Dietary Evaluation Review Comments: 1) Consider EN nutrition Glucerna 1.2 to 50ml/hr goal rate to meet pt needs 2) Advance pt diet when medically feasible to a CCHO 45g/2gNa diet 3) Continue current plan of care Expected Outcomes/Goals: 1) Pt to receive adequate nutrition 2) Pt diet to advance 3) F/U in 2-3 days Date of Service: Jul 13, 2024 Billing Provider: BALTAZAR QUIÑONES MD Common Visit Codes: [id number] CARE 30-74 MIN, [id number] CARE-EACH +30MIN [facility] Jul 13, 2024 07:31 BALTAZAR QUIÑONES MD Jul 23, 2024 11:38
[2024-07-13 07:51] LABS: Base Excess 2.5 mmol/L (-2.0-3.0)
[2024-07-13] MEDS: FUROSEMIDE 20 MG/2 ML VIAL IV SCH (08:51)
[2024-07-13] MEDS: POTASSIUM EFFERVESENT TAB 25 MEQ GT SCH (08:52)
[2024-07-13 16:58] LABS: Base Excess 2.6 mmol/L (-2.0-3.0)
[2024-07-13] MEDS: ALBUTEROL SULF 2.5 MG/0.5ML(0.5%) NEB SOLN NEB PRN (21:02)
[2024-07-13] MEDS: ACETAMINOPHEN 650 MG RECT SUPP PR PRN (21:20)
[2024-07-14] VITALS (60 sets, daily range): BP systolic 80–164; BP diastolic 35–99; PULSE 44–87; RESP 9–26; TEMP 98.2–99.8; O2SAT 90–100
[2024-07-14 04:04] LABS: Basophils # (auto) 0.1 10 ^3/uL (0-0.2); Basophils % (auto) 1.2 % (0.0-2.0); Eosinophils # (auto) 0.1 10 ^3/uL (0-0.8); Neutrophils # (auto) 8.3 10 ^3/uL (1.6-8.6)
[2024-07-14 04:08] LABS: Eosinophils % (auto) 1.4 % (0.0-7.0); Hematocrit 25.1 % (41.0-53.0); Hemoglobin 8.6 g/dL (13.5-17.5); Lymphocytes # (auto) 1.5 10 ^3/uL (0.4-5.4); Lymphocytes % (auto) 13.4 % (10.0-50.0); Mean Corpuscular Hemoglobin 29.6 pg (28.0-32.0); Mean Corpuscular Hgb Conc. 34.3 g/dL (32.0-36.0); Mean Corpuscular Volume 86.4 fL (80.0-100.0); Monocytes # (auto) 0.9 10 ^3/uL (0-1.3); Monocytes % (auto) 7.9 % (0.0-12.0); Neutrophils % (auto) 76.1 % (37.0-80.0); Nucleated Red Blood Cells % 0.1 %; Platelet Count (auto) 684 10^3/uL (140-450); White Blood Cell 10.9 10^3/uL (4.4-10.8)
[2024-07-14 04:10] LABS: Alanine Aminotransferase 35 U/L (7-40); Alkaline Phosphatase 54 U/L (46-116); Anion Gap 11 (5-15); BUN/Creatinine Ratio 12.6 (10.0-20.0); Blood Urea Nitrogen 11 mg/dL (9-23); Calcium 8.7 mg/dL (8.7-10.4); Carbon Dioxide 27 mmol/L (20-31); Chloride 104 mmol/L (98-107); Potassium 3.6 mmol/L (3.5-5.1); Sodium 142 mmol/L (136-145)
[2024-07-14 04:22] LABS: Albumin 2.9 g/dL (3.2-4.8); Aspartate Aminotransferase 47 U/L (13-40); Bilirubin, Total 0.2 mg/dL (0.2-1.0); Glucose 125 mg/dL (74-106); Total Protein 5.3 g/dL (5.7-8.2)
[2024-07-14] MEDS: POTASSIUM CHL 20MEQ/100ML 100 ML IV SCH (08:30)
[2024-07-14] MEDS: POTASSIUM CHL 20MEQ/100ML 200 ML IV ONE (09:17)
[2024-07-14] MEDS: IPRATROPIUM BROM 0.5 MG/2.5ML INH SOL NEB SCH (10:00)
[2024-07-14] MEDS: ALBUTEROL SULF 2.5 MG/0.5ML(0.5%) NEB SOLN NEB SCH (10:00)
[2024-07-14] MEDS ORDERED: CLINIMIX PER PHARMACY 0 ML IV SCH (14:45)
[2024-07-14 16:46] LABS: Magnesium 1.7 mg/dL (1.6-2.6)
[2024-07-14 16:48] LABS: Phosphorus 3.8 mg/dL (2.4-5.1)
--- NOTE | 2024-07-14 16:58 | DVHPNRES ---
Progress Note Date Seen: Jul 14, 2024 Resident Creating Document: [facility] RESIDENT Medical Necessity Reason Pt with a Central, PICC or Fol: Yes The following are medically ne: PICC Line, Nelson Catheter Reason for nelson catheter: Strict I&O Subjective Review of Systems 64 yo with stated history CKD, Asthma, DM, COPD, HTN and seizure disorder came into the ED with stated change in mentation patient in the ED was acidic and altered unable to protect airway and stated to have sugars over 1000 source of cause is unknown history can not be fully obtained patient is intubated sedated suspected that possible breakthrough seizures in the setting [facility] with diabetic coma Patient seen and examined at bedside. Patient is currently ICU status, on sedation due to mechanical assisted ventilation. Planning on completing spontaneous breathing trial once FiO2 level requirement decreases. Could not obtain review of systems. Objective vital signs Vital Sign Date Time Temp Pulse Resp B/P (MAP) Pulse Ox O2 Delivery O2 Flow Rate FiO2 07/14/24 15:49 23 97 Nasal Cannula* 4 36 07/14/24 13:34 50 07/14/24 13:00 125/58 (80) 07/14/24 12:00 98.3 98.3 Total Intake and Output 07/13/24 07/13/24 07/14/24 15:00 23:00 07:00 Intake Total 84.024 ml 100 ml Output Total 1100 ml 700 ml Balance 84.024 ml -1100 ml -600 ml medications Current Medications Medications Dose Ordered Sig/Kandi Route Start Time Stop Time Status Last Admin Dose Admin Midazolam HCl 50 ml @ 1 mls/hr Q24H IV 06/28/24 10:45 07/13/24 08:48 2 MLS/HR Ondansetron HCl 4 mg Q4HP PRN IV 06/28/24 12:15 Norepinephrine Bitartrate 250 ml @ 3.75 mls/hr Q24H IV 06/28/24 13:30 06/30/24 15:13 3.75 MLS/HR Diagnostic Test (Pha) 1 strip Q6HR 06/29/24 18:00 07/14/24 09:17 1 STRIP Insulin Human Regular Q6HR SC 06/29/24 18:00 07/12/24 11:37 2 UNITS Dextrose 50 ml UD PRN IV 06/29/24 16:15 06/29/24 20:48 50 ML Artificial Tears 1 drop Q2HP PRN EACHEYE 06/30/24 13:45 07/14/24 09:20 1 DROP Acetaminophen 650 mg Q4HP PRN GT 07/01/24 11:30 07/11/24 17:57 650 MG Enoxaparin Sodium 40 mg DAILY SC 07/04/24 10:00 07/14/24 07:56 40 MG Enteral Nutritional Formula 1,000 ml 50ML/HR GT 07/03/24 14:45 07/09/24 09:07 1,000 ML Hydralazine HCl 10 mg Q6HP PRN IV 07/04/24 10:30 07/12/24 11:29 10 MG Propofol 100 ml @ 2.004 mls/ hr Q24H IV 07/05/24 09:30 07/13/24 02:29 2.004 MLS/HR Sodium Chloride 10 ml QSHIFT@10,22 IV 07/05/24 22:00 07/14/24 07:56 10 ML Lorazepam 1 mg Q3HPRN PRN IV 07/07/24 11:15 Levetiracetam 100 ml @ 400 mls/hr BID IV 07/08/24 10:00 07/14/24 07:56 400 MLS/HR Fentanyl Citrate 250 ml @ 2.5 mls/hr Q24H IV 07/09/24 21:30 07/13/24 08:53 7.5 MLS/HR Famotidine 20 mg DAILY IV 07/11/24 10:00 07/14/24 07:55 20 MG Ceftriaxone Sodium/Dextrose 50 ml @ 50 mls/hr DAILY IV 07/11/24 10:00 07/14/24 07:56 50 MLS/HR Dexmedetomidine HCl 400 mcg/ Dextrose 100 ml @ 3.5 mls/hr Q24H IV 07/10/24 19:15 Fluconazole 100 ml @ 100 mls/hr DAILY IV 07/12/24 10:00 07/14/24 07:56 100 MLS/HR Furosemide 20 mg DAILY IV 07/13/24 10:00 07/14/24 07:55 20 MG Potassium Bicarbonate 25 meq DAILY GT 07/13/24 10:00 07/13/24 08:52 25 MEQ Acetaminophen 650 mg Q6HP PRN LA 07/13/24 20:30 07/13/24 21:20 650 MG Albuterol 2.5 mg Q4HPRN PRN NEB 07/13/24 20:30 07/13/24 21:02 2.5 MG Ipratropium [place] 0.5 mg Q6HR NEB 07/14/24 10:00 07/14/24 12:10 0.5 MG Albuterol 2.5 mg Q6HR NEB 07/14/24 10:00 07/14/24 12:10 2.5 MG Amino Acids 0 ml @ 0 mls/hr PER PHARMACY IV 07/14/24 14:45 Diagnostic Test (Pha) 1 strip Q6HR 07/15/24 00:00 Insulin Human Regular FOLLOW SLIDING SCALE Q6HR SC 07/15/24 00:00 Dextrose 50 ml UD IV 07/15/24 00:00 Amino Acids/ Electrolytes/ Dextrose 1,000 ml @ 41 mls/hr DAILY@2200 IV 07/14/24 22:00 Examination General: Patient is on mild stress, supplemental oxygen, 4 L Cardiovascular: Normal S1 and S2. No murmurs, gallops or rubs Respiratory: Mechanically assisted ventilation, equal bilateral airway entree. Clear lung sounds on auscultation Abdomen: Soft, nontender, no organomegaly, normal bowel sounds MSK/skin: Mobilization of limbs cannot be evaluated. Skin is dry and warm. PICC on right arm Neurological: Patient is alert and orientedX 3 laboratory and microbiology Laboratory Tests 07/14/24 03:16 Test 07/14/24 03:16 Range/Units Serum Glucose 125 H 74-106 mg/dL Microbiology Date/Time Source Procedure Growth Status 07/07/24 10:57 Bronchial Washings Gram Stain - Final Complete 07/07/24 10:57 Respiratory Culture - Final Presumptive Keira albicans Complete 07/03/24 16:20 Blood Blood Culture - Final NO GROWTH AFTER 5 DAYS OF INCUBATION. Complete 07/03/24 11:24 Urine - [place] Urine Culture - Final Complete 06/29/24 12:51 Nose MRSA Screen - Final Complete Problem List/Assessment/Plan Problem List/Assessment/Plan Neurology: -patient is alert and oriented x3 # Metabolic Encephalopathy due to Type 2 diabetes with hyperosmolar hyperglycemic state-improved # Seizure - CT Head on 10/02/23 shows: No acute intracranial abnormality. 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 Cardiovascular: # Hypertension Respiratory: # Acute hypoxic respiratory failure # Asthma # COPD Exacerbation -Currently on 4 L oxygen # Probable community-acquired pneumonia Gram-positive/Gram-negative -Currently on empiric antibiotic ceftriaxone -Sputum with Klebsiella pneumoniae - Continue ceftriaxone 1 gm to BID - Continue Fluconazole -Negative influenza and COVID serologies Gastrointestinal # Transaminitis Secondary to above Genitourinary/Nephrology #Acute kidney injury - Avoid nephrotoxic medication - Avoid Hypertension/Hypotension - nephrology on board Endocrinology: # Type 2 diabetes with hyperosmolar hyperglycemic state # uncontrolled diabetes mellitus type 2 Hemoglobin A1c: 12.4 Sliding scale insulin Monitor blood glucose level Metabolic: # Hyperkalemia. - resolved Infectious Disease # Hepatitis-C infection - follow up liver function Hematology Mild anemia due to chronic disease Follow up labs. Lines: Nelson catheter 06/28/24 Endotracheal tube 06/28/24 PICC line 07/10/24 Patient was extubated yesterday. Patient is stable. Downgraded to CYNTHIA DVT Prophy; Enoxaparin 40 mg subcutaneous daily GI Prophy; Protonix 40mg IV daily Critical Care time spent 47 minutes patient care, chart review and updating family, excluding procedure Case discussed with Dr Laurent Plan discussed with: Patient My Orders My Orders Orders - BRANDON [facility] Procedure Category Date Status Time Ipratropium Medneb PHA 07/14/24 In Process (Atrovent Medneb) 10:00 Albuterol Medneb PHA 07/14/24 In Process (Ventolin Medneb) 10:00 Clostridium Difficile HUNTER 07/14/24 In Process Toxin 12:40 Complete Blood Count LAB 07/15/24 Verified 04:00 Comprehensive LAB 07/15/24 Verified Metabolic Panel 04:00 Magnesium LAB 07/15/24 Verified 04:00 Phosphorus LAB 07/15/24 Verified 04:00 Dietary Evaluation Review Comments: 1) Consider EN nutrition Glucerna 1.2 to 50ml/hr goal rate to meet pt needs 2) Advance pt diet when medically feasible to a CCHO 45g/2gNa diet 3) Continue current plan of care Expected Outcomes/Goals: 1) Pt to receive adequate nutrition 2) Pt diet to advance 3) F/U in 2-3 days Date of Service: Jul 14, 2024 Billing Provider: MANISH LAURENT MD Common Visit Codes: [id number] CARE 30-74 MIN [facility] RESIDENT Jul 14, 2024 16:58 MANISH LAURENT MD Jul 21, 2024 14:46
[2024-07-14] MEDS: POTASSIUM CHL 20MEQ/100ML 100 ML IV ONE (17:35)
[2024-07-14] MEDS: MAGNESIUM SULFATE 1GM/100ML 100 ML IV ONE (17:36)
[2024-07-14] MEDS: AMINO ACID INFUSION IN D10W 1,000 ML IV SCH (22:29)
[2024-07-15] VITALS (39 sets, daily range): BP systolic 100–171; BP diastolic 46–79; PULSE 53–94; RESP 14–36; TEMP 98.7–100.4; O2SAT 82–100
[2024-07-15] MEDS ORDERED: ACCU-CHEK COMFORT CURVE STRIP VI SCH
[2024-07-15] MEDS ORDERED: DEXTROSE (50%) 50ML SYRG IV SCH
[2024-07-15] MEDS ORDERED: InsuLIN REG 1unit/0.01ml Soln (100units/ml) SC SCH
[2024-07-15] MEDS: LORazepam 2MG/ML-1ML VIAL IV ONE (01:21)
[2024-07-15 05:59] LABS: Eosinophils # (auto) 0.1 10 ^3/uL (0-0.8); Lymphocytes # (auto) 1.6 10 ^3/uL (0.4-5.4); Neutrophils # (auto) 9.7 10 ^3/uL (1.6-8.6)
[2024-07-15 06:02] LABS: Basophils # (auto) 0.2 10 ^3/uL (0-0.2); Basophils % (auto) 1.2 % (0.0-2.0); Eosinophils % (auto) 0.9 % (0.0-7.0); Hematocrit 25.6 % (41.0-53.0); Hemoglobin 8.5 g/dL (13.5-17.5); Lymphocytes % (auto) 12.7 % (10.0-50.0); Mean Corpuscular Hemoglobin 28.9 pg (28.0-32.0); Mean Corpuscular Hgb Conc. 33.1 g/dL (32.0-36.0); Mean Corpuscular Volume 87.2 fL (80.0-100.0); Monocytes # (auto) 1.1 10 ^3/uL (0-1.3); Neutrophils % (auto) 76.2 % (37.0-80.0); Nucleated Red Blood Cells % 0.1 %; Red Blood Cells 2.93 10^6/uL (4.5-5.90); White Blood Cell 12.7 10^3/uL (4.4-10.8)
[2024-07-15 06:12] LABS: Alanine Aminotransferase 38 U/L (7-40); Alkaline Phosphatase 59 U/L (46-116); Anion Gap 9 (5-15); BUN/Creatinine Ratio 14.3 (10.0-20.0); Blood Urea Nitrogen 13 mg/dL (9-23); Calcium 8.9 mg/dL (8.7-10.4); Carbon Dioxide 30 mmol/L (20-31); Chloride 104 mmol/L (98-107); Magnesium 1.8 mg/dL (1.6-2.6); Potassium 3.8 mmol/L (3.5-5.1); Sodium 143 mmol/L (136-145)
[2024-07-15 06:14] LABS: Bilirubin, Total 0.2 mg/dL (0.2-1.0); Phosphorus 2.7 mg/dL (2.4-5.1); Total Protein 5.7 g/dL (5.7-8.2)
[2024-07-15 06:17] LABS: Platelet Count (auto) 752 10^3/uL (140-450)
[2024-07-15 06:42] LABS: Aspartate Aminotransferase 44 U/L (13-40); Glucose 161 mg/dL (74-106)
[2024-07-15] MEDS: LORazepam 2MG/ML-1ML VIAL IV PRN (08:25)
[2024-07-15 08:28] LABS: Anisocytosis Slight
[2024-07-15 08:29] LABS: Hypochromia Moderate
[2024-07-15 08:30] LABS: Platelet Estimate Markedly Increased; Stomatocytes Few
[2024-07-15 09:30] LABS: Base Excess 3.8 mmol/L (-2.0-3.0)
[2024-07-15] MEDS: FUROSEMIDE 40 MG/4 ML VIAL IV ONE (11:58)
--- NOTE | 2024-07-15 12:56 | DVH ---
Procedure: XY CHEST PORTABLE 07/15/2024 10:25 AM Indication: INCREASED WORK OF BREATHING Comparison: XY CHEST PORTABLE on DOS: 07/13/24, XY CHEST XRAY 1 VIEW on DOS: 07/12/24, XY CHEST XRAY 1 VIEW on DOS: 07/11/24 TECHNIQUE: XY CHEST PORTABLE FINDINGS: Medical devices: Right arm line extends to the right atrium. Cardiomediastinal: The heart is normal in size. Pulmonary vasculature is obscured by the adjacent pul monary opacities.. Lungs: Moderate to severe bilateral pulmonary opacities are seen. The costophrenic angles are clear. There is a thickening of the minor fissure. No pneumothorax. Bones/soft tissues: No acute abnormality is noted. IMPRESSION: 1. Moderate to severe bilateral alveolar and interstitial opacities may represent edema or pneumonia. Small effusion in the minor fissure noted.
--- NOTE | 2024-07-15 16:00 | DVHPN2 ---
Subjective in bed sedated Reviewed: Care Plan, H&P, Labs, Medications, Previous Orders, Radiology, Other (Consultations) Changes from previous H/P or p: No Changes Objective Vitals Vital Signs Date Time Temp Pulse Resp B/P (MAP) Pulse Ox O2 Delivery O2 Flow Rate FiO2 07/15/24 15:12 69 127/50 96 Facial BiPAP Mask 40 07/15/24 15:00 27 07/15/24 13:04 99.5 07/15/24 11:14 6.0 Intake/Output Intake and Output 07/15/24 05:00 Intake Total 1396 ml Output Total 1800 ml Balance -404 ml Intake Oral 0 ml IV Total 1396 ml Output Urine Total 1800 ml # Bowel Movements 11 General Appearance: Other (Intubated and sedated) HEENT: Atraumatic Lungs: Other (Mechanical ventilation breathing sounds) Cardiovascular: Regular rate, Normal S1, Normal S2 Abdomen: Other (Hypoactive bowel sounds) Genitourinary: Other (Farnsworth's) Neuro: Other (Sedated) Psych/Mental Status: Other (Sedated) Medications Current Medications Medications Dose Ordered Sig/Kandi Route Start Time Stop Time Status Last Admin Dose Admin Midazolam HCl 50 ml @ 1 mls/hr Q24H IV 06/28/24 10:45 07/13/24 08:48 2 MLS/HR Ondansetron HCl 4 mg Q4HP PRN IV 06/28/24 12:15 Norepinephrine Bitartrate 250 ml @ 3.75 mls/hr Q24H IV 06/28/24 13:30 06/30/24 15:13 3.75 MLS/HR Diagnostic Test (Pha) 1 strip Q6HR 06/29/24 18:00 07/15/24 12:03 1 STRIP Insulin Human Regular Q6HR SC 06/29/24 18:00 07/15/24 12:44 3 UNITS Dextrose 50 ml UD PRN IV 06/29/24 16:15 06/29/24 20:48 50 ML Artificial Tears 1 drop Q2HP PRN EACHEYE 06/30/24 13:45 07/14/24 09:20 1 DROP Acetaminophen 650 mg Q4HP PRN GT 07/01/24 11:30 Hold 07/11/24 17:57 650 MG Enteral Nutritional Formula 1,000 ml 50ML/HR GT 07/03/24 14:45 07/09/24 09:07 1,000 ML Hydralazine HCl 10 mg Q6HP PRN IV 07/04/24 10:30 07/15/24 11:29 10 MG Propofol 100 ml @ 2.004 mls/ hr Q24H IV 07/05/24 09:30 07/13/24 02:29 2.004 MLS/HR Sodium Chloride 10 ml QSHIFT@10,22 IV 07/05/24 22:00 07/15/24 09:38 10 ML Lorazepam 1 mg Q3HPRN PRN IV 07/07/24 11:15 07/15/24 11:58 1 MG Levetiracetam 100 ml @ 400 mls/hr BID IV 07/08/24 10:00 07/15/24 09:38 400 MLS/HR Fentanyl Citrate 250 ml @ 2.5 mls/hr Q24H IV 07/09/24 21:30 07/13/24 08:53 7.5 MLS/HR Famotidine 20 mg DAILY IV 07/11/24 10:00 07/15/24 08:25 20 MG Ceftriaxone Sodium/Dextrose 50 ml @ 50 mls/hr DAILY IV 07/11/24 10:00 07/15/24 09:38 50 MLS/HR Dexmedetomidine HCl 400 mcg/ Dextrose 100 ml @ 3.5 mls/hr Q24H IV 07/10/24 19:15 Fluconazole 100 ml @ 100 mls/hr DAILY IV 07/12/24 10:00 07/15/24 08:24 100 MLS/HR Furosemide 20 mg DAILY IV 07/13/24 10:00 07/15/24 08:24 20 MG Potassium Bicarbonate 25 meq DAILY GT 07/13/24 10:00 07/13/24 08:52 25 MEQ Acetaminophen 650 mg Q6HP PRN ND 07/13/24 20:30 07/15/24 12:04 650 MG Albuterol 2.5 mg Q4HPRN PRN NEB 07/13/24 20:30 07/13/24 21:02 2.5 MG Amino Acids 0 ml @ 0 mls/hr PER PHARMACY IV 07/14/24 14:45 Amino Acids/ Electrolytes/ Dextrose 1,000 ml @ 41 mls/hr DAILY@2200 IV 07/14/24 22:00 07/14/24 22:29 41 MLS/HR Albuterol 2.5 mg Q4HR NEB 07/15/24 18:00 Ipratropium [place] 0.5 mg Q4HR NEB 07/15/24 18:00 Laboratory Results Laboratory Tests 07/15/24 05:00 Chemistry Test 07/15/24 05:00 Albumin 3.0 g/dL (3.2-4.8) L Calcium Level 8.9 mg/dL (8.7-10.4) Magnesium Level 1.8 mg/dL (1.6-2.6) Phosphorus Level 2.7 mg/dL (2.4-5.1) Total Protein 5.7 g/dL (5.7-8.2) LFT Test 07/15/24 05:00 Alanine Aminotransferase (ALT) 38 U/L (7-40) Alkaline Phosphatase 59 U/L (46-116) Aspartate Amino Transferase (AST) 44 U/L (13-40) H Total Bilirubin 0.2 mg/dL (0.2-1.0) Urinalysis Test 06/28/24 10:56 07/04/24 18:00 Urine Color Light-yellow (Yellow) Urine Clarity Clear (Clear) Urine pH 5.0 (5.0-9.0) Urine Specific [place] 1.025 (1.001-1.035) Urine Protein Negative (Negative) Urine Ketones Negative (Negative) Urine Blood Negative /uL (Negative) Urine Nitrite Negative (Negative) Urine Bilirubin Negative (Negative) Urine Urobilinogen Normal mg/dL (Negative) Urine Leukocyte Esterase Trace /uL (Negative) Urine RBC 2 /hpf (0 - 3) Urine WBC 7 /hpf (0 - 3) Urine Squamous Epithelial Cells None seen /hpf (<5) Urine Bacteria None seen /hpf (None Seen) Urine Glucose 4+ mg/dL (Normal) H Urine Creatinine 90.22 mg/dL (30.0-125.0) Urine Microalbumin 83.0 mg/L (<30.0) H Urine Sodium 19 mmol/L (40-220) L Blood Gas Results Test 07/15/24 09:22 Arterial Blood pH 7.471 (7.350-7.450) FiO2 % 40.0 Microbiology Microbiology Date/Time Source Procedure Growth Status 07/07/24 10:57 Bronchial Washings Gram Stain - Final Complete 07/07/24 10:57 Respiratory Culture - Final Presumptive Keira albicans Complete 07/03/24 16:20 Blood Blood Culture - Final NO GROWTH AFTER 5 DAYS OF INCUBATION. Complete 07/03/24 11:24 Urine - [place] Urine Culture - Final Complete 06/29/24 12:51 Nose MRSA Screen - Final Complete Assessment/Plan Assessment/Plan Neurology: - Patient is Sedated # Metabolic Encephalopathy due to Type 2 diabetes with hyperosmolar hyperglycemic state # Seizure - CT Head on 10/02/23 shows: No acute intracranial abnormality. 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 Cardiovascular: # Hypertension Respiratory: # Acute hypoxic respiratory failure # Asthma # COPD Exacerbation -Currently on mechanical assisted ventilation since 06/28/2024 (On AC mode; RR 18, VT 450, PEEP 5, FiO2 35%) # Probable community-acquired pneumonia Gram-positive/Gram-negative -Currently on empiric antibiotic ceftriaxone -Sputum with Klebsiella pneumoniae - Continue ceftriaxone 1 gm to BID - Continue Fluconazole -Negative influenza and COVID serologies Gastrointestinal # Transaminitis Secondary to above Genitourinary/Nephrology #Acute kidney injury - Avoid nephrotoxic medication - Avoid Hypertension/Hypotension - nephrology consult Endocrinology: # Type 2 diabetes with hyperosmolar hyperglycemic state # uncontrolled diabetes mellitus type 2 Hemoglobin A1c: 12.4 Sliding scale insulin Monitor blood glucose level Metabolic: # Hyperkalemia. - resolved Infectious Disease # Hepatitis-C infection - follow up liver function Hematology Mild anemia due to chronic disease Follow up labs. Lines: [place] catheter 06/28/24 Endotracheal tube 06/28/24 PICC line 07/10/24 Drips Fentanyl 0 Versed 2 Propofol 0 NE 0 Patient was off sedation for C-PAP trail, CPAP trials Failed, Patient had fever, Patient was not follow ing commands DVT Prophy; Enoxaparin 40 mg subcutaneous daily GI Prophy; Protonix 40mg IV daily Critical Care time spent 96 minutes including CPAP trails, patient care, chart review and updating family, excluding procedure Plan discussed with: Other (nurse) My Orders Orders - MONICA DWYER MD Procedure Category Date Status Time Albuterol Medneb PHA 07/15/24 In Process (Ventolin Medneb) 18:00 Ipratropium Medneb PHA 07/15/24 In Process (Atrovent Medneb) 18:00 Date of Service: Jul 15, 2024 Billing Provider: MONICA DWYER MD Common Visit Codes: [id number] CARE 30-74 MIN MONICA DWYER MD Jul 15, 2024 16:00
[2024-07-15] MEDS: ALBUTEROL SULF 2.5 MG/0.5ML(0.5%) NEB SOLN NEB SCH (18:27)
[2024-07-15] MEDS: IPRATROPIUM BROM 0.5 MG/2.5ML INH SOL NEB SCH (18:27)
--- NOTE | 2024-07-15 22:42 | DVHPN2 ---
Progress Note - Dictate Date Seen: Jul 15, 2024 Medical Necessity Reason Pt with a Central, PICC or Fol: Yes The following are medically ne: PICC Line, Nelson Catheter Reason for nelson catheter: Strict I&O Subjective Patient seen and examined at bedside. On supplemental oxygen Overnight events reviewed. vital signs Vital Sign Date Time Temp Pulse Resp B/P (MAP) Pulse Ox O2 Delivery O2 Flow Rate FiO2 07/15/24 22:02 60 146/65 99 Facial BiPAP Mask 40 07/15/24 22:00 23 07/15/24 22:00 99.3 99.3 07/15/24 11:14 6.0 Total Intake and Output 07/14/24 07/14/24 07/15/24 15:00 23:00 07:00 Intake Total 750 ml 400 ml 328 ml Output Total 1100 ml 500 ml Balance 750 ml -700 ml -172 ml medications Current Medications Medications Dose Ordered Sig/Kandi Route Start Time Stop Time Status Last Admin Dose Admin Midazolam HCl 50 ml @ 1 mls/hr Q24H IV 06/28/24 10:45 07/13/24 08:48 2 MLS/HR Ondansetron HCl 4 mg Q4HP PRN IV 06/28/24 12:15 Norepinephrine Bitartrate 250 ml @ 3.75 mls/hr Q24H IV 06/28/24 13:30 06/30/24 15:13 3.75 MLS/HR Diagnostic Test (Pha) 1 strip Q6HR 06/29/24 18:00 07/15/24 17:48 1 STRIP Insulin Human Regular Q6HR SC 06/29/24 18:00 07/15/24 17:37 2 UNITS Dextrose 50 ml UD PRN IV 06/29/24 16:15 06/29/24 20:48 50 ML Artificial Tears 1 drop Q2HP PRN EACHEYE 06/30/24 13:45 07/14/24 09:20 1 DROP Acetaminophen 650 mg Q4HP PRN GT 07/01/24 11:30 Hold 07/11/24 17:57 650 MG Enteral Nutritional Formula 1,000 ml 50ML/HR GT 07/03/24 14:45 07/09/24 09:07 1,000 ML Hydralazine HCl 10 mg Q6HP PRN IV 07/04/24 10:30 07/15/24 11:29 10 MG Propofol 100 ml @ 2.004 mls/ hr Q24H IV 07/05/24 09:30 07/13/24 02:29 2.004 MLS/HR Sodium Chloride 10 ml QSHIFT@10,22 IV 07/05/24 22:00 07/15/24 21:52 10 ML Lorazepam 1 mg Q3HPRN PRN IV 07/07/24 11:15 07/15/24 17:33 1 MG Levetiracetam 100 ml @ 400 mls/hr BID IV 07/08/24 10:00 07/15/24 21:51 400 MLS/HR Fentanyl Citrate 250 ml @ 2.5 mls/hr Q24H IV 07/09/24 21:30 07/13/24 08:53 7.5 MLS/HR Famotidine 20 mg DAILY IV 07/11/24 10:00 07/15/24 08:25 20 MG Ceftriaxone Sodium/Dextrose 50 ml @ 50 mls/hr DAILY IV 07/11/24 10:00 07/15/24 09:38 50 MLS/HR Dexmedetomidine HCl 400 mcg/ Dextrose 100 ml @ 3.5 mls/hr Q24H IV 07/10/24 19:15 Fluconazole 100 ml @ 100 mls/hr DAILY IV 07/12/24 10:00 07/15/24 08:24 100 MLS/HR Furosemide 20 mg DAILY IV 07/13/24 10:00 07/15/24 08:24 20 MG Potassium Bicarbonate 25 meq DAILY GT 07/13/24 10:00 07/13/24 08:52 25 MEQ Acetaminophen 650 mg Q6HP PRN MD 07/13/24 20:30 07/15/24 17:33 650 MG Albuterol 2.5 mg Q4HPRN PRN NEB 07/13/24 20:30 07/13/24 21:02 2.5 MG Amino Acids 0 ml @ 0 mls/hr PER PHARMACY IV 07/14/24 14:45 Amino Acids/ Electrolytes/ Dextrose 1,000 ml @ 41 mls/hr DAILY@2200 IV 07/14/24 22:00 07/15/24 21:52 41 MLS/HR Albuterol 2.5 mg Q4HR NEB 07/15/24 18:00 07/15/24 22:01 2.5 MG Ipratropium [place] 0.5 mg Q4HR NEB 07/15/24 18:00 07/15/24 22:01 0.5 MG objective Gen.: Patient lying in bed in no apparent distress. On supplemental oxygen. Head: Normocephalic, atraumatic. Eyes: EOMI/PERRLA. Ears: Normal hearing. Normal anatomy. Neck/trachea: Trachea midline, supple. Nose: Normal external anatomy. Mouth: Moist mucous membranes. Chest: Decreased air entry bilaterally. No wheezing or rhonchi. Cardiovascular: Positive S1, positive S2. Regular rate and rhythm. Abdomen: Positive bowel sounds in all 4 quadrants. Soft, non-tender, non- distended. : Deferred. Rectal: Deferred. Skin: Warm, dry. Intact. Extremities: 2+ radial pulses bilaterally. No lower extremity edema. Neuro: Awake, alert, oriented x3. No gross motor or sensory deficits. Cranial nerves II through XII intact. Gait not assessed. laboratory and microbiology Laboratory Tests 07/15/24 05:00 Test 07/15/24 05:00 Range/Units Serum Glucose 161 H 74-106 mg/dL Assessment/Plan Impression: Acute hypoxic respiratory failure Shock Sepsis Pneumonia Seizures DM type II with HHS Events: On supplemental oxygen 6 LPM simple mask Taper O2 as tolerated. Thrombocytosis - platelets of 752 K. Monitor hemoglobin Head of bed elevation Aspiration precautions Increased work of breathing ABG reviewed, notable for slight alkalemia. CXR shows pulmonary edema, worsened. Received Lasix for diuresis. Start BiPAP w/ IPAP 12, EPAP 5, RR 12 due to respiratory distress and pulmonary edema. Continue antibiotics. Tube feeds for nutritional support Labs and imaging reviewed. Rest of plan as noted below. Plan: Start BiPAP w/ IPAP 12, EPAP 5, RR 12 due to respiratory distress and pulmonary edema. Off sedation Off pressors, hemodynamically stable. Accu-Cheks, ISS PRN. Continue antibiotics. Monitor renal function Monitor electrolytes. Supplement as necessary. Monitor ins and outs. Maintain euvolemia. GI prophylaxis. DVT prophylaxis. Prognosis: Poor given patient's multiple co-morbidities. Condition: Critical Rest of plan per hospitalist and other consultants. A total of 35 minutes of critical care time was spent reviewing the patient record, examining the patient, making a diagnostic and therapeutic plan, discussing this plan with the medical personnel, following up on diagnostic studies and following the patient for clinical stability excluding any and all procedures. At least 50% of this time was spent in direct, [id number] contact. Thank you Dr. Alvarez Fiore MD, for allowing me to participate in this patient's care. Further recommendations will depend on the patient's clinical course. Please do not hesitate to contact me if you have any questions or concerns. This medical document was created using an electronic medical record system with [employer] dictation system. Although these documentations are being carefully reviewed, there may still be some phonetic and typographical changes. The errors are purely typographical, due to imperfection on the software program, and do not reflect any compromise in the patient's medical care. Dietary Evaluation Review Comments: 1) Consider EN nutrition Glucerna 1.2 to 50ml/hr goal rate to meet pt needs 2) Advance pt diet when medically feasible to a CCHO 45g/2gNa diet 3) Continue current plan of care Expected Outcomes/Goals: 1) Pt to receive adequate nutrition 2) Pt diet to advance 3) F/U in 2-3 days Plan discussed with: Other (KIMMIE Saenz) Critical Care Time(min): 35 JUAN LUIS DOMINGUEZ MD Jul 15, 2024 22:42
[2024-07-16] VITALS (36 sets, daily range): BP systolic 119–176; BP diastolic 43–95; PULSE 51–83; RESP 12–29; TEMP 99.3–100.2; O2SAT 90–100
[2024-07-16 06:06] LABS: Basophils # (auto) 0.1 10 ^3/uL (0-0.2); Lymphocytes # (auto) 1.6 10 ^3/uL (0.4-5.4); Red Cell Distribution Width 13.3 % (11.8-14.3)
[2024-07-16 06:10] LABS: Alanine Aminotransferase 30 U/L (7-40); Alkaline Phosphatase 55 U/L (46-116); Anion Gap 7 (5-15); BUN/Creatinine Ratio 14.6 (10.0-20.0); Blood Urea Nitrogen 12 mg/dL (9-23); Calcium 8.9 mg/dL (8.7-10.4); Chloride 102 mmol/L (98-107); Eosinophils # (auto) 0.3 10 ^3/uL (0-0.8); Eosinophils % (auto) 3.1 % (0.0-7.0); Hemoglobin 8.6 g/dL (13.5-17.5); Lymphocytes % (auto) 14.9 % (10.0-50.0); Magnesium 1.7 mg/dL (1.6-2.6); Mean Corpuscular Hemoglobin 28.9 pg (28.0-32.0); Mean Corpuscular Hgb Conc. 33.2 g/dL (32.0-36.0); Monocytes # (auto) 1.2 10 ^3/uL (0-1.3); Monocytes % (auto) 10.6 % (0.0-12.0); Neutrophils # (auto) 7.8 10 ^3/uL (1.6-8.6); Neutrophils % (auto) 70.4 % (37.0-80.0); Nucleated Red Blood Cells % 0.1 %; Platelet Count (auto) 717 10^3/uL (140-450); Red Blood Cells 2.99 10^6/uL (4.5-5.90); Sodium 141 mmol/L (136-145)
[2024-07-16 06:11] LABS: Aspartate Aminotransferase 30 U/L (13-40)
[2024-07-16 06:12] LABS: Bilirubin, Total 0.2 mg/dL (0.2-1.0); Phosphorus 2.5 mg/dL (2.4-5.1)
[2024-07-16 06:20] LABS: Albumin 2.9 g/dL (3.2-4.8); Carbon Dioxide 32 mmol/L (20-31); Glucose 168 mg/dL (74-106); Potassium 3.4 mmol/L (3.5-5.1); Total Protein 5.6 g/dL (5.7-8.2)
--- NOTE | 2024-07-16 09:17 | DVH ---
CHEST RADIOGRAPH Indication: F/U ON PULMONARY OPACITIES Technique: Single frontal view of the chest was obtained COMPARISON: XY CHEST PORTABLE on DOS: 07/15/24 FINDINGS: Lines and Tubes: Right upper extremity PICC is in similar position with the tip near the superior cav oatrial junction. Lungs: Bilateral mixed interstitial / alveolar lung opacities which appear mildly improved compared t o 07/15/2024. Pleura: No effusion. No pneumothorax. Cardiomediastinal contours: Unremarkable Bones: Unremarkable IMPRESSION: Moderate bilateral mixed interstitial/alveolar opacities, mildly improved since 07/15/2024.
[2024-07-16] MEDS: FUROSEMIDE 40 MG/4 ML VIAL IV ONE (12:00)
[2024-07-16] MEDS: POTASSIUM CHL 20MEQ/100ML 100 ML IV SCH (12:01)
[2024-07-16] MEDS: ENOXAPARIN SOD 40 MG/0.4 ML SYRINGE SC SCH (13:04)
--- NOTE | 2024-07-16 19:34 | DVHPN2 ---
Progress Note - Dictate Date Seen: Jul 16, 2024 Medical Necessity Reason Pt with a Central, PICC or Fol: Yes The following are medically ne: PICC Line, Nelson Catheter Reason for nelson catheter: Strict I&O Subjective Patient seen and examined at bedside. On supplemental oxygen Overnight events reviewed. vital signs Vital Sign Date Time Temp Pulse Resp B/P (MAP) Pulse Ox O2 Delivery O2 Flow Rate FiO2 07/16/24 19:02 94 Nasal Cannula* 1 24 07/16/24 18:05 76 18 07/16/24 18:00 100.2 147/76 (99) 212.4 Total Intake and Output 07/15/24 07/15/24 07/16/24 15:00 23:00 07:00 Intake Total 878 ml 428 ml 328 ml Output Total 2450 ml 550 ml Balance 878 ml -2022 ml -222 ml medications Current Medications Medications Dose Ordered Sig/Kandi Route Start Time Stop Time Status Last Admin Dose Admin Midazolam HCl 50 ml @ 1 mls/hr Q24H IV 06/28/24 10:45 07/13/24 08:48 2 MLS/HR Ondansetron HCl 4 mg Q4HP PRN IV 06/28/24 12:15 Norepinephrine Bitartrate 250 ml @ 3.75 mls/hr Q24H IV 06/28/24 13:30 06/30/24 15:13 3.75 MLS/HR Diagnostic Test (Pha) 1 strip Q6HR 06/29/24 18:00 07/16/24 17:23 1 STRIP Insulin Human Regular Q6HR SC 06/29/24 18:00 07/16/24 17:23 3 UNITS Dextrose 50 ml UD PRN IV 06/29/24 16:15 06/29/24 20:48 50 ML Artificial Tears 1 drop Q2HP PRN EACHEYE 06/30/24 13:45 07/14/24 09:20 1 DROP Acetaminophen 650 mg Q4HP PRN GT 07/01/24 11:30 Hold 07/11/24 17:57 650 MG Enteral Nutritional Formula 1,000 ml 50ML/HR GT 07/03/24 14:45 07/09/24 09:07 1,000 ML Hydralazine HCl 10 mg Q6HP PRN IV 07/04/24 10:30 07/15/24 11:29 10 MG Propofol 100 ml @ 2.004 mls/ hr Q24H IV 07/05/24 09:30 07/13/24 02:29 2.004 MLS/HR Sodium Chloride 10 ml QSHIFT@10,22 IV 07/05/24 22:00 07/16/24 08:50 10 ML Lorazepam 1 mg Q3HPRN PRN IV 07/07/24 11:15 07/16/24 15:16 1 MG Levetiracetam 100 ml @ 400 mls/hr BID IV 07/08/24 10:00 07/16/24 08:49 400 MLS/HR Fentanyl Citrate 250 ml @ 2.5 mls/hr Q24H IV 07/09/24 21:30 07/13/24 08:53 7.5 MLS/HR Famotidine 20 mg DAILY IV 07/11/24 10:00 07/16/24 08:48 20 MG Ceftriaxone Sodium/Dextrose 50 ml @ 50 mls/hr DAILY IV 07/11/24 10:00 07/16/24 08:49 50 MLS/HR Dexmedetomidine HCl 400 mcg/ Dextrose 100 ml @ 3.5 mls/hr Q24H IV 07/10/24 19:15 Fluconazole 100 ml @ 100 mls/hr DAILY IV 07/12/24 10:00 07/16/24 08:49 100 MLS/HR Furosemide 20 mg DAILY IV 07/13/24 10:00 07/16/24 08:48 20 MG Potassium Bicarbonate 25 meq DAILY GT 07/13/24 10:00 07/13/24 08:52 25 MEQ Acetaminophen 650 mg Q6HP PRN MI 07/13/24 20:30 07/16/24 16:25 650 MG Albuterol 2.5 mg Q4HPRN PRN NEB 07/13/24 20:30 07/13/24 21:02 2.5 MG Amino Acids 0 ml @ 0 mls/hr PER PHARMACY IV 07/14/24 14:45 Amino Acids/ Electrolytes/ Dextrose 1,000 ml @ 41 mls/hr DAILY@2200 IV 07/14/24 22:00 07/15/24 21:52 41 MLS/HR Albuterol 2.5 mg Q4HR NEB 07/15/24 18:00 07/16/24 17:58 2.5 MG Ipratropium [place] 0.5 mg Q4HR NEB 07/15/24 18:00 07/16/24 17:58 0.5 MG Enoxaparin Sodium 40 mg DAILY SC 07/16/24 12:30 07/16/24 13:04 40 MG objective Gen.: Patient lying in bed in no apparent distress. On supplemental oxygen. Head: Normocephalic, atraumatic. Eyes: EOMI/PERRLA. Ears: Normal hearing. Normal anatomy. Neck/trachea: Trachea midline, supple. Nose: Normal external anatomy. Mouth: Moist mucous membranes. Chest: Decreased air entry bilaterally. No wheezing or rhonchi. Cardiovascular: Positive S1, positive S2. Regular rate and rhythm. Abdomen: Positive bowel sounds in all 4 quadrants. Soft, non-tender, non- distended. : Deferred. Rectal: Deferred. Skin: Warm, dry. Intact. Extremities: 2+ radial pulses bilaterally. No lower extremity edema. Neuro: Awake, alert, oriented x3. No gross motor or sensory deficits. Cranial nerves II through XII intact. Gait not assessed. laboratory and microbiology Laboratory Tests 07/16/24 05:12 Test 07/16/24 05:12 Range/Units Serum Glucose 168 H 74-106 mg/dL Assessment/Plan Impression: Acute hypoxic respiratory failure Shock Sepsis Pneumonia Seizures DM type II with HHS Events: On supplemental oxygen 2 LPM NC. Taper O2 as tolerated. CXR demonstrates moderate bilateral mixed interstitial/alveolar opacities, mildly improved. ABG reviewed, notable for slight alkalemia. Patient passed swallow eval. Continue antibiotics Incentive spirometry Thrombocytosis - platelets of 717 K. Monitor hemoglobin Head of bed elevation Aspiration precautions Tube feeds for nutritional support Labs and imaging reviewed. Rest of plan as noted below. Plan: Supplemental oxygen Titrate to keep O2 sats above 92%. Off sedation Off pressors, hemodynamically stable. Accu-Cheks, ISS PRN. Continue antibiotics. Monitor renal function Monitor electrolytes. Supplement as necessary. Monitor ins and outs. Maintain euvolemia. Monitor platelet count. GI prophylaxis. DVT prophylaxis. Prognosis: Poor given patient's multiple co-morbidities. Condition: Critical Rest of plan per hospitalist and other consultants. A total of 35 minutes of critical care time was spent reviewing the patient record, examining the patient, making a diagnostic and therapeutic plan, discussing this plan with the medical personnel, following up on diagnostic studies and following the patient for clinical stability excluding any and all procedures. At least 50% of this time was spent in direct, [id number] contact. Thank you Dr. Alvarez Fiore MD, for allowing me to participate in this patient's care. Further recommendations will depend on the patient's clinical course. Please do not hesitate to contact me if you have any questions or concerns. This medical document was created using an electronic medical record system with [employer]flux dictation system. Although these documentations are being carefully reviewed, there may still be some phonetic and typographical changes. The errors are purely typographical, due to imperfection on the software program, and do not reflect any compromise in the patient's medical care. Dietary Evaluation Review Comments: 1) Consider EN nutrition Glucerna 1.2 to 50ml/hr goal rate to meet pt needs 2) Advance pt diet when medically feasible to a CCHO 45g/2gNa diet 3) Continue current plan of care Expected Outcomes/Goals: 1) Pt to receive adequate nutrition 2) Pt diet to advance 3) F/U in 2-3 days Plan discussed with: Other (KIMMIE Saenz) Critical Care Time(min): 35 JUAN LUIS DOMINGUEZ MD Jul 16, 2024 19:34
--- NOTE | 2024-07-16 20:49 | DVHPN2 ---
Subjective in bed sedated Reviewed: Care Plan, H&P, Labs, Medications, Previous Orders, Radiology, Other (Consultations) Changes from previous H/P or p: No Changes Objective Vitals Vital Signs Date Time Temp Pulse Resp B/P (MAP) Pulse Ox O2 Delivery O2 Flow Rate FiO2 07/16/24 20:00 76 17 93 Nasal Cannula* 2 28 07/16/24 20:00 120/55 (76) 07/16/24 19:00 100.2 212.4 Intake/Output Intake and Output 07/16/24 05:00 Intake Total 1634 ml Output Total 2950 ml Balance -1316 ml Intake Oral 0 ml IV Total 1634 ml Output Urine Total 2950 ml General Appearance: Other (Intubated and sedated) HEENT: Atraumatic Lungs: Other (Mechanical ventilation breathing sounds) Cardiovascular: Regular rate, Normal S1, Normal S2 Abdomen: Other (Hypoactive bowel sounds) Genitourinary: Other ([place]) Neuro: Other (Sedated) Psych/Mental Status: Other (Sedated) Medications Current Medications Medications Dose Ordered Sig/Kandi Route Start Time Stop Time Status Last Admin Dose Admin Midazolam HCl 50 ml @ 1 mls/hr Q24H IV 06/28/24 10:45 07/13/24 08:48 2 MLS/HR Ondansetron HCl 4 mg Q4HP PRN IV 06/28/24 12:15 Norepinephrine Bitartrate 250 ml @ 3.75 mls/hr Q24H IV 06/28/24 13:30 06/30/24 15:13 3.75 MLS/HR Diagnostic Test (Pha) 1 strip Q6HR 06/29/24 18:00 07/16/24 17:23 1 STRIP Insulin Human Regular Q6HR SC 06/29/24 18:00 07/16/24 17:23 3 UNITS Dextrose 50 ml UD PRN IV 06/29/24 16:15 06/29/24 20:48 50 ML Artificial Tears 1 drop Q2HP PRN EACHEYE 06/30/24 13:45 07/14/24 09:20 1 DROP Acetaminophen 650 mg Q4HP PRN GT 07/01/24 11:30 Hold 07/11/24 17:57 650 MG Enteral Nutritional Formula 1,000 ml 50ML/HR GT 07/03/24 14:45 07/09/24 09:07 1,000 ML Hydralazine HCl 10 mg Q6HP PRN IV 07/04/24 10:30 07/15/24 11:29 10 MG Propofol 100 ml @ 2.004 mls/ hr Q24H IV 07/05/24 09:30 07/13/24 02:29 2.004 MLS/HR Sodium Chloride 10 ml QSHIFT@10,22 IV 07/05/24 22:00 07/16/24 08:50 10 ML Lorazepam 1 mg Q3HPRN PRN IV 07/07/24 11:15 07/16/24 15:16 1 MG Levetiracetam 100 ml @ 400 mls/hr BID IV 07/08/24 10:00 07/16/24 08:49 400 MLS/HR Fentanyl Citrate 250 ml @ 2.5 mls/hr Q24H IV 07/09/24 21:30 07/13/24 08:53 7.5 MLS/HR Famotidine 20 mg DAILY IV 07/11/24 10:00 07/16/24 08:48 20 MG Ceftriaxone Sodium/Dextrose 50 ml @ 50 mls/hr DAILY IV 07/11/24 10:00 07/16/24 08:49 50 MLS/HR Dexmedetomidine HCl 400 mcg/ Dextrose 100 ml @ 3.5 mls/hr Q24H IV 07/10/24 19:15 Fluconazole 100 ml @ 100 mls/hr DAILY IV 07/12/24 10:00 07/16/24 08:49 100 MLS/HR Furosemide 20 mg DAILY IV 07/13/24 10:00 07/16/24 08:48 20 MG Potassium Bicarbonate 25 meq DAILY GT 07/13/24 10:00 07/13/24 08:52 25 MEQ Acetaminophen 650 mg Q6HP PRN MD 07/13/24 20:30 07/16/24 16:25 650 MG Albuterol 2.5 mg Q4HPRN PRN NEB 07/13/24 20:30 07/13/24 21:02 2.5 MG Amino Acids 0 ml @ 0 mls/hr PER PHARMACY IV 07/14/24 14:45 Amino Acids/ Electrolytes/ Dextrose 1,000 ml @ 41 mls/hr DAILY@2200 IV 07/14/24 22:00 07/15/24 21:52 41 MLS/HR Albuterol 2.5 mg Q4HR NEB 07/15/24 18:00 07/16/24 17:58 2.5 MG Ipratropium [place] 0.5 mg Q4HR NEB 07/15/24 18:00 07/16/24 17:58 0.5 MG Enoxaparin Sodium 40 mg DAILY SC 07/16/24 12:30 07/16/24 13:04 40 MG Laboratory Results Laboratory Tests 07/16/24 05:12 Chemistry Test 07/16/24 05:12 Albumin 2.9 g/dL (3.2-4.8) L Calcium Level 8.9 mg/dL (8.7-10.4) Magnesium Level 1.7 mg/dL (1.6-2.6) Phosphorus Level 2.5 mg/dL (2.4-5.1) Total Protein 5.6 g/dL (5.7-8.2) L LFT Test 07/16/24 05:12 Alanine Aminotransferase (ALT) 30 U/L (7-40) Alkaline Phosphatase 55 U/L (46-116) Aspartate Amino Transferase (AST) 30 U/L (13-40) Total Bilirubin 0.2 mg/dL (0.2-1.0) Urinalysis Test 06/28/24 10:56 07/04/24 18:00 Urine Color Light-yellow (Yellow) Urine Clarity Clear (Clear) Urine pH 5.0 (5.0-9.0) Urine Specific [place] 1.025 (1.001-1.035) Urine Protein Negative (Negative) Urine Ketones Negative (Negative) Urine Blood Negative /uL (Negative) Urine Nitrite Negative (Negative) Urine Bilirubin Negative (Negative) Urine Urobilinogen Normal mg/dL (Negative) Urine Leukocyte Esterase Trace /uL (Negative) Urine RBC 2 /hpf (0 - 3) Urine WBC 7 /hpf (0 - 3) Urine Squamous Epithelial Cells None seen /hpf (<5) Urine Bacteria None seen /hpf (None Seen) Urine Glucose 4+ mg/dL (Normal) H Urine Creatinine 90.22 mg/dL (30.0-125.0) Urine Microalbumin 83.0 mg/L (<30.0) H Urine Sodium 19 mmol/L (40-220) L Microbiology Microbiology Date/Time Source Procedure Growth Status 07/07/24 10:57 Bronchial Washings Gram Stain - Final Complete 07/07/24 10:57 Respiratory Culture - Final Presumptive Keira albicans Complete 07/03/24 16:20 Blood Blood Culture - Final NO GROWTH AFTER 5 DAYS OF INCUBATION. Complete 07/03/24 11:24 Urine - [place] Urine Culture - Final Complete 06/29/24 12:51 Nose MRSA Screen - Final Complete Assessment/Plan Assessment/Plan Neurology: - Patient is Sedated # Metabolic Encephalopathy due to Type 2 diabetes with hyperosmolar hyperglycemic state # Seizure - CT Head on 10/02/23 shows: No acute intracranial abnormality. 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 Cardiovascular: # Hypertension Respiratory: # Acute hypoxic respiratory failure # Asthma # COPD Exacerbation -Currently on mechanical assisted ventilation since 06/28/2024 (On AC mode; RR 18, VT 450, PEEP 5, FiO2 35%) # Probable community-acquired pneumonia Gram-positive/Gram-negative -Currently on empiric antibiotic ceftriaxone -Sputum with Klebsiella pneumoniae - Continue ceftriaxone 1 gm to BID - Continue Fluconazole -Negative influenza and COVID serologies Gastrointestinal # Transaminitis Secondary to above Genitourinary/Nephrology #Acute kidney injury - Avoid nephrotoxic medication - Avoid Hypertension/Hypotension - nephrology consult Endocrinology: # Type 2 diabetes with hyperosmolar hyperglycemic state # uncontrolled diabetes mellitus type 2 Hemoglobin A1c: 12.4 Sliding scale insulin Monitor blood glucose level Metabolic: # Hyperkalemia. - resolved Infectious Disease # Hepatitis-C infection - follow up liver function Hematology Mild anemia due to chronic disease Follow up labs. Lines: [place] catheter 06/28/24 Endotracheal tube 06/28/24 PICC line 07/10/24 Drips Fentanyl 0 Versed 2 Propofol 0 NE 0 Patient was off sedation for C-PAP trail, CPAP trials Failed, Patient had fever, Patient was not follow ing commands DVT Prophy; Enoxaparin 40 mg subcutaneous daily GI Prophy; Protonix 40mg IV daily Critical Care time spent 96 minutes including CPAP trails, patient care, chart review and updating family, excluding procedure Plan discussed with: Other (nurse) My Orders Orders - MONICA DWYER MD Procedure Category Date Status Time * Swallow Request ST 07/16/24 Transmitted 11:06 Enoxaparin Sodium PHA 07/16/24 In Process (Lovenox) 12:30 Consistent DIET 07/16/24 Transmitted Carb(Ccho)Diabetes Dinner Pureed DIET 07/16/24 Transmitted Dinner Date of Service: Jul 16, 2024 Billing Provider: MONICA DWYER MD Common Visit Codes: [id number] CARE 30-74 MIN MONICA DWYER MD Jul 16, 2024 20:49
[2024-07-17] VITALS (41 sets, daily range): BP systolic 131–194; BP diastolic 52–113; PULSE 62–82; RESP 12–38; TEMP 98–100; O2SAT 91–100
[2024-07-17 05:10] LABS: Basophils # (auto) 0.1 10 ^3/uL (0-0.2); Basophils % (auto) 1.2 % (0.0-2.0); Hemoglobin 8.2 g/dL (13.5-17.5); White Blood Cell 9.8 10^3/uL (4.4-10.8)
[2024-07-17 05:12] LABS: Eosinophils # (auto) 0.5 10 ^3/uL (0-0.8); Eosinophils % (auto) 5.1 % (0.0-7.0); Lymphocytes # (auto) 1.7 10 ^3/uL (0.4-5.4); Lymphocytes % (auto) 17.9 % (10.0-50.0); Mean Corpuscular Hemoglobin 29.5 pg (28.0-32.0); Mean Corpuscular Hgb Conc. 34.3 g/dL (32.0-36.0); Monocytes # (auto) 1.2 10 ^3/uL (0-1.3); Monocytes % (auto) 12.1 % (0.0-12.0); Neutrophils # (auto) 6.2 10 ^3/uL (1.6-8.6); Neutrophils % (auto) 63.7 % (37.0-80.0); Platelet Count (auto) 611 10^3/uL (140-450); Red Blood Cells 2.79 10^6/uL (4.5-5.90); Red Cell Distribution Width 13.3 % (11.8-14.3)
[2024-07-17 05:22] LABS: Anion Gap 6 (5-15); Chloride 101 mmol/L (98-107); Sodium 140 mmol/L (136-145)
[2024-07-17 05:23] LABS: Calcium 8.7 mg/dL (8.7-10.4)
[2024-07-17 05:28] LABS: BUN/Creatinine Ratio 14.9 (10.0-20.0); Blood Urea Nitrogen 11 mg/dL (9-23)
[2024-07-17 05:30] LABS: Carbon Dioxide 33 mmol/L (20-31); Glucose 138 mg/dL (74-106); Potassium 3.3 mmol/L (3.5-5.1)
--- NOTE | 2024-07-17 07:56 | DVHPNRES ---
Progress Note Date Seen: Jul 17, 2024 Resident Creating Document: BRANDON SUI RESIDENT Medical Necessity Reason Pt with a Central, PICC or Fol: Yes The following are medically ne: PICC Line, Nelson Catheter Reason for nelson catheter: Strict I&O Subjective Review of Systems 64 yo with stated history CKD, Asthma, DM, COPD, HTN and seizure disorder came into the ED with stated change in mentation patient in the ED was acidic and altered unable to protect airway and stated to have sugars over 1000 source of cause is unknown history can not be fully obtained patient is intubated sedated suspected that possible breakthrough seizures in the setting [facility] vs [facility] with diabetic coma Patient seen and examined at bedside. Patient extubated on 07/13/2024, On supplemental oxygen, Overnight events reviewed. Objective vital signs Vital Sign Date Time Temp Pulse Resp B/P (MAP) Pulse Ox O2 Delivery O2 Flow Rate FiO2 07/17/24 06:36 67 20 100 07/17/24 06:30 Nasal Cannula* 2 28 07/17/24 06:00 100.0 151/67 (95) 212.0 Total Intake and Output 07/16/24 07/16/24 07/17/24 15:00 23:00 07:00 Intake Total 678 ml 588 ml 487 ml Output Total 2900 ml 800 ml Balance 678 ml -2312 ml -313 ml medications Current Medications Medications Dose Ordered Sig/Kandi Route Start Time Stop Time Status Last Admin Dose Admin Midazolam HCl 50 ml @ 1 mls/hr Q24H IV 06/28/24 10:45 07/13/24 08:48 2 MLS/HR Ondansetron HCl 4 mg Q4HP PRN IV 06/28/24 12:15 Norepinephrine Bitartrate 250 ml @ 3.75 mls/hr Q24H IV 06/28/24 13:30 06/30/24 15:13 3.75 MLS/HR Diagnostic Test (Pha) 1 strip Q6HR 06/29/24 18:00 07/17/24 05:58 1 STRIP Insulin Human Regular Q6HR SC 06/29/24 18:00 07/17/24 05:58 2 UNITS Dextrose 50 ml UD PRN IV 06/29/24 16:15 06/29/24 20:48 50 ML Artificial Tears 1 drop Q2HP PRN EACHEYE 06/30/24 13:45 07/14/24 09:20 1 DROP Acetaminophen 650 mg Q4HP PRN GT 07/01/24 11:30 Hold 07/11/24 17:57 650 MG Enteral Nutritional Formula 1,000 ml 50ML/HR GT 07/03/24 14:45 07/09/24 09:07 1,000 ML Hydralazine HCl 10 mg Q6HP PRN IV 07/04/24 10:30 07/15/24 11:29 10 MG Sodium Chloride 10 ml QSHIFT@10,22 IV 07/05/24 22:00 07/16/24 21:48 10 ML Lorazepam 1 mg Q3HPRN PRN IV 07/07/24 11:15 07/17/24 02:49 1 MG Levetiracetam 100 ml @ 400 mls/hr BID IV 07/08/24 10:00 07/16/24 21:47 400 MLS/HR Fentanyl Citrate 250 ml @ 2.5 mls/hr Q24H IV 07/09/24 21:30 07/13/24 08:53 7.5 MLS/HR Famotidine 20 mg DAILY IV 07/11/24 10:00 07/16/24 08:48 20 MG Ceftriaxone Sodium/Dextrose 50 ml @ 50 mls/hr DAILY IV 07/11/24 10:00 07/16/24 08:49 50 MLS/HR Dexmedetomidine HCl 400 mcg/ Dextrose 100 ml @ 3.5 mls/hr Q24H IV 07/10/24 19:15 Fluconazole 100 ml @ 100 mls/hr DAILY IV 07/12/24 10:00 07/16/24 08:49 100 MLS/HR Furosemide 20 mg DAILY IV 07/13/24 10:00 07/16/24 08:48 20 MG Potassium Bicarbonate 25 meq DAILY GT 07/13/24 10:00 07/13/24 08:52 25 MEQ Acetaminophen 650 mg Q6HP PRN NV 07/13/24 20:30 07/16/24 16:25 650 MG Albuterol 2.5 mg Q4HPRN PRN NEB 07/13/24 20:30 07/13/24 21:02 2.5 MG Amino Acids 0 ml @ 0 mls/hr PER PHARMACY IV 07/14/24 14:45 Amino Acids/ Electrolytes/ Dextrose 1,000 ml @ 41 mls/hr DAILY@2200 IV 07/14/24 22:00 07/16/24 21:48 41 MLS/HR Albuterol 2.5 mg Q4HR NEB 07/15/24 18:00 07/17/24 06:27 2.5 MG Ipratropium [place] 0.5 mg Q4HR NEB 07/15/24 18:00 07/17/24 06:27 0.5 MG Enoxaparin Sodium 40 mg DAILY SC 07/16/24 12:30 07/16/24 13:04 40 MG Examination General: Patient is on mild stress, supplemental oxygen, 2 L Cardiovascular: Normal S1 and S2. No murmurs, gallops or rubs Respiratory: Mechanically assisted ventilation, equal bilateral airway entree. Clear lung sounds on auscultation Abdomen: Soft, nontender, no organomegaly, normal bowel sounds MSK/skin: Mobilization of limbs cannot be evaluated. Skin is dry and warm. PICC on right arm Neurological: Patient is alert and orientedX 3 laboratory and microbiology Laboratory Tests 07/17/24 04:30 Test 07/17/24 04:30 Range/Units Serum Glucose 138 H 74-106 mg/dL Microbiology Date/Time Source Procedure Growth Status 07/07/24 10:57 Bronchial Washings Gram Stain - Final Complete 07/07/24 10:57 Respiratory Culture - Final Presumptive Keira albicans Complete 07/03/24 16:20 Blood Blood Culture - Final NO GROWTH AFTER 5 DAYS OF INCUBATION. Complete 07/03/24 11:24 Urine - [place] Urine Culture - Final Complete 06/29/24 12:51 Nose MRSA Screen - Final Complete Problem List/Assessment/Plan Problem List/Assessment/Plan Neurology: - patient is extubated today # Metabolic Encephalopathy due to Type 2 diabetes with hyperosmolar hyperglycemic state # Seizure # Chronic Stroke - CT Head on 10/02/23 shows: No acute intracranial abnormality. 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 Cardiovascular: # Hypertension - BP monitor Respiratory: # Acute hypoxic respiratory failure # Asthma # COPD Exacerbation -Currently on 2 L oxygen with nasal cannula # Probable community-acquired pneumonia Gram-positive/Gram-negative - Repeat CXR on 07/16/24 shows: Moderate bilateral mixed interstitial/alveolar opacities, mildly improved since 07/15/2024. -Currently on empiric antibiotic ceftriaxone -Sputum with Klebsiella pneumoniae - Continue ceftriaxone 1 gm to BID - Continue Fluconazole -Negative influenza and COVID serologies Gastrointestinal # Transaminitis Secondary to above Genitourinary/Nephrology #Acute kidney injury - Avoid nephrotoxic medication - Avoid Hypertension/Hypotension - nephrology consult Endocrinology: # Type 2 diabetes with hyperosmolar hyperglycemic state # uncontrolled diabetes mellitus type 2 Hemoglobin A1c: 12.4 Sliding scale insulin Monitor blood glucose level Metabolic: # Hyperkalemia. - resolved Infectious Disease # Hepatitis-C infection - follow up liver function Hematology # Thrombocytosis - improving - platelets of today 611 K. # Mild anemia due to chronic disease Follow up labs. Lines: Nelson catheter 06/28/24 PICC line 07/10/24 DVT Prophy; Enoxaparin 40 mg subcutaneous daily GI Prophy; Famotidine 20mg daily Patient is downgraded to TELE Critical Care time spent 41 minutes including, patient care, chart review and updating family, excluding procedure Case discussed with Dr Quiñones Plan discussed with: Patient Dietary Evaluation Review Comments: 1) Consider EN nutrition Glucerna 1.2 to 50ml/hr goal rate to meet pt needs 2) Advance pt diet when medically feasible to a CCHO 45g/2gNa diet 3) Continue current plan of care Expected Outcomes/Goals: 1) Pt to receive adequate nutrition 2) Pt diet to advance 3) F/U in 2-3 days Date of Service: Jul 17, 2024 Billing Provider: BALTAZAR QUIÑONES MD Common Visit Codes: [id number] CARE 30-74 MIN BRANDON SIU RESIDENT Jul 17, 2024 07:56 BALTAZAR QUIÑONES MD Jul 18, 2024 16:34
[2024-07-17] MEDS: POTASSIUM EFFERVESENT TAB 25 MEQ PO ONE (08:00)
[2024-07-17] MEDS: FAMOTIDINE 20 MG TAB PO SCH (09:49)
[2024-07-17] MEDS ORDERED: ENOXAPARIN SOD 40 MG/0.4 ML SYRINGE SC SCH (12:00)
[2024-07-17] MEDS: POTASSIUM CHL 20MEQ/100ML 100 ML IV SCH (13:10)
[2024-07-18] VITALS (23 sets, daily range): BP systolic 117–162; BP diastolic 63–75; PULSE 62–80; RESP 18–21; TEMP 98.2–100.2; O2SAT 94–100
--- NOTE | 2024-07-18 04:54 | DVH ---
CHEST RADIOGRAPH Indication: Pulmo Congestion Technique: Single frontal view of the chest was obtained COMPARISON: XY CHEST PORTABLE on DOS: 07/16/24, XY CHEST PORTABLE on DOS: 07/15/24, XY CHEST PORTABLE o n DOS: 07/13/24 FINDINGS: Lines and Tubes: Left chest wall AICD Lungs: Congestion Pleura: No effusion. No pneumothorax. Cardiomediastinal contours: Cardiomegaly Bones: Unremarkable IMPRESSION: Pulmonary vascular congestion.
[2024-07-18 07:40] LABS: Alanine Aminotransferase 27 U/L (7-40); Alkaline Phosphatase 57 U/L (46-116); Anion Gap 8 (5-15); Aspartate Aminotransferase 28 U/L (13-40); BUN/Creatinine Ratio 12.9 (10.0-20.0); Blood Urea Nitrogen 11 mg/dL (9-23); Calcium 9.1 mg/dL (8.7-10.4); Carbon Dioxide 27 mmol/L (20-31); Chloride 104 mmol/L (98-107); Magnesium 1.6 mg/dL (1.6-2.6); Potassium 4.1 mmol/L (3.5-5.1); Sodium 139 mmol/L (136-145)
[2024-07-18 07:41] LABS: Bilirubin, Total 0.2 mg/dL (0.2-1.0)
[2024-07-18 07:43] LABS: Albumin 2.9 g/dL (3.2-4.8); Glucose 157 mg/dL (74-106); Total Protein 5.5 g/dL (5.7-8.2)
--- NOTE | 2024-07-18 12:36 | DVHPNRES ---
Progress Note Date Seen: Jul 18, 2024 Resident Creating Document: BRANDON SIU RESIDENT Medical Necessity Reason Pt with a Central, PICC or Fol: Yes The following are medically ne: PICC Line, Nelson Catheter Reason for nelson catheter: Strict I&O Subjective Review of Systems 64 yo with stated history CKD, Asthma, DM, COPD, HTN and seizure disorder came into the ED with stated change in mentation patient in the ED was acidic and altered unable to protect airway and stated to have sugars over 1000 source of cause is unknown history can not be fully obtained patient is intubated sedated suspected that possible breakthrough seizures in the setting [facility] with diabetic coma Patient seen and examined at bedside. Patient extubated on 07/13/2024, On supplemental oxygen, Overnight events reviewed. Objective vital signs Vital Sign Date Time Temp Pulse Resp B/P (MAP) Pulse Ox O2 Delivery O2 Flow Rate FiO2 07/18/24 10:07 96 Nasal Cannula 1.0 07/18/24 10:05 62 18 07/18/24 10:00 141/74 07/18/24 09:00 98.6 98.6 07/18/24 06:00 24 Total Intake and Output 07/17/24 07/17/24 07/18/24 15:00 23:00 07:00 Intake Total 678 ml 100 ml 250 ml Output Total 1250 ml Balance 678 ml 100 ml -1000 ml medications Current Medications Medications Dose Ordered Sig/Kandi Route Start Time Stop Time Status Last Admin Dose Admin Ondansetron HCl 4 mg Q4HP PRN IV 06/28/24 12:15 Diagnostic Test (Pha) 1 strip Q6HR 06/29/24 18:00 07/18/24 06:01 1 STRIP Insulin Human Regular Q6HR SC 06/29/24 18:00 07/18/24 06:01 3 UNITS Dextrose 50 ml UD PRN IV 06/29/24 16:15 06/29/24 20:48 50 ML Artificial Tears 1 drop Q2HP PRN EACHEYE 06/30/24 13:45 07/14/24 09:20 1 DROP Acetaminophen 650 mg Q4HP PRN GT 07/01/24 11:30 Hold 07/11/24 17:57 650 MG Hydralazine HCl 10 mg Q6HP PRN IV 07/04/24 10:30 07/17/24 16:33 10 MG Sodium Chloride 10 ml QSHIFT@10,22 IV 07/05/24 22:00 07/18/24 10:00 10 ML Lorazepam 1 mg Q3HPRN PRN IV 07/07/24 11:15 07/17/24 02:49 1 MG Levetiracetam 100 ml @ 400 mls/hr BID IV 07/08/24 10:00 07/18/24 10:00 400 MLS/HR Ceftriaxone Sodium/Dextrose 50 ml @ 50 mls/hr DAILY IV 07/11/24 10:00 07/18/24 10:00 50 MLS/HR Fluconazole 100 ml @ 100 mls/hr DAILY IV 07/12/24 10:00 07/18/24 10:00 100 MLS/HR Furosemide 20 mg DAILY IV 07/13/24 10:00 07/18/24 10:00 20 MG Acetaminophen 650 mg Q6HP PRN ME 07/13/24 20:30 07/16/24 16:25 650 MG Albuterol 2.5 mg Q4HPRN PRN NEB 07/13/24 20:30 07/13/24 21:02 2.5 MG Albuterol 2.5 mg Q4HR NEB 07/15/24 18:00 07/18/24 10:05 2.5 MG Ipratropium [place] 0.5 mg Q4HR NEB 07/15/24 18:00 07/18/24 10:05 0.5 MG Enoxaparin Sodium 40 mg DAILY SC 07/16/24 12:30 07/18/24 10:00 40 MG Famotidine 20 mg DAILY PO 07/17/24 10:00 Examination General: Patient is not in distress, supplemental oxygen, 1 L Cardiovascular: Normal S1 and S2. No murmurs, gallops or rubs Respiratory: Mechanically assisted ventilation, equal bilateral airway entree. Clear lung sounds on auscultation Abdomen: Soft, nontender, no organomegaly, normal bowel sounds MSK/skin: Mobilization of limbs cannot be evaluated. Skin is dry and warm. PICC on right arm Neurological: Patient is alert and oriented X 3 laboratory and microbiology Laboratory Tests 07/18/24 06:28 07/17/24 04:30 Test 07/18/24 06:28 Range/Units Serum Glucose 157 H 74-106 mg/dL Microbiology Date/Time Source Procedure Growth Status 11/29/24 10:57 Bronchial Washings Gram Stain - Final Complete 07/07/24 10:57 Respiratory Culture - Final Presumptive Keira albicans Complete 07/03/24 16:20 Blood Blood Culture - Final NO GROWTH AFTER 5 DAYS OF INCUBATION. Complete 07/03/24 11:24 Urine - [place] Urine Culture - Final Complete 06/29/24 12:51 Nose MRSA Screen - Final Complete Problem List/Assessment/Plan Problem List/Assessment/Plan Neurology: - patient is extubated today # Metabolic Encephalopathy due to Type 2 diabetes with hyperosmolar hyperglycemic state # Seizure # Chronic Stroke - CT Head on 10/02/23 shows: No acute intracranial abnormality. 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 Cardiovascular: # Hypertension - BP monitor Respiratory: # Acute hypoxic respiratory failure # Asthma # COPD Exacerbation -Currently on 1 L oxygen with nasal cannula # Probable community-acquired pneumonia Gram-positive/Gram-negative - Repeat CXR on 07/16/24 shows: Moderate bilateral mixed interstitial/alveolar opacities, mildly improved since 07/15/2024. -Currently on empiric antibiotic ceftriaxone -Sputum with Klebsiella pneumoniae - Switched Abx to PO Levaquin 500 mg daily. -Negative influenza and COVID serologies Gastrointestinal # Transaminitis Secondary to above Genitourinary/Nephrology #Acute kidney injury - Avoid nephrotoxic medication - Avoid Hypertension/Hypotension - nephrology consult Endocrinology: # Type 2 diabetes with hyperosmolar hyperglycemic state # uncontrolled diabetes mellitus type 2 Hemoglobin A1c: 12.4 Sliding scale insulin Monitor blood glucose level Metabolic: # Hyperkalemia. - resolved Infectious Disease # Hepatitis-C infection - follow up liver function Hematology # Thrombocytosis - improving - platelets of today 611 K. # Mild anemia due to chronic disease Follow up labs. DVT Prophy; Enoxaparin 40 mg subcutaneous daily GI Prophy; Famotidine 20mg daily Discharge planning, Called Patient's Friend did not pickup driver left a voice message, Possible discharge to home. Case discussed with Dr Quiñones Plan discussed with: Patient My Orders My Orders Orders - BRANDON SIU RESIDENT Procedure Category Date Status Time Transfer Orders XFER 07/17/24 Transmitted 12:59 Chest Xray 1 View XY 07/18/24 Resulted 04:00 Dietary Evaluation Review Comments: 1) Consider EN nutrition Glucerna 1.2 to 50ml/hr goal rate to meet pt needs 2) Advance pt diet when medically feasible to a CCHO 45g/2gNa diet 3) Continue current plan of care Expected Outcomes/Goals: 1) Pt to receive adequate nutrition 2) Pt diet to advance 3) F/U in 2-3 days Date of Service: Jul 18, 2024 Billing Provider: BALTAZAR QUIÑONES MD Common Visit Codes: [id number] INP/OBS CARE(HIGH) Secondary Visit Codes: [id number] CARE PLAN 30 MINUTES BRANDON SIU RESIDENT Jul 18, 2024 12:36 BALTAZAR QUIÑONES MD Jul 19, 2024 11:38
[2024-07-18] MEDS: levETIRAcetam 500 MG TAB PO SCH (22:10)
[2024-07-19] VITALS (20 sets, daily range): BP systolic 124–164; BP diastolic 66–87; PULSE 62–75; RESP 16–20; TEMP 97.8–99.4; O2SAT 97–100
[2024-07-19 06:35] LABS: Basophils # (auto) 0.1 10 ^3/uL (0-0.2); Basophils % (auto) 1.5 % (0.0-2.0); Eosinophils # (auto) 0.5 10 ^3/uL (0-0.8); Eosinophils % (auto) 5.3 % (0.0-7.0); Hematocrit 29.7 % (41.0-53.0); Hemoglobin 9.7 g/dL (13.5-17.5); Lymphocytes # (auto) 1.8 10 ^3/uL (0.4-5.4); Mean Corpuscular Hemoglobin 27.7 pg (28.0-32.0); Mean Corpuscular Hgb Conc. 32.8 g/dL (32.0-36.0); Mean Corpuscular Volume 84.6 fL (80.0-100.0); Monocytes # (auto) 1.3 10 ^3/uL (0-1.3); Monocytes % (auto) 14.4 % (0.0-12.0); Neutrophils # (auto) 5.2 10 ^3/uL (1.6-8.6); Neutrophils % (auto) 58.8 % (37.0-80.0); Nucleated Red Blood Cells % 0.5 %; Platelet Count (auto) 531 10^3/uL (140-450); Red Blood Cells 3.51 10^6/uL (4.5-5.90); Red Cell Distribution Width 13.2 % (11.8-14.3); White Blood Cell 8.9 10^3/uL (4.4-10.8)
[2024-07-19 06:40] LABS: Anion Gap 6 (5-15); Carbon Dioxide 24 mmol/L (20-31); Chloride 107 mmol/L (98-107); Sodium 137 mmol/L (136-145)
[2024-07-19 06:41] LABS: Calcium 9.3 mg/dL (8.7-10.4)
[2024-07-19 06:46] LABS: BUN/Creatinine Ratio 8.2 (10.0-20.0); Glucose 85 mg/dL (74-106)
[2024-07-19 06:48] LABS: Blood Urea Nitrogen 7 mg/dL (9-23)
--- NOTE | 2024-07-19 09:13 | DVHPNRES ---
Progress Note Date Seen: Jul 19, 2024 Resident Creating Document: BRANDON SIU RESIDENT Medical Necessity Reason Pt with a Central, PICC or Fol: Yes The following are medically ne: PICC Line, Nelson Catheter Reason for nelson catheter: Strict I&O Subjective Review of Systems 64 yo with stated history CKD, Asthma, DM, COPD, HTN and seizure disorder came into the ED with stated change in mentation patient in the ED was acidic and altered unable to protect airway and stated to have sugars over 1000 source of cause is unknown history can not be fully obtained patient is intubated sedated suspected that possible breakthrough seizures in the setting [facility] with diabetic coma Patient seen and examined at bedside. Patient extubated on 07/13/2024, On supplemental oxygen, Overnight events reviewed. Objective vital signs Vital Sign Date Time Temp Pulse Resp B/P (MAP) Pulse Ox O2 Delivery O2 Flow Rate FiO2 07/19/24 08:31 98.6 70 20 154/70 (98) 97 98.6 07/19/24 08:00 Nasal Cannula* 1 24 Total Intake and Output 07/18/24 07/18/24 07/19/24 15:00 23:00 07:00 Intake Total 240 ml 0 ml Output Total 900 ml 250 ml Balance -660 ml -250 ml medications Current Medications Medications Dose Ordered Sig/Kandi Route Start Time Stop Time Status Last Admin Dose Admin Ondansetron HCl 4 mg Q4HP PRN IV 06/28/24 12:15 Diagnostic Test (Pha) 1 strip Q6HR 06/29/24 18:00 07/19/24 05:33 1 STRIP Insulin Human Regular Q6HR SC 06/29/24 18:00 07/18/24 23:42 8 UNITS Dextrose 50 ml UD PRN IV 06/29/24 16:15 06/29/24 20:48 50 ML Artificial Tears 1 drop Q2HP PRN EACHEYE 06/30/24 13:45 07/14/24 09:20 1 DROP Acetaminophen 650 mg Q4HP PRN GT 07/01/24 11:30 Hold 07/11/24 17:57 650 MG Hydralazine HCl 10 mg Q6HP PRN IV 07/04/24 10:30 07/18/24 14:01 10 MG Sodium Chloride 10 ml QSHIFT@ IV 07/05/24 22:00 07/18/24 22:10 10 ML Lorazepam 1 mg Q3HPRN PRN IV 07/07/24 11:15 07/17/24 02:49 1 MG Furosemide 20 mg DAILY IV 07/13/24 10:00 07/18/24 10:00 20 MG Acetaminophen 650 mg Q6HP PRN ME 07/13/24 20:30 07/18/24 18:07 650 MG Albuterol 2.5 mg Q4HPRN PRN NEB 07/13/24 20:30 07/13/24 21:02 2.5 MG Albuterol 2.5 mg Q4HR NEB 07/15/24 18:00 07/19/24 06:47 2.5 MG Ipratropium [place] 0.5 mg Q4HR NEB 07/15/24 18:00 07/19/24 06:46 0.5 MG Enoxaparin Sodium 40 mg DAILY SC 07/16/24 12:30 07/18/24 10:00 40 MG Famotidine 20 mg DAILY PO 07/17/24 10:00 Levetiracetam 500 mg BID PO 07/18/24 22:00 07/18/24 22:10 500 MG Levofloxacin 500 mg DAILY PO 07/19/24 10:00 Examination General: Patient is not in distress, supplemental oxygen, 2 L Cardiovascular: Normal S1 and S2. No murmurs, gallops or rubs Respiratory: Mechanically assisted ventilation, equal bilateral airway entree. Clear lung sounds on auscultation Abdomen: Soft, nontender, no organomegaly, normal bowel sounds MSK/skin: Mobilization of limbs cannot be evaluated. Skin is dry and warm. PICC on right arm Neurological: Patient is alert and oriented X 3 laboratory and microbiology Laboratory Tests 07/19/24 05:52 Test 07/19/24 05:52 Range/Units Serum Glucose 85 74-106 mg/dL Microbiology Date/Time Source Procedure Growth Status 07/07/24 10:57 Bronchial Washings Gram Stain - Final Complete 07/07/24 10:57 Respiratory Culture - Final Presumptive Keira albicans Complete 07/03/24 16:20 Blood Blood Culture - Final NO GROWTH AFTER 5 DAYS OF INCUBATION. Complete 07/03/24 11:24 Urine - [place] Urine Culture - Final Complete 06/29/24 12:51 Nose MRSA Screen - Final Complete Problem List/Assessment/Plan Problem List/Assessment/Plan Neurology: - patient is extubated today # Metabolic Encephalopathy due to Type 2 diabetes with hyperosmolar hyperglycemic state # Seizure # Chronic Stroke - CT Head on 10/02/23 shows: No acute intracranial abnormality. 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 Cardiovascular: # Hypertension - BP monitor Respiratory: # Acute hypoxic respiratory failure # Asthma # COPD Exacerbation -Currently on 2 L oxygen with nasal cannula -Ordered ABG on Room Air to evaluate if home O2 is needed. # Probable community-acquired pneumonia Gram-positive/Gram-negative - Repeat CXR on 07/16/24 shows: Moderate bilateral mixed interstitial/alveolar opacities, mildly improved since 07/15/2024. -Currently on empiric antibiotic ceftriaxone -Sputum with Klebsiella pneumoniae - Switched Abx to PO Levaquin 500 mg daily. -Negative influenza and COVID serologies Gastrointestinal # Transaminitis Secondary to above Genitourinary/Nephrology #Acute kidney injury - Avoid nephrotoxic medication - Avoid Hypertension/Hypotension - nephrology consult Endocrinology: # Type 2 diabetes with hyperosmolar hyperglycemic state # uncontrolled diabetes mellitus type 2 Hemoglobin A1c: 12.4 Sliding scale insulin Monitor blood glucose level Metabolic: # Hyperkalemia. - resolved Infectious Disease # Hepatitis-C infection - follow up liver function Hematology # Thrombocytosis - improving - platelets of today 611 K. # Mild anemia due to chronic disease Follow up labs. DVT Prophy; Enoxaparin 40 mg subcutaneous daily GI Prophy; Famotidine 20mg daily Discharge planning, Called Patient's Friend GEORGI, spoke with Georgi patient will need transportation set up, Will be discharged to home. Case discussed with Dr Quiñones Plan discussed with: Patient, Other (Friend (Georgi)) My Orders My Orders Orders - BRANDON SIU RESIDENT Procedure Category Date Status Time Levofloxacin Tablet PHA 07/19/24 In Process (Levaquin Tablet) 10:00 Dietary Evaluation Review Comments: 1) Consider EN nutrition Glucerna 1.2 to 50ml/hr goal rate to meet pt needs 2) Advance pt diet when medically feasible [facility] 3) Continue current plan of care Expected Outcomes/Goals: 1) Pt to receive adequate nutrition 2) Pt diet to advance 3) F/U in 2-3 days Date of Service: Jul 19, 2024 Billing Provider: BALTAZAR QUIÑONES MD Common Visit Codes: [id number] INP/OBS CARE(HIGH) Secondary Visit Codes: [id number] CARE PLAN 30 MINUTES BRANDON SIU RESIDENT Jul 19, 2024 09:13 BALTAZAR QUIÑONES MD Jul 20, 2024 12:57
[2024-07-19] MEDS: levoFLOXacin 500 MG TAB PO SCH (10:58)
[2024-07-19] MEDS ORDERED: LORazepam 2MG/ML-1ML VIAL IV PRN (11:45)
[2024-07-19 18:48] LABS: Base Excess -2.1 mmol/L (-2.0-3.0)
[2024-07-19] MEDS: buPROPion HCL 100 MG TAB PO SCH (21:44)
[2024-07-20] VITALS (19 sets, daily range): BP systolic 96–158; BP diastolic 63–78; PULSE 61–78; RESP 13–20; TEMP 98.1–100; O2SAT 94–100
[2024-07-20] MEDS: QUEtiapine FUMARATE 100 MG TAB PO SCH (10:10)
[2024-07-20] MEDS: PARoxetine 20 MG TAB PO SCH (10:11)
--- NOTE | 2024-07-20 13:43 | DVH ---
CHEST RADIOGRAPH Indication: PNEUMONIA Technique: Single frontal view of the chest was obtained Comparison: XY CHEST XRAY 1 VIEW on DOS: 07/18/24, XY CHEST PORTABLE on DOS: 07/16/24, XY CHEST PORTAB LE on DOS: 07/15/24, XY CHEST PORTABLE on DOS: 07/13/24, XY CHEST XRAY 1 VIEW on DOS: 07/12/24, XY CHEST XRAY 1 VIEW on DOS: 07/18/24 FINDINGS: Lines and Tubes: Left chest wall AICD . Right PICC tip in the SVC Lungs: Congestion Pleura: No effusion. No pneumothorax. Cardiomediastinal contours: Cardiomegaly Bones: Unremarkable IMPRESSION: Pulmonary vascular congestion.
--- NOTE | 2024-07-20 17:30 | DVHPNRES ---
Progress Note Date Seen: Jul 20, 2024 Resident Creating Document: BRANDON [facility] RESIDENT Medical Necessity Reason Pt with a Central, PICC or Fol: Yes The following are medically ne: PICC Line, Nelson Catheter Reason for nelson catheter: Strict I&O Subjective Review of Systems 64 yo with stated history CKD, Asthma, DM, COPD, HTN and seizure disorder came into the ED with stated change in mentation patient in the ED was acidic and altered unable to protect airway and stated to have sugars over 1000 source of cause is unknown history can not be fully obtained patient is intubated sedated suspected that possible breakthrough seizures in the setting [facility] with diabetic coma Patient seen and examined at bedside. Patient extubated on 07/13/2024, On supplemental oxygen, Overnight events reviewed. Patient had fever today, is on antibiotics, patient is walking with physical therapist, he is still weak. We will follow up tomorrow again. Patient had ABG on room air, PaO2 was more than 57. Does not qualify for home oxygen. Objective vital signs Vital Sign Date Time Temp Pulse Resp B/P (MAP) Pulse Ox O2 Delivery O2 Flow Rate FiO2 07/20/24 16:56 98.6 77 16 137/78 (97) 99 98.6 07/20/24 07:30 Nasal Cannula* 2 28 Total Intake and Output 07/19/24 07/19/24 07/20/24 15:00 23:00 07:00 Intake Total 344 ml 0 ml Output Total 600 ml Balance 344 ml -600 ml medications Current Medications Medications Dose Ordered Sig/Kandi Route Start Time Stop Time Status Last Admin Dose Admin Ondansetron HCl 4 mg Q4HP PRN IV 06/28/24 12:15 Diagnostic Test (Pha) 1 strip Q6HR 06/29/24 18:00 07/20/24 12:04 1 STRIP Insulin Human Regular Q6HR SC 06/29/24 18:00 07/20/24 12:18 4 UNITS Dextrose 50 ml UD PRN IV 06/29/24 16:15 06/29/24 20:48 50 ML Artificial Tears 1 drop Q2HP PRN EACHEYE 06/30/24 13:45 07/14/24 09:20 1 DROP Acetaminophen 650 mg Q4HP PRN GT 07/01/24 11:30 Hold 07/11/24 17:57 650 MG Hydralazine HCl 10 mg Q6HP PRN IV 07/04/24 10:30 07/19/24 22:00 10 MG Sodium Chloride 10 ml QSHIFT@10,22 IV 07/05/24 22:00 07/20/24 10:11 10 ML Acetaminophen 650 mg Q6HP PRN [place] 07/13/24 20:30 07/18/24 18:07 650 MG Albuterol 2.5 mg Q4HPRN PRN NEB 07/13/24 20:30 07/13/24 21:02 2.5 MG Albuterol 2.5 mg Q4HR NEB 07/15/24 18:00 07/20/24 14:16 2.5 MG Ipratropium [place] 0.5 mg Q4HR NEB 07/15/24 18:00 07/20/24 14:16 0.5 MG Enoxaparin Sodium 40 mg DAILY SC 07/16/24 12:30 07/20/24 10:10 40 MG Famotidine 20 mg DAILY PO 07/17/24 10:00 07/20/24 10:10 20 MG Levetiracetam 500 mg BID PO 07/18/24 22:00 07/20/24 10:10 500 MG Bupropion HCl 150 mg BID PO 07/19/24 22:00 07/20/24 10:11 150 MG Paroxetine HCl 20 mg DAILY PO 07/20/24 10:00 07/20/24 10:11 20 MG Levofloxacin 500 mg DAILY PO 07/21/24 10:00 Quetiapine Fumarate 200 mg DAILY PO 07/21/24 10:00 Levofloxacin 250 mg DAILY PO 07/21/24 10:00 Examination General: Patient is not in distress, supplemental oxygen, 2 L Cardiovascular: Normal S1 and S2. No murmurs, gallops or rubs Respiratory: Mechanically assisted ventilation, equal bilateral airway entree. Clear lung sounds on auscultation Abdomen: Soft, nontender, no organomegaly, normal bowel sounds MSK/skin: Mobilization of limbs cannot be evaluated. Skin is dry and warm. PICC on right arm Neurological: Patient is alert and oriented X 3 laboratory and microbiology Laboratory Tests 07/19/24 05:52 Test 07/19/24 05:52 Range/Units Serum Glucose 85 74-106 mg/dL Microbiology Date/Time Source Procedure Growth Status 07/07/24 10:57 Bronchial Washings Gram Stain - Final Complete 07/07/24 10:57 Respiratory Culture - Final Presumptive Keira albicans Complete 07/03/24 16:20 Blood Blood Culture - Final NO GROWTH AFTER 5 DAYS OF INCUBATION. Complete 07/03/24 11:24 Urine - [place] Urine Culture - Final Complete 06/29/24 12:51 Nose MRSA Screen - Final Complete Problem List/Assessment/Plan Problem List/Assessment/Plan Neurology: - patient is extubated today # Metabolic Encephalopathy due to Type 2 diabetes with hyperosmolar hyperglycemic state # Seizure # Chronic Stroke - CT Head on 10/02/23 shows: No acute intracranial abnormality. 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 Cardiovascular: # Hypertension - BP monitor Respiratory: # Acute hypoxic respiratory failure # Asthma # COPD Exacerbation -Currently on 2 L oxygen with nasal cannula -Ordered ABG on Room Air to evaluate if home O2 is needed. # Probable community-acquired pneumonia Gram-positive/Gram-negative - Repeat CXR on 07/16/24 shows: Moderate bilateral mixed interstitial/alveolar opacities, mildly improved since 07/15/2024. -Currently on empiric antibiotic ceftriaxone -Sputum with Klebsiella pneumoniae - Switched Abx to PO Levaquin 750 mg daily. -Negative influenza and COVID serologies Gastrointestinal # Transaminitis Secondary to above Genitourinary/Nephrology #Acute kidney injury - Avoid nephrotoxic medication - Avoid Hypertension/Hypotension - nephrology consult Endocrinology: # Type 2 diabetes with hyperosmolar hyperglycemic state # uncontrolled diabetes mellitus type 2 Hemoglobin A1c: 12.4 Sliding scale insulin Monitor blood glucose level Metabolic: # Hyperkalemia. - resolved Infectious Disease # Hepatitis-C infection - follow up liver function Hematology # Thrombocytosis - improving # Mild anemia due to chronic disease Follow up labs. DVT Prophy; Enoxaparin 40 mg subcutaneous daily GI Prophy; Famotidine 20mg daily advance care planning- full code- time spent 22 mins Patient had ABG on room air, PaO2 was more than 57. Does not qualify for home oxygen Case discussed with Dr Quiñones Plan discussed with: Patient Dietary Evaluation Review Comments: 1) Consider EN nutrition Glucerna 1.2 to 50ml/hr goal rate to meet pt needs 2) Advance pt diet when medically feasible to a CCHO 45g/2gNa diet 3) Continue current plan of care Expected Outcomes/Goals: 1) Pt to receive adequate nutrition 2) Pt diet to advance 3) F/U in 2-3 days Date of Service: Jul 20, 2024 Billing Provider: BALTAZAR QUIÑONES MD Common Visit Codes: [id number] INP/OBS CARE(HIGH) Secondary Visit Codes: [id number] CARE PLAN 30 MINUTES BR[facility]ON [facility] RESIDENT Jul 20, 2024 17:30 BALTAZAR QUIÑONES MD Jul 23, 2024 12:04
[2024-07-21] VITALS (22 sets, daily range): BP systolic 115–179; BP diastolic 59–84; PULSE 63–80; RESP 14–20; TEMP 97.5–99.3; O2SAT 95–100
[2024-07-21 08:02] LABS: Alanine Aminotransferase 23 U/L (7-40); Alkaline Phosphatase 66 U/L (46-116); Anion Gap 7 (5-15); Aspartate Aminotransferase 23 U/L (13-40); BUN/Creatinine Ratio 10.2 (10.0-20.0); Blood Urea Nitrogen 10 mg/dL (9-23); Calcium 9.3 mg/dL (8.7-10.4); Carbon Dioxide 26 mmol/L (20-31); Chloride 104 mmol/L (98-107); Potassium 4.6 mmol/L (3.5-5.1); Sodium 137 mmol/L (136-145); Total Protein 5.8 g/dL (5.7-8.2)
[2024-07-21 08:07] LABS: Albumin 3.1 g/dL (3.2-4.8); Basophils # (auto) 0.1 10 ^3/uL (0-0.2); Eosinophils # (auto) 0.5 10 ^3/uL (0-0.8); Glucose 183 mg/dL (74-106); Hemoglobin 9.6 g/dL (13.5-17.5); White Blood Cell 8.7 10^3/uL (4.4-10.8)
[2024-07-21 08:11] LABS: Basophils % (auto) 1.2 % (0.0-2.0); Eosinophils % (auto) 5.6 % (0.0-7.0); Hematocrit 29.4 % (41.0-53.0); Lymphocytes # (auto) 1.9 10 ^3/uL (0.4-5.4); Lymphocytes % (auto) 21.3 % (10.0-50.0); Mean Corpuscular Hemoglobin 28.4 pg (28.0-32.0); Mean Corpuscular Hgb Conc. 32.6 g/dL (32.0-36.0); Monocytes % (auto) 11.2 % (0.0-12.0); Neutrophils # (auto) 5.3 10 ^3/uL (1.6-8.6); Neutrophils % (auto) 60.7 % (37.0-80.0); Platelet Count (auto) 522 10^3/uL (140-450); Red Blood Cells 3.37 10^6/uL (4.5-5.90); Red Cell Distribution Width 13.4 % (11.8-14.3)
[2024-07-21] MEDS: levoFLOXacin 500 MG TAB PO SCH (08:31)
[2024-07-21] MEDS: QUEtiapine FUMARATE 100 MG TAB PO SCH (08:31)
[2024-07-21] MEDS: levoFLOXacin 250 MG TAB PO SCH (08:32)
[2024-07-21 08:46] LABS: Bilirubin, Total 0.2 mg/dL (0.2-1.0)
--- NOTE | 2024-07-21 09:32 | DVHPNRES ---
Progress Note Date Seen: Jul 21, 2024 Resident Creating Document: BRANDON [facility] RESIDENT Medical Necessity Reason Pt with a Central, PICC or Fol: Yes The following are medically ne: PICC Line, Nelson Catheter Reason for nelson catheter: Strict I&O Subjective Review of Systems 64 yo with stated history CKD, Asthma, DM, COPD, HTN and seizure disorder came into the ED with stated change in mentation patient in the ED was acidic and altered unable to protect airway and stated to have sugars over 1000 source of cause is unknown history can not be fully obtained patient is intubated sedated suspected that possible breakthrough seizures in the setting [facility] with diabetic coma Patient seen and examined at bedside. Patient extubated on 07/13/2024, On supplemental oxygen, Overnight events reviewed. Patient is afebrile today, patient is walking with physical therapist, he is still weak. We will follow up tomorrow again. Objective vital signs Vital Sign Date Time Temp Pulse Resp B/P (MAP) Pulse Ox O2 Delivery O2 Flow Rate FiO2 07/21/24 07:19 63 14 100 07/21/24 07:11 Nasal Cannula* 3 32 07/21/24 06:00 149/78 (101) 07/21/24 05:00 99.3 99.3 Total Intake and Output 07/20/24 07/20/24 07/21/24 15:00 23:00 07:00 Intake Total 346 ml 350 ml 100 ml Output Total 500 ml Balance 346 ml -150 ml 100 ml medications Current Medications Medications Dose Ordered Sig/Kandi Route Start Time Stop Time Status Last Admin Dose Admin Ondansetron HCl 4 mg Q4HP PRN IV 06/28/24 12:15 Diagnostic Test (Pha) 1 strip Q6HR 06/29/24 18:00 07/21/24 05:16 1 STRIP Insulin Human Regular Q6HR SC 06/29/24 18:00 07/20/24 18:00 3 UNITS Dextrose 50 ml UD PRN IV 06/29/24 16:15 06/29/24 20:48 50 ML Artificial Tears 1 drop Q2HP PRN EACHEYE 06/30/24 13:45 07/14/24 09:20 1 DROP Acetaminophen 650 mg Q4HP PRN GT 07/01/24 11:30 Hold 07/11/24 17:57 650 MG Hydralazine HCl 10 mg Q6HP PRN IV 07/04/24 10:30 07/19/24 22:00 10 MG Sodium Chloride 10 ml QSHIFT@10,22 IV 07/05/24 22:00 07/20/24 22:49 10 ML Acetaminophen 650 mg Q6HP PRN [place] 07/13/24 20:30 07/18/24 18:07 650 MG Albuterol 2.5 mg Q4HPRN PRN NEB 07/13/24 20:30 07/13/24 21:02 2.5 MG Albuterol 2.5 mg Q4HR NEB 07/15/24 18:00 07/21/24 07:11 2.5 MG Ipratropium [place] 0.5 mg Q4HR NEB 07/15/24 18:00 07/21/24 07:11 0.5 MG Enoxaparin Sodium 40 mg DAILY SC 07/16/24 12:30 07/21/24 08:40 40 MG Famotidine 20 mg DAILY PO 07/17/24 10:00 07/21/24 08:30 20 MG Levetiracetam 500 mg BID PO 07/18/24 22:00 07/21/24 08:32 500 MG Bupropion HCl 150 mg BID PO 07/19/24 22:00 07/21/24 08:30 150 MG Paroxetine HCl 20 mg DAILY PO 07/20/24 10:00 07/21/24 08:29 20 MG Levofloxacin 500 mg DAILY PO 07/21/24 10:00 07/21/24 08:31 500 MG Quetiapine Fumarate 200 mg DAILY PO 07/21/24 10:00 07/21/24 08:31 200 MG Levofloxacin 250 mg DAILY PO 07/21/24 10:00 07/21/24 08:32 250 MG Examination General: Patient is not in distress, supplemental oxygen, 2 L Cardiovascular: Normal S1 and S2. No murmurs, gallops or rubs Respiratory: Mechanically assisted ventilation, equal bilateral airway entree. Clear lung sounds on auscultation Abdomen: Soft, nontender, no organomegaly, normal bowel sounds MSK/skin: Mobilization of limbs cannot be evaluated. Skin is dry and warm. PICC on right arm Neurological: Patient is alert and oriented X 3 laboratory and microbiology Laboratory Tests 07/21/24 07:30 Test 07/21/24 07:30 Range/Units Serum Glucose 183 H 74-106 mg/dL Microbiology Date/Time Source Procedure Growth Status 07/07/24 10:57 Bronchial Washings Gram Stain - Final Complete 07/07/24 10:57 Respiratory Culture - Final Presumptive Keira albicans Complete 07/03/24 16:20 Blood Blood Culture - Final NO GROWTH AFTER 5 DAYS OF INCUBATION. Complete 07/03/24 11:24 Urine - [place] Urine Culture - Final Complete 06/29/24 12:51 Nose MRSA Screen - Final Complete Problem List/Assessment/Plan Problem List/Assessment/Plan Neurology: - patient is extubated today # Metabolic Encephalopathy due to Type 2 diabetes with hyperosmolar hyperglycemic state # Seizure # Chronic Stroke - CT Head on 10/02/23 shows: No acute intracranial abnormality. 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 Cardiovascular: # Hypertension - BP monitor Respiratory: # Acute hypoxic respiratory failure # Asthma # COPD Exacerbation -Currently on 2 L oxygen with nasal cannula -Ordered ABG on Room Air to evaluate if home O2 is needed. # Probable community-acquired pneumonia Gram-positive/Gram-negative - Repeat CXR on 07/16/24 shows: Moderate bilateral mixed interstitial/alveolar opacities, mildly improved since 07/15/2024. -Currently on empiric antibiotic ceftriaxone -Sputum with Klebsiella pneumoniae - Switched Abx to PO Levaquin 500 mg daily. -Negative influenza and COVID serologies Gastrointestinal # Transaminitis Secondary to above Genitourinary/Nephrology #Acute kidney injury - Avoid nephrotoxic medication - Avoid Hypertension/Hypotension - nephrology consult Endocrinology: # Type 2 diabetes with hyperosmolar hyperglycemic state # uncontrolled diabetes mellitus type 2 Hemoglobin A1c: 12.4 Sliding scale insulin Monitor blood glucose level Metabolic: # Hyperkalemia. - resolved Infectious Disease # Hepatitis-C infection - follow up liver function Hematology # Thrombocytosis - improving # Mild anemia due to chronic disease Follow up labs. DVT Prophy; Enoxaparin 40 mg subcutaneous daily GI Prophy; Famotidine 20mg daily Patient had ABG on room air, PaO2 was more than 57. Does not qualify for home oxygen, patient is walking with physical therapist, he is still very weak. Case discussed with Dr. Laurent. Plan discussed with: Patient Dietary Evaluation Review Comments: 1) Consider EN nutrition Glucerna 1.2 to 50ml/hr goal rate to meet pt needs 2) Advance pt diet when medically feasible to a CCHO 45g/2gNa diet 3) Continue current plan of care Expected Outcomes/Goals: 1) Pt to receive adequate nutrition 2) Pt diet to advance 3) F/U in 2-3 days Date of Service: Jul 14, 2024 Billing Provider: MANISH LAURETN MD Common Visit Codes: [id number] INP/OBS CARE(HIGH) BRANDON [facility] RESIDENT Jul 21, 2024 09:32 MANISH LAURENT MD Jul 21, 2024 14:49
[2024-07-22] VITALS (22 sets, daily range): BP systolic 139–164; BP diastolic 65–81; PULSE 69–84; RESP 14–22; TEMP 98.3–99.1; O2SAT 91–100
--- NOTE | 2024-07-22 13:14 | DVHPN2 ---
Reviewed: Care Plan, H&P, Labs, Medications, Previous Orders, Radiology, Other (Consultations) Changes from previous H/P or p: No Changes, Changes Objective Vitals Vital Signs Date Time Temp Pulse Resp B/P (MAP) Pulse Ox O2 Delivery O2 Flow Rate FiO2 07/22/24 10:03 84 20 98 07/22/24 09:57 Room Air* 0 21 07/22/24 05:53 164/74 07/22/24 05:00 98.3 98.3 Intake/Output Intake and Output 07/22/24 07:00 Intake Total 770 ml Output Total 400 ml Balance 370 ml Intake Oral 770 ml Output Urine Total 400 ml # Voids 3 # Bowel Movements 2 General Appearance: Other (Intubated and sedated) HEENT: Atraumatic Lungs: Other (Mechanical ventilation breathing sounds) Cardiovascular: Regular rate, Normal S1, Normal S2 Abdomen: Other (Hypoactive bowel sounds) Genitourinary: Other ([place]) Neuro: Other (Sedated) Psych/Mental Status: Other (Sedated) Medications Current Medications Medications Dose Ordered Sig/Kandi Route Start Time Stop Time Status Last Admin Dose Admin Ondansetron HCl 4 mg Q4HP PRN IV 06/28/24 12:15 Diagnostic Test (Pha) 1 strip Q6HR 06/29/24 18:00 07/22/24 12:07 1 STRIP Insulin Human Regular Q6HR SC 06/29/24 18:00 07/22/24 12:00 6 UNITS Dextrose 50 ml UD PRN IV 06/29/24 16:15 06/29/24 20:48 50 ML Artificial Tears 1 drop Q2HP PRN EACHEYE 06/30/24 13:45 07/14/24 09:20 1 DROP Acetaminophen 650 mg Q4HP PRN [place] 07/01/24 11:30 Hold 07/11/24 17:57 650 MG Hydralazine HCl 10 mg Q6HP PRN IV 07/04/24 10:30 07/22/24 05:53 10 MG Sodium Chloride 10 ml QSHIFT@ IV 07/05/24 22:00 07/22/24 08:58 10 ML Acetaminophen 650 mg Q6HP PRN [place] 07/13/24 20:30 07/18/24 18:07 650 MG Albuterol 2.5 mg Q4HPRN PRN NEB 07/13/24 20:30 07/13/24 21:02 2.5 MG Albuterol 2.5 mg Q4HR NEB 07/15/24 18:00 07/22/24 09:57 2.5 MG Ipratropium [place] 0.5 mg Q4HR NEB 07/15/24 18:00 07/22/24 09:57 0.5 MG Enoxaparin Sodium 40 mg DAILY SC 07/16/24 12:30 07/22/24 08:56 40 MG Famotidine 20 mg DAILY PO 07/17/24 10:00 07/22/24 08:58 20 MG Levetiracetam 500 mg BID PO 07/18/24 22:00 07/22/24 09:08 500 MG Bupropion HCl 150 mg BID PO 07/19/24 22:00 07/22/24 08:57 150 MG Paroxetine HCl 20 mg DAILY PO 07/20/24 10:00 07/22/24 08:58 20 MG Levofloxacin 500 mg DAILY PO 07/21/24 10:00 07/22/24 08:58 500 MG Quetiapine Fumarate 200 mg DAILY PO 07/21/24 10:00 07/22/24 08:58 200 MG Levofloxacin 250 mg DAILY PO 07/21/24 10:00 07/22/24 08:57 250 MG Laboratory Results Laboratory Tests 07/21/24 07:30 Urinalysis Test 06/28/24 10:56 07/04/24 18:00 Urine Color Light-yellow (Yellow) Urine Clarity Clear (Clear) Urine pH 5.0 (5.0-9.0) Urine Specific [place] 1.025 (1.001-1.035) Urine Protein Negative (Negative) Urine Ketones Negative (Negative) Urine Blood Negative /uL (Negative) Urine Nitrite Negative (Negative) Urine Bilirubin Negative (Negative) Urine Urobilinogen Normal mg/dL (Negative) Urine Leukocyte Esterase Trace /uL (Negative) Urine RBC 2 /hpf (0 - 3) Urine WBC 7 /hpf (0 - 3) Urine Squamous Epithelial Cells None seen /hpf (<5) Urine Bacteria None seen /hpf (None Seen) Urine Glucose 4+ mg/dL (Normal) H Urine Creatinine 90.22 mg/dL (30.0-125.0) Urine Microalbumin 83.0 mg/L (<30.0) H Urine Sodium 19 mmol/L (40-220) L Microbiology Microbiology Date/Time Source Procedure Growth Status 07/07/24 10:57 Bronchial Washings Gram Stain - Final Complete 07/07/24 10:57 Respiratory Culture - Final Presumptive Keira albicans Complete 07/03/24 16:20 Blood Blood Culture - Final NO GROWTH AFTER 5 DAYS OF INCUBATION. Complete 07/03/24 11:24 Urine - [place] Urine Culture - Final Complete 06/29/24 12:51 Nose MRSA Screen - Final Complete Labs and/or images reviewed: Labs reviewed by me, Image(s) reviewed by me Assessment/Plan Assessment/Plan Covering for resident physician: Acute hypoxic respiratory failure status post intubated and extubated Acute metabolic encephalopathy History of seizures Hypertension Asthma Community-acquired Pneumonia Klebsiella: Continue Levaquin Transaminitis PINA Acute hyperkalemia Hepatitis C infection Time Spent 65 minutes Condition guarded Advanced care planning time 20 minutes Patient is full code Plan discussed with: Patient Date of Service: Jul 22, 2024 Billing Provider: ROSANNE AGUILAR MD Common Visit Codes: [id number] CARE 30-74 MIN ROSANNE AGUILAR MD Jul 22, 2024 13:14
[2024-07-23] VITALS (19 sets, daily range): BP systolic 150–174; BP diastolic 70–83; PULSE 72–81; RESP 16–19; TEMP 98.3–98.4; O2SAT 93–100
--- NOTE | 2024-07-23 09:18 | DVHPN2 ---
Reviewed: Care Plan, H&P, Labs, Medications, Previous Orders, Radiology, Other (Consultations) Changes from previous H/P or p: No Changes Objective Vitals Vital Signs Date Time Temp Pulse Resp B/P (MAP) Pulse Ox O2 Delivery O2 Flow Rate FiO2 07/23/24 07:04 75 16 99 07/23/24 06:58 Room Air 0.0 07/23/24 06:58 21 07/23/24 05:01 98.4 150/71 (97) 98.4 Intake/Output Intake and Output 07/23/24 07:00 Intake Total 1160 ml Output Total 1450 ml Balance -290 ml Intake Oral 1160 ml Output Urine Total 1450 ml # Voids 4 # Bowel Movements 2 General Appearance: Other (Intubated and sedated) HEENT: Atraumatic Lungs: Other (Mechanical ventilation breathing sounds) Cardiovascular: Regular rate, Normal S1, Normal S2 Abdomen: Other (Hypoactive bowel sounds) Genitourinary: Other ([place]) Neuro: Other (Sedated) Psych/Mental Status: Other (Sedated) Medications Current Medications Medications Dose Ordered Sig/Kandi Route Start Time Stop Time Status Last Admin Dose Admin Ondansetron HCl 4 mg Q4HP PRN IV 06/28/24 12:15 Diagnostic Test (Pha) 1 strip Q6HR 06/29/24 18:00 07/23/24 05:51 1 STRIP Insulin Human Regular Q6HR SC 06/29/24 18:00 07/23/24 06:01 2 UNITS Dextrose 50 ml UD PRN IV 06/29/24 16:15 06/29/24 20:48 50 ML Artificial Tears 1 drop Q2HP PRN EACHEYE 06/30/24 13:45 07/14/24 09:20 1 DROP Acetaminophen 650 mg Q4HP PRN [place] 07/01/24 11:30 Hold 07/11/24 17:57 650 MG Hydralazine HCl 10 mg Q6HP PRN IV 07/04/24 10:30 07/22/24 05:53 10 MG Sodium Chloride 10 ml QSHIFT@ IV 07/05/24 22:00 07/23/24 09:01 10 ML Acetaminophen 650 mg Q6HP PRN [place] 07/13/24 20:30 07/18/24 18:07 650 MG Albuterol 2.5 mg Q4HPRN PRN NEB 07/13/24 20:30 07/13/24 21:02 2.5 MG Albuterol 2.5 mg Q4HR NEB 07/15/24 18:00 07/23/24 06:58 2.5 MG Ipratropium [place] 0.5 mg Q4HR NEB 07/15/24 18:00 07/23/24 06:58 0.5 MG Enoxaparin Sodium 40 mg DAILY SC 07/16/24 12:30 07/23/24 09:01 40 MG Famotidine 20 mg DAILY PO 07/17/24 10:00 07/23/24 09:00 20 MG Levetiracetam 500 mg BID PO 07/18/24 22:00 07/23/24 08:59 500 MG Bupropion HCl 150 mg BID PO 07/19/24 22:00 07/23/24 09:00 150 MG Paroxetine HCl 20 mg DAILY PO 07/20/24 10:00 07/23/24 08:59 20 MG Levofloxacin 500 mg DAILY PO 07/21/24 10:00 07/23/24 09:01 500 MG Quetiapine Fumarate 200 mg DAILY PO 07/21/24 10:00 07/22/24 08:58 200 MG Levofloxacin 250 mg DAILY PO 07/21/24 10:00 07/23/24 09:00 250 MG Lorazepam 1 mg Q8HP PRN PO 07/22/24 14:00 Laboratory Results Laboratory Tests 07/21/24 07:30 Urinalysis Test 06/28/24 10:56 07/04/24 18:00 Urine Color Light-yellow (Yellow) Urine Clarity Clear (Clear) Urine pH 5.0 (5.0-9.0) Urine Specific [place] 1.025 (1.001-1.035) Urine Protein Negative (Negative) Urine Ketones Negative (Negative) Urine Blood Negative /uL (Negative) Urine Nitrite Negative (Negative) Urine Bilirubin Negative (Negative) Urine Urobilinogen Normal mg/dL (Negative) Urine Leukocyte Esterase Trace /uL (Negative) Urine RBC 2 /hpf (0 - 3) Urine WBC 7 /hpf (0 - 3) Urine Squamous Epithelial Cells None seen /hpf (<5) Urine Bacteria None seen /hpf (None Seen) Urine Glucose 4+ mg/dL (Normal) H Urine Creatinine 90.22 mg/dL (30.0-125.0) Urine Microalbumin 83.0 mg/L (<30.0) H Urine Sodium 19 mmol/L (40-220) L Microbiology Microbiology Date/Time Source Procedure Growth Status 07/07/24 10:57 Bronchial Washings Gram Stain - Final Complete 07/07/24 10:57 Respiratory Culture - Final Presumptive Keira albicans Complete 07/03/24 16:20 Blood Blood Culture - Final NO GROWTH AFTER 5 DAYS OF INCUBATION. Complete 07/03/24 11:24 Urine - [place] Urine Culture - Final Complete 06/29/24 12:51 Nose MRSA Screen - Final Complete Labs and/or images reviewed: Labs reviewed by me, Image(s) reviewed by me Assessment/Plan Assessment/Plan Covering for resident physician: Acute hypoxic respiratory failure status post intubated and extubated Acute metabolic encephalopathy History of seizures Hypertension Asthma Community-acquired Pneumonia Klebsiella: Continue Levaquin Transaminitis PINA Acute hyperkalemia Hepatitis C infection Time Spent 45 minutes Plan discussed with: Patient My Orders Orders - ROSANNE AGUILAR MD Procedure Category Date Status Time Lorazepam Tablet PHA 07/22/24 In Process (Ativan Tablet) 14:00 Date of Service: Jul 23, 2024 Billing Provider: ROSANNE AGUILAR MD Common Visit Codes: [id number] INP/OBS CARE(HIGH) ROSANNE AGUILAR MD Jul 23, 2024 09:18
[2024-07-23] MEDS: LORazepam 0.5 MG TAB PO PRN (15:57)
[2024-07-24] VITALS (22 sets, daily range): BP systolic 112–155; BP diastolic 61–84; PULSE 71–96; RESP 16–22; TEMP 97.6–98.6; O2SAT 95–100
[2024-07-24 10:07] LABS: Basophils # (auto) 0.1 10 ^3/uL (0-0.2); Basophils % (auto) 1.4 % (0.0-2.0); Eosinophils # (auto) 0.3 10 ^3/uL (0-0.8); Eosinophils % (auto) 3.9 % (0.0-7.0); Hematocrit 28.6 % (41.0-53.0); Hemoglobin 9.4 g/dL (13.5-17.5); Lymphocytes # (auto) 1.7 10 ^3/uL (0.4-5.4); Lymphocytes % (auto) 22.7 % (10.0-50.0); Mean Corpuscular Hemoglobin 27.6 pg (28.0-32.0); Mean Corpuscular Hgb Conc. 32.8 g/dL (32.0-36.0); Mean Corpuscular Volume 84.1 fL (80.0-100.0); Monocytes % (auto) 13.4 % (0.0-12.0); Neutrophils # (auto) 4.5 10 ^3/uL (1.6-8.6); Neutrophils % (auto) 58.6 % (37.0-80.0); Nucleated Red Blood Cells % 0.1 %; Platelet Count (auto) 523 10^3/uL (140-450); Red Cell Distribution Width 13.7 % (11.8-14.3); White Blood Cell 7.7 10^3/uL (4.4-10.8)
[2024-07-24 10:15] LABS: Alanine Aminotransferase 16 U/L (7-40); Albumin 3.5 g/dL (3.2-4.8); Alkaline Phosphatase 68 U/L (46-116); Anion Gap 7 (5-15); Aspartate Aminotransferase 15 U/L (13-40); Blood Urea Nitrogen 10 mg/dL (9-23); Calcium 9.7 mg/dL (8.7-10.4); Carbon Dioxide 27 mmol/L (20-31); Chloride 103 mmol/L (98-107); Glucose 87 mg/dL (74-106); Potassium 3.9 mmol/L (3.5-5.1); Sodium 137 mmol/L (136-145)
[2024-07-24 10:16] LABS: Total Protein 6.9 g/dL (5.7-8.2)
[2024-07-24 10:21] LABS: BUN/Creatinine Ratio 10.4 (10.0-20.0)
[2024-07-24 10:47] LABS: Bilirubin, Total 0.2 mg/dL (0.2-1.0)
--- NOTE | 2024-07-24 12:21 | DVHPN2 ---
Progress Note Date Seen: Jul 24, 2024 Medical Necessity Reason Pt with a Central, PICC or Fol: Yes The following are medically ne: PICC Line Subjective Patient reports: No new complaints Review of Systems: HEENT:Normal, CVS:Normal, RESPIRATORY:Normal, GI:Normal, :Normal, MSK:Normal, NEURO:Normal Objective vital signs Vital Sign Date Time Temp Pulse Resp B/P (MAP) Pulse Ox O2 Delivery O2 Flow Rate FiO2 07/24/24 10:18 88 18 100 07/24/24 10:02 Room Air 0.0 07/24/24 10:02 21 07/24/24 08:46 98.0 155/80 (105) 98.0 Total Intake and Output 07/23/24 07/23/24 07/24/24 15:00 23:00 07:00 Intake Total 240 ml 540 ml 200 ml Output Total 450 ml 900 ml Balance 240 ml 90 ml -700 ml medications Current Medications Medications Dose Ordered Sig/Kandi Route Start Time Stop Time Status Last Admin Dose Admin Ondansetron HCl 4 mg Q4HP PRN IV 06/28/24 12:15 Diagnostic Test (Pha) 1 strip Q6HR 06/29/24 18:00 07/24/24 05:50 1 STRIP Insulin Human Regular Q6HR SC 06/29/24 18:00 07/24/24 05:56 2 UNITS Dextrose 50 ml UD PRN IV 06/29/24 16:15 06/29/24 20:48 50 ML Artificial Tears 1 drop Q2HP PRN EACHEYE 06/30/24 13:45 07/14/24 09:20 1 DROP Acetaminophen 650 mg Q4HP PRN GT 07/01/24 11:30 Hold 07/11/24 17:57 650 MG Hydralazine HCl 10 mg Q6HP PRN IV 07/04/24 10:30 07/24/24 05:51 10 MG Sodium Chloride 10 ml QSHIFT@ IV 07/05/24 22:00 07/24/24 10:00 10 ML Acetaminophen 650 mg Q6HP PRN MT 07/13/24 20:30 07/18/24 18:07 650 MG Albuterol 2.5 mg Q4HPRN PRN NEB 07/13/24 20:30 07/13/24 21:02 2.5 MG Albuterol 2.5 mg Q4HR NEB 07/15/24 18:00 07/24/24 09:59 2.5 MG Ipratropium [place] 0.5 mg Q4HR NEB 07/15/24 18:00 07/24/24 09:59 0.5 MG Enoxaparin Sodium 40 mg DAILY SC 07/16/24 12:30 07/24/24 10:49 40 MG Famotidine 20 mg DAILY PO 07/17/24 10:00 07/24/24 10:49 20 MG Levetiracetam 500 mg BID PO 07/18/24 22:00 07/24/24 10:55 500 MG Bupropion HCl 150 mg BID PO 07/19/24 22:00 07/24/24 10:57 150 MG Paroxetine HCl 20 mg DAILY PO 07/20/24 10:00 07/24/24 10:57 20 MG Levofloxacin 500 mg DAILY PO 07/21/24 10:00 07/24/24 10:50 500 MG Quetiapine Fumarate 200 mg DAILY PO 07/21/24 10:00 07/24/24 10:57 200 MG Levofloxacin 250 mg DAILY PO 07/21/24 10:00 07/24/24 10:51 250 MG Lorazepam 1 mg Q8HP PRN PO 07/22/24 14:00 07/24/24 00:04 1 MG Examination: GENERAL:Normal, HEENT:Normal, NECK:Normal, LUNGS:Normal, CVS:Normal, ABDOMEN:Normal, MSK:Normal, SKIN:Normal, NEURO:Normal, :Normal laboratory and microbiology Laboratory Tests 07/24/24 09:41 Test 07/24/24 09:41 Range/Units Serum Glucose 87 74-106 mg/dL Microbiology Date/Time Source Procedure Growth Status 07/07/24 10:57 Bronchial Washings Gram Stain - Final Complete 07/07/24 10:57 Respiratory Culture - Final Presumptive Keira albicans Complete 07/03/24 16:20 Blood Blood Culture - Final NO GROWTH AFTER 5 DAYS OF INCUBATION. Complete 07/03/24 11:24 Urine - [place] Urine Culture - Final Complete 06/29/24 12:51 Nose MRSA Screen - Final Complete Problem List/Assessment/Plan Problem List/Assessment/Plan Neurology: - patient is extubated today # Metabolic Encephalopathy due to Type 2 diabetes with hyperosmolar hyperglycemic state # Seizure # Chronic Stroke - CT Head on 10/02/23 shows: No acute intracranial abnormality. 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 Cardiovascular: # Hypertension - BP monitor Respiratory: # Acute hypoxic respiratory failure # Asthma # COPD Exacerbation -Currently on 2 L oxygen with nasal cannula -Ordered ABG on Room Air to evaluate if home O2 is needed. # Probable community-acquired pneumonia Gram-positive/Gram-negative - Repeat CXR on 07/16/24 shows: Moderate bilateral mixed interstitial/alveolar opacities, mildly improved since 07/15/2024. -Currently on empiric antibiotic ceftriaxone -Sputum with Klebsiella pneumoniae - Switched Abx to PO Levaquin 750 mg daily. -Negative influenza and COVID serologies Gastrointestinal # Transaminitis Secondary to above Genitourinary/Nephrology #Acute kidney injury - Avoid nephrotoxic medication - Avoid Hypertension/Hypotension - nephrology consult Endocrinology: # Type 2 diabetes with hyperosmolar hyperglycemic state # uncontrolled diabetes mellitus type 2 Hemoglobin A1c: 12.4 Sliding scale insulin Monitor blood glucose level Metabolic: # Hyperkalemia. - resolved Infectious Disease # Hepatitis-C infection - follow up liver function Hematology # Thrombocytosis - improving # Mild anemia due to chronic disease Follow up labs. DVT Prophy; Enoxaparin 40 mg subcutaneous daily GI Prophy; Famotidine 20mg daily advance care planning- full code- time spent 22 mins Patient had ABG on room air, PaO2 was more than 57. Does not qualify for home oxygen Case discussed with Dr Quiñones Plan discussed with: Patient My Orders My Orders Orders - BALTAZAR QUIÑONES MD Procedure Category Date Status Time * Generation Engineer CONS 07/24/24 Verified Consult Dietary Evaluation Review Comments: 1) Consider EN nutrition Glucerna 1.2 to 50ml/hr goal rate to meet pt needs 2) Advance pt diet when medically feasible to a CCHO 45g/2gNa diet 3) Continue current plan of care Expected Outcomes/Goals: 1) Pt to receive adequate nutrition 2) Pt diet to advance 3) F/U in 2-3 days Date of Service: Jul 24, 2024 Billing Provider: BALTAZAR QUIÑONES MD Common Visit Codes: [id number] INP/OBS CARE(HIGH) BALTAZAR QUIÑONES MD Jul 24, 2024 12:21
[2024-07-24] MEDS: SODIUM CHLORIDE 0.9% 250 ML IV ONE (12:30)
[2024-07-25] VITALS (21 sets, daily range): BP systolic 150–162; BP diastolic 76–87; PULSE 69–84; RESP 16–21; TEMP 97.2–99.5; O2SAT 95–100
--- NOTE | 2024-07-25 10:10 | DVHDS2 ---
Discharge Summary Date of Admission Jun 28, 2024 at 12:01 Date of Discharge: Jul 25, 2024 Labs/Diagnostic Data: Laboratory Results Test 07/25/24 06:12 07/24/24 09:41 07/19/24 18:41 07/18/24 06:28 POC Glucose 91 mg/dl (70-106) White Blood Count 7.7 10^3/uL (4.4-10.8) Red Blood Count 3.40 10^6/uL (4.5-5.90) Hemoglobin 9.4 g/dL (13.5-17.5) Hematocrit 28.6 % (41.0-53.0) Mean Corpuscular Volume 84.1 fL (80.0-100.0) Mean Corpuscular Hemoglobin 27.6 pg (28.0-32.0) Mean Corpuscular Hemoglobin Concent 32.8 g/dL (32.0-36.0) Red Cell Distribution Width 13.7 % (11.8-14.3) Platelet Count 523 10^3/uL (140-450) Mean Platelet Volume 6.8 fL (6.9-10.8) Neutrophils (%) (Auto) 58.6 % (37.0-80.0) Lymphocytes (%) (Auto) 22.7 % (10.0-50.0) Monocytes (%) (Auto) 13.4 % (0.0-12.0) Eosinophils (%) (Auto) 3.9 % (0.0-7.0) Basophils (%) (Auto) 1.4 % (0.0-2.0) Neutrophils # (Auto) 4.5 10 ^3/uL (1.6-8.6) Lymphocytes # (Auto) 1.7 10 ^3/uL (0.4-5.4) Monocytes # (Auto) 1.0 10 ^3/uL (0-1.3) Eosinophils # (Auto) 0.3 10 ^3/uL (0-0.8) Basophils # (Auto) 0.1 10 ^3/uL (0-0.2) Nucleated Red Blood Cells 0.1 % Sodium Level 137 mmol/L (136-145) Potassium Level 3.9 mmol/L (3.5-5.1) Chloride Level 103 mmol/L (98-107) Carbon Dioxide Level 27 mmol/L (20-31) Anion Gap 7 (5-15) Blood Urea Nitrogen 10 mg/dL (9-23) Creatinine 0.96 mg/dL (0.700-1.30) Glomerular Filtration Rate Calc 89 mL/min (>90) BUN/Creatinine Ratio 10.4 (10.0-20.0) Serum Glucose 87 mg/dL (74-106) Calcium Level 9.7 mg/dL (8.7-10.4) Total Bilirubin 0.2 mg/dL (0.2-1.0) Aspartate Amino Transferase (AST) 15 U/L (13-40) Alanine Aminotransferase (ALT) 16 U/L (7-40) Alkaline Phosphatase 68 U/L (46-116) Total Protein 6.9 g/dL (5.7-8.2) Albumin 3.5 g/dL (3.2-4.8) Blood Gas Specimen Type Arterial Blood Gas Sample Site Left radial Blood Gas Patient Temperature 37.0 Arterial Blood Date Drawn [id number] Arterial Blood pH 7.473 (7.350-7.450) Arterial Blood Partial Pressure CO2 28.1 mmHg (35.0-48.0) Arterial Blood Partial Pressure O2 57.3 mmHg (83.0-108.0) Arterial Blood HCO3 20.1 mmol/L (21.0-28.0) Arterial Blood Oxygen Saturation 90.5 % (94.0-98.0) Arterial Blood Base Excess -2.1 mmol/L (-2.0-3.0) Arterial Blood Oxyhemoglobin 89.2 % (94.0-98.0) Arterial Blood Carboxyhemoglobin 1.0 % (0.5-1.5) Arterial Blood Methemoglobin 0.4 % (0.0-1.5) Adama Test Modified Blood Gas Total Hemoglobin 14.00 g/dL (13.5-17.5) Blood Gas Liter Flow 0.00 Blood Gas Modality Room air Blood Gas Spontaneous Rate 22 FiO2 % 21.0 Specimen Drawn By Juan David robles rt Phosphorus Level 3.0 mg/dL (2.4-5.1) Magnesium Level 1.6 mg/dL (1.6-2.6) Test 07/15/24 05:00 07/13/24 14:46 07/13/24 07:32 07/06/24 15:34 Platelet Estimate Markedly increased Hypochromasia (manual) Moderate Anisocytosis (manual) Slight Microcytosis Moderate Stomatocytes Few Blood Gas Pressure Support 8 Blood Gas PEEP or CPAP 5.0 Blood Gas Critical Value Read Back yes Blood Gas Notified Whom guanako Quiñones md Blood Gas Notified Time [id number] Blood Gas Notified By Blood Gas Set Respiration Rate 18.0 Blood Gas Tidal Volume 500.0 HIV (1&2) Antibody Negative (Negative) Test 07/05/24 12:50 07/04/24 18:00 07/04/24 17:23 07/04/24 09:51 Prothrombin Time 10.6 sec (9.3-11.8) Prothrombin Time INR 1.00 (0.9-1.15) Activated Partial Thromboplast Time 32.5 SEC (24.5-34.5) Urine Creatinine 90.22 mg/dL (30.0-125.0) Urine Microalbumin 83.0 mg/L (<30.0) Urine Sodium 19 mmol/L (40-220) Hepatitis B Surface Antigen Negative (Negative) Hepatitis C Antibody Reactive (Negative) Test 07/03/24 07:09 07/01/24 10:02 06/30/24 10:54 06/29/24 17:30 Vancomycin Level Trough 9.8 ug/mL (5-10) Random Vancomycin Level 8.7 ug/mL (5-10) Free Thyroxine Index 2.1 (1.2-4.9) Thyroxine (T4) 6.5 ug/dL (4.5-12.0) Triiodothyronine (T3) Uptake 32 % (24-39) Hemoglobin A1c 12.4 % A1C (<5.7) Lipase 23 U/L (12-53) Thyroid Stimulating Hormone (TSH) 0.15 uIU/mL (0.55-4.78) Test 06/28/24 13:52 06/28/24 11:23 06/28/24 10:56 06/28/24 09:28 Blood Gas Spontaneous Tidal Volume 470 Blood Gas Inspiratory Pressure 20.0 Bl Gas Inspiratory/Expiratory Ratio 1:1 Troponin I High Sensitivity 10 ng/L (</=54) Urine Color Light-yellow (Yellow) Urine Clarity Clear (Clear) Urine pH 5.0 (5.0-9.0) Urine Specific [place] 1.025 (1.001-1.035) Urine Protein Negative (Negative) Urine Ketones Negative (Negative) Urine Blood Negative /uL (Negative) Urine Nitrite Negative (Negative) Urine Bilirubin Negative (Negative) Urine Urobilinogen Normal mg/dL (Negative) Urine Leukocyte Esterase Trace /uL (Negative) Urine RBC 2 /hpf (0 - 3) Urine WBC 7 /hpf (0 - 3) Urine Squamous Epithelial Cells None seen /hpf (<5) Urine Bacteria None seen /hpf (None Seen) Urine Glucose 4+ mg/dL (Normal) Urine Opiates Screen Neg (NEGATIVE) Urine Fentanyl Screen Neg (NEGATIVE) Urine Barbiturates Screen Neg (NEGATIVE) Urine Phencyclidine Screen Neg (NEGATIVE) Urine Amphetamines Screen Neg (NEGATIVE) Urine Benzodiazepines Screen Pos (NEGATIVE) Urine Cocaine Screen Neg (NEGATIVE) Urine Cannabinoids Screen Pos (NEGATIVE) Lactic Acid Level 1.5 mmol/L (0.4-2.0) Test 06/28/24 09:24 Plasma/Serum Blood Alcohol < 3.0 mg/dL (<10) Other Laboratory Tests 07/24/24 09:41 Brief Hx & Hospital Course: see dictated note Condition at Discharge: Fair Final Diagnosis/Problems List pneumonia Discharge Disposition: Home Discharge Instruct/Medications Diet: Consistent carbohydrate, Cardiac 2g Na,low cholest Activity: No Restrictions, As Tolerated Follow Up/Referral: fu with pcp in 1 wk Medications: resume home meds script to pharmacy Discharge Statement: "Patient was advised to return to the ER or call 911 if any headaches, dizziness, shortness of breath, chest pain, abdominal pain, bleeding, fevers, or worsening of medical condition. Patient was counseled about treatment plan, medications, possible side effects, patientverbalized understanding. All questions were answered to the best of my ability. This discharge took greater then 30 minutes in planning, reviewing documentation, counseling the patient, and discussing with other team members." DME: Diagnosis: Weakness ASSESSMENT ASSESSMENT Assessment pneumonia Date of Service: Jul 25, 2024 Billing Provider: BALTAZAR QUIÑONES MD Common Visit Codes: [id number]/[id number] DISCH DAY >30min BALTAZAR QUIÑONES MD Jul 25, 2024 10:10
[2024-07-25] MEDS ORDERED: LEVO500T91 PO (10:11)
--- NOTE | 2024-07-25 10:29 | DVHDS ---
HISTORY OF PRESENT ILLNESS: The patient is a 64-year-old gentleman who was admitted with history of altered level of consciousness and elevated blood sugar of over 1000. The patient has history of diabetes, COPD, hypertension, seizure disorder and chronic kidney disease. HOSPITAL COURSE: The patient was intubated and mechanically ventilated. The patient's blood sugars at the time of admission were 1078. The patient's potassium was 7.9. The patient's liver function tests were elevated. The patient was intubated and mechanically ventilated. The patient was also in acute renal failure. The patient was hyponatremic. He has a CT of the head, showed encephalomalacia with a right parietal and left occipital lobe old infarct. The patient had sputum cultures that were positive for Klebsiella pneumoniae and urine culture positive for E. coli. He was treated with antibiotics as well as underwent bronchoscopy. The patient has since been successfully extubated. At the time of discharge, the patient's kidney function is within normal limits. His white count is normal with a hemoglobin of 9.4. The patient will be discharged home to resume his home medications as well as to be on Levaquin 500 mg daily for 7 days. He will follow up with his primary in 1 week. FINAL DIAGNOSES: * Acute respiratory failure. * Metabolic encephalopathy, toxic metabolic. * History of old cerebrovascular accident. * Seizure disorder. * Chronic obstructive pulmonary disease with exacerbation. * Pneumonia secondary to Klebsiella pneumoniae. * Transaminitis. * Acute renal failure, likely acute tubular necrosis * Hepatitis C infection. * Type 2 diabetes with hyperosmolar hyperglycemic state. * Likely bipolar/schizophrenic disorder. Time spent in discharge planning and review of plan with the patient and nursing was 39 minutes. MD PANCHO March/ALY TID: [id number] RECEIPT: [id number]
[2024-07-26 01:00] VITALS: BP 168/85; PULSE 78; RESP 18; TEMP 98.5; O2SAT 98
[2024-07-26] MEDS: cloNIDine HCL 0.1 MG TAB PO ONE (01:31)
[2024-07-26 01:56] VITALS: PULSE 82; RESP 16; O2SAT 100
[2024-07-26 02:02] VITALS: PULSE 80; RESP 16; O2SAT 100
[2024-07-26 05:00] VITALS: BP 155/79; PULSE 76; RESP 18; TEMP 98; O2SAT 97
[2024-07-26 06:05] VITALS: PULSE 76; RESP 20; O2SAT 94
[2024-07-26 06:11] VITALS: PULSE 75; RESP 18; O2SAT 99
== END 2024-07-26 06:23 | disposition home health service (06) | DRG 720 ==
LOC: EDBD 08:04 → ER 08:04 → TELE 12:01 → ICU WEST 06-29 12:37 → DOU IN ICU 07-14 15:45 → EAST 07-17 17:08 → TELE-EAST 07-17 20:16 → EAST 07-19 09:42 → CENTRAL 07-24 15:47
PROVIDERS: ADMIT Internal Medicine Pulmonary Disease; ATTEND Internal Medicine
PROC: 5A1955Z Respiratory Ventilation, Greater than 96 Consecutive Hours (ICD-10-PCS; principal; 2024-06-28)
PROC: 0BH17EZ Insertion of Endotracheal Airway into Trachea, Via Natural or Artificial Opening (ICD-10-PCS; 2024-06-28)
PROC: 06HY33Z Insertion of Infusion Device into Lower Vein, Percutaneous Approach (ICD-10-PCS; 2024-06-28)
PROC: 5A09357 Assistance with Respiratory Ventilation, Less than 24 Consecutive Hours, Continuous Positive Airway Pressure (ICD-10-PCS; 2024-07-05)
PROC: 02HV33Z Insertion of Infusion Device into Superior Vena Cava, Percutaneous Approach (ICD-10-PCS; 2024-07-05)
PROC: B548ZZA Ultrasonography of Superior Vena Cava, Guidance (ICD-10-PCS; 2024-07-05)
PROC: 0B9M8ZZ Drainage of Bilateral Lungs, Via Natural or Artificial Opening Endoscopic (ICD-10-PCS; 2024-07-07)
DX: A41.89 Other specified sepsis (principal); J96.21 Acute and chronic respiratory failure with hypoxia; N17.0 Acute kidney failure with tubular necrosis; R65.21 Severe sepsis with septic shock; E11.01 Type 2 diabetes mellitus with hyperosmolarity with coma; G92.8 Other toxic encephalopathy; J44.0 Chronic obstructive pulmonary disease with (acute) lower respiratory infection; J15.0 Pneumonia due to Klebsiella pneumoniae; E87.20 Acidosis, unspecified; Z20.822 Contact with and (suspected) exposure to COVID-19; J96.22 Acute and chronic respiratory failure with hypercapnia; E87.5 Hyperkalemia; F17.210 Nicotine dependence, cigarettes, uncomplicated; F20.9 Schizophrenia, unspecified; G40.909 Epilepsy, unspecified, not intractable, without status epilepticus; G93.89 Other specified disorders of brain; I12.9 Hypertensive chronic kidney disease with stage 1 through stage 4 chronic kidney disease, or unspecified chronic kidney disease; N18.32 Chronic kidney disease, stage 3b; F32.A Depression, unspecified; B19.20 Unspecified viral hepatitis C without hepatic coma; J44.1 Chronic obstructive pulmonary disease with (acute) exacerbation; D75.839 Thrombocytosis, unspecified; D63.8 Anemia in other chronic diseases classified elsewhere; E11.22 Type 2 diabetes mellitus with diabetic chronic kidney disease; E87.1 Hypo-osmolality and hyponatremia; B96.20 Unspecified Escherichia coli [E. coli] as the cause of diseases classified elsewhere; E86.0 Dehydration; Z83.3 Family history of diabetes mellitus; Z86.73 Personal history of transient ischemic attack (TIA), and cerebral infarction without residual deficits
CPT/HCPCS: 31500; 36415; 36569; 36600; 70450; 71045; 71250; 74018; 76937; 80048; 80053; 80202; 80307; 80320; 81001; 82043; 82306; 82570; 82805; 82962; 83036; 83605; 83690; 83735; 84100; 84132; 84300; 84443; 84484; 85025; 85610; 85730; 86703; 86803; 87040; 87070; 87077; 87081; 87086; 87088; 87186; 87205; 87340; 92507; 92610; 93005; 93306; 94002; 94003; 94640; 94660; 95819; 97110; 97116; 97163; 97530; 99291; 99292; G0378; J0131; J1450; J1815; J1956; J2250; J2543; J2704; J3480; J3490; J7060

== ENCOUNTER 2024-07-30 15:37 | Inpatient (IN) | payer MEDICAID ==
[~2024-07-30] VITALS: Ht 170.2 cm; Wt 51.1 kg
[~2024-07-30 15:37] MED LIST changes: -ARIP20TA4 PO; -INSUINJ37 SUBCUT; +LEVO500T91 PO; -ZIPR80CA43 PO
[2024-07-30] MEDS: InsuLIN REG 1unit/0.01ml Soln (100units/ml) SC ONE (15:58)
--- NOTE | 2024-07-30 16:02 | ED.PDOC ---
History of Present Illness HPI Comments 64 y/o M is BIBA for c/o ALOC, today. Per EMS report, patient is a resident of a sober-living facility and was found by staff in current altered state, earlier, this afternoon. Patient was commented to have been found by EMS on scene A&Ox2, with a blood glucose in the 300's. Patient was stated to be unknown if he had consumed any EtOH, recently, amidst Hx of polysubstance abuse. Upon arrival to ED, patient was then commented by EMS staff to have had a seizure. At time of assessment, patient is, now, post-ictal and confused. Patient has no other reported associated symptoms or relevant additional Hx aside from listed Hx in PMH. Further Hx cannot be obtained, due to patient's condition and absence of family/clubhouse manager historians at this time. Time Seen by MD: 15:40 Primary Care Provider: NONE Reviewed Notes: Nurses Notes, Telemetry Technician Notes, Medications, Allergies Allergies: Coded Allergies: NO KNOWN ALLERGIES (Unverified , 08/29/13) Home Meds Active Scripts Levofloxacin Hemihydrate (LEVAQUIN 500 MG) 500 Mg Tab, 500 MG PO DAILY for 7 Days, #7 TAB Prov:BALTAZAR QUIÑONES MD 07/25/24 Levetiracetam (Keppra) 500 Mg Tab, 1 TAB PO BID, #60 TAB 0 Refills Prov:FREDDY OLIVIER MD 06/25/20 Reported Medications Metformin Hydrochloride (Metformin Hcl Er) 500 Mg Tab, 1 TAB PO DAILY for 30 Days, #30 06/29/24 Insulin Glargine (Basaglar Kwikpen) 100 Unit/Ml Inj, UNIT SC UD for 30 Days, #3 06/29/24 Aripiprazole (Aripiprazole) 10 Mg Tab, 1 TAB PO DAILY for 30 Days, #30 06/29/24 Ziprasidone HCl (Ziprasidone Hydrochloride) 80 Mg Cap, 40 MG PO BID for 30 Days, #60 06/29/24 Atorvastatin Calcium (Lipitor) 20 Mg Tab, 1 TAB PO DAILY, #90 TAB 1 Refill 06/23/20 Bupropion Hcl (Bupropion Hcl) 100 Mg Tab, 150 MG PO BID for 30 Days, MG 06/23/20 Glipizide (Glipizide) 10 Mg Tab, 1 TAB PO TID for 30 Days, #90 06/23/20 Pioglitazone Hydrochloride (ACTOS TABLET) 30 Mg Tb, 1 TAB PO DAILY for 30 Days, #30 06/23/20 Quetiapine Fumerate (Seroquel Xr) 200 Mg Tab, 300 MG PO DAILY for 30 Days, MG 06/23/20 Gabapentin (Gabapentin) 300 Mg Cap, 300 MG PO BID for 30 Days, MG 06/23/20 Aspirin (Aspir-Low) 81 Mg Tab, 81 MG PO DAILY for 30 Days, MG 06/23/20 Mirtazapine (Mirtazapine Oral Disintegrating Tablet) 15 Mg Tab, 1 TAB PO QPM, #30 TAB 3 Refills 09/26/14 Omeprazole (PRILOSEC) 20 Mg Cap, 20 MG PO DAILY, CAP 09/26/14 Insulin (Insulin Human) Human Pow, 1 XX, POW 08/29/13 Paroxetine (PAXIL TABLET) 20 Mg Tb, 20 MG PO DAILY 08/29/13 [Onglyza] No Conflict Check, 5 MG PO DAILY 08/29/13 Loratadine (Loratadine) 10 Mg Tab, 10 MG PO DAILY, TAB 08/29/13 Information Source: Patient, Emergency Med Personnel Mode of Arrival: EMS Severity: Moderate Timing: Hours Duration: Since onset Prehospital treatment: 12 Lead EKG, Manager Retirement Past Medical History PAST MEDICAL HISTORY: Asthma, CKF, COPD, CVA, Depression, DM (type II), HTN, Liver (hepatitis C ), Schizophrenia, Seizures Past Medical History (Other): acute respiratoyr failure, toxic metabolic encephalopathy, PNA, transaminitis, acute renal failiure Surgical History: Denies all surgeries Family History Family History: Reviewed,noncontributory to illness, Unknown Social History Smoker: Cigarettes, Greater Than 1 Pack/Day Alcohol: Heavy Drugs: Marijuana Lives In: Home Neurological: reports: seizure, others (ALOC) All Other Systems: Reviewed and Negative (negative unless otherwise stated above or in HPI) Physical Exam General Appearance: No Apparent Distress, Normal, Other (left-sided gaze) HEENT: Normal ENT Inspection, Pharynx Normal, TMs Normal Neck: Full Range of Motion, Non-Tender, Normal, Normal Inspection Respiratory: Chest Non-Tender, Lungs Clear, No Accessory Muscle Use, No Respiratory Distress, Normal Breath Sounds Cardiovascular: No Edema, No JVD, No Murmur, No Gallop, Normal Peripheral Pulses, Regular Rate/Rhythm Breast Exam: Deferred Gastrointestinal: No Organomegaly, Non Tender, No Pulsatile Mass, Normal Bowel Sounds, Soft Genitalia: Deferred Pelvic: Deferred Rectal: Deferred Extremities: No calf tenderness, Normal capillary refill, Normal inspection, Normal range of motion, Non-tender, No pedal edema Musculoskeletal : Apperance: Normal Neurologic: cns II-XII nml as Tested, No Motor Deficits, Other (post-ictal, d oes not follow commands, normocephalic atraumatic) Cerebellar Function: Normal Reflexes: Normal Skin: Dry, Normal Color, Warm Lymphatic: No Adenopathy Was a procedure done? Was a procedure done?: Yes Sedation Sedation?: No Informed consent obtained: No Central Line Recorder of insertion practice: Lumber Press Operator Occupation of cardiac monitor: Attending Physician Indication: Volume resuscitation, Inability to obtain IV Room prepared for procedure: Yes Lumber Press Operator performed hand hygien: Yes Maximal sterile barrier precau: Mask/Eye shield, Sterile gown, Cap, Sterlie gloves, Large sterlie drape Skin Preparation: Chlorhexidine gluconate Skin preparation completely dr: Yes Insertion site: Right, Femoral Central line catheter type: Other (triple lumen) Number of lumens: 3 Central line exchanged over a: No Antiseptic ointment applied to: No Post Assessment: Proper placement Informed consent obtained: No Risks/benefits/alt described: No Notes no complications, successful access into right femoral vein on first attempt, with good venous,nonpulsatile blood return, and all 3 ports flushed easily. biopatch placed at insertion site, 2 sutures used to anchor line down Intubation Indication: Respiratory Insufficiency, Altered Mental Status, Airway Protection Prep: Preoxygenation Pretreated with: Sedation (etomidate) Medicated with: Other (Etomidate - 40mg at 1624) Intubation Approach: Orotracheal Intubation size: cm (8.0, 24cm at the lip) Informed consent obtained: No Risks/benefits/alt described: No Notes no complication, patient tolerated procedure well, CO2 detector color activate, condensation in the tube, patient at 97% SpO2 post-intubation X-ray, 18 tube is confirmed to be in good placement Differential Dx Considerations may include: medication noncompliant, seizures, pseudoseizures, encephalopathy, electrolyte imbalance, alcohol induced seizures, alcohol withdrawal seizures, substance abuse, dka, HONKS, intracranial mass, intracranial bleed, closed head injury, hyponatremia, other electrolyte disorders, hypoxia. anoxic brain injury. hypertensive emergency, hypoglycemia X-Ray, Labs, Meds, VS Vital Signs Date Time Temp Pulse Resp B/P (MAP) Pulse Ox O2 Delivery O2 Flow Rate FiO2 07/30/24 18:44 61 07/30/24 18:30 61 18 91/46 (61) 100 07/30/24 18:15 72/38 07/30/24 18:00 72 14 70/37 (48) 100 07/30/24 18:00 70/37 07/30/24 17:30 82 19 114/62 (79) 100 07/30/24 17:15 90/53 07/30/24 17:10 90/53 07/30/24 17:10 98.3 79 26 123/69 96 100 98.3 07/30/24 17:00 90/53 07/30/24 17:00 79 19 90/53 (65) 100 07/30/24 16:56 79 26 123/69 (87) 96 100 07/30/24 16:53 114/78 07/30/24 16:29 123/69 07/30/24 16:20 59 123/69 (87) 07/30/24 15:37 98.3 74 20 185/87 (119) 99 Lab Test 07/30/24 17:29 07/30/24 16:58 07/30/24 16:05 Range/Units Troponin I High Sensitivity 9 3 L </=54 ng/L Urine Opiates Screen Neg NEGATIVE Urine Fentanyl Screen Pos NEGATIVE Urine Barbiturates Screen Neg NEGATIVE Urine Phencyclidine Screen Neg NEGATIVE Urine Amphetamines Screen Neg NEGATIVE Urine Benzodiazepines Screen Neg NEGATIVE Urine Cocaine Screen Neg NEGATIVE Urine Cannabinoids Screen Pos NEGATIVE White Blood Count 10.1 # 4.4-10.8 10^3/uL Red Blood Count 3.55 L 4.5-5.90 10^6/uL Hemoglobin 9.7 L 13.5-17.5 g/dL Hematocrit 30.2 L 41.0-53.0 % Mean Corpuscular Volume 85.1 80.0-100.0 fL Mean Corpuscular Hemoglobin 27.4 L 28.0-32.0 pg Mean Corpuscular Hemoglobin Concent 32.2 32.0-36.0 g/dL Red Cell Distribution Width 14.4 H 11.8-14.3 % Platelet Count 552 H 140-450 10^3/uL Mean Platelet Volume 6.8 L 6.9-10.8 fL Neutrophils (%) (Auto) 56.2 37.0-80.0 % Lymphocytes (%) (Auto) 29.2 10.0-50.0 % Monocytes (%) (Auto) 8.4 0.0-12.0 % Eosinophils (%) (Auto) 5.0 0.0-7.0 % Basophils (%) (Auto) 1.2 0.0-2.0 % Neutrophils # (Auto) 5.7 1.6-8.6 10 ^3/uL Lymphocytes # (Auto) 3.0 0.4-5.4 10 ^3/uL Monocytes # (Auto) 0.8 0-1.3 10 ^3/uL Eosinophils # (Auto) 0.5 0-0.8 10 ^3/uL Basophils # (Auto) 0.1 0-0.2 10 ^3/uL Nucleated Red Blood Cells 0.1 % Sodium Level 137 136-145 mmol/L Potassium Level 4.4 3.5-5.1 mmol/L Chloride Level 107 98-107 mmol/L Carbon Dioxide Level 21 20-31 mmol/L Anion Gap 9 5-15 Blood Urea Nitrogen 12 9-23 mg/dL Creatinine 0.98 0.700-1.30 mg/dL Glomerular Filtration Rate Calc 87 >90 mL/min BUN/Creatinine Ratio 12.2 10.0-20.0 Serum Glucose 382 #H 74-106 mg/dL Calcium Level 8.7 8.7-10.4 mg/dL Total Bilirubin < 0.2 L 0.2-1.0 mg/dL Aspartate Amino Transferase (AST) 25 13-40 U/L Alanine Aminotransferase (ALT) 28 7-40 U/L Alkaline Phosphatase 99 46-116 U/L Total Protein 6.5 5.7-8.2 g/dL Albumin 3.4 3.2-4.8 g/dL Plasma/Serum Blood Alcohol < 3.0 <10 mg/dL Current Medications Medications (Trade) Dose Ordered Sig/Kandi Route Start Time Stop Time Status Last Admin Insulin Human Regular (InsuLIN R) 4 units ONCE ONCE SC 07/30/24 16:00 07/30/24 16:01 DC 07/30/24 15:58 Etomidate 40 mg ONCE ONCE IV 07/30/24 16:15 07/30/24 16:16 DC 07/30/24 16:25 Lorazepam (Ativan Inj) 2 mg ONCE ONCE IV 07/30/24 16:30 07/30/24 16:31 DC 07/30/24 16:19 Midazolam HCl 50 ml @ 1 mls/hr Q24H IV 07/30/24 16:30 07/30/24 16:29 Sodium Chloride 1,000 ml @ 1,000 mls/hr Q1H ONCE IV 07/30/24 17:30 07/30/24 18:29 DC 07/30/24 18:06 Fentanyl Citrate 250 ml @ 2.5 mls/hr Q24H IV 07/30/24 17:30 07/30/24 17:10 Phenytoin Sodium 100 mg ONCE ONCE IV 07/30/24 17:30 07/30/24 17:58 DC 07/30/24 18:11 Time of 1ST Reevaluation: 16:10 Reevaluation 1ST: Unchanged Time of 2ND Reevaluation: 16:48 Reevaluation 2ND: Improved Patient Education/Counseling: Other (patient is post-ictal ) Family Education/Counseling: No Family Present Additional Information - I reviewed the following notes from patient's past medical encounters: hospital admission discharge summary report on 07/25/24. pt has a history of seizures and was admitted in 2021, 2019 - The following tests were ordered, and results were reviewed by me: (Labs, X- Ray, EKG) - Additional information was gathered from interviewing the following independent Historian: EMT - I reviewed and agreed with the following test results read by other provider: (X-ray, CT) - I discussed treatments and results with medical personnel and: residential facility staff pt was found altered, but had an episode of seizure witnessed en route here,by EMT. he does not have a history of seizure, per EMT, buty medical record review shows he has had multiple seizures in the past. his alcohol level is negative. drug screen is negative. has hyperglycemia, but is not in DKA. pt may have alcohol withdrawal seizures, a head ct showed no acute findings, due to repeat seizure episodes, without lucidity in between, his airway protection is a concern, so pt was intubated to protect his airway. pt's drug screen was positive for fentanyl, this was obtained prior to fentanyl drip started Departure 1 Departure Time of Disposition: 19:22 Impression: Primary Impression: acute seizure Additional Impressions: Altered mental state Qualified Codes: R40.1 - Stupor Airway compromise Disposition: ADMITTED INPATIENT Admit to: ICU Condition: Serious Critical Care Note Critical Care Time?: Yes (55 min-critical care time only) Critical care comment: due to concerns for patient's condition worsening, the care required my highest attention and readiness to intervene. i reviewed the medical records, communicated with medical personnel, consultants, ordered the proper tests, treatments, reassessed the response and results. formulated a plan of care . tot al time does not include any procedures Stability Stability form required: No Heart Score Heart Score: Heart Score Response (Comments) Value History N/A 0 EKG N/A 0 Age N/A 0 Risk Factors N/A 0 Troponin N/A 0 Total 0 I personally scribed for SPENSER LYON MD ([email or web address]) on 07/30/24 at 16:02. Electronically submitted by Kenn Lockett ([email or web address]). I personally scribed for SPENSER LYON MD ([employer] on 07/30/24 at 16:29. Electronically submitted by Kenn Lockett ([email or web address]). I personally scribed for SPENSER LYON MD ([email or web address]) on 07/30/24 at 16:39. Electronically submitted by Kenn Lockett ([email or web address]). SPENSER LYON MD Jul 30, 2024 16:02
[2024-07-30 16:15] LABS: Basophils # (auto) 0.1 10 ^3/uL (0-0.2); Eosinophils # (auto) 0.5 10 ^3/uL (0-0.8); Mean Corpuscular Hemoglobin 27.4 pg (28.0-32.0); Mean Corpuscular Hgb Conc. 32.2 g/dL (32.0-36.0); Mean Corpuscular Volume 85.1 fL (80.0-100.0); Monocytes # (auto) 0.8 10 ^3/uL (0-1.3); Neutrophils # (auto) 5.7 10 ^3/uL (1.6-8.6); Nucleated Red Blood Cells % 0.1 %; White Blood Cell 10.1 10^3/uL (4.4-10.8)
[2024-07-30 16:17] LABS: Basophils % (auto) 1.2 % (0.0-2.0); Hematocrit 30.2 % (41.0-53.0); Hemoglobin 9.7 g/dL (13.5-17.5); Lymphocytes % (auto) 29.2 % (10.0-50.0); Monocytes % (auto) 8.4 % (0.0-12.0); Neutrophils % (auto) 56.2 % (37.0-80.0); Platelet Count (auto) 552 10^3/uL (140-450); Red Blood Cells 3.55 10^6/uL (4.5-5.90); Red Cell Distribution Width 14.4 % (11.8-14.3)
[2024-07-30] MEDS: LORazepam 2MG/ML-1ML VIAL ONE (16:17)
[2024-07-30] MEDS: ETOMIDATE (2MG/ML) 20ML VIAL IV ONE ×2 (16:19→16:25)
[2024-07-30] MEDS: LORazepam 2MG/ML-1ML VIAL IV ONE (16:19)
[2024-07-30] MEDS: MIDAZOLAM DRIP 50 mg/50mL 50 ML IV SCH (16:29)
[2024-07-30 16:36] LABS: Alanine Aminotransferase 28 U/L (7-40); Albumin 3.4 g/dL (3.2-4.8); Alkaline Phosphatase 99 U/L (46-116); Anion Gap 9 (5-15); Aspartate Aminotransferase 25 U/L (13-40); BUN/Creatinine Ratio 12.2 (10.0-20.0); Blood Urea Nitrogen 12 mg/dL (9-23); Calcium 8.7 mg/dL (8.7-10.4); Carbon Dioxide 21 mmol/L (20-31); Chloride 107 mmol/L (98-107); Potassium 4.4 mmol/L (3.5-5.1); Sodium 137 mmol/L (136-145)
[2024-07-30 16:37] LABS: Total Protein 6.5 g/dL (5.7-8.2)
[2024-07-30 16:39] LABS: Bilirubin, Total < 0.2 mg/dL (0.2-1.0); Glucose 382 mg/dL (74-106)
[2024-07-30 16:40] LABS: Blood Alcohol < 3.0 mg/dL (<10)
--- NOTE | 2024-07-30 16:50 | DVH ---
EXAM: XY CHEST PORTABLE TECHNIQUE: Single frontal chest radiograph CLINICAL HISTORY: altered COMPARISON: XY CHEST PORTABLE on DOS: 07/20/24, XY CHEST XRAY 1 VIEW on DOS: 07/18/24, XY CHEST ROBBIE BLE on DOS: 07/16/24 Findings/Impression: Frontal chest radiograph demonstrates no acute osseous or superficial soft tissue abnormalities. Endotracheal tube terminates 5.9 cm from the andrea. Enteric tube is overlying the plane of the stoma ch. The trachea is midline. The cardiac silhouette and mediastinum are within normal limits. No pneumothorax, pleural effusions, or consolidations.
[2024-07-30 17:10] VITALS: BP 123/69; PULSE 79; RESP 26; TEMP 98.3; O2SAT 96
[2024-07-30] MEDS: fentaNYL Drip 2500mCg/250mlNS 250 ML IV SCH (17:10)
--- NOTE | 2024-07-30 17:13 | DVH ---
Exam: CT HEAD WITHOUT CONTRAST History: altered, new onset seizure, leftward gaze Technique: [address] images through the posterior fossa and the supratentorial compart ment were acquired without contrast and imaged using soft tissue and bone algorithms. RADIATION DOSE: DLP 863.9 mGy.cm; CTDI vol 53.99 mGy. Comparison: CT HEAD WITHOUT CONTRAST on DOS: 07/07/24, CT CHEST WITHOUT CONTRAST on DOS: 07/02/24, CT HEAD WITHOUT CONTRAST on DOS: 07/02/24 Findings: There is no evidence of an intracranial hemorrhage, acute large vessel infarct, mass effect, or midli ne shift. Unchanged decreased parenchymal attenuation in bilateral posterior parietal and left occipital lobes. There is mild cerebral atrophy. No significant calcification of the carotid siphons. The calvarium, orbits, paranasal sinuses, sella, middle ears, and mastoids are unremarkable. The superficial soft tissues are within normal limits. Impression: 1. No acute intracranial abnormality. 2. Encephalomalacia in the bilateral posterior parietal and left occipital lobes.
[2024-07-30 17:50] LABS: Amphetamine Screen, Urine Neg (NEGATIVE); Cannabinoid Screen, Urine Pos (NEGATIVE); Opiate Scree,Urine Neg (NEGATIVE)
[2024-07-30] MEDS: MIDAZOLAM DRIP 50 mg/50mL 50 ML IV ONE (18:00)
[2024-07-30] MEDS: fentaNYL Drip 2500mCg/250mlNS 250 ML IV ONE (18:01)
[2024-07-30] MEDS: PHENYTOIN SODIUM 50 MG/ML 2ML VIAL IV ONE ×2 (18:01→18:11)
[2024-07-30] MEDS: SODIUM CHLORIDE 0.9% 1,000 ML IV ONE ×2 (18:06→20:20)
[2024-07-30 18:12] LABS: Barbiturate Scree,Urine Neg (NEGATIVE); Benzodiazephine Screen, Urine Neg (NEGATIVE); Cocaine Screen, Urine Neg (NEGATIVE); Phencyclidine Screen, Urine Neg (NEGATIVE)
[2024-07-30 18:33] VITALS: BP 91/46; PULSE 60; RESP 17; O2SAT 100
[2024-07-30 18:44] VITALS: PULSE 61
[2024-07-30 19:45] VITALS: O2SAT 98
[2024-07-30] MEDS ORDERED: MORPHINE SULFATE INJ 2 MG/ml SYRG IV PRN (19:45)
[2024-07-30] MEDS ORDERED: NITROGLYCERIN 0.4 MG SL TAB SL PRN (19:45)
[2024-07-30] MEDS ORDERED: ONDANSETRON HCL 4 MG/2 ML VIAL IV PRN (19:45)
[2024-07-30] MEDS ORDERED: ALBUTEROL SULF 2.5 MG/0.5ML(0.5%) NEB SOLN NEB PRN (19:45)
[2024-07-30 20:09] LABS: Base Excess -6.3 mmol/L (-2.0-3.0)
[2024-07-30 20:38] VITALS: BP 95/51; PULSE 64; RESP 16; O2SAT 100
[2024-07-30 22:11] VITALS: BP 95/51; PULSE 66; RESP 16; O2SAT 100
[2024-07-30] MEDS: levETIRAcetam 500 mg/100ml 100 ML IV SCH (22:49)
[2024-07-31] VITALS (27 sets, daily range): BP systolic 82–159; BP diastolic 46–67; PULSE 64–89; RESP 14–19; TEMP 98.1–100.9; O2SAT 97–100
[2024-07-31] MEDS: InsuLIN REG 1unit/0.01ml Soln (100units/ml) SC SCH
[2024-07-31] MEDS: ACCU-CHEK COMFORT CURVE STRIP VI SCH (00:05)
[2024-07-31] MEDS: DEXTROSE (50%) 50ML SYRG IV PRN (00:07)
--- NOTE | 2024-07-31 04:58 | DVHHP2 ---
History of Present Illness Reason for Visit: Altered mental status History of Present Illness 64-year-old male presents for evaluation of altered mental status. Patient presented from an assisted living facility. Patient was noted to be progressively more altered yesterday. On arrival patient noted to have seizure- like episode subsequently becoming postictal. Patient was emergently intubated for airway protection. Currently intubated and sedated. Past Medical History Chronic kidney disease, COPD, CVA, depression, diabetes mellitus, hypertension, seizures schizophrenia Past Surgical History None Family History Noncontributory Smoke: <1 pack per day ALCOHOL: heavy Drugs: Marijuana Lives: Other Review of Systems Review of Systems Review of systems are currently negative otherwise addressed in HPI. Allergies: Coded Allergies: NO KNOWN ALLERGIES (Unverified , 08/29/13) Medications Current Medications Medications Dose Ordered Sig/Kandi Route Start Time Stop Time Status Last Admin Dose Admin Midazolam HCl 50 ml @ 1 mls/hr Q24H IV 07/30/24 16:30 07/30/24 16:29 1 MLS/HR Fentanyl Citrate 250 ml @ 2.5 mls/hr Q24H IV 07/30/24 17:30 07/30/24 17:10 2.5 MLS/HR Levetiracetam 100 ml @ 400 mls/hr BID IV 07/30/24 22:00 07/30/24 22:49 400 MLS/HR Albuterol 2.5 mg Q6HPRN PRN NEB 07/30/24 19:45 Diagnostic Test (Pha) 1 strip Q6HR 07/31/24 00:00 07/31/24 00:05 1 STRIP Insulin Human Regular Q6HR SC 07/31/24 00:00 Dextrose 50 ml UD PRN IV 07/30/24 19:45 07/31/24 00:07 50 ML Ondansetron HCl 4 mg Q4HP PRN IV 07/30/24 19:45 Enoxaparin Sodium 40 mg DAILY SC 07/31/24 10:00 Acetaminophen 650 mg Q6HP PRN PO 07/30/24 19:45 Nitroglycerin 0.4 mg Q5MINP PRN SL 07/30/24 19:45 Morphine Sulfate 2 mg Q30M PRN IV 07/30/24 19:45 Exam Vital Signs Vital Signs Date Time Temp Pulse Resp B/P (MAP) Pulse Ox O2 Delivery O2 Flow Rate FiO2 07/31/24 04:05 65 07/31/24 03:58 19 119/60 (79) 100 30 07/31/24 03:00 98.1 98.1 07/30/24 19:45 Room Air* 0 Mechanical Ventilator+ Exam Gen: 64-year-old male in no apparent distress Skin: Warm, dry, normal color and texture, no rash. HEENT: Normocephalic atraumatic, mucous membranes moist and pink. Neck: Cervical and supraclavicular nodes normal without enlargement, trachea is midline, thyroid gland is normal without masses. Pulmonary: Intubated, diminished breath sounds bilaterally Cardiac: Regular rate and rhythm. No murmur Abdomen: Soft, nontender, nondistended, bowel sounds present all 4 quadrants, no guarding, no rigidity, no organomegaly. Extremities: No cyanosis, clubbing, no edema Neuro: Sedated Labs/Xrays ORDERING PHYSICIAN: SPENSER YEH MD PROCEDURE(s): CXRP - CHEST PORTABLE REASON: altered ORDER NUMBER(s): [id number], ACCESSION NUMBER(s): [id number] EXAM: XY CHEST PORTABLE TECHNIQUE: Single frontal chest radiograph CLINICAL HISTORY: altered COMPARISON: XY CHEST PORTABLE on DOS: 07/20/24, XY CHEST XRAY 1 VIEW on DOS: 07/18/24, XY CHEST PORTABLE on DOS: 07/16/24 Findings/Impression: Frontal chest radiograph demonstrates no acute osseous or superficial soft tissue abnormalities. Endotracheal tube terminates 5.9 cm from the andrea. Enteric tube is overlying the plane of the stomach. The trachea is midline. The cardiac silhouette and mediastinum are within normal limits. No pneumothorax, pleural effusions, or consolidations. RING PHYSICIAN: SPENSER YEH MD PROCEDURE(s): HWOCT - HEAD WITHOUT CONTRAST REASON: altered, new onset seizure, leftward gaze ORDER NUMBER(s): [id number], ACCESSION NUMBER(s): [id number] Exam: CT HEAD WITHOUT CONTRAST History: altered, new onset seizure, leftward gaze Technique: [address] images through the posterior fossa and the supratentorial compartment were acquired without contrast and imaged using soft tissue and bone algorithms. RADIATION DOSE: DLP 863.9 mGy.cm; CTDI vol 53.99 mGy. Comparison: CT HEAD WITHOUT CONTRAST on DOS: 07/07/24, CT CHEST WITHOUT CONTRAST on DOS: 07/02/24, CT HEAD WITHOUT CONTRAST on DOS: 07/02/24 Findings: There is no evidence of an intracranial hemorrhage, acute large vessel infarct, mass effect, or midline shift. Unchanged decreased parenchymal attenuation in bilateral posterior parietal and left occipital lobes. There is mild cerebral atrophy. No significant calcification of the carotid siphons. The calvarium, orbits, paranasal sinuses, sella, middle ears, and mastoids are unremarkable. The superficial soft tissues are within normal limits. Impression: 1. No acute intracranial abnormality. 2. Encephalomalacia in the bilateral posterior parietal and left occipital lobes. Labs Test 07/31/24 03:58 07/31/24 00:39 07/30/24 18:51 07/30/24 17:29 Range/Units POC Glucose 154 H 70-106 mg/dl Blood Gas Specimen Type Arterial Blood Gas Sample Site Left brachial Blood Gas Patient Temperature 37.0 Arterial Blood Date Drawn [id number] Arterial Blood pH 7.373 7.350-7.450 Arterial Blood Partial Pressure CO2 31.8 L 35.0-48.0 mmHg Arterial Blood Partial Pressure O2 505.6 *H 83.0-108.0 mmHg Arterial Blood HCO3 18.1 L 21.0-28.0 mmol/L Arterial Blood Oxygen Saturation 99.8 H 94.0-98.0 % Arterial Blood Base Excess -6.3 L -2.0-3.0 mmol/L Arterial Blood Oxyhemoglobin 98.9 H 94.0-98.0 % Arterial Blood Carboxyhemoglobin 0.1 L 0.5-1.5 % Arterial Blood Methemoglobin 0.8 0.0-1.5 % Adama Test N/a Blood Gas Total Hemoglobin 9.40 L 13.5-17.5 g/dL Blood Gas Set Respiration Rate 16.0 Blood Gas Modality Vent - ac Blood Gas Spontaneous Rate 17 FiO2 % 100.0 Blood Gas Tidal Volume 500.0 Blood Gas PEEP or CPAP 5.0 Blood Gas Critical Value Read Back Yes Blood Gas Notified Whom Md mushtaq yeh Blood Gas Notified Time [id number] Blood Gas Notified By Automation Architect chris adams Troponin I High Sensitivity 9 </=54 ng/L Test 07/30/24 16:58 07/30/24 16:05 Range/Units Urine Opiates Screen Neg NEGATIVE Urine Fentanyl Screen Pos NEGATIVE Urine Barbiturates Screen Neg NEGATIVE Urine Phencyclidine Screen Neg NEGATIVE Urine Amphetamines Screen Neg NEGATIVE Urine Benzodiazepines Screen Neg NEGATIVE Urine Cocaine Screen Neg NEGATIVE Urine Cannabinoids Screen Pos NEGATIVE Eosinophils (%) (Auto) 5.0 0.0-7.0 % Eosinophils # (Auto) 0.5 0-0.8 10 ^3/uL Basophils # (Auto) 0.1 0-0.2 10 ^3/uL Nucleated Red Blood Cells 0.1 % Plasma/Serum Blood Alcohol < 3.0 <10 mg/dL Assessment/Plan Assessment/Plan Assessment Acute respiratory failure, intubated Toxic encephalopathy Substance abuse Diabetes mellitus Seizure activity Plan Admit the patient to ICU to the hospitalist Pulmonary consultation Resume home medications Seizure precautions in place Continue treatment per orders. Total critical care time excluding procedures performed this 60 minutes. Plan discussed with: Other My Orders Orders - BALTAZAR MONET [facility] Procedure Category Date Status Time Levetiracetam 500 PHA 07/30/24 In Process Mg/100ml (Levetiraceta 22:00 Sodium Chloride 0.9% PHA 07/30/24 In Process 19:45 Albuterol Medneb PHA 07/30/24 In Process (Ventolin Medneb) 19:45 Glucose Blood PHA 07/31/24 In Process (Accu-Chek Comfort 00:00 Insulin R (Human) PHA 07/31/24 In Process (Insulin R) 00:00 Dextrose 50% Syringe PHA 07/30/24 In Process 19:45 Admit ADMIT 07/30/24 Transmitted 19:38 Ondansetron Hcl PHA 07/30/24 In Process (Zofran) 19:45 Enoxaparin Sodium PHA 07/31/24 In Process (Lovenox) 10:00 Complete Blood Count LAB 07/31/24 Logged 04:00 Comprehensive LAB 07/31/24 Logged Metabolic Panel 04:00 Condition: Critical ЕЛЕНА 07/30/24 In Process 19:38 Acetaminophen Tablet PHA 07/30/24 In Process (Tylenol Tablet) 19:45 Maintain Bed Rest ЕЛЕНА 07/30/24 In Process 19:38 Sequential [facility] 07/30/24 In Process Compression Device Nitroglycerin PHA 07/30/24 In Process Sublingual (Ntrostat 19:45 Morphine Sulfate PHA 07/30/24 In Process Injection 19:45 Stat Ekg For Chest [facility] 07/30/24 In Process Pain 19:38 Notify Of Changes [facility] 07/30/24 In Process From Base 19:38 Carving Machine Operator For [facility] 07/30/24 In Process 24 Hours 19:38 Emergency Dysrhythmia [facility] 07/30/24 In Process Protocol 19:38 Rhythm Strips Once [facility] 07/30/24 In Process Every Shift 19:38 Oxygen By Nasal RT 07/30/24 Transmitted Cannula 19:38 Seizure Precautions [facility] 07/30/[address] 19:38 Date of Service: Jul 30, 2024 Billing Provider: BALTAZAR MONET Common Visit Codes: [id number] CARE 30-74 MIN BALTAZAR MONET Jul 31, 2024 04:58
[2024-07-31 07:29] LABS: Base Excess -2.9 mmol/L (-2.0-3.0)
[2024-07-31 08:23] LABS: Basophils # (auto) 0.1 10 ^3/uL (0-0.2); Basophils % (auto) 0.7 % (0.0-2.0); Eosinophils # (auto) 0.3 10 ^3/uL (0-0.8); Eosinophils % (auto) 3.4 % (0.0-7.0); Monocytes # (auto) 0.9 10 ^3/uL (0-1.3); Red Cell Distribution Width 14.6 % (11.8-14.3)
[2024-07-31 08:25] LABS: Hematocrit 25.3 % (41.0-53.0); Hemoglobin 8.3 g/dL (13.5-17.5); Lymphocytes # (auto) 3.4 10 ^3/uL (0.4-5.4); Lymphocytes % (auto) 37.3 % (10.0-50.0); Mean Corpuscular Volume 84.8 fL (80.0-100.0); Monocytes % (auto) 10.1 % (0.0-12.0); Neutrophils # (auto) 4.4 10 ^3/uL (1.6-8.6); Neutrophils % (auto) 48.5 % (37.0-80.0); Nucleated Red Blood Cells % 0.2 %; Platelet Count (auto) 440 10^3/uL (140-450); Red Blood Cells 2.98 10^6/uL (4.5-5.90); White Blood Cell 9.1 10^3/uL (4.4-10.8)
[2024-07-31 08:47] LABS: Alanine Aminotransferase 17 U/L (7-40); Alkaline Phosphatase 66 U/L (46-116); Anion Gap 7 (5-15); Aspartate Aminotransferase 18 U/L (13-40); BUN/Creatinine Ratio 9.9 (10.0-20.0); Carbon Dioxide 23 mmol/L (20-31); Sodium 143 mmol/L (136-145)
[2024-07-31 08:49] LABS: Albumin 2.7 g/dL (3.2-4.8); Bilirubin, Total 0.2 mg/dL (0.2-1.0); Blood Urea Nitrogen 8 mg/dL (9-23); Calcium 8.4 mg/dL (8.7-10.4); Chloride 113 mmol/L (98-107); Potassium 3.3 mmol/L (3.5-5.1); Total Protein 5.4 g/dL (5.7-8.2)
[2024-07-31 08:51] LABS: Glucose 27 mg/dL (74-106)
[2024-07-31] MEDS: ENOXAPARIN SOD 40 MG/0.4 ML SYRINGE SC SCH (10:00)
--- NOTE | 2024-07-31 11:12 | DVHPN2 ---
Progress Note Date Seen: Jul 31, 2024 Medical Necessity Reason Pt with a Central, PICC or Fol: Yes The following are medically ne: Central Line, Nelson Catheter Reason for nelson catheter: Strict I&O Subjective Patient reports: No new complaints Review of Systems: HEENT:Normal, CVS:Normal, RESPIRATORY:Normal, GI:Normal, :Normal, MSK:Normal, NEURO:Normal Objective vital signs Vital Sign Date Time Temp Pulse Resp B/P (MAP) Pulse Ox O2 Delivery O2 Flow Rate FiO2 07/31/24 10:00 30 07/31/24 10:00 84 07/31/24 10:00 15 98 Mechanical Ventilator+ 07/31/24 09:20 98/47 (64) 07/31/24 07:00 98.2 98.2 07/30/24 19:45 0 Total Intake and Output 07/30/24 07/30/24 07/31/24 15:00 23:00 07:00 Intake Total 200 ml Balance 200 ml medications Current Medications Medications Dose Ordered Sig/Kandi Route Start Time Stop Time Status Last Admin Dose Admin Midazolam HCl 50 ml @ 1 mls/hr Q24H IV 07/30/24 16:30 07/31/24 07:52 15 MLS/HR Fentanyl Citrate 250 ml @ 2.5 mls/hr Q24H IV 07/30/24 17:30 07/30/24 17:10 2.5 MLS/HR Levetiracetam 100 ml @ 400 mls/hr BID IV 07/30/24 22:00 07/31/24 09:59 400 MLS/HR Albuterol 2.5 mg Q6HPRN PRN NEB 07/30/24 19:45 Diagnostic Test (Pha) 1 strip Q6HR 07/31/24 00:00 07/31/24 06:09 1 STRIP Insulin Human Regular Q6HR SC 07/31/24 00:00 Dextrose 50 ml UD PRN IV 07/30/24 19:45 07/31/24 08:59 50 ML Ondansetron HCl 4 mg Q4HP PRN IV 07/30/24 19:45 Enoxaparin Sodium 40 mg DAILY SC 07/31/24 10:00 07/31/24 10:00 40 MG Acetaminophen 650 mg Q6HP PRN PO 07/30/24 19:45 Nitroglycerin 0.4 mg Q5MINP PRN SL 07/30/24 19:45 Morphine Sulfate 2 mg Q30M PRN IV 07/30/24 19:45 Examination: GENERAL:Normal, HEENT:Normal, NECK:Normal, LUNGS:Normal, LUNGS:Abnormal (intubated), CVS:Normal, ABDOMEN:Normal, MSK:Normal, SKIN:Normal, NEURO:Normal, NEURO:Abnormal (sedated), :Normal laboratory and microbiology Laboratory Tests 07/31/24 08:02 Test 07/31/24 08:02 Range/Units Serum Glucose 27 #*L 74-106 mg/dL Microbiology Date/Time Source Procedure Growth Status 07/30/24 16:57 Sputum Expectorated Sputum Gram Stain - Final Resulted 07/30/24 16:57 Sputum Expectorated Sputum Respiratory Culture - Preliminary Resulted Problem List/Assessment/Plan Problem List/Assessment/Plan #1 Acute respiratory failure: cont acv #2 Metabolic encephalopathy, toxic metabolic. #3 History of old cerebrovascular accident. #4 Seizure disorder: iv keppra, neuro eval #5 Chronic obstructive pulmonary disease #6 Hepatitis C infection. #7 Type 2 diabetes: ssi #8 Likely bipolar/schizophrenic disorder. Plan discussed with: Other (rn) My Orders My Orders Orders - BALTAZAR QUIÑONES MD Procedure Category Date Status Time * Dietary Consult CONS 07/31/24 Transmitted 09:02 * Wound Consult CONS 07/31/24 Transmitted 09:02 Mrsa Screen HUNTER 07/31/24 Logged 09:02 * Electrician Radio CONS 07/31/24 Transmitted Consult 09:02 Critical Care Time (mins): 81 (critical care time including review of data was 81 mins) Date of Service: Jul 31, 2024 Billing Provider: BALTAZAR QUIÑONES MD Common Visit Codes: 61576-[id number] CARE 30-74 MIN, 99982-RHYDDXYD CARE-EACH +30MIN BALTAZAR QUIÑONES MD Jul 31, 2024 11:12
[2024-07-31] MEDS: PANTOPRAZOLE 40 MG/10 ML VIAL INJ IV ONE (12:05)
[2024-07-31] MEDS: POTASSIUM EFFERVESENT TAB 25 MEQ GT ONE (12:05)
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
[2024-07-31] MEDS ORDERED: LORazepam 2MG/ML-1ML VIAL IV PRN (14:45)
[2024-07-31] MEDS: THIAMINE 100mg/ml INJ (200mg/2ml VIAL) IV ONE (15:06)
[2024-07-31] MEDS: Glucerna 1.2 Cal 1Liter BOTTLE GT SCH (17:56)
[2024-07-31 21:10] LABS: Urine Bacteria FEW /hpf (None Seen); Urine Blood TRACE /uL (Negative); Urine Clarity Clear (Clear); Urine Color Light-Yellow (Yellow); Urine Hyaline Cast FEW /lpf (0 - 2); Urine Protein, UAD TRACE (Negative); Urine Specific Gravity 1.013 (1.001-1.035); Urine Squamous Epithelial Cell None Seen /hpf (<5); Urine Urobilinogen Normal (Negative); Urine WBC 6 /hpf (0 - 3); Urine pH 5.5 (5.0-9.0)
[2024-07-31] MEDS: ATORVASTATIN 20 MG TAB PO SCH (21:55)
[2024-07-31] MEDS: ALBUMIN 5% 250 ML IV ONE ×2 (21:56→23:12)
[2024-07-31] MEDS: DEXTROSE 10% 1,000 ML IV SCH (22:02)
[2024-08-01] VITALS (74 sets, daily range): BP systolic 82–142; BP diastolic 37–70; PULSE 60–77; RESP 13–22; TEMP 97.3–100.4; O2SAT 98–100
[2024-08-01] MEDS: DEXTROSE 10% 1,000 ML IV SCH (00:39)
[2024-08-01 04:17] LABS: Basophils # (auto) 0.1 10 ^3/uL (0-0.2); Eosinophils # (auto) 0.6 10 ^3/uL (0-0.8); Lymphocytes # (auto) 2.3 10 ^3/uL (0.4-5.4)
[2024-08-01 04:19] LABS: Basophils % (auto) 0.9 % (0.0-2.0); Eosinophils % (auto) 5.2 % (0.0-7.0); Hematocrit 24.8 % (41.0-53.0); Hemoglobin 7.9 g/dL (13.5-17.5); Mean Corpuscular Hemoglobin 26.7 pg (28.0-32.0); Mean Corpuscular Hgb Conc. 31.8 g/dL (32.0-36.0); Mean Corpuscular Volume 83.9 fL (80.0-100.0); Monocytes # (auto) 1.1 10 ^3/uL (0-1.3); Monocytes % (auto) 10.2 % (0.0-12.0); Neutrophils % (auto) 62.7 % (37.0-80.0); Nucleated Red Blood Cells % 0.1 %; Platelet Count (auto) 390 10^3/uL (140-450); Red Blood Cells 2.96 10^6/uL (4.5-5.90); Red Cell Distribution Width 14.7 % (11.8-14.3); White Blood Cell 11.1 10^3/uL (4.4-10.8)
[2024-08-01 04:25] LABS: INR 1.24 (0.9-1.15); Partial Thromboplastin Time 35.4 SEC (24.5-34.5); Prothrombin Time 12.9 sec (9.3-11.8)
[2024-08-01 04:29] LABS: Alanine Aminotransferase 14 U/L (7-40); Alkaline Phosphatase 58 U/L (46-116); Anion Gap 3 (5-15); Aspartate Aminotransferase 21 U/L (13-40); Carbon Dioxide 26 mmol/L (20-31); Glucose 76 mg/dL (74-106); Sodium 139 mmol/L (136-145)
[2024-08-01 04:31] LABS: Albumin 2.9 g/dL (3.2-4.8); Bilirubin, Total 0.2 mg/dL (0.2-1.0); Blood Urea Nitrogen 8 mg/dL (9-23); Calcium 8.5 mg/dL (8.7-10.4); Chloride 110 mmol/L (98-107); Total Protein 5.3 g/dL (5.7-8.2)
--- NOTE | 2024-08-01 06:16 | DVH ---
CHEST RADIOGRAPH Indication: resp failure Technique: Single frontal view of the chest was obtained Comparison: XY CHEST PORTABLE on DOS: 07/30/24 FINDINGS: Lines and Tubes: The endotracheal tube terminates above andrea. The enteric tube terminates in the s tomach. Lungs: No focal consolidation. Pleura: No effusion. No pneumothorax. Cardiomediastinal contours: Unremarkable Bones: No acute osseous abnormality. IMPRESSION: 1. No acute cardiopulmonary disease.
[2024-08-01 06:31] LABS: Base Excess -1.8 mmol/L (-2.0-3.0)
[2024-08-01] MEDS: ACETAMINOPHEN 325 MG TAB PO PRN (06:36)
[2024-08-01] MEDS: PANTOPRAZOLE 40 MG/10 ML VIAL INJ IV SCH (07:59)
[2024-08-01] MEDS: ASPirin 81 mg TAB PO SCH (08:00)
[2024-08-01] MEDS: THIAMINE 100mg/ml INJ (200mg/2ml VIAL) IV SCH (08:09)
--- NOTE | 2024-08-01 10:35 | DVHPN2 ---
Progress Note - Dictate Date Seen: Aug 01, 2024 Medical Necessity Reason Pt with a Central, PICC or Fol: Yes The following are medically ne: Central Line, Nelson Catheter Reason for nelson catheter: Strict I&O Subjective Mr. Hernandes is a 64 years old right-handed gentleman with a history of hypertension, diabetes, chronic kidney failure, bipolar disorder, asthma. He was taken to the [facility] on 07/30/24 with a chief company of altered mental status. I saw him on 08/30/13 for new onset seizure, 06/23/2020, 07/13/2022 for seizure I have seen and examined the patient, I have talked to his nurse and the medical staff, the patient was no seizure activity, he remained intubated, sedated, responsive to stroke painful stimuli On 08/01/2024, I have talked to her niece, Terrie, according to her, the patient was has had seizure disorder for 10-15 years, in that she was spells of shaking all over body, with loss of consciousness, she has seizure once every 3-4 days, his niece does not know his doctors, and she does not know what he takes for seizure ABG 07/30/2024: Compensated metabolic acidosis UDS, 07/30/2024: Fentanyl, cannabinoids WBC/HB/PLT/MCV, 07/31/2024: 9.1/8.3/440/84.8 CMP, 07/31/2024: Unremarkable Glucose, 07/30/2024: 382, 07/31/2024: 27 TG/HDL/LDL/HDL, 12/2023: 67/116/51/48 Vitamin B12, 06/2020: 581 Folic acid, 06/2020: 24 TSH, 06/2020: 0.38, 06/29/2024: 0.15 Carotid Doppler, 06/2020: 1. No evidence for hemodynamically significant stenosis or occlusion. 2. Antegrade flow seen within the vertebral arteries bilaterally. Echocardiogram:, 07/02/2024: 1. MODERATE DEGREE LVH AND MILD LV DIASTOLIC DYSFUNCTION 2. LV EJECTION FRACTION IS IN RANGE OF 65% 3. 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 NORMAL RV FUNCTION 5. NORMAL TV,PV AND AORTIC VALVE 6. NO EFFUSION JAK, 06/2020: 1. Technically good study, sinus rhythm. 2. Normal chamber sizes. 3. Valves are normal. 4. Left ventricular systolic function is preserved. EF is 60% with normal right ventricular function. 5. Doppler shows no ASD or VSD. The atrial appendage looks within normal limits. Bubble study was normal. 6. There is no pericardial effusion, masses or vegetations. The appendage as previously indicated was normal. Transgastric and descending and ascending aorta are all within normal limits. No shunting and/or atrial or ventricular septal defects noted. Chest x-ray, 07/30/2024: Frontal chest radiograph demonstrates no acute osseous or superficial soft tissue abnormalities. Endotracheal tube terminates 5.9 cm from the andrea. Enteric tube is overlying the plane of the stomach. The trachea is midline. The cardiac silhouette and mediastinum are within normal limits. No pneumothorax, pleural effusions, or consolidations CT head, 08/29/13: 1. No definite acute intracranial abnormality is identified. 2. Mild atrophy is noted. 3. There is mild opacification of the right ethmoid air cells. There may be a tiny amount of fluid in the mastoid air cells CT head, 06/22/20: 1. No intracranial hemorrhage, mass or evidence of acute transcortical infarct. 2. Atrophy. White matter disease compatible with chronic small vessel ischemia. 3. Chronic cortical and subcortical white matter infarct right parietal lobe and lateral left occipital lob CT head, 07/28/2024: 1. No acute intracranial abnormality. 2. Encephalomalacia in the bilateral posterior parietal and left occipital lobes CT head, 07/02/2024: 1. No acute intracranial abnormality. 2. 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 vital signs Vital Sign Date Time Temp Pulse Resp B/P (MAP) Pulse Ox O2 Delivery O2 Flow Rate FiO2 08/01/24 09:45 75 20 97/50 (66) 100 30 08/01/24 09:00 99.0 210.2 08/01/24 08:00 Mechanical Ventilator+ 07/30/24 19:45 0 Total Intake and Output 07/31/24 07/31/24 08/01/24 15:00 23:00 07:00 Intake Total 300 ml 559.0 ml 931.0 ml Output Total 1100 ml Balance 300 ml -541.0 ml 931.0 ml medications Current Medications Medications Dose Ordered Sig/Kandi Route Start Time Stop Time Status Last Admin Dose Admin Midazolam HCl 50 ml @ 1 mls/hr Q24H IV 07/30/24 16:30 08/01/24 09:45 13 MLS/HR Fentanyl Citrate 250 ml @ 2.5 mls/hr Q24H IV 07/30/24 17:30 07/31/24 17:40 10 MLS/HR Levetiracetam 100 ml @ 400 mls/hr BID IV 07/30/24 22:00 08/01/24 08:00 400 MLS/HR Albuterol 2.5 mg Q6HPRN PRN NEB 07/30/24 19:45 Diagnostic Test (Pha) 1 strip Q6HR 07/31/24 00:00 08/01/24 08:00 1 STRIP Insulin Human Regular Q6HR SC 07/31/24 00:00 Dextrose 50 ml UD PRN IV 07/30/24 19:45 08/01/24 00:03 50 ML Enoxaparin Sodium 40 mg DAILY SC 07/31/24 10:00 08/01/24 07:59 40 MG Acetaminophen 650 mg Q6HP PRN PO 07/30/24 19:45 08/01/24 06:36 650 MG Nitroglycerin 0.4 mg Q5MINP PRN SL 07/30/24 19:45 Morphine Sulfate 2 mg Q30M PRN IV 07/30/24 19:45 Pantoprazole Sodium 40 mg DAILY IV 08/01/24 10:00 08/01/24 07:59 40 MG Enteral Nutritional Formula 1,000 ml 30ML/HR GT 07/31/24 11:00 07/31/24 17:56 1,000 ML Lorazepam 1 mg Q5MINP PRN IV 07/31/24 14:45 Aspirin 81 mg DAILY PO 08/01/24 10:00 08/01/24 08:00 81 MG Atorvastatin Calcium 20 mg HS PO 07/31/24 22:00 07/31/24 21:55 20 MG Thiamine HCl 100 mg DAILY IV 08/01/24 10:00 08/01/24 08:09 100 MG Dextrose 1,000 ml @ 80 mls/hr [id number] IV 08/01/24 00:30 08/01/24 00:39 80 MLS/HR objective The patient is well-nourished and well-developed with no distress. The patient is intubated MENTAL STATUS: Subjective CRANIAL NERVES: Pupils are equal, round and reactive.There are corneal reflexes and doll's eyes phenomenon. No signs of facial weakness. There are gagging or coughing reflexes SENSATION: Responses to strong pain stimuli. MOTOR: Normal tone in the upper and lower extremity. Normal muscle bulk. No fasciculations. No spontaneous movement. REFLEXES: Deep tendon reflexes are symmetrical. No pathological reflexes. CEREBELLAR/COORDINATION: Deferred GAIT/STATION: deferred. laboratory and microbiology Laboratory Tests 08/01/24 03:53 Test 08/01/24 03:53 Range/Units Serum Glucose 76 74-106 mg/dL Problem List Altered mental status ? Status epilepticus Metabolic encephalopathy Hypoxic encephalopathy Toxic encephalopathy Seizure disorder COPD Metabolic acidosis Respiratory failure Substance abuse ? Poor compliance Chronic multiple stroke Assessment/Plan Continue monitoring Supportive treatment Telemetry EEG Follow-up labs ICU care Stabilize vitals Respiratory support/vent management Keppra 500 mg twice daily Ativan for seizure breakthrough Aspirin 81 mg daily Lipitor 20 mg daily Ativan for seizure breakthrough DVT prophylax/Lovenox GI prophylaxis/Protonix He does not drive This medical document was created using an electronic medical record system with [employer] dictation system. Although this document has been carefully reviewed, there may still be some phonetic and typographical errors. These areas are purely typographical due to imperfections of the software programs, and do not reflect any compromise in the patient's medical care. Prognosis guarded Plan discussed with: Other Critical Care Time(min): 35 ZARA HARRIS MD Aug 01, 2024 10:35
--- NOTE | 2024-08-01 11:07 | DVHPN2 ---
Progress Note Date Seen: Aug 01, 2024 Medical Necessity Reason Pt with a Central, PICC or Fol: Yes The following are medically ne: Central Line, Nelson Catheter Reason for nelson catheter: Strict I&O Subjective Patient reports: No new complaints Review of Systems: HEENT:Normal, CVS:Normal, RESPIRATORY:Normal, GI:Normal, :Normal, MSK:Normal, NEURO:Normal Objective vital signs Vital Sign Date Time Temp Pulse Resp B/P (MAP) Pulse Ox O2 Delivery O2 Flow Rate FiO2 08/01/24 10:30 98.4 76 17 117/63 (81) 99 209.1 08/01/24 10:00 30 08/01/24 08:00 Mechanical Ventilator+ 07/30/24 19:45 0 Total Intake and Output 07/31/24 07/31/24 08/01/24 15:00 23:00 07:00 Intake Total 300 ml 559.0 ml 931.0 ml Output Total 1100 ml Balance 300 ml -541.0 ml 931.0 ml medications Current Medications Medications Dose Ordered Sig/Kandi Route Start Time Stop Time Status Last Admin Dose Admin Midazolam HCl 50 ml @ 1 mls/hr Q24H IV 07/30/24 16:30 08/01/24 09:45 13 MLS/HR Fentanyl Citrate 250 ml @ 2.5 mls/hr Q24H IV 07/30/24 17:30 07/31/24 17:40 10 MLS/HR Levetiracetam 100 ml @ 400 mls/hr BID IV 07/30/24 22:00 08/01/24 08:00 400 MLS/HR Albuterol 2.5 mg Q6HPRN PRN NEB 07/30/24 19:45 Diagnostic Test (Pha) 1 strip Q6HR 07/31/24 00:00 08/01/24 08:00 1 STRIP Insulin Human Regular Q6HR SC 07/31/24 00:00 Dextrose 50 ml UD PRN IV 07/30/24 19:45 08/01/24 00:03 50 ML Enoxaparin Sodium 40 mg DAILY SC 07/31/24 10:00 08/01/24 07:59 40 MG Acetaminophen 650 mg Q6HP PRN PO 07/30/24 19:45 08/01/24 06:36 650 MG Nitroglycerin 0.4 mg Q5MINP PRN SL 07/30/24 19:45 Morphine Sulfate 2 mg Q30M PRN IV 07/30/24 19:45 Pantoprazole Sodium 40 mg DAILY IV 08/01/24 10:00 08/01/24 07:59 40 MG Enteral Nutritional Formula 1,000 ml 30ML/HR GT 07/31/24 11:00 07/31/24 17:56 1,000 ML Lorazepam 1 mg Q5MINP PRN IV 07/31/24 14:45 Aspirin 81 mg DAILY PO 08/01/24 10:00 08/01/24 08:00 81 MG Atorvastatin Calcium 20 mg HS PO 07/31/24 22:00 07/31/24 21:55 20 MG Thiamine HCl 100 mg DAILY IV 08/01/24 10:00 08/01/24 08:09 100 MG Dextrose 1,000 ml @ 80 mls/hr [id number] IV 08/01/24 00:30 08/01/24 00:39 80 MLS/HR Examination: GENERAL:Normal, HEENT:Normal, NECK:Normal, LUNGS:Normal, LUNGS:Abnormal (intubated), CVS:Normal, ABDOMEN:Normal, MSK:Normal, SKIN:Normal, NEURO:Normal, :Normal laboratory and microbiology Laboratory Tests 08/01/24 03:53 Test 08/01/24 03:53 Range/Units Serum Glucose 76 74-106 mg/dL Microbiology Date/Time Source Procedure Growth Status 07/30/24 16:57 Sputum Expectorated Sputum Gram Stain - Final Resulted 07/30/24 16:57 Sputum Expectorated Sputum Respiratory Culture - Preliminary Resulted Problem List/Assessment/Plan Problem List/Assessment/Plan #1 Acute respiratory failure: cont acv, cpap trial in am #2 Metabolic encephalopathy, toxic metabolic. #3 History of old cerebrovascular accident. #4 Seizure disorder: iv keppra, neuro eval #5 Chronic obstructive pulmonary disease #6 Hepatitis C infection. #7 Type 2 diabetes: ssi #8 Likely bipolar/schizophrenic disorder. Plan discussed with: Other (rn) My Orders My Orders Orders - BALTAZAR QUIÑONES MD Procedure Category Date Status Time Pantoprazole PHA 08/01/24 In Process (Protonix) 10:00 Nutritional PHA 07/31/24 In Process Supplements (Glucerna 11:00 * Neurology Consult CONS 07/31/24 Transmitted 11:00 Respiratory Culture HUNTER 07/31/24 Logged W/ Gs 11:00 Chest Portable XY 08/01/24 Resulted 06:00 Abg W/ Co-Ox RT 08/01/24 Logged 06:00 Apply Barrier Cream ЕЛЕНА 07/31/24 In Process 10:00 Critical Care Time (mins): 41 (critical care time 41 mins) Date of Service: Aug 01, 2024 Billing Provider: BALTAZAR QUIÑONES MD Common Visit Codes: [id number] CARE 30-74 MIN BALTAZAR QUIÑONES MD Aug 01, 2024 11:06
[2024-08-01] MEDS: METOCLOPRAMIDE HCL 5MG/ml INJ 2ml VIAL IV ONE (11:15)
[2024-08-01] MEDS: NOREPINEPHRINE 8 MG/250ML KIT 250 ML IV SCH (18:00)
[2024-08-01] MEDS: METOCLOPRAMIDE HCL 5MG/ml INJ 2ml VIAL IV SCH (21:36)
[2024-08-02] VITALS (111 sets, daily range): BP systolic 88–180; BP diastolic 38–78; PULSE 52–80; RESP 6–24; TEMP 97–100.4; O2SAT 81–100
[2024-08-02] MEDS: SODIUM CHLORIDE 0.9% 1,000 ML IV SCH (01:37)
[2024-08-02 04:15] LABS: Basophils # (auto) 0.1 10 ^3/uL (0-0.2); Hematocrit 26.8 % (41.0-53.0); Hemoglobin 8.8 g/dL (13.5-17.5); White Blood Cell 14.6 10^3/uL (4.4-10.8)
[2024-08-02 04:19] LABS: Basophils % (auto) 0.6 % (0.0-2.0); Eosinophils # (auto) 0.8 10 ^3/uL (0-0.8); Eosinophils % (auto) 5.2 % (0.0-7.0); Lymphocytes # (auto) 1.7 10 ^3/uL (0.4-5.4); Lymphocytes % (auto) 11.7 % (10.0-50.0); Mean Corpuscular Hemoglobin 27.2 pg (28.0-32.0); Mean Corpuscular Volume 82.3 fL (80.0-100.0); Monocytes # (auto) 1.3 10 ^3/uL (0-1.3); Monocytes % (auto) 8.7 % (0.0-12.0); Neutrophils # (auto) 10.8 10 ^3/uL (1.6-8.6); Neutrophils % (auto) 73.8 % (37.0-80.0); Nucleated Red Blood Cells % 0.1 %; Platelet Count (auto) 453 10^3/uL (140-450); Red Blood Cells 3.25 10^6/uL (4.5-5.90); Red Cell Distribution Width 14.5 % (11.8-14.3)
[2024-08-02 04:40] LABS: Potassium 4.1 mmol/L (3.5-5.1); Sodium 137 mmol/L (136-145)
[2024-08-02 04:41] LABS: Anion Gap 5 (5-15); Carbon Dioxide 25 mmol/L (20-31)
[2024-08-02 04:46] LABS: Blood Urea Nitrogen 10 mg/dL (9-23)
[2024-08-02 04:47] LABS: Magnesium 1.8 mg/dL (1.6-2.6)
[2024-08-02 04:50] LABS: Calcium 7.4 mg/dL (8.7-10.4); Chloride 107 mmol/L (98-107)
[2024-08-02 04:57] LABS: Glucose 42 mg/dL (74-106)
--- NOTE | 2024-08-02 05:29 | DVH ---
CHEST RADIOGRAPH Indication: resp failure Technique: Single frontal view of the chest was obtained Comparison: XY CHEST PORTABLE on DOS: 08/01/24, XY CHEST PORTABLE on DOS: 07/30/24, XY CHEST PORTABLE on DOS: 07/20/24, XY CHEST XRAY 1 VIEW on DOS: 07/18/24, XY CHEST PORTABLE on DOS: 07/16/24, XY CHEST PORTABLE on DOS: 08/01/24 FINDINGS: Lines and Tubes: The endotracheal tube terminates above andrea. The enteric tube terminates in the s tomach. Lungs: No focal consolidation. Pleura: No effusion. No pneumothorax. Cardiomediastinal contours: Unremarkable Bones: No acute osseous abnormality. IMPRESSION: 1. No acute cardiopulmonary disease.
[2024-08-02 07:00] LABS: Base Excess -1.4 mmol/L (-2.0-3.0)
--- NOTE | 2024-08-02 15:15 | DVHPN2 ---
Assessment/Plan Assessment/Plan ICU progress note Subjective for sbt sat, titrating off pressors Objective Physical exam sedated, mechanically ventilated PERLLA gag, cough corneal present withdraw to pain mechanical breath sounds S1 S2 RRR BS+ no LE edema Imaging CXR no interval changes Assessment and plan acute respiratory failure acute toxic and metabolic encephalopathy prior CVA seizure disorder COPD group E with exacerbation Hep C NIDDM bipolar disorder CKD 3 c/w mechanical ventilation c/w sedation, keep RAAS -2 daily SAT SBT c/w keppra neuro consult appreciated maintain MAP >65 can use levo ipatropum, albuterol Lines Farn[place] Maintain potassium of 4, phosphate of 3 and magnesium of 2 Diet tube feeds GI prophylaxis protonix DVT prophylaxis lovenox Condition critical Prognosis poor code status DNR 55 minutes critical care time spent on this patient including evaluation, chart review, formulating plan and communication with team, excluding any procedures or point of care imaging Plan discussed with: Other Date of Service: Aug 02, 2024 Billing Provider: MAHENDRA NORTON MD Common Visit Codes: [id number] CARE 30-74 MIN MAHENDRA NORTON MD Aug 02, 2024 15:15
[2024-08-02] MEDS: NOREPINEPHRINE 8 MG/250ML KIT 250 ML IV SCH (16:39)
--- NOTE | 2024-08-02 16:41 | DVHINCON2 ---
Date of service: Aug 02, [address] Jeong Reason for Consultation Ventilator management History of Present Illness A 64-year-old man with past medical history of COPD, chronic kidney disease, CVA, depression, diabetes mellitus type 2, hypertension, seizure disorder, schizophrenia who presented with acute metabolic encephalopathy. He was currently sedated, intubated on mechanical ventilator. On arrival to the ED was noted to have seizure-like episode and became postictal. He required emergent intubation and placement on mechanical ventilation. He is currently seen and examined in the intensive care unit. Pulmonary consultation is called due to acute respiratory failure on mechanical ventilator management. Review of systems: Unable to obtain due to patient's critical condition. Past medical history: Chronic kidney disease, COPD, CVA, depression, diabetes mellitus type 2, hypertension, seizures, schizophrenia Past surgical history: None mentioned in prior surgeries. Medications: Reviewed Allergies: No known drug allergies. Family history: No family history of premature CAD. No family history of lung disease Social history: Smokes less than one pack per day. Heavy alcohol use. Marijuana use. Family History: Alcoholism Family history: Diabetes mellitus Unobtainable due to patient's condition Allergies: Coded Allergies: NO KNOWN ALLERGIES (Unverified , 08/29/13) Home Meds Active Scripts Levofloxacin Hemihydrate (LEVAQUIN 500 MG) 500 Mg Tab, 500 MG PO DAILY for 7 Days, #7 TAB Prov:BALTAZAR QUIÑONES MD 07/25/24 Levetiracetam (Keppra) 500 Mg Tab, 1 TAB PO BID, #60 TAB 0 Refills Prov:FREDDY OLIVIER MD 06/25/20 Reported Medications Metformin Hydrochloride (Metformin Hcl Er) 500 Mg Tab, 1 TAB PO DAILY for 30 Days, #30 06/29/24 Insulin Glargine (Basaglar Kwikpen) 100 Unit/Ml Inj, UNIT SC UD for 30 Days, #3 06/29/24 Aripiprazole (Aripiprazole) 10 Mg Tab, 1 TAB PO DAILY for 30 Days, #30 06/29/24 Ziprasidone HCl (Ziprasidone Hydrochloride) 80 Mg Cap, 40 MG PO BID for 30 Days, #60 06/29/24 Atorvastatin Calcium (Lipitor) 20 Mg Tab, 1 TAB PO DAILY, #90 TAB 1 Refill 06/23/20 Bupropion Hcl (Bupropion Hcl) 100 Mg Tab, 150 MG PO BID for 30 Days, MG 06/23/20 Glipizide (Glipizide) 10 Mg Tab, 1 TAB PO TID for 30 Days, #90 06/23/20 Pioglitazone Hydrochloride (ACTOS TABLET) 30 Mg Tb, 1 TAB PO DAILY for 30 Days, #30 06/23/20 Quetiapine Fumerate (Seroquel Xr) 200 Mg Tab, 300 MG PO DAILY for 30 Days, MG 06/23/20 Gabapentin (Gabapentin) 300 Mg Cap, 300 MG PO BID for 30 Days, MG 06/23/20 Aspirin (Aspir-Low) 81 Mg Tab, 81 MG PO DAILY for 30 Days, MG 06/23/20 Mirtazapine (Mirtazapine Oral Disintegrating Tablet) 15 Mg Tab, 1 TAB PO QPM, #30 TAB 3 Refills 09/26/14 Omeprazole (PRILOSEC) 20 Mg Cap, 20 MG PO DAILY, CAP 09/26/14 Insulin (Insulin Human) Human Pow, 1 XX, POW 08/29/13 Paroxetine (PAXIL TABLET) 20 Mg Tb, 20 MG PO DAILY 08/29/13 [Onglyza] No Conflict Check, 5 MG PO DAILY 08/29/13 Loratadine (Loratadine) 10 Mg Tab, 10 MG PO DAILY, TAB 08/29/13 Current Medications Current Medications Medications (Trade) Dose Ordered Sig/Kandi Route PRN Reason Start Time Stop Time Status Last Admin Metoclopramide HCl (Reglan Injection) 5 mg Q8HR IV 08/01/24 22:00 08/02/24 14:12 Norepinephrine Bitartrate 250 ml @ 3.75 mls/hr Q24H IV 08/01/24 16:45 08/02/24 15:38 DC 08/01/24 18:00 Sodium Chloride 1,000 ml @ 80 mls/hr [id number] IV 08/02/24 01:15 08/02/24 14:05 Norepinephrine Bitartrate 250 ml @ 3.75 mls/hr Q24H IV 08/02/24 15:45 Vital Signs Vital Signs Date Time Temp Pulse Resp B/P (MAP) Pulse Ox O2 Delivery O2 Flow Rate FiO2 08/02/24 15:43 68 16 105/47 (66) 100 30 08/02/24 13:00 98.2 208.8 08/02/24 07:33 Mechanical Ventilator+ Physical Exam Gen.: Patient lying in bed in medical ICU. Sedated, intubated on mechanical ventilator. Head: Normocephalic, atraumatic. Eyes: PERRLA. Ears: Normal external anatomy. Throat: Endotracheal tube and orogastric tube in place. Neck: Supple, trachea midline. Chest: Transmitted breath sounds bilaterally. Decreased air entry bilaterally. No wheezing. Bibasilar crackles. Cardio vascular: Positive S1, positive S2. Regular rate and rhythm. Abdomen: Positive bowel sounds in all 4 quadrants. Soft, nontender, nondistended. : Farnsworth in place. Normal external genitalia. Rectal: Deferred Skin: Warm, dry. Intact. Extremities: 2+ radial pulses bilaterally. No lower extremity edema. Neuro: Sedated. Labs/Diagnostic Data Labs Test 08/02/24 14:08 08/02/24 06:47 08/02/24 04:08 08/01/24 03:53 Range/Units POC Glucose 94 70-106 mg/dl Blood Gas Specimen Type Arterial Blood Gas Sample Site Left radial Blood Gas Patient Temperature 37.0 Arterial Blood Date Drawn [id number] Arterial Blood pH 7.421 7.350-7.450 Arterial Blood Partial Pressure CO2 35.6 35.0-48.0 mmHg Arterial Blood Partial Pressure O2 73.1 L 83.0-108.0 mmHg Arterial Blood HCO3 22.6 21.0-28.0 mmol/L Arterial Blood Oxygen Saturation 95.1 94.0-98.0 % Arterial Blood Base Excess -1.4 -2.0-3.0 mmol/L Arterial Blood Oxyhemoglobin 94.5 94.0-98.0 % Arterial Blood Carboxyhemoglobin 0.3 L 0.5-1.5 % Arterial Blood Methemoglobin 0.3 0.0-1.5 % Adama Test Modified Blood Gas Total Hemoglobin 10.80 L 13.5-17.5 g/dL Blood Gas Set Respiration Rate 16.0 Blood Gas Modality Vent - ac Blood Gas Spontaneous Rate 16 FiO2 % 30.0 Blood Gas Tidal Volume 500.0 Blood Gas Inspiratory Pressure 24.0 Blood Gas PEEP or CPAP 5.0 Bl Gas Inspiratory/Expiratory Ratio 1:2.1 Specimen Drawn By brenda leon White Blood Count 14.6 #H 4.4-10.8 10^3/uL Red Blood Count 3.25 L 4.5-5.90 10^6/uL Hemoglobin 8.8 L 13.5-17.5 g/dL Hematocrit 26.8 L 41.0-53.0 % Mean Corpuscular Volume 82.3 80.0-100.0 fL Mean Corpuscular Hemoglobin 27.2 L 28.0-32.0 pg Mean Corpuscular Hemoglobin Concent 33.0 32.0-36.0 g/dL Red Cell Distribution Width 14.5 H 11.8-14.3 % Platelet Count 453 H 140-450 10^3/uL Mean Platelet Volume 7.2 6.9-10.8 fL Neutrophils (%) (Auto) 73.8 37.0-80.0 % Lymphocytes (%) (Auto) 11.7 10.0-50.0 % Monocytes (%) (Auto) 8.7 0.0-12.0 % Eosinophils (%) (Auto) 5.2 0.0-7.0 % Basophils (%) (Auto) 0.6 0.0-2.0 % Neutrophils # (Auto) 10.8 H 1.6-8.6 10 ^3/uL Lymphocytes # (Auto) 1.7 0.4-5.4 10 ^3/uL Monocytes # (Auto) 1.3 0-1.3 10 ^3/uL Eosinophils # (Auto) 0.8 0-0.8 10 ^3/uL Basophils # (Auto) 0.1 0-0.2 10 ^3/uL Nucleated Red Blood Cells 0.1 % Sodium Level 137 136-145 mmol/L Potassium Level 4.1 3.5-5.1 mmol/L Chloride Level 107 98-107 mmol/L Carbon Dioxide Level 25 20-31 mmol/L Anion Gap 5 5-15 Blood Urea Nitrogen 10 9-23 mg/dL Creatinine 0.83 0.700-1.30 mg/dL Glomerular Filtration Rate Calc 98 >90 mL/min BUN/Creatinine Ratio 12.0 10.0-20.0 Serum Glucose 42 *L 74-106 mg/dL Calcium Level 7.4 L 8.7-10.4 mg/dL Magnesium Level 1.8 1.6-2.6 mg/dL Prothrombin Time 12.9 H 9.3-11.8 sec Prothrombin Time INR 1.24 H 0.9-1.15 Activated Partial Thromboplast Time 35.4 H 24.5-34.5 SEC Total Bilirubin 0.2 0.2-1.0 mg/dL Aspartate Amino Transferase (AST) 21 13-40 U/L Alanine Aminotransferase (ALT) 14 7-40 U/L Alkaline Phosphatase 58 46-116 U/L Total Protein 5.3 L 5.7-8.2 g/dL Albumin 2.9 L 3.2-4.8 g/dL Test 07/31/24 11:30 07/30/24 18:51 07/30/24 17:29 07/30/24 16:58 Range/Units Urine Color Light-yellow Yellow Urine Clarity Clear Clear Urine pH 5.5 5.0-9.0 Urine Specific [place] 1.013 1.001-1.035 Urine Protein Trace H Negative Urine Ketones Negative Negative Urine Blood Trace H Negative /uL Urine Nitrite Negative Negative Urine Bilirubin Negative Negative Urine Urobilinogen Normal Negative mg/dL Urine Leukocyte Esterase Negative Negative /uL Urine RBC 4 0 - 3 /hpf Urine WBC 6 0 - 3 /hpf Urine Squamous Epithelial Cells None seen <5 /hpf Urine Bacteria Few H None Seen /hpf Urine Hyaline Casts Few 0 - 2 /lpf Urine Glucose Normal Normal mg/dL Blood Gas Critical Value Read Back Yes Blood Gas Notified Whom Md mushtaq yeh Blood Gas Notified Time [id number] Blood Gas Notified By Contract Designer chris adams Troponin I High Sensitivity 9 </=54 ng/L Urine Opiates Screen Neg NEGATIVE Urine Fentanyl Screen Pos NEGATIVE Urine Barbiturates Screen Neg NEGATIVE Urine Phencyclidine Screen Neg NEGATIVE Urine Amphetamines Screen Neg NEGATIVE Urine Benzodiazepines Screen Neg NEGATIVE Urine Cocaine Screen Neg NEGATIVE Urine Cannabinoids Screen Pos NEGATIVE Test 07/30/24 16:05 Range/Units Plasma/Serum Blood Alcohol < 3.0 <10 mg/dL Microbiology Date/Time Source Procedure Growth Status 08/01/24 23:50 Nose MRSA Screen - Final Complete 07/30/24 16:57 Sputum Expectorated Sputum Gram Stain - Final Resulted 07/30/24 16:57 Sputum Expectorated Sputum Respiratory Culture - Preliminary Resulted Assessment Impression: Acute hypoxic respiratory failure On mechanical ventilator Acute metabolic encephalopathy cerebrovascular accident history Seizure disorder Chronic obstructive pulmonary disease, stable Hepatitis-C infection Type 2 diabetes mellitus with episodes of hypoglycemia. Bipolar/schizophrenia disorder Nicotine dependence Marijuana use Plan: s/p intubation on mechanical ventilator CXR image and report reviewed. Devices in place. No acute opacities. No pleural effusion or pneumothorax. ABG reviewed. Compensated. On assist control with a respiratory rate of 16, tidal volume 500, peep of five, FiO2 of 30%. Titrate FIO2 to keep O2 saturation above 92%. VAP bundle Daily ABG and CXR while intubated. Sedate for ventilatory synchrony Bronchodilators as needed On pressors for hemodynamic support. On Levophed Titrate to keep MAP above 65 mmHg/SBP above 90 mmHg. Taper sedation as tolerated CPAP in the AM. Continue antibiotics. F/u cultures. Leukocytosis. MRSA nares negative Rare growth of filamentous fungi. Follow up filamentous fungi identification and susceptibility. Monitor hemoglobin. Currently 8.8 grams/deciliter. Monitor renal function due to Acute kidney injury. Monitor electrolytes. Supplement as necessary. Supplement magnesium. Currently at goal, 2.0. Potassium at goal. Supplement calcium. On IV fluids on NS at 80 mL an hour. Thiamine supplementation. Nutritional support. On Glucerna. Accu-Cheks, ISS. Monitor closely due to episodes of hypoglycemia. Continue antiepileptics for seizure disorder. On Keppra. Smoking cessation discussed for greater than 10 minutes GI prophylaxis - Protonix DVT prophylaxis. Condition: Critical Prognosis: Poor given multiple comorbidities. Rest of plan per hospitalist and other consultants. A total of 40 minutes of critical care time was spent reviewing the patient record, examining the patient, making a diagnostic and therapeutic plan, discussing this plan with the medical personnel, following up on diagnostic shaw dies and following the patient for clinical stability excluding any and all procedures. At least 50% of this time was spent in direct, [id number] contact. Thank you Dr. Jeong for allowing me to participate in this patient's care. Further recommendations will depend on patient's clinical course. Please do not hesitate to contact me if you have any questions or concerns. This medical document was created using an electronic medical record system with [employer] system. Although this document has been carefully reviewed, there may still be some phonetic and typographical errors. These areas are purely typographical due to imperfections of the software programs, and do not reflect any compromise in the patient's medical care. Plan discussed with: Other (KIMMIE Diaz, RT, ) JUAN LUIS DOMINGUEZ MD Aug 02, 2024 16:41
[2024-08-03] VITALS (108 sets, daily range): BP systolic 76–184; BP diastolic 39–101; PULSE 54–118; RESP 8–31; TEMP 98.4–100.8; O2SAT 94–100
[2024-08-03 04:25] LABS: Eosinophils # (auto) 0.5 10 ^3/uL (0-0.8); Monocytes # (auto) 0.9 10 ^3/uL (0-1.3)
[2024-08-03 04:28] LABS: Basophils # (auto) 0.2 10 ^3/uL (0-0.2); Eosinophils % (auto) 3.3 % (0.0-7.0); Hematocrit 25.4 % (41.0-53.0); Hemoglobin 8.3 g/dL (13.5-17.5); Lymphocytes % (auto) 13.4 % (10.0-50.0); Mean Corpuscular Hemoglobin 27.5 pg (28.0-32.0); Mean Corpuscular Hgb Conc. 32.6 g/dL (32.0-36.0); Mean Corpuscular Volume 84.3 fL (80.0-100.0); Neutrophils # (auto) 11.3 10 ^3/uL (1.6-8.6); Neutrophils % (auto) 76.3 % (37.0-80.0); Platelet Count (auto) 478 10^3/uL (140-450); Red Blood Cells 3.01 10^6/uL (4.5-5.90); Red Cell Distribution Width 14.9 % (11.8-14.3); White Blood Cell 14.9 10^3/uL (4.4-10.8)
[2024-08-03 04:29] LABS: Potassium 4.4 mmol/L (3.5-5.1); Sodium 140 mmol/L (136-145)
[2024-08-03 04:30] LABS: Anion Gap 7 (5-15); Calcium 8.8 mg/dL (8.7-10.4); Carbon Dioxide 23 mmol/L (20-31)
[2024-08-03 04:36] LABS: Magnesium 1.8 mg/dL (1.6-2.6)
[2024-08-03 04:37] LABS: Chloride 110 mmol/L (98-107); Glucose 120 mg/dL (74-106)
[2024-08-03 04:47] LABS: BUN/Creatinine Ratio 13.5 (10.0-20.0); Blood Urea Nitrogen 12 mg/dL (9-23)
--- NOTE | 2024-08-03 05:40 | DVH ---
CHEST RADIOGRAPH Indication: Intubated / ICU Technique: Single frontal view of the chest was obtained COMPARISON: XY CHEST PORTABLE on DOS: 08/02/24, XY CHEST PORTABLE on DOS: 08/01/24, XY CHEST PORTABLE on DOS: 07/30/24, XY CHEST PORTABLE on DOS: 07/20/24, XY CHEST XRAY 1 VIEW on DOS: 07/18/24 FINDINGS: Lines and Tubes: Endotracheal tube and enteric catheter in satisfactory position. Lungs: Multifocal airspace disease. Pleura: No effusion. No pneumothorax. Cardiomediastinal contours: Unremarkable Bones: Unremarkable IMPRESSION: Lines and tubes in satisfactory position. No significant interval change.
[2024-08-03 07:13] LABS: Base Excess -3.1 mmol/L (-2.0-3.0)
--- NOTE | 2024-08-03 12:43 | DVHPN2 ---
Progress Note Date Seen: Aug 03, 2024 Medical Necessity Reason Pt with a Central, PICC or Fol: Yes The following are medically ne: Central Line, Nelson Catheter Reason for nelson catheter: Strict I&O Subjective Patient reports: No new complaints Review of Systems: HEENT:Normal, CVS:Normal, RESPIRATORY:Normal, GI:Normal, :Normal, MSK:Normal, NEURO:Normal Objective vital signs Vital Sign Date Time Temp Pulse Resp B/P (MAP) Pulse Ox O2 Delivery O2 Flow Rate FiO2 08/03/24 12:00 30 08/03/24 12:00 16 100 Mechanical Ventilator+ 08/03/24 12:00 80 08/03/24 11:56 153/54 (87) 08/03/24 11:00 98.6 209.5 Total Intake and Output 08/02/24 08/02/24 08/03/24 15:00 23:00 07:00 Intake Total 852.0 ml 1567.0009 ml 1242.2506 ml Output Total 1500 ml 1000 ml Balance 852.0 ml 67.0009 ml 242.2506 ml medications Current Medications Medications Dose Ordered Sig/Kandi Route Start Time Stop Time Status Last Admin Dose Admin Midazolam HCl 50 ml @ 1 mls/hr Q24H IV 07/30/24 16:30 08/02/24 19:21 9 MLS/HR Fentanyl Citrate 250 ml @ 2.5 mls/hr Q24H IV 07/30/24 17:30 08/02/24 19:24 10 MLS/HR Levetiracetam 100 ml @ 400 mls/hr BID IV 07/30/24 22:00 08/03/24 09:51 400 MLS/HR Albuterol 2.5 mg Q6HPRN PRN NEB 07/30/24 19:45 Diagnostic Test (Pha) 1 strip Q6HR 07/31/24 00:00 08/03/24 12:29 1 STRIP Insulin Human Regular Q6HR SC 07/31/24 00:00 08/01/24 23:11 2 UNITS Dextrose 50 ml UD PRN IV 07/30/24 19:45 08/02/24 05:03 50 ML Enoxaparin Sodium 40 mg DAILY SC 07/31/24 10:00 08/03/24 09:52 40 MG Acetaminophen 650 mg Q6HP PRN PO 07/30/24 19:45 08/02/24 04:20 650 MG Nitroglycerin 0.4 mg Q5MINP PRN SL 07/30/24 19:45 Morphine Sulfate 2 mg Q30M PRN IV 07/30/24 19:45 Pantoprazole Sodium 40 mg DAILY IV 08/01/24 10:00 08/03/24 09:51 40 MG Enteral Nutritional Formula 1,000 ml 30ML/HR GT 07/31/24 11:00 08/01/24 21:42 1,000 ML Lorazepam 1 mg Q5MINP PRN IV 07/31/24 14:45 Aspirin 81 mg DAILY PO 08/01/24 10:00 08/03/24 09:51 81 MG Atorvastatin Calcium 20 mg HS PO 07/31/24 22:00 08/02/24 21:41 20 MG Thiamine HCl 100 mg DAILY IV 08/01/24 10:00 08/03/24 09:51 100 MG Metoclopramide HCl 5 mg Q8HR IV 08/01/24 22:00 08/03/24 06:08 5 MG Sodium Chloride 1,000 ml @ 80 mls/hr [id number] IV 08/02/24 01:15 08/03/24 06:08 80 MLS/HR Norepinephrine Bitartrate 250 ml @ 3.75 mls/hr Q24H IV 08/02/24 15:45 08/02/24 16:39 1.875 MLS/HR Examination: GENERAL:Normal, HEENT:Normal, NECK:Normal, LUNGS:Normal, LUNGS:Abnormal (intubated), CVS:Normal, ABDOMEN:Normal, MSK:Normal, SKIN:Normal, NEURO:Normal, :Normal laboratory and microbiology Laboratory Tests 08/03/24 03:51 Test 08/03/24 03:51 Range/Units Serum Glucose 120 H 74-106 mg/dL Microbiology Date/Time Source Procedure Growth Status 08/01/24 23:50 Nose MRSA Screen - Final Complete 07/30/24 16:57 Sputum Expectorated Sputum Gram Stain - Final Resulted 07/30/24 16:57 Sputum Expectorated Sputum Respiratory Culture - Preliminary Resulted Problem List/Assessment/Plan Problem List/Assessment/Plan #1 Acute respiratory failure: cont acv, cpap trial in am #2 Metabolic encephalopathy, toxic metabolic. #3 History of old cerebrovascular accident. #4 Seizure disorder: iv keppra, neuro eval #5 Chronic obstructive pulmonary disease #6 Hepatitis C infection. #7 Type 2 diabetes: ssi #8 Likely bipolar/schizophrenic disorder. #9 sepsis with pneumonia- fungi: iv micafungin, iv levaquin #10 anemia Plan discussed with: Other (rn) My Orders My Orders Orders - BALTAZAR QUIÑONES MD Procedure Category Date Status Time Micafungin Sodium PHA 08/04/24 Verified (Mycamine) 10:00 Micafungin Sodium PHA 08/03/24 Verified (Mycamine) 12:45 Levofloxacin Levaquin PHA 08/04/24 Verified 10:00 Levofloxacin Levaquin PHA 08/03/24 Verified 12:45 Magnesium [place] PHA 08/03/24 Verified 13:00 Complete Blood Count LAB 08/04/24 Verified 06:00 Comprehensive LAB 08/04/24 Verified Metabolic Panel 06:00 Magnesium LAB 08/04/24 Verified 05:00 Chest Portable XY 08/04/24 Verified 06:00 Abg W/ Co-Ox RT 08/04/24 Verified 06:00 Dietary Evaluation Review Comments: 1. TF Glucerna@30ml/hr provides 43g pro, 864 kcal. supports 71% pt pat's pro needs, 86% of pt' kcal needs. 2. when pt is off vent and passes speech eval, advance to CCHO-60 2GNa cardiac with low fat low cholesterol restriction if pt's lipid pannel is elevated. Expected Outcomes/Goals: gradual weight gain. Critical Care Time (mins): 81 (critical care time including cpap trial was 81 mins) Date of Service: Aug 03, 2024 Billing Provider: BALTAZAR QUIÑONES MD Common Visit Codes: [id number] CARE 30-74 MIN, [id number] CARE-EACH +30MIN BALTAZAR QUIÑONES MD Aug 03, 2024 12:42
[2024-08-03] MEDS ORDERED: levoFLOXacin 500MG 100 ML IV ONE (12:45)
[2024-08-03] MEDS: MAGNESIUM SULFATE 1GM/100ML 100 ML IV SCH (13:05)
[2024-08-03] MEDS: levoFLOXacin 750MG 150 ML IV SCH (14:09)
[2024-08-03] MEDS: MICAFUNGIN SODIUM 100 MG in SODIUM CHL 0.9% 100 ML IV ONE (16:16)
[2024-08-03] MEDS: hydrALAZINE HCL 20 MG/ML VL IV PRN (21:39)
[2024-08-04] VITALS (95 sets, daily range): BP systolic 107–171; BP diastolic 48–119; PULSE 50–92; RESP 8–30; TEMP 97.5–99.7; O2SAT 93–100
[2024-08-04 04:22] LABS: Basophils # (auto) 0.1 10 ^3/uL (0-0.2); Basophils % (auto) 0.6 % (0.0-2.0); Eosinophils # (auto) 0.1 10 ^3/uL (0-0.8); Eosinophils % (auto) 0.9 % (0.0-7.0); Hematocrit 26.9 % (41.0-53.0); Hemoglobin 8.6 g/dL (13.5-17.5); Lymphocytes # (auto) 1.3 10 ^3/uL (0.4-5.4); Lymphocytes % (auto) 11.4 % (10.0-50.0); Mean Corpuscular Hemoglobin 26.8 pg (28.0-32.0); Mean Corpuscular Hgb Conc. 32.1 g/dL (32.0-36.0); Mean Corpuscular Volume 83.5 fL (80.0-100.0); Monocytes # (auto) 0.9 10 ^3/uL (0-1.3); Monocytes % (auto) 7.7 % (0.0-12.0); Neutrophils # (auto) 9.2 10 ^3/uL (1.6-8.6); Neutrophils % (auto) 79.4 % (37.0-80.0); Platelet Count (auto) 481 10^3/uL (140-450); Red Blood Cells 3.21 10^6/uL (4.5-5.90); Red Cell Distribution Width 14.8 % (11.8-14.3); White Blood Cell 11.6 10^3/uL (4.4-10.8)
[2024-08-04 04:42] LABS: Alanine Aminotransferase 17 U/L (7-40); Alkaline Phosphatase 82 U/L (46-116); Anion Gap 8 (5-15); Aspartate Aminotransferase 40 U/L (13-40); BUN/Creatinine Ratio 13.4 (10.0-20.0); Blood Urea Nitrogen 11 mg/dL (9-23); Calcium 9.1 mg/dL (8.7-10.4); Carbon Dioxide 22 mmol/L (20-31); Potassium 4.2 mmol/L (3.5-5.1); Sodium 139 mmol/L (136-145)
[2024-08-04 04:43] LABS: Total Protein 5.8 g/dL (5.7-8.2)
[2024-08-04 04:45] LABS: Bilirubin, Total 0.3 mg/dL (0.2-1.0); Chloride 109 mmol/L (98-107); Glucose 111 mg/dL (74-106)
--- NOTE | 2024-08-04 04:56 | DVH ---
CHEST RADIOGRAPH Indication: resp failure Technique: Single frontal view of the chest was obtained Comparison: XY CHEST PORTABLE on DOS: 08/03/24 FINDINGS: Lines and Tubes: The endotracheal tube terminates 5.2 cm above the andrea. The enteric tube terminate s in the stomach. Lungs: Bilateral opacities. Pleura: No effusion. No pneumothorax. Cardiomediastinal contours: Unremarkable Bones: No acute osseous abnormality. IMPRESSION: 1. Stable position of the support lines and tubes. 2. Stable mild bilateral opacities.
[2024-08-04] MEDS: MICAFUNGIN SODIUM 100 MG in SODIUM CHL 0.9% 100 ML IV SCH (09:13)
[2024-08-04] MEDS ORDERED: levoFLOXacin 500MG 100 ML IV SCH (10:00)
[2024-08-04 11:18] LABS: Base Excess -2.1 mmol/L (-2.0-3.0)
--- NOTE | 2024-08-04 13:02 | DVHPN2 ---
Progress Note Date Seen: Aug 04, 2024 Medical Necessity Reason Pt with a Central, PICC or Fol: Yes The following are medically ne: Central Line, Nelson Catheter Reason for enlson catheter: Strict I&O Subjective Patient reports: No new complaints Review of Systems: HEENT:Normal, CVS:Normal, RESPIRATORY:Normal, GI:Normal, :Normal, MSK:Normal, NEURO:Normal Objective vital signs Vital Sign Date Time Temp Pulse Resp B/P (MAP) Pulse Ox O2 Delivery O2 Flow Rate FiO2 08/04/24 11:35 27 08/04/24 11:35 99 8.0 08/04/24 10:46 98.4 81 148/48 (81) 209.1 08/04/24 10:00 Mechanical Ventilator+ 30 30 Total Intake and Output 08/03/24 08/03/24 08/04/24 14:59 22:59 06:59 Intake Total 1008.1253 ml 497.025 ml 294.605 ml Output Total 1075 ml 1100 ml Balance 1008.1253 ml -577.975 ml -805.395 ml medications Current Medications Medications Dose Ordered Sig/Kandi Route Start Time Stop Time Status Last Admin Dose Admin Midazolam HCl 50 ml @ 1 mls/hr Q24H IV 07/30/24 16:30 08/02/24 19:21 9 MLS/HR Fentanyl Citrate 250 ml @ 2.5 mls/hr Q24H IV 07/30/24 17:30 08/02/24 19:24 10 MLS/HR Levetiracetam 100 ml @ 400 mls/hr BID IV 07/30/24 22:00 08/04/24 09:13 400 MLS/HR Albuterol 2.5 mg Q6HPRN PRN NEB 07/30/24 19:45 Diagnostic Test (Pha) 1 strip Q6HR 07/31/24 00:00 08/04/24 12:28 1 STRIP Insulin Human Regular Q6HR SC 07/31/24 00:00 08/04/24 12:28 3 UNITS Dextrose 50 ml UD PRN IV 07/30/24 19:45 08/02/24 05:03 50 ML Enoxaparin Sodium 40 mg DAILY SC 07/31/24 10:00 08/04/24 09:13 40 MG Acetaminophen 650 mg Q6HP PRN PO 07/30/24 19:45 08/03/24 21:39 650 MG Nitroglycerin 0.4 mg Q5MINP PRN SL 07/30/24 19:45 Morphine Sulfate 2 mg Q30M PRN IV 07/30/24 19:45 Pantoprazole Sodium 40 mg DAILY IV 08/01/24 10:00 08/04/24 09:12 40 MG Enteral Nutritional Formula 1,000 ml 30ML/HR GT 07/31/24 11:00 08/01/24 21:42 1,000 ML Lorazepam 1 mg Q5MINP PRN IV 07/31/24 14:45 Aspirin 81 mg DAILY PO 08/01/24 10:00 08/03/24 09:51 81 MG Thiamine HCl 100 mg DAILY IV 08/01/24 10:00 08/04/24 09:12 100 MG Metoclopramide HCl 5 mg Q8HR IV 08/01/24 22:00 08/03/24 21:38 5 MG Norepinephrine Bitartrate 250 ml @ 3.75 mls/hr Q24H IV 08/02/24 15:45 08/02/24 16:39 1.875 MLS/HR Micafungin Sodium 100 mg/Sodium Chloride 100 ml @ 100 mls/hr DAILY IV 08/04/24 10:00 08/04/24 09:13 100 MLS/HR Levofloxacin/ Dextrose 100 ml @ 100 mls/hr DAILY IV 08/04/24 10:00 UNV Hydralazine HCl 10 mg Q6HP PRN IV 08/03/24 12:45 08/04/24 09:31 10 MG Levofloxacin/ Dextrose 150 ml @ 100 mls/hr DAILY IV 08/03/24 14:00 08/04/24 09:12 100 MLS/HR Dexmedetomidine HCl 400 mcg/ Dextrose 100 ml @ 2.81 mls/hr Q24H IV 08/03/24 19:45 08/03/24 20:20 2.81 MLS/HR Examination: GENERAL:Normal, HEENT:Normal, NECK:Normal, LUNGS:Normal, LUNGS:Abnormal (intubated- extubate), CVS:Normal, ABDOMEN:Normal, MSK:Normal, SKIN:Normal, NEURO:Normal, :Normal laboratory and microbiology Laboratory Tests 08/04/24 03:07 08/04/24 03:05 Test 08/04/24 03:07 Range/Units Serum Glucose 111 H 74-106 mg/dL Microbiology Date/Time Source Procedure Growth Status 08/01/24 23:50 Nose MRSA Screen - Final Complete 07/30/24 16:57 Sputum Expectorated Sputum Gram Stain - Final Resulted 07/30/24 16:57 Sputum Expectorated Sputum Respiratory Culture - Preliminary Resulted Problem List/Assessment/Plan Problem List/Assessment/Plan #1 Acute respiratory failure: cont acv, cpap trial #2 Metabolic encephalopathy, toxic metabolic. #3 History of old cerebrovascular accident. #4 Seizure disorder: iv keppra, neuro eval #5 Chronic obstructive pulmonary disease #6 Hepatitis C infection. #7 Type 2 diabetes: ssi #8 Likely bipolar/schizophrenic disorder. #9 sepsis with pneumonia- fungi: iv micafungin, iv levaquin #10 anemia Plan discussed with: Other (rn) My Orders My Orders Orders - BALTAZAR QUIÑONES MD Procedure Category Date Status Time Levofloxacin 750mg PHA 08/03/24 In Process (Levaquin) 14:00 D5w 5% (Dextrose 5%) PHA 08/03/24 In Process W/Dexmedetomidine 19:45 Cpap Trial For Am ORDERS 08/04/24 Transmitted 09:05 Extubate ЕЛЕНА 08/04/24 In Process 11:33 Furosemide Injection PHA 08/04/24 Logged (Lasix Injection) 12:45 Pt Request For Service PT 08/04/24 Verified 12:59 Basic Metabolic Panel LAB 08/05/24 Verified 06:00 Complete Blood Count LAB 08/05/24 Verified 06:00 Chest Portable XY 08/05/24 Verified 06:00 Dietary Evaluation Review Comments: 1. TF Glucerna@30ml/hr provides 43g pro, 864 kcal. supports 71% pt pat's pro needs, 86% of pt' kcal needs. 2. when pt is off vent and passes speech eval, [facility] with low fat low cholesterol restriction if pt's lipid pannel is elevated. Expected Outcomes/Goals: gradual weight gain. Critical Care Time (mins): 81 (critical care time including cpap trial was 81 mins) Date of Service: Aug 04, 2024 Billing Provider: BALTAZAR QUIÑONES MD Common Visit Codes: [id number] CARE 30-74 MIN, [id number] CARE-EACH +30MIN BALTAZAR QUIÑONES MD Aug 04, 2024 13:02
[2024-08-04] MEDS: FUROSEMIDE 20 MG/2 ML VIAL IV ONE (14:07)
[2024-08-04] MEDS: LORazepam 2MG/ML-1ML VIAL IV PRN (15:16)
[2024-08-05] VITALS (59 sets, daily range): BP systolic 116–180; BP diastolic 26–101; PULSE 73–119; RESP 13–32; TEMP 98.1–99; O2SAT 94–100
[2024-08-05 03:51] LABS: Basophils # (auto) 0.1 10 ^3/uL (0-0.2); Basophils % (auto) 0.9 % (0.0-2.0); Eosinophils # (auto) 0.1 10 ^3/uL (0-0.8); Hemoglobin 8.5 g/dL (13.5-17.5); Lymphocytes # (auto) 1.8 10 ^3/uL (0.4-5.4); Monocytes # (auto) 0.8 10 ^3/uL (0-1.3); Nucleated Red Blood Cells % 0.1 %
[2024-08-05 03:55] LABS: Eosinophils % (auto) 0.6 % (0.0-7.0); Hematocrit 26.7 % (41.0-53.0); Lymphocytes % (auto) 14.6 % (10.0-50.0); Mean Corpuscular Hemoglobin 26.9 pg (28.0-32.0); Mean Corpuscular Volume 84.1 fL (80.0-100.0); Monocytes % (auto) 6.5 % (0.0-12.0); Neutrophils # (auto) 9.7 10 ^3/uL (1.6-8.6); Neutrophils % (auto) 77.4 % (37.0-80.0); Platelet Count (auto) 569 10^3/uL (140-450); Red Blood Cells 3.18 10^6/uL (4.5-5.90); Red Cell Distribution Width 15.2 % (11.8-14.3); White Blood Cell 12.5 10^3/uL (4.4-10.8)
[2024-08-05 03:59] LABS: Calcium 9.4 mg/dL (8.7-10.4); Chloride 105 mmol/L (98-107); Potassium 3.8 mmol/L (3.5-5.1); Sodium 139 mmol/L (136-145)
[2024-08-05 04:00] LABS: Anion Gap 12 (5-15); Carbon Dioxide 22 mmol/L (20-31)
[2024-08-05 04:05] LABS: BUN/Creatinine Ratio 17.6 (10.0-20.0); Blood Urea Nitrogen 16 mg/dL (9-23)
[2024-08-05 04:07] LABS: Glucose 71 mg/dL (74-106)
--- NOTE | 2024-08-05 05:24 | DVH ---
CHEST RADIOGRAPH Indication: resp failure Technique: Single frontal view of the chest was obtained COMPARISON: XY CHEST PORTABLE on DOS: 08/04/24, XY CHEST PORTABLE on DOS: 08/03/24, XY CHEST PORTABLE on DOS: 08/02/24, XY CHEST PORTABLE on DOS: 08/01/24, XY CHEST PORTABLE on DOS: 07/30/24 FINDINGS: Lines and Tubes: None Lungs: Mild congestion Pleura: No effusion. No pneumothorax. Cardiomediastinal contours: Unremarkable Bones: Unremarkable IMPRESSION: Mild congestion, unchanged
--- NOTE | 2024-08-05 23:47 | DVHPN2 ---
Progress Note - Dictate Date Seen: Aug 05, 2024 Medical Necessity Reason Pt with a Central, PICC or Fol: Yes The following are medically ne: Central Line, Nelson Catheter Reason for nelson catheter: Strict I&O Subjective Patient seen and examined at bedside. Breathing comfortably on room air. Overnight events reviewed. vital signs Vital Sign Date Time Temp Pulse Resp B/P (MAP) Pulse Ox O2 Delivery O2 Flow Rate FiO2 08/05/24 18:30 91 29 160/69 (99) 97 08/05/24 18:00 Room Air* 0 30 21 08/05/24 16:00 98.8 98.8 Total Intake and Output 08/04/24 08/04/24 08/05/24 15:00 23:00 07:00 Intake Total 350 ml 485 ml 0 ml Output Total 650 ml 925 ml Balance 350 ml -165 ml -925 ml medications Current Medications Medications Dose Ordered Sig/Kandi Route Start Time Stop Time Status Last Admin Dose Admin Levetiracetam 100 ml @ 400 mls/hr BID IV 07/30/24 22:00 08/05/24 21:28 400 MLS/HR Albuterol 2.5 mg Q6HPRN PRN NEB 07/30/24 19:45 Diagnostic Test (Pha) 1 strip Q6HR 07/31/24 00:00 08/05/24 17:17 1 STRIP Insulin Human Regular Q6HR SC 07/31/24 00:00 08/05/24 17:18 4 UNITS Dextrose 50 ml UD PRN IV 07/30/24 19:45 08/02/24 05:03 50 ML Enoxaparin Sodium 40 mg DAILY SC 07/31/24 10:00 08/05/24 08:16 40 MG Acetaminophen 650 mg Q6HP PRN PO 07/30/24 19:45 08/03/24 21:39 650 MG Nitroglycerin 0.4 mg Q5MINP PRN SL 07/30/24 19:45 Morphine Sulfate 2 mg Q30M PRN IV 07/30/24 19:45 Pantoprazole Sodium 40 mg DAILY IV 08/01/24 10:00 08/05/24 08:15 40 MG Enteral Nutritional Formula 1,000 ml 30ML/HR GT 07/31/24 11:00 08/01/24 21:42 1,000 ML Lorazepam 1 mg Q5MINP PRN IV 07/31/24 14:45 Aspirin 81 mg DAILY PO 08/01/24 10:00 08/05/24 08:16 81 MG Thiamine HCl 100 mg DAILY IV 08/01/24 10:00 08/05/24 08:13 100 MG Metoclopramide HCl 5 mg Q8HR IV 08/01/24 22:00 08/05/24 21:29 5 MG Norepinephrine Bitartrate 250 ml @ 3.75 mls/hr Q24H IV 08/02/24 15:45 08/02/24 16:39 1.875 MLS/HR Micafungin Sodium 100 mg/Sodium Chloride 100 ml @ 100 mls/hr DAILY IV 08/04/24 10:00 08/05/24 08:15 100 MLS/HR Levofloxacin/ Dextrose 100 ml @ 100 mls/hr DAILY IV 08/04/24 10:00 UNV Hydralazine HCl 10 mg Q6HP PRN IV 08/03/24 12:45 08/05/24 17:34 10 MG Levofloxacin/ Dextrose 150 ml @ 100 mls/hr DAILY IV 08/03/24 14:00 08/05/24 08:14 100 MLS/HR Lorazepam 0.5 mg Q6HP PRN IV 08/04/24 14:15 08/04/24 15:16 0.5 MG objective Gen.: Patient lying in bed in no apparent distress. Breathing on room air. Head: Normocephalic, atraumatic. Eyes: EOMI/PERRLA. Ears: Normal hearing. Normal anatomy. Neck/trachea: Trachea midline, supple. Nose: Normal external anatomy. Mouth: Moist mucous membranes. Chest: Decreased air entry bilaterally. No wheezing or rhonchi. Cardiovascular: Positive S1, positive S2. Regular rate and rhythm. Abdomen: Positive bowel sounds in all 4 quadrants. Soft, non-tender, non- distended. : Deferred. Rectal: Deferred. Skin: Warm, dry. Intact. Extremities: 2+ radial pulses bilaterally. No lower extremity edema. Neuro: Awake, alert, oriented x3. No gross motor or sensory deficits. Cranial nerves II through XII intact. Gait not assessed. laboratory and microbiology Laboratory Tests 08/05/24 03:15 Test 08/05/24 03:15 Range/Units Serum Glucose 71 L 74-106 mg/dL Assessment/Plan Impression: Acute hypoxic respiratory failure On mechanical ventilator Acute metabolic encephalopathy cerebrovascular accident history Seizure disorder Chronic obstructive pulmonary disease, stable Hepatitis-C infection Type 2 diabetes mellitus with episodes of hypoglycemia. Bipolar/schizophrenia disorder Nicotine dependence Polysubstance use History of CVA Events: S/p extubation Breathing on room air No respiratory distress. Patient passed swallow eval - on puree diet. CXR demonstrates mild pulmonary congestion. No effusion or pneumothorax Continue antibiotics Continue antifungals Incentive spirometry On antiepileptics Head of bed elevation Aspiration precautions Monitor renal function Labs and imaging reviewed. Rest of plan as noted below. Plan: s/p extubation on 08/04/24 Supplemental oxygen PRN Titrate to keep O2 sats above 92%. Off sedation Bronchodilators as needed Off pressors, hemodynamically stable. Continue antibiotics. F/u cultures. Leukocytosis - WBC 12.5 K MRSA nares negative Rare growth of filamentous fungi. Follow up filamentous fungi identification and susceptibility. Continue antifungals Monitor hemoglobin - 8.5 g/dL Monitor renal function due to Acute kidney injury. Monitor electrolytes. Supplement as necessary. IV fluids - NS at 80 mL an hour. Thiamine supplementation. Nutritional support. On Glucerna. Accu-Cheks, ISS. Monitor closely due to episodes of hypoglycemia. Continue antiepileptics for seizure disorder. On Keppra. Smoking cessation discussed for greater than 10 minutes GI prophylaxis - Protonix DVT prophylaxis. Condition: Critical Prognosis: Poor given multiple comorbidities. Rest of plan per hospitalist and other consultants. A total of 35 minutes of critical care time was spent reviewing the patient record, examining the patient, making a diagnostic and therapeutic plan, discussing this plan with the medical personnel, following up on diagnostic studies and following the patient for clinical stability excluding any and all procedures. At least 50% of this time was spent in direct, [id number] contact. Thank you Dr. Jeong for allowing me to participate in this patient's care. Further recommendations will depend on patient's clinical course. Please do not hesitate to contact me if you have any questions or concerns. This medical document was created using an electronic medical record system with [employer] system. Although this document has been carefully reviewed, there may still be some phonetic and typographical errors. These areas are purely typographical due to imperfections of the software programs, and do not reflect any compromise in the patient's medical care. Dietary Evaluation Review Comments: 1. TF Glucerna@30ml/hr provides 43g pro, 864 kcal. supports 71% pt pat's pro needs, 86% of pt' kcal needs. 2. when pt is off vent and passes speech eval, advance to [facility]-60 2GNa cardiac with low fat low cholesterol restriction if pt's lipid pannel is elevated. Expected Outcomes/Goals: gradual weight gain. Plan discussed with: Other (KIMMIE Hayes) Critical Care Time(min): 35 JUAN LUIS DOMINGUEZ MD Aug 05, 2024 23:47
[2024-08-06] VITALS (50 sets, daily range): BP systolic 128–188; BP diastolic 54–87; PULSE 69–93; RESP 12–26; TEMP 98.1–100.9; O2SAT 86–100
[2024-08-06 04:20] LABS: Eosinophils # (auto) 0.2 10 ^3/uL (0-0.8); Hematocrit 27.2 % (41.0-53.0); Nucleated Red Blood Cells % 0.1 %
[2024-08-06 04:22] LABS: Basophils # (auto) 0 10 ^3/uL (0-0.2); Basophils % (auto) 0.5 % (0.0-2.0); Eosinophils % (auto) 1.8 % (0.0-7.0); Hemoglobin 8.9 g/dL (13.5-17.5); Lymphocytes # (auto) 2.1 10 ^3/uL (0.4-5.4); Lymphocytes % (auto) 22.8 % (10.0-50.0); Mean Corpuscular Hemoglobin 27.2 pg (28.0-32.0); Mean Corpuscular Hgb Conc. 32.8 g/dL (32.0-36.0); Monocytes # (auto) 1.2 10 ^3/uL (0-1.3); Monocytes % (auto) 12.6 % (0.0-12.0); Neutrophils # (auto) 5.8 10 ^3/uL (1.6-8.6); Neutrophils % (auto) 62.3 % (37.0-80.0); Platelet Count (auto) 576 10^3/uL (140-450); Red Blood Cells 3.28 10^6/uL (4.5-5.90); Red Cell Distribution Width 15.3 % (11.8-14.3); White Blood Cell 9.3 10^3/uL (4.4-10.8)
[2024-08-06 04:26] LABS: Alanine Aminotransferase 16 U/L (7-40); Albumin 3.2 g/dL (3.2-4.8); Alkaline Phosphatase 76 U/L (46-116); Anion Gap 9 (5-15); Aspartate Aminotransferase 33 U/L (13-40); BUN/Creatinine Ratio 13.3 (10.0-20.0); Blood Urea Nitrogen 11 mg/dL (9-23); Calcium 9.1 mg/dL (8.7-10.4); Carbon Dioxide 23 mmol/L (20-31); Chloride 106 mmol/L (98-107); Potassium 3.8 mmol/L (3.5-5.1); Sodium 138 mmol/L (136-145)
[2024-08-06 04:27] LABS: Bilirubin, Total 0.3 mg/dL (0.2-1.0); Total Protein 6.2 g/dL (5.7-8.2)
[2024-08-06 04:58] LABS: Glucose 127 mg/dL (74-106)
--- NOTE | 2024-08-06 08:51 | DVHPN2 ---
Subjective Patient denies any symptoms. Reviewed: Care Plan, H&P, Labs, Medications Changes from previous H/P or p: No Changes General: Per HPI Objective Vitals Vital Signs Date Time Temp Pulse Resp B/P (MAP) Pulse Ox O2 Delivery O2 Flow Rate FiO2 08/06/24 07:30 80 12 128/68 (88) 98 08/06/24 06:22 Room Air 08/06/24 06:22 0 21 08/06/24 04:00 98.1 98.1 Intake/Output Intake and Output 08/06/24 07:00 Intake Total 1110 ml Output Total 2300 ml Balance -1190 ml Intake Oral 660 ml IV Total 450 ml Output Urine Total 2300 ml Urine/Stool Mix 0 ml # Bowel Movements 5 General Appearance: Alert, Oriented X3, Cooperative, No acute distress HEENT: Atraumatic, PERRLA Lungs: Clear to auscultation, Normal air movement Cardiovascular: Normal S1, Normal S2 Abdomen: Normal bowel sounds, Soft, No tenderness, No hepatospenomegaly Musculoskeletal: Normal sensory function, Normal motor function Neuro: Normal gait, Normal speech Psych/Mental Status: Mental status NL, Mood NL Medications Current Medications Medications Dose Ordered Sig/Kandi Route Start Time Stop Time Status Last Admin Dose Admin Levetiracetam 100 ml @ 400 mls/hr BID IV 07/30/24 22:00 08/06/24 07:51 400 MLS/HR Albuterol 2.5 mg Q6HPRN PRN NEB 07/30/24 19:45 Diagnostic Test (Pha) 1 strip Q6HR 07/31/24 00:00 08/06/24 05:31 1 STRIP Insulin Human Regular Q6HR SC 07/31/24 00:00 08/06/24 05:30 2 UNITS Dextrose 50 ml UD PRN IV 07/30/24 19:45 08/02/24 05:03 50 ML Enoxaparin Sodium 40 mg DAILY SC 07/31/24 10:00 08/06/24 08:01 40 MG Acetaminophen 650 mg Q6HP PRN PO 07/30/24 19:45 08/03/24 21:39 650 MG Nitroglycerin 0.4 mg Q5MINP PRN SL 07/30/24 19:45 Morphine Sulfate 2 mg Q30M PRN IV 07/30/24 19:45 Pantoprazole Sodium 40 mg DAILY IV 08/01/24 10:00 08/06/24 07:55 40 MG Enteral Nutritional Formula 1,000 ml 30ML/HR GT 07/31/24 11:00 08/01/24 21:42 1,000 ML Lorazepam 1 mg Q5MINP PRN IV 07/31/24 14:45 Aspirin 81 mg DAILY PO 08/01/24 10:00 08/06/24 07:55 81 MG Thiamine HCl 100 mg DAILY IV 08/01/24 10:00 08/06/24 07:55 100 MG Metoclopramide HCl 5 mg Q8HR IV 08/01/24 22:00 08/06/24 05:16 5 MG Norepinephrine Bitartrate 250 ml @ 3.75 mls/hr Q24H IV 08/02/24 15:45 08/02/24 16:39 1.875 MLS/HR Micafungin Sodium 100 mg/Sodium Chloride 100 ml @ 100 mls/hr DAILY IV 08/04/24 10:00 08/06/24 07:54 100 MLS/HR Levofloxacin/ Dextrose 100 ml @ 100 mls/hr DAILY IV 08/04/24 10:00 UNV Hydralazine HCl 10 mg Q6HP PRN IV 08/03/24 12:45 08/06/24 02:00 10 MG Levofloxacin/ Dextrose 150 ml @ 100 mls/hr DAILY IV 08/03/24 14:00 08/06/24 07:55 100 MLS/HR Lorazepam 0.5 mg Q6HP PRN IV 08/04/24 14:15 08/04/24 15:16 0.5 MG Laboratory Results Laboratory Tests 08/06/24 03:14 Chemistry Test 08/06/24 03:14 Albumin 3.2 g/dL (3.2-4.8) Calcium Level 9.1 mg/dL (8.7-10.4) Total Protein 6.2 g/dL (5.7-8.2) LFT Test 08/06/24 03:14 Alanine Aminotransferase (ALT) 16 U/L (7-40) Alkaline Phosphatase 76 U/L (46-116) Aspartate Amino Transferase (AST) 33 U/L (13-40) Total Bilirubin 0.3 mg/dL (0.2-1.0) Urinalysis Test 07/31/24 11:30 Urine Color Light-yellow (Yellow) Urine Clarity Clear (Clear) Urine pH 5.5 (5.0-9.0) Urine Specific [place] 1.013 (1.001-1.035) Urine Protein Trace (Negative) H Urine Ketones Negative (Negative) Urine Blood Trace /uL (Negative) H Urine Nitrite Negative (Negative) Urine Bilirubin Negative (Negative) Urine Urobilinogen Normal mg/dL (Negative) Urine Leukocyte Esterase Negative /uL (Negative) Urine RBC 4 /hpf (0 - 3) Urine WBC 6 /hpf (0 - 3) Urine Squamous Epithelial Cells None seen /hpf (<5) Urine Bacteria Few /hpf (None Seen) H Urine Hyaline Casts Few /lpf (0 - 2) Urine Glucose Normal mg/dL (Normal) Microbiology Microbiology Date/Time Source Procedure Growth Status 08/01/24 23:50 Nose MRSA Screen - Final Complete 07/30/24 16:57 Sputum Expectorated Sputum Gram Stain - Final Resulted 07/30/24 16:57 Sputum Expectorated Sputum Respiratory Culture - Preliminary Resulted Labs and/or images reviewed: Labs reviewed by me, Image(s) reviewed by me Assessment/Plan Assessment/Plan Impression: -acute hypoxic respiratory failure with mechanical ventilation -metabolic/toxic encephalopathy secondary to seizure activity and illicit drug use -breakthrough seizure activity -diabetes mellitus -history of schizophrenia Plan: -patient extubated, currently on nasal cannula 2 liters/minute, O2 supplementation to keep saturation greater than 92% -continue antiepileptic therapy per Neurology -regular insulin sliding scale -advance diet as tolerated -continue thiamine -transferred to telemetry floor Total time spent with patient discussing and formulating plan of care: 35 minutes. This medical document was created using an electronic medical record system with [employer] dictation system. Although this document has been carefully reviewed, there may still be some phonetic and typographical errors. These areas are purely typographical due to imperfections of the software programs, and do not reflect any compromise in the patient's medical care. Plan discussed with: Patient, Other (RN) Date of Service: Aug 06, 2024 Billing Provider: REBECA DONATO NP Common Visit Codes: [id number] INP/OBS CARE(HIGH) REBECA DONATO NP Aug 06, 2024 08:51
--- NOTE | 2024-08-06 20:23 | DVHPN2 ---
Progress Note - Dictate Date Seen: Aug 06, 2024 Medical Necessity Reason Pt with a Central, PICC or Fol: Yes The following are medically ne: Central Line, Nelson Catheter Reason for nelson catheter: Strict I&O Subjective Patient seen and examined at bedside. Breathing comfortably on room air. Overnight events reviewed. vital signs Vital Sign Date Time Temp Pulse Resp B/P (MAP) Pulse Ox O2 Delivery O2 Flow Rate FiO2 08/06/24 20:00 93 08/06/24 20:00 26 99 Room Air* 0 21 08/06/24 18:30 144/87 (106) 08/06/24 16:00 99.2 99.2 Total Intake and Output 08/05/24 08/05/24 08/06/24 14:59 22:59 06:59 Intake Total 350 ml 540 ml 220 ml Output Total 800 ml 1500 ml Balance 350 ml -260 ml -1280 ml medications Current Medications Medications Dose Ordered Sig/Kandi Route Start Time Stop Time Status Last Admin Dose Admin Levetiracetam 100 ml @ 400 mls/hr BID IV 07/30/24 22:00 08/06/24 07:51 400 MLS/HR Albuterol 2.5 mg Q6HPRN PRN NEB 07/30/24 19:45 Diagnostic Test (Pha) 1 strip Q6HR 07/31/24 00:00 08/06/24 17:34 1 STRIP Insulin Human Regular Q6HR SC 07/31/24 00:00 08/06/24 17:36 6 UNITS Dextrose 50 ml UD PRN IV 07/30/24 19:45 08/02/24 05:03 50 ML Enoxaparin Sodium 40 mg DAILY SC 07/31/24 10:00 08/06/24 08:01 40 MG Acetaminophen 650 mg Q6HP PRN PO 07/30/24 19:45 08/03/24 21:39 650 MG Nitroglycerin 0.4 mg Q5MINP PRN SL 07/30/24 19:45 Morphine Sulfate 2 mg Q30M PRN IV 07/30/24 19:45 Pantoprazole Sodium 40 mg DAILY IV 08/01/24 10:00 08/06/24 07:55 40 MG Enteral Nutritional Formula 1,000 ml 30ML/HR GT 07/31/24 11:00 08/01/24 21:42 1,000 ML Lorazepam 1 mg Q5MINP PRN IV 07/31/24 14:45 Aspirin 81 mg DAILY PO 08/01/24 10:00 08/06/24 07:55 81 MG Thiamine HCl 100 mg DAILY IV 08/01/24 10:00 08/06/24 07:55 100 MG Metoclopramide HCl 5 mg Q8HR IV 08/01/24 22:00 08/06/24 05:16 5 MG Norepinephrine Bitartrate 250 ml @ 3.75 mls/hr Q24H IV 08/02/24 15:45 08/02/24 16:39 1.875 MLS/HR Micafungin Sodium 100 mg/Sodium Chloride 100 ml @ 100 mls/hr DAILY IV 08/04/24 10:00 08/06/24 07:54 100 MLS/HR Levofloxacin/ Dextrose 100 ml @ 100 mls/hr DAILY IV 08/04/24 10:00 UNV Hydralazine HCl 10 mg Q6HP PRN IV 08/03/24 12:45 08/06/24 16:38 10 MG Levofloxacin/ Dextrose 150 ml @ 100 mls/hr DAILY IV 08/03/24 14:00 08/06/24 07:55 100 MLS/HR Lorazepam 0.5 mg Q6HP PRN IV 08/04/24 14:15 08/04/24 15:16 0.5 MG objective Gen.: Patient lying in bed in no apparent distress. Breathing on room air. Head: Normocephalic, atraumatic. Eyes: EOMI/PERRLA. Ears: Normal hearing. Normal anatomy. Neck/trachea: Trachea midline, supple. Nose: Normal external anatomy. Mouth: Moist mucous membranes. Chest: Decreased air entry bilaterally. No wheezing or rhonchi. Cardiovascular: Positive S1, positive S2. Regular rate and rhythm. Abdomen: Positive bowel sounds in all 4 quadrants. Soft, non-tender, non- distended. : Deferred. Rectal: Deferred. Skin: Warm, dry. Intact. Extremities: 2+ radial pulses bilaterally. No lower extremity edema. Neuro: Awake, alert, oriented x3. No gross motor or sensory deficits. Cranial nerves II through XII intact. Gait not assessed. laboratory and microbiology Laboratory Tests 08/06/24 03:14 Test 08/06/24 03:14 Range/Units Serum Glucose 127 H 74-106 mg/dL Assessment/Plan Impression: Acute hypoxic respiratory failure On mechanical ventilator Acute metabolic encephalopathy cerebrovascular accident history Seizure disorder Chronic obstructive pulmonary disease, stable Hepatitis-C infection Type 2 diabetes mellitus with episodes of hypoglycemia. Bipolar/schizophrenia disorder Nicotine dependence Polysubstance use History of CVA Events: Breathing on room air No respiratory distress. CXR demonstrates mild pulmonary congestion. No effusion or pneumothorax Continue antibiotics Continue antifungals Incentive spirometry Continue antiepileptics for seizure disorder Head of bed elevation Aspiration precautions Monitor renal function Patient is stable for downgrade from the pulmonary standpoint Labs and imaging reviewed. Rest of plan as noted below. Plan: s/p extubation on 08/04/24 Supplemental oxygen PRN Titrate to keep O2 sats above 92%. Off sedation Bronchodilators as needed Off pressors, hemodynamically stable. Continue antibiotics. F/u cultures. WBC within normal limits MRSA nares negative Rare growth of filamentous fungi. Follow up filamentous fungi identification and susceptibility. Continue antifungals Monitor hemoglobin - 8.9 g/dL Transfuse if less than 7.0 g/dL Monitor renal function due to Acute kidney injury. Monitor electrolytes. Supplement as necessary. IV fluids - NS at 80 mL an hour. Thiamine supplementation. Nutritional support. On Glucerna. Accu-Cheks, ISS. Monitor closely due to episodes of hypoglycemia. Continue antiepileptics for seizure disorder. On Keppra. Smoking cessation discussed for greater than 10 minutes GI prophylaxis - Protonix DVT prophylaxis. Condition: Critical Prognosis: Poor given multiple comorbidities. Rest of plan per hospitalist and other consultants. A total of 35 minutes of critical care time was spent reviewing the patient record, examining the patient, making a diagnostic and therapeutic plan, discussing this plan with the medical personnel, following up on diagnostic studies and following the patient for clinical stability excluding any and all procedures. At least 50% of this time was spent in direct, [id number] contact. Thank you Dr. Jeong for allowing me to participate in this patient's care. Further recommendations will depend on patient's clinical course. Please do not hesitate to contact me if you have any questions or concerns. This medical document was created using an electronic medical record system with [employer] system. Although this document has been carefully reviewed, there may still be some phonetic and typographical errors. These areas are purely typographical due to imperfections of the software programs, and do not reflect any compromise in the patient's medical care. Dietary Evaluation Review Comments: 1. TF Glucerna@30ml/hr provides 43g pro, 864 kcal. supports 71% pt pat's pro needs, 86% of pt' kcal needs. 2. when pt is off vent and passes speech eval, advance to CCHO-60 2GNa cardiac with low fat low cholesterol restriction if pt's lipid pannel is elevated. Expected Outcomes/Goals: gradual weight gain. Plan discussed with: Patient, Other (RN Freddy) JUAN LUIS DOMINGUEZ MD Aug 06, 2024 20:23
[2024-08-07] VITALS (10 sets, daily range): BP systolic 119–162; BP diastolic 60–76; PULSE 63–93; RESP 16–20; TEMP 98.2–100.1; O2SAT 93–98
--- NOTE | 2024-08-07 10:28 | DVHPN2 ---
Progress Note Date Seen: Aug 07, 2024 Medical Necessity Reason Pt with a Central, PICC or Fol: Yes The following are medically ne: Central Line Reason for nelson catheter: Strict I&O Subjective Patient reports: No new complaints Review of Systems: HEENT:Normal, CVS:Normal, RESPIRATORY:Normal, GI:Normal, :Normal, MSK:Normal, NEURO:Normal Objective vital signs Vital Sign Date Time Temp Pulse Resp B/P (MAP) Pulse Ox O2 Delivery O2 Flow Rate FiO2 08/07/24 08:44 98.6 85 16 133/63 (86) 98 98.6 08/07/24 06:37 Room Air 08/07/24 06:37 0 21 Total Intake and Output 08/06/24 08/06/24 08/07/24 15:00 23:00 07:00 Intake Total 350 ml 460 ml Output Total 950 ml Balance 350 ml -490 ml medications Current Medications Medications Dose Ordered Sig/Kandi Route Start Time Stop Time Status Last Admin Dose Admin Levetiracetam 100 ml @ 400 mls/hr BID IV 07/30/24 22:00 08/06/24 21:56 400 MLS/HR Albuterol 2.5 mg Q6HPRN PRN NEB 07/30/24 19:45 Diagnostic Test (Pha) 1 strip Q6HR 07/31/24 00:00 08/07/24 05:56 1 STRIP Insulin Human Regular Q6HR SC 07/31/24 00:00 08/06/24 17:36 6 UNITS Dextrose 50 ml UD PRN IV 07/30/24 19:45 08/02/24 05:03 50 ML Enoxaparin Sodium 40 mg DAILY SC 07/31/24 10:00 08/06/24 08:01 40 MG Acetaminophen 650 mg Q6HP PRN PO 07/30/24 19:45 08/06/24 22:55 650 MG Nitroglycerin 0.4 mg Q5MINP PRN SL 07/30/24 19:45 Morphine Sulfate 2 mg Q30M PRN IV 07/30/24 19:45 Pantoprazole Sodium 40 mg DAILY IV 08/01/24 10:00 08/06/24 07:55 40 MG Enteral Nutritional Formula 1,000 ml 30ML/HR GT 07/31/24 11:00 08/01/24 21:42 1,000 ML Lorazepam 1 mg Q5MINP PRN IV 07/31/24 14:45 Aspirin 81 mg DAILY PO 08/01/24 10:00 08/06/24 07:55 81 MG Thiamine HCl 100 mg DAILY IV 08/01/24 10:00 08/06/24 07:55 100 MG Metoclopramide HCl 5 mg Q8HR IV 08/01/24 22:00 08/07/24 05:41 5 MG Norepinephrine Bitartrate 250 ml @ 3.75 mls/hr Q24H IV 08/02/24 15:45 08/02/24 16:39 1.875 MLS/HR Micafungin Sodium 100 mg/Sodium Chloride 100 ml @ 100 mls/hr DAILY IV 08/04/24 10:00 08/06/24 07:54 100 MLS/HR Levofloxacin/ Dextrose 100 ml @ 100 mls/hr DAILY IV 08/04/24 10:00 UNV Hydralazine HCl 10 mg Q6HP PRN IV 08/03/24 12:45 08/07/24 05:56 10 MG Levofloxacin/ Dextrose 150 ml @ 100 mls/hr DAILY IV 08/03/24 14:00 08/06/24 07:55 100 MLS/HR Lorazepam 0.5 mg Q6HP PRN IV 08/04/24 14:15 08/04/24 15:16 0.5 MG Examination: GENERAL:Normal, HEENT:Normal, NECK:Normal, LUNGS:Normal, CVS:Normal, ABDOMEN:Normal, MSK:Normal, SKIN:Normal, NEURO:Normal, :Normal laboratory and microbiology Laboratory Tests 08/06/24 03:14 Test 08/06/24 03:14 Range/Units Serum Glucose 127 H 74-106 mg/dL Microbiology Date/Time Source Procedure Growth Status 08/01/24 23:50 Nose MRSA Screen - Final Complete 07/30/24 16:57 Sputum Expectorated Sputum Gram Stain - Final Resulted 07/30/24 16:57 Sputum Expectorated Sputum Respiratory Culture - Preliminary Resulted Problem List/Assessment/Plan Problem List/Assessment/Plan #1 Acute respiratory failure: cont acv, cpap trial - extubated #2 Metabolic encephalopathy, toxic metabolic. #3 History of old cerebrovascular accident. #4 Seizure disorder: iv keppra, neuro eval #5 Chronic obstructive pulmonary disease #6 Hepatitis C infection. #7 Type 2 diabetes: ssi #8 Likely bipolar/schizophrenic disorder. #9 sepsis with pneumonia- fungi: iv micafungin, iv rocephin #10 anemia advance care planning- ful code- time spent 19mins Plan discussed with: Patient Dietary Evaluation Review Comments: 1. TF Glucerna@30ml/hr provides 43g pro, 864 kcal. supports 71% pt pat's pro needs, 86% of pt' kcal needs. 2. when pt is off vent and passes speech eval, advance to [facility]-60 2GNa cardiac with low fat low cholesterol restriction if pt's lipid pannel is elevated. Expected Outcomes/Goals: gradual weight gain. Date of Service: Aug 07, 2024 Billing Provider: BALTAZAR QUIÑONES MD Common Visit Codes: [id number] INP/OBS CARE(HIGH) Secondary Visit Codes: [id number] CARE PLAN 30 MINUTES BALTAZAR QUIÑONES MD Aug 07, 2024 10:28
--- NOTE | 2024-08-07 12:04 | DVH ---
EXAM: XY CHEST PORTABLE Indication: Shortness of breath Technique: Single frontal view of the chest was obtained Comparison: XY CHEST PORTABLE on DOS: 08/05/24, XY CHEST PORTABLE on DOS: 08/04/24, XY CHEST PORTABLE on DOS: 08/03/24, XY CHEST PORTABLE on DOS: 08/02/24, XY CHEST PORTABLE on DOS: 08/01/24 FINDINGS: Lines and Tubes: None Lungs: No focal consolidation. Pleura: No effusion. No pneumothorax. Cardiomediastinal contours: Unremarkable Bones: No acute osseous abnormality. IMPRESSION: No acute cardiopulmonary disease.
[2024-08-07] MEDS: cefTRIAXone 1GM/50ML D5W 50 ML IV ONE (12:58)
[2024-08-07] MEDS: levETIRAcetam 500 MG TAB PO SCH (22:14)
[2024-08-08] VITALS (11 sets, daily range): BP systolic 132–151; BP diastolic 64–74; PULSE 64–82; RESP 17–18; TEMP 98.1–98.9; O2SAT 94–100
[2024-08-08] MEDS: PANTOPRAZOLE 40 MG TAB PO SCH (06:16)
[2024-08-08] MEDS: cefTRIAXone 1GM/50ML D5W 50 ML IV SCH (10:22)
[2024-08-08] MEDS: THIAMINE HCL 100 MG TAB PO SCH (10:23)
--- NOTE | 2024-08-08 10:42 | DVHDS2 ---
Discharge Summary Date of Admission Jul 30, 2024 at 19:38 Date of Discharge: Aug 08, 2024 Labs/Diagnostic Data: Laboratory Results Test 08/08/24 06:10 08/06/24 03:14 08/04/24 10:45 08/04/24 03:07 POC Glucose 132 mg/dl (70-106) White Blood Count 9.3 10^3/uL (4.4-10.8) Red Blood Count 3.28 10^6/uL (4.5-5.90) Hemoglobin 8.9 g/dL (13.5-17.5) Hematocrit 27.2 % (41.0-53.0) Mean Corpuscular Volume 83.0 fL (80.0-100.0) Mean Corpuscular Hemoglobin 27.2 pg (28.0-32.0) Mean Corpuscular Hemoglobin Concent 32.8 g/dL (32.0-36.0) Red Cell Distribution Width 15.3 % (11.8-14.3) Platelet Count 576 10^3/uL (140-450) Mean Platelet Volume 7.1 fL (6.9-10.8) Neutrophils (%) (Auto) 62.3 % (37.0-80.0) Lymphocytes (%) (Auto) 22.8 % (10.0-50.0) Monocytes (%) (Auto) 12.6 % (0.0-12.0) Eosinophils (%) (Auto) 1.8 % (0.0-7.0) Basophils (%) (Auto) 0.5 % (0.0-2.0) Neutrophils # (Auto) 5.8 10 ^3/uL (1.6-8.6) Lymphocytes # (Auto) 2.1 10 ^3/uL (0.4-5.4) Monocytes # (Auto) 1.2 10 ^3/uL (0-1.3) Eosinophils # (Auto) 0.2 10 ^3/uL (0-0.8) Basophils # (Auto) 0 10 ^3/uL (0-0.2) Nucleated Red Blood Cells 0.1 % Sodium Level 138 mmol/L (136-145) Potassium Level 3.8 mmol/L (3.5-5.1) Chloride Level 106 mmol/L (98-107) Carbon Dioxide Level 23 mmol/L (20-31) Anion Gap 9 (5-15) Blood Urea Nitrogen 11 mg/dL (9-23) Creatinine 0.83 mg/dL (0.700-1.30) Glomerular Filtration Rate Calc 98 mL/min (>90) BUN/Creatinine Ratio 13.3 (10.0-20.0) Serum Glucose 127 mg/dL (74-106) Calcium Level 9.1 mg/dL (8.7-10.4) Total Bilirubin 0.3 mg/dL (0.2-1.0) Aspartate Amino Transferase (AST) 33 U/L (13-40) Alanine Aminotransferase (ALT) 16 U/L (7-40) Alkaline Phosphatase 76 U/L (46-116) Total Protein 6.2 g/dL (5.7-8.2) Albumin 3.2 g/dL (3.2-4.8) Blood Gas Specimen Type Arterial Blood Gas Sample Site Right radial Blood Gas Patient Temperature 37.0 Arterial Blood Date Drawn [id number] Arterial Blood pH 7.438 (7.350-7.450) Arterial Blood Partial Pressure CO2 32.9 mmHg (35.0-48.0) Arterial Blood Partial Pressure O2 101.7 mmHg (83.0-108.0) Arterial Blood HCO3 21.7 mmol/L (21.0-28.0) Arterial Blood Oxygen Saturation 97.7 % (94.0-98.0) Arterial Blood Base Excess -2.1 mmol/L (-2.0-3.0) Arterial Blood Oxyhemoglobin 96.3 % (94.0-98.0) Arterial Blood Carboxyhemoglobin 0.9 % (0.5-1.5) Arterial Blood Methemoglobin 0.5 % (0.0-1.5) Adama Test Modified Blood Gas Total Hemoglobin 7.20 g/dL (13.5-17.5) Blood Gas Modality Vent - cpap FiO2 % 30.0 Blood Gas Pressure Support 8 Blood Gas PEEP or CPAP 5.0 Magnesium Level 2.0 mg/dL (1.6-2.6) Test 08/03/24 07:05 08/03/24 03:51 08/02/24 06:47 08/01/24 03:53 Blood Gas Set Respiration Rate 16.0 Blood Gas Tidal Volume 500.0 Phosphorus Level 4.0 mg/dL (2.4-5.1) Blood Gas Spontaneous Rate 16 Blood Gas Inspiratory Pressure 24.0 Bl Gas Inspiratory/Expiratory Ratio 1:2.1 Specimen Drawn By brenda rt Prothrombin Time 12.9 sec (9.3-11.8) Prothrombin Time INR 1.24 (0.9-1.15) Activated Partial Thromboplast Time 35.4 SEC (24.5-34.5) Test 07/31/24 11:30 07/30/24 18:53 07/30/24 18:51 07/30/24 17:29 Urine Color Light-yellow (Yellow) Urine Clarity Clear (Clear) Urine pH 5.5 (5.0-9.0) Urine Specific [place] 1.013 (1.001-1.035) Urine Protein Trace (Negative) Urine Ketones Negative (Negative) Urine Blood Trace /uL (Negative) Urine Nitrite Negative (Negative) Urine Bilirubin Negative (Negative) Urine Urobilinogen Normal mg/dL (Negative) Urine Leukocyte Esterase Negative /uL (Negative) Urine RBC 4 /hpf (0 - 3) Urine WBC 6 /hpf (0 - 3) Urine Squamous Epithelial Cells None seen /hpf (<5) Urine Bacteria Few /hpf (None Seen) Urine Hyaline Casts Few /lpf (0 - 2) Urine Glucose Normal mg/dL (Normal) Miscellaneous Referred Test (Rm Tmp Sent to [facility] Blood Gas Critical Value Read Back Yes Blood Gas Notified Whom Md mushtaq yeh Blood Gas Notified Time [id number] Blood Gas Notified By Court Recording Monitor chris adams Troponin I High Sensitivity 9 ng/L (</=54) Test 07/30/24 16:58 07/30/24 16:05 Urine Opiates Screen Neg (NEGATIVE) Urine Fentanyl Screen Pos (NEGATIVE) Urine Barbiturates Screen Neg (NEGATIVE) Urine Phencyclidine Screen Neg (NEGATIVE) Urine Amphetamines Screen Neg (NEGATIVE) Urine Benzodiazepines Screen Neg (NEGATIVE) Urine Cocaine Screen Neg (NEGATIVE) Urine Cannabinoids Screen Pos (NEGATIVE) Plasma/Serum Blood Alcohol < 3.0 mg/dL (<10) Other Laboratory Tests 08/06/24 03:14 Brief Hx & Hospital Course: see dictated note Condition at Discharge: Fair Final Diagnosis/Problems List resp failure Discharge Disposition: [facility] Care Facility Discharge Instruct/Medications Diet: Regular Activity: No Restrictions, As Tolerated Follow Up/Referral: fu with pcp in 1 wk Medications: per oct Discharge Statement: "Patient was advised to return to the ER or call 911 if any headaches, dizziness, shortness of breath, chest pain, abdominal pain, bleeding, fevers, or worsening of medical condition. Patient was counseled about treatment plan, medications, possible side effects, patientverbalized understanding. All questions were answered to the best of my ability. This discharge took greater then 30 minutes in planning, reviewing documentation, counseling the patient, and discussing with other team members." ASSESSMENT ASSESSMENT Assessment resp failure Date of Service: Aug 08, 2024 Billing Provider: BALTAZAR QUIÑONES MD Common Visit Codes: [id number]-GEE/OBS DISCH DAY >30min BALTAZAR QUIÑONES MD Aug 08, 2024 10:42
--- NOTE | 2024-08-08 12:01 | DVHDS ---
DATE OF DISCHARGE: 08/08/2024 HISTORY OF PRESENT ILLNESS: The patient is a 64-year-old gentleman who was recently discharged, who came in with altered level of consciousness and seizure-like episode. The patient was intubated for airway protection. The patient has a history of COPD, seizure disorder, schizophrenia, diabetes, chronic kidney disease. HOSPITAL COURSE: The patient was intubated and mechanically ventilated. Chest x-ray showed no acute pathology. Sputum cultures grew rare filamentous fungus that is currently pending. The patient had a CT of the head that showed no acute abnormality. The patient had elevated white count that improved to normal at the time of discharge. The patient is now being transferred to rehab for helping with muscle strengthening and for ADLs. FINAL DIAGNOSES: Therefore; * Acute respiratory failure. * Metabolic encephalopathy, questionable postictal. * History of old cerebrovascular accident. * Seizure disorder. * Chronic obstructive pulmonary disease. * History of hepatitis C. * Diabetes mellitus. * Bipolar/schizophrenia. * Sepsis with questionable pneumonia, questionable due to fungus. * Anemia. Time spent in discharge planning and review of plan with the patient, criminal justice social worker and nursing was 39 minutes. MD PANCHO March/RUDY/DIONICIO TID: [id number] RECEIPT: [id number]
[2024-08-08 18:49] LABS: Alanine Aminotransferase 16 U/L (7-40); Albumin 3.3 g/dL (3.2-4.8); Alkaline Phosphatase 74 U/L (46-116); Anion Gap 7 (5-15); Aspartate Aminotransferase 21 U/L (13-40); BUN/Creatinine Ratio 12.1 (10.0-20.0); Blood Urea Nitrogen 11 mg/dL (9-23); Carbon Dioxide 23 mmol/L (20-31); Chloride 101 mmol/L (98-107); Potassium 4.7 mmol/L (3.5-5.1); Total Protein 6.5 g/dL (5.7-8.2)
[2024-08-08 18:51] LABS: Bilirubin, Total 0.2 mg/dL (0.2-1.0); Glucose 184 mg/dL (74-106); Sodium 131 mmol/L (136-145)
[2024-08-08 22:57] LABS: Eosinophils # (auto) 0.4 10 ^3/uL (0-0.8); Lymphocytes # (auto) 2.1 10 ^3/uL (0.4-5.4); Monocytes # (auto) 0.9 10 ^3/uL (0-1.3)
[2024-08-08 22:58] LABS: Basophils # (auto) 0.1 10 ^3/uL (0-0.2); Basophils % (auto) 0.9 % (0.0-2.0); Eosinophils % (auto) 4.1 % (0.0-7.0); Mean Corpuscular Hemoglobin 26.4 pg (28.0-32.0); Mean Corpuscular Hgb Conc. 32.2 g/dL (32.0-36.0); Mean Corpuscular Volume 81.9 fL (80.0-100.0); Monocytes % (auto) 9.8 % (0.0-12.0); Neutrophils % (auto) 63.2 % (37.0-80.0); Platelet Count (auto) 679 10^3/uL (140-450); Red Blood Cells 3.41 10^6/uL (4.5-5.90); Red Cell Distribution Width 15.7 % (11.8-14.3); White Blood Cell 9.6 10^3/uL (4.4-10.8)
[2024-08-09] VITALS (8 sets, daily range): BP systolic 115–144; BP diastolic 58–73; PULSE 66–82; RESP 16–18; TEMP 97.9–100.5; O2SAT 95–99
--- NOTE | 2024-08-09 11:06 | DVHPN2 ---
Progress Note Date Seen: Aug 09, 2024 Medical Necessity Reason Pt with a Central, PICC or Fol: Yes The following are medically ne: Nelson Catheter Reason for nelson catheter: Strict I&O Subjective Patient reports: No new complaints Review of Systems: HEENT:Normal, CVS:Normal, RESPIRATORY:Normal, GI:Normal, :Normal, MSK:Normal, NEURO:Normal Objective vital signs Vital Sign Date Time Temp Pulse Resp B/P (MAP) Pulse Ox O2 Delivery O2 Flow Rate FiO2 08/09/24 09:54 99 Room Air* 0 21 21 08/09/24 09:00 97.9 68 18 144/70 (94) 97.9 Total Intake and Output 08/08/24 08/08/24 08/09/24 15:00 23:00 07:00 Intake Total 150 ml 700 ml 400 ml Balance 150 ml 700 ml 400 ml medications Current Medications Medications Dose Ordered Sig/Kandi Route Start Time Stop Time Status Last Admin Dose Admin Albuterol 2.5 mg Q6HPRN PRN NEB 07/30/24 19:45 Cancel Diagnostic Test (Pha) 1 strip Q6HR 07/31/24 00:00 08/09/24 06:00 1 STRIP Insulin Human Regular Q6HR SC 07/31/24 00:00 08/09/24 00:00 4 UNITS Dextrose 50 ml UD PRN IV 07/30/24 19:45 08/02/24 05:03 50 ML Enoxaparin Sodium 40 mg DAILY SC 07/31/24 10:00 08/09/24 09:53 40 MG Acetaminophen 650 mg Q6HP PRN PO 07/30/24 19:45 08/06/24 22:55 650 MG Nitroglycerin 0.4 mg Q5MINP PRN SL 07/30/24 19:45 Lorazepam 1 mg Q5MINP PRN IV 07/31/24 14:45 Aspirin 81 mg DAILY PO 08/01/24 10:00 08/09/24 09:53 81 MG Micafungin Sodium 100 mg/Sodium Chloride 100 ml @ 100 mls/hr DAILY IV 08/04/24 10:00 08/08/24 12:00 100 MLS/HR Levofloxacin/ Dextrose 100 ml @ 100 mls/hr DAILY IV 08/04/24 10:00 UNV Hydralazine HCl 10 mg Q6HP PRN IV 08/03/24 12:45 08/08/24 10:24 10 MG Lorazepam 0.5 mg Q6HP PRN IV 08/04/24 14:15 08/04/24 15:16 0.5 MG Levetiracetam 500 mg BID PO 08/07/24 22:00 08/09/24 09:53 500 MG Pantoprazole Sodium 40 mg DAILY@0600 PO 08/08/24 06:00 08/09/24 06:00 40 MG Thiamine HCl 100 mg DAILY PO 08/08/24 10:00 08/09/24 09:53 100 MG Ceftriaxone Sodium 50 ml @ 100 mls/hr DAILY@09 IV 08/08/24 09:00 08/09/24 09:52 100 MLS/HR Examination: GENERAL:Normal, HEENT:Normal, NECK:Normal, LUNGS:Normal, CVS:Normal, ABDOMEN:Normal, MSK:Normal, SKIN:Normal, NEURO:Normal, :Normal laboratory and microbiology Laboratory Tests 08/08/24 22:35 08/08/24 18:24 Test 08/08/24 18:24 Range/Units Serum Glucose 184 H 74-106 mg/dL Microbiology Date/Time Source Procedure Growth Status 08/01/24 23:50 Nose MRSA Screen - Final Complete 07/30/24 16:57 Sputum Expectorated Sputum Gram Stain - Final Resulted 07/30/24 16:57 Sputum Expectorated Sputum Respiratory Culture - Preliminary Resulted Problem List/Assessment/Plan Problem List/Assessment/Plan #1 Acute respiratory failure: cont acv, cpap trial - extubated #2 Metabolic encephalopathy, toxic metabolic. #3 History of old cerebrovascular accident. #4 Seizure disorder: iv keppra, neuro eval #5 Chronic obstructive pulmonary disease #6 Hepatitis C infection. #7 Type 2 diabetes: ssi #8 Likely bipolar/schizophrenic disorder. #9 sepsis with pneumonia- fungi: iv micafungin, iv rocephin #10 anemia advance care planning- ful code- time spent 19mins Plan discussed with: Patient My Orders My Orders Orders - BALTAZAR QUIÑONES MD Procedure Category Date Status Time Basic Metabolic Panel LAB 08/10/24 Verified 06:00 Dietary Evaluation Review Comments: 1. TF Glucerna@30ml/hr provides 43g pro, 864 kcal. supports 71% pt pat's pro needs, 86% of pt' kcal needs. 2. when pt is off vent and passes speech eval, advance to [facility]-60 2GNa cardiac with low fat low cholesterol restriction if pt's lipid pannel is elevated. Expected Outcomes/Goals: gradual weight gain. Date of Service: Aug 09, 2024 Billing Provider: BALTAZAR QUIÑONES MD Common Visit Codes: [id number] INP/OBS CARE(HIGH) BALTAZAR QUIÑONES MD Aug 09, 2024 11:06
[2024-08-10 01:00] VITALS: BP 138/70; PULSE 92; RESP 17; TEMP 98.3; O2SAT 99
[2024-08-10 05:00] VITALS: BP 136/76; PULSE 81; RESP 16; TEMP 98; O2SAT 100
[2024-08-10 07:36] LABS: Chloride 102 mmol/L (98-107); Potassium 4.6 mmol/L (3.5-5.1)
[2024-08-10 07:37] LABS: Anion Gap 7 (5-15); Calcium 9.9 mg/dL (8.7-10.4); Carbon Dioxide 22 mmol/L (20-31)
[2024-08-10 07:40] LABS: Sodium 131 mmol/L (136-145)
[2024-08-10 07:42] LABS: BUN/Creatinine Ratio 11.6 (10.0-20.0); Glucose 74 mg/dL (74-106)
[2024-08-10 07:50] LABS: Blood Urea Nitrogen 8 mg/dL (9-23)
[2024-08-10 09:00] VITALS: BP 154/65; PULSE 81; RESP 20; TEMP 98.1; O2SAT 97
--- NOTE | 2024-08-10 11:48 | DVHPN2 ---
Progress Note Date Seen: Aug 10, 2024 Medical Necessity Reason Pt with a Central, PICC or Fol: Yes The following are medically ne: Nelson Catheter Reason for nelson catheter: Strict I&O Subjective Patient reports: No new complaints Review of Systems: HEENT:Normal, CVS:Normal, RESPIRATORY:Normal, GI:Normal, :Normal, MSK:Normal, NEURO:Normal Objective vital signs Vital Sign Date Time Temp Pulse Resp B/P (MAP) Pulse Ox O2 Delivery O2 Flow Rate FiO2 08/10/24 08:20 Room Air* 0 21 08/10/24 05:00 98.0 81 16 136/76 (96) 100 98.0 Total Intake and Output 08/09/24 08/09/24 08/10/24 15:00 23:00 07:00 Intake Total 750 ml 234 ml Output Total 2 ml Balance 750 ml 232 ml medications Current Medications Medications Dose Ordered Sig/Kandi Route Start Time Stop Time Status Last Admin Dose Admin Albuterol 2.5 mg Q6HPRN PRN NEB 07/30/24 19:45 Cancel Diagnostic Test (Pha) 1 strip Q6HR 07/31/24 00:00 08/10/24 06:00 1 STRIP Insulin Human Regular Q6HR SC 07/31/24 00:00 08/10/24 00:00 3 UNITS Dextrose 50 ml UD PRN IV 07/30/24 19:45 08/02/24 05:03 50 ML Enoxaparin Sodium 40 mg DAILY SC 07/31/24 10:00 08/09/24 09:53 40 MG Acetaminophen 650 mg Q6HP PRN PO 07/30/24 19:45 08/09/24 22:00 650 MG Nitroglycerin 0.4 mg Q5MINP PRN SL 07/30/24 19:45 Lorazepam 1 mg Q5MINP PRN IV 07/31/24 14:45 Aspirin 81 mg DAILY PO 08/01/24 10:00 08/09/24 09:53 81 MG Micafungin Sodium 100 mg/Sodium Chloride 100 ml @ 100 mls/hr DAILY IV 08/04/24 10:00 08/09/24 10:00 100 MLS/HR Levofloxacin/ Dextrose 100 ml @ 100 mls/hr DAILY IV 08/04/24 10:00 UNV Hydralazine HCl 10 mg Q6HP PRN IV 08/03/24 12:45 08/09/24 22:00 10 MG Lorazepam 0.5 mg Q6HP PRN IV 08/04/24 14:15 08/09/24 22:00 0.5 MG Levetiracetam 500 mg BID PO 08/07/24 22:00 08/09/24 21:59 500 MG Pantoprazole Sodium 40 mg DAILY@0600 PO 08/08/24 06:00 08/10/24 06:00 40 MG Thiamine HCl 100 mg DAILY PO 08/08/24 10:00 08/09/24 09:53 100 MG Ceftriaxone Sodium 50 ml @ 100 mls/hr DAILY@09 IV 08/08/24 09:00 08/10/24 08:39 100 MLS/HR Examination: GENERAL:Normal, HEENT:Normal, NECK:Normal, LUNGS:Normal, CVS:Normal, ABDOMEN:Normal, MSK:Normal, SKIN:Normal, NEURO:Normal, :Normal laboratory and microbiology Laboratory Tests 08/10/24 06:32 08/08/24 22:35 Test 08/10/24 06:32 Range/Units Serum Glucose 74 # 74-106 mg/dL Microbiology Date/Time Source Procedure Growth Status 08/01/24 23:50 Nose MRSA Screen - Final Complete 07/30/24 16:57 Sputum Expectorated Sputum Gram Stain - Final Resulted 07/30/24 16:57 Sputum Expectorated Sputum Respiratory Culture - Preliminary Resulted Problem List/Assessment/Plan Problem List/Assessment/Plan #1 Acute respiratory failure: cont acv, cpap trial - extubated #2 Metabolic encephalopathy, toxic metabolic. #3 History of old cerebrovascular accident. #4 Seizure disorder: iv keppra, neuro eval #5 Chronic obstructive pulmonary disease #6 Hepatitis C infection. #7 Type 2 diabetes: ssi #8 Likely bipolar/schizophrenic disorder. #9 sepsis with pneumonia- fungi: iv micafungin, iv rocephin #10 anemia await snf placement advance care planning- [facility] code- time spent 19mins Plan discussed with: Patient Dietary Evaluation Review Comments: 1. TF Glucerna@30ml/hr provides 43g pro, 864 kcal. supports 71% pt pat's pro needs, 86% of pt' kcal needs. 2. when pt is off vent and passes speech eval, advance to [facility]-60 2GNa cardiac with low fat low cholesterol restriction if pt's lipid pannel is elevated. Expected Outcomes/Goals: gradual weight gain. Date of Service: Aug 10, 2024 Billing Provider: BALTAZAR QUIÑONES MD Common Visit Codes: [id number] INP/OBS CARE(HIGH) BALTAZAR QUIÑONES MD Aug 10, 2024 11:48
[2024-08-10 13:00] VITALS: BP 143/74; PULSE 78; RESP 20; TEMP 98.2; O2SAT 96
[2024-08-10 17:00] VITALS: BP 160/76; PULSE 79; RESP 20; TEMP 98.3; O2SAT 96
[2024-08-10 21:00] VITALS: BP 145/67; PULSE 93; RESP 20; TEMP 99.5; O2SAT 95
[2024-08-11 01:00] VITALS: BP 142/89; PULSE 87; RESP 18; TEMP 99.5; O2SAT 98
[2024-08-11 05:00] VITALS: BP 159/67; PULSE 69; RESP 18; TEMP 98.1; O2SAT 100
[2024-08-11 08:32] VITALS: BP 138/69; PULSE 61; RESP 16; TEMP 97.7; O2SAT 100
[2024-08-11 10:54] VITALS: BP 138/69; PULSE 61; RESP 16; TEMP 97.7; O2SAT 100
--- NOTE | 2024-08-11 11:11 | DVHPN2 ---
Subjective Ready to go to SNF with no complaints Reviewed: Care Plan, H&P, Labs, Medications, Previous Orders, Radiology, Other (Consultations) Changes from previous H/P or p: No Changes Objective Vitals Vital Signs Date Time Temp Pulse Resp B/P (MAP) Pulse Ox O2 Delivery O2 Flow Rate FiO2 08/11/24 08:32 97.7 61 16 138/69 (92) 100 97.7 08/10/24 20:00 Room Air* 0 21 Intake/Output Intake and Output 08/11/24 07:00 Intake Total 1400 ml Output Total 1000 ml Balance 400 ml Intake Oral 1250 ml IV Total 150 ml Output Urine Total 1000 ml # Bowel Movements 5 General Appearance: Alert, Oriented X3, Cooperative, No acute distress HEENT: Atraumatic, PERRLA Lungs: Clear to auscultation, Normal air movement Cardiovascular: Regular rate, Normal S1, Normal S2 Abdomen: Normal bowel sounds, Soft, No tenderness, No hepatospenomegaly Genitourinary: Other (Farnsworth's catheter) Neuro: Normal speech, Cranial nerves 3-12 NL Skin: Wounds (Sacral wound) Psych/Mental Status: Mental status NL, Mood NL Medications Current Medications Medications Dose Ordered Sig/Kandi Route Start Time Stop Time Status Last Admin Dose Admin Albuterol 2.5 mg Q6HPRN PRN NEB 07/30/24 19:45 Cancel Diagnostic Test (Pha) 1 strip Q6HR 07/31/24 00:00 08/11/24 05:45 1 STRIP Insulin Human Regular Q6HR SC 07/31/24 00:00 08/11/24 05:43 3 UNITS Dextrose 50 ml UD PRN IV 07/30/24 19:45 08/02/24 05:03 50 ML Enoxaparin Sodium 40 mg DAILY SC 07/31/24 10:00 08/11/24 09:55 40 MG Acetaminophen 650 mg Q6HP PRN PO 07/30/24 19:45 08/09/24 22:00 650 MG Nitroglycerin 0.4 mg Q5MINP PRN SL 07/30/24 19:45 Lorazepam 1 mg Q5MINP PRN IV 07/31/24 14:45 Aspirin 81 mg DAILY PO 08/01/24 10:00 08/11/24 09:54 81 MG Micafungin Sodium 100 mg/Sodium Chloride 100 ml @ 100 mls/hr DAILY IV 08/04/24 10:00 08/11/24 09:55 100 MLS/HR Levofloxacin/ Dextrose 100 ml @ 100 mls/hr DAILY IV 08/04/24 10:00 UNV Hydralazine HCl 10 mg Q6HP PRN IV 08/03/24 12:45 08/11/24 05:38 10 MG Lorazepam 0.5 mg Q6HP PRN IV 08/04/24 14:15 08/09/24 22:00 0.5 MG Levetiracetam 500 mg BID PO 08/07/24 22:00 08/11/24 09:54 500 MG Pantoprazole Sodium 40 mg DAILY@0600 PO 08/08/24 06:00 08/11/24 05:37 40 MG Thiamine HCl 100 mg DAILY PO 08/08/24 10:00 08/11/24 09:54 100 MG Laboratory Results Laboratory Tests 08/08/24 22:35 08/10/24 06:32 Urinalysis Test 07/31/24 11:30 Urine Color Light-yellow (Yellow) Urine Clarity Clear (Clear) Urine pH 5.5 (5.0-9.0) Urine Specific [place] 1.013 (1.001-1.035) Urine Protein Trace (Negative) H Urine Ketones Negative (Negative) Urine Blood Trace /uL (Negative) H Urine Nitrite Negative (Negative) Urine Bilirubin Negative (Negative) Urine Urobilinogen Normal mg/dL (Negative) Urine Leukocyte Esterase Negative /uL (Negative) Urine RBC 4 /hpf (0 - 3) Urine WBC 6 /hpf (0 - 3) Urine Squamous Epithelial Cells None seen /hpf (<5) Urine Bacteria Few /hpf (None Seen) H Urine Hyaline Casts Few /lpf (0 - 2) Urine Glucose Normal mg/dL (Normal) Microbiology Microbiology Date/Time Source Procedure Growth Status 08/01/24 23:50 Nose MRSA Screen - Final Complete 07/30/24 16:57 Sputum Expectorated Sputum Gram Stain - Final Resulted 07/30/24 16:57 Sputum Expectorated Sputum Respiratory Culture - Preliminary Resulted Labs and/or images reviewed: Labs reviewed by me, Image(s) reviewed by me Assessment/Plan Assessment/Plan Covering Dr. Melara: #Acute respiratory failure; resolved; on room air #Metabolic encephalopathy, questionable postictal; resolved #History of old cerebrovascular accident; no neurological deficits #Seizure disorder; no seizures during hospitalization; continue current medical management at SNF #Chronic obstructive pulmonary disease; not in exacerbation #History of hepatitis C; no active issues #Diabetes mellitus; continue current medical management at SNF #Bipolar/schizophrenia; stable with no suicide ideation/plan; continue current medical management at SNF #Sepsis with questionable pneumonia, questionable due to fungus; resolved after treatment #Anemia; most likely inflammatory; stable hemoglobin #Urinary retention; discharged with Farnsworth's catheter #Sacral wound; wound care as needed at SNF Goals of care discussed with the patient for 20 minutes; full code. Discharge summary documented on August 08, 2024. Discharged to SNF; details documented in [employer] note earlier this morning. Late Entry. This medical document was created using an electronic medical record system with computerized dictation system. Although this document has been carefully reviewed, there might still be some phonetic and typographical errors. These areas are purely typographical due to imperfections of the software programs, and do not reflect any compromise in the patient's medical care. Plan discussed with: Patient, Other (Nurse) Date of Service: Aug 11, 2024 Billing Provider: TYLER CARROLL MD Common Visit Codes: 03621-WLG/OBS DISCH DAY >30min Secondary Visit Codes: [id number] CARE PLAN 30 MINUTES (20 minutes) TYLER CARROLL MD Aug 11, 2024 11:11
== END 2024-08-11 12:40 | DRG 720 ==
LOC: EDBD 15:37 → ER 15:37 → OVERFLOW 19:38 → TELE 19:44 → ICU WEST 08-01 23:49 → TELE-CENTR 08-06 22:43 → CENTRAL 08-09 12:58
PROVIDERS: ADMIT Nurse Practitioner; ATTEND Internal Medicine
PROC: 5A1955Z Respiratory Ventilation, Greater than 96 Consecutive Hours (ICD-10-PCS; principal; 2024-07-30)
PROC: 0BH17EZ Insertion of Endotracheal Airway into Trachea, Via Natural or Artificial Opening (ICD-10-PCS; 2024-07-30)
PROC: 06HY33Z Insertion of Infusion Device into Lower Vein, Percutaneous Approach (ICD-10-PCS; 2024-07-30)
DX: A41.9 Sepsis, unspecified organism (principal); J96.01 Acute respiratory failure with hypoxia; J18.9 Pneumonia, unspecified organism; E87.20 Acidosis, unspecified; G93.1 Anoxic brain damage, not elsewhere classified; E11.649 Type 2 diabetes mellitus with hypoglycemia without coma; I13.0 Hypertensive heart and chronic kidney disease with heart failure and stage 1 through stage 4 chronic kidney disease, or unspecified chronic kidney disease; G40.901 Epilepsy, unspecified, not intractable, with status epilepticus; I50.9 Heart failure, unspecified; E11.22 Type 2 diabetes mellitus with diabetic chronic kidney disease; Z66 Do not resuscitate; D64.9 Anemia, unspecified; F17.210 Nicotine dependence, cigarettes, uncomplicated; F20.9 Schizophrenia, unspecified; G40.909 Epilepsy, unspecified, not intractable, without status epilepticus; B19.20 Unspecified viral hepatitis C without hepatic coma; F31.9 Bipolar disorder, unspecified; J44.1 Chronic obstructive pulmonary disease with (acute) exacerbation; N18.30 Chronic kidney disease, stage 3 unspecified; F19.90 Other psychoactive substance use, unspecified, uncomplicated; Z86.73 Personal history of transient ischemic attack (TIA), and cerebral infarction without residual deficits; Z79.899 Other long term (current) drug therapy; Z83.3 Family history of diabetes mellitus; Z79.82 Long term (current) use of aspirin; Z79.84 Long term (current) use of oral hypoglycemic drugs
CPT/HCPCS: 31500; 36415; 36600; 70450; 71045; 80048; 80053; 80307; 80320; 81001; 82805; 82962; 83735; 84100; 84484; 85025; 85610; 85730; 87070; 87077; 87081; 87205; 92507; 92610; 94003; 94640; 97110; 97116; 97163; 97530; 99291; G0378; J1815; J1956; J2248; J2470; J7060